=== PATIENT | female | born 1995 | race Caucasian/White ===

== ENCOUNTER 2018-05-02 15:26 | Emergency (ER) | payer OTHER, SELFPAY ==
[2018-05-02 15:34] VITALS: BP 113/84; PULSE 98; RESP 20; TEMP 36.8; O2SAT 98; BMI 26.2
--- NOTE | 2018-05-02 16:49 | ED.GENADULT ---
HPI - General Adult <LUIS Buenrostro - Last Filed: 05/02/18 19:17> General Chief complaint: Environmental Exposure Stated complaint: INAHLED TOXINS, VOMITING Time Seen by Provider: 05/02/18 16:25 Source: patient Mode of arrival: ambulatory Limitations: no limitations History of Present Illness HPI narrative: Patient is a 23-year-old female who presents complaining of left shoulder pain as well as an exposure to radiator coolant. she states she was working on her car when a hose got loose and sprayed her in the face. She states she did not swallow any, but she worried she inhaled some and got some in her eyes. She states she fell over, which caused left shoulder pain as well as decreased range of motion. She denies any numbness or tingling. She states she flushed her face and vomited immediately. She states she called poison control. Upon the patient's arrival, poison Control was called and states that with her exposure, symptom care for any nausea or burning would be adequate at this point time. Poison Control states they did not receive a call from the patient. Related Data Allergies Allergy/AdvReac Type Severity Reaction Status Date / Time doxycycline [DOXYCYCLINE] Allergy Unknown Unverified 10/11/17 12:27 hydrocodone [HYDROCODONE] Allergy Unknown Unverified 10/11/17 12:27 Penicillins [PENICILLINS] Allergy Unknown Unverified 10/11/17 12:27 Review of Systems <LUIS Buenrostro - Last Filed: 05/02/18 19:17> Review of Systems GENERAL: Denies chills, fatigue, malaise, fever, sweats. HEENT: see HPI RESPIRATORY: Denies dyspnea, cough, wheezing, hemoptysis, sputum. CARDIOVASCULAR: Denies chest pain, palpitations, orthopnea, edema, GASTROINTESTINAL: Denies nausea, vomiting, abdominal pain, diarrhea, constipation, melena. : Denies dysuria, frequency, incontinence, hematuria, urinary retention. MUSCULOSKELETAL: See HPI SKIN: see HPI NEUROLOGIC: Denies weakness, headache, numbness, change in speech, confusion, seizures, incoordination. PSYCHIATRIC: No concerning psychosocial issues. 12 point review of systems is negative except for those stated above Exam <LIUS Buenrostro - Last Filed: 05/02/18 19:17> Narrative Exam Narrative: GENERAL: This is a well-nourished, well-developed patient, In no acute distress HEAD: Atraumatic. Normocephalic. No temporal or scalp tenderness. EYES: Pupils equal round and reactive. Extraocular motions intact. No scleral icterus. No injection or drainage. no nystagmus. ENT: Nose without bleeding, purulent drainage or septal hematoma. Throat without erythema, tonsillar hypertrophy or exudate. Uvula midline. Airway patent. NECK: Trachea midline. No JVD or lymphadenopathy. Supple, nontender, no meningeal signs. CARDIOVASCULAR: Regular rate and rhythm without murmurs, gallops, or rubs. RESPIRATORY: Clear to auscultation. Breath sounds equal bilaterally. No wheezes, rales, or rhonchi. GASTROINTESTINAL: Abdomen soft, non-tender, nondistended. No hepato-splenomegaly, or palpable masses. No guarding. EXTREMITIES: generalized pain to palpation left shoulder. Patient has positive radial pulse left shoulder. Patient is able to flex, extend pronate supinate shoulder with negative empty can test. BACK: Nontender without deformity or crepitance. No flank tenderness. NEURO: AOx3. SKIN: No rash or erythema. No erythema, ecchymosis or evidence of burn on face. Initial Vital Signs Initial Vital Signs: Vital Signs Temperature 98.2 F 05/02/18 15:34 Pulse Rate 98 H 05/02/18 15:34 Respiratory Rate 20 05/02/18 15:34 Blood Pressure 113/84 05/02/18 15:34 Pulse Oximetry 98 05/02/18 15:34 <Claudy Oro MD - Last Filed: 05/02/18 19:18> Initial Vital Signs Initial Vital Signs: Vital Signs Temperature 98.2 F 05/02/18 15:34 Pulse Rate 98 H 05/02/18 15:34 Respiratory Rate 20 05/02/18 15:34 Blood Pressure 113/84 05/02/18 15:34 Pulse Oximetry 98 05/02/18 15:34 Course <BARRINGTON Buenrostro-WILIAM - Last Filed: 05/02/18 19:17> Orders Ordered: ED Orders 05/02/18 16:49 XR shoulder LT min 2V Stat Vital Signs - 8 hr 05/02/18 15:34 05/02/18 18:11 Temperature 98.2 F Pulse Rate 98 H 87 Respiratory Rate 20 14 Blood Pressure 113/84 Pulse Oximetry 98 98 <Claudy Oro MD - Last Filed: 05/02/18 19:18> Orders Ordered: ED Orders 05/02/18 16:49 XR shoulder LT min 2V Stat Vital Signs - 8 hr 05/02/18 15:34 05/02/18 18:11 Temperature 98.2 F Pulse Rate 98 H 87 Respiratory Rate 20 14 Blood Pressure 113/84 Pulse Oximetry 98 98 Medical Decision Making <RADHA Buenrostro - Last Filed: 05/02/18 19:17> Imaging Data shoulder xray : Radiologist's impression: [address] [address] XRay Report Signed Patient: Sandee Hitchcock [facility]#: [id number] : 1995Acct:[id number] Age/Sex: 23 / FDate of Service: 05/02/18 Loc: ED Accession Number: [id number] Procedure: XR shoulder LT min 2V Ordering Provider: Perri Hagan PROCEDURE: XR SHOULDER LT MIN 2V INDICATIONS: left shoulder pain post fall earlier today TECHNIQUE: 3 views of the shoulder were acquired. COMPARISON: None. FINDINGS: Bones: No fractures or dislocations. No suspicious bony lesions. Visualized ribs appear intact. Soft tissues: No suspicious soft tissue calcifications. IMPRESSION: No fracture. No osseous lesion. If symptoms and/or clinical suspicion for pathology persists, further assessment with repeat radiographs (7-10 days) or advanced imaging (e.g. CT, MRI or bone scan) may be helpful. Dictated by: Cyndee Barron MD, PhD on 05/02/2018 at 16:22 Approved by: Cyndee Barron MD, PhD on 05/02/2018 at 16:23 [facility] Narrative Medical decision making narrative: Patient presents with chief complaint of radiator coolant exposure. We spoke extensively with poison Control several times, who states the patient does not need further evaluation or additional workup at this point time. They stated that if they had spoken with her, they would not have sent her to the emergency department. Patient's left shoulder x-ray came back with no acute fracture. We discussed follow up with primary care provider if continued pain despite conservative measures of rest, ice obns-cde-[id number] pain medications as needed and able. Patient remained hemodynamically stable and alert and oriented throughout her stay in the emergency department. No questions or concerns upon discharge. Discharge Plan Departure Patient Disposition: Home Clinical Impression: Acute pain of left shoulder, Chemical exposure Discharge Date/Time: 05/02/18 18:11 Interventions: ED Discharge Assessment Last Done: 05/02/18 18:11 Activity Restrictions/Additional Instructions: Your shoulder x-ray came back negative. Please follow-up with primary care provider for worsening or no improvement of her shoulder pain. We spoke with poison Control several times about your exposure to radiator coolant. If you have any questions or concerns about her exposure, feel free to call poison Control at . they state that all care at this point is symptomatic. Please feel free to come back to the emergency department for any acute concerns or follow up with primary care provider. <Claudy Oro MD - Last Filed: 05/02/18 19:18> Cosign ED Attending Remingtonature Attestation: I was present in the ER at the time this patient's care. I was available for verbal consultation or to see the patient directly if requested. I agree with the assessment and treatment plan.
--- NOTE | 2018-05-02 16:51 | PC.NURSE ---
Addendum entered by Brett Anaya R.N. 05/02/18 18:10: poison control contacted, recommend no intervention or diag, rec treatment of sx Original Note: pt reports steam from split radiator hose struck her in the face when she opened the smith of her car. She states steam got in her eyes and mouth, vomited x2 after exposure. Also reports face feels itchy, no redness or visible sign of injury to face, speaking in full sentences no apparent distress. She states she flushed her eyes with water for approx 10 min following the incident, denies eye irritation/visual changes at time of exam.
--- NOTE | 2018-05-02 17:00 | ED_ITS ---
HPI - General Adult <LUIS Buenrostro - Last Filed: 05/02/18 19:17> General Chief complaint: Environmental Exposure Stated complaint: INAHLED TOXINS, VOMITING Time Seen by Provider: 05/02/18 16:25 Source: patient Mode of arrival: ambulatory Limitations: no limitations History of Present Illness HPI narrative: Patient is a 23-year-old female who presents complaining of left shoulder pain as well as an exposure to radiator coolant. she states she was working on her car when a hose got loose and sprayed her in the face. She states she did not swallow any, but she worried she inhaled some and got some in her eyes. She states she fell over, which caused left shoulder pain as well as decreased range of motion. She denies any numbness or tingling. She states she flushed her face and vomited immediately. She states she called poison control. Upon the patient's arrival, poison Control was called and states that with her exposure, symptom care for any nausea or burning would be adequate at this point time. Poison Control states they did not receive a call from the patient. Related Data Allergies Allergy/AdvReac Type Severity Reaction Status Date / Time doxycycline [DOXYCYCLINE] Allergy Unknown Unverified 10/11/17 12:27 hydrocodone [HYDROCODONE] Allergy Unknown Unverified 10/11/17 12:27 Penicillins [PENICILLINS] Allergy Unknown Unverified 10/11/17 12:27 Review of Systems <LUIS Buenrostro - Last Filed: 05/02/18 19:17> Review of Systems GENERAL: Denies chills, fatigue, malaise, fever, sweats. HEENT: see HPI RESPIRATORY: Denies dyspnea, cough, wheezing, hemoptysis, sputum. CARDIOVASCULAR: Denies chest pain, palpitations, orthopnea, edema, GASTROINTESTINAL: Denies nausea, vomiting, abdominal pain, diarrhea, constipation, melena. : Denies dysuria, frequency, incontinence, hematuria, urinary retention. MUSCULOSKELETAL: See HPI SKIN: see HPI NEUROLOGIC: Denies weakness, headache, numbness, change in speech, confusion, seizures, incoordination. PSYCHIATRIC: No concerning psychosocial issues. 12 point review of systems is negative except for those stated above Exam <LUIS Buenrostro - Last Filed: 05/02/18 19:17> Narrative Exam Narrative: GENERAL: This is a well-nourished, well-developed patient, In no acute distress HEAD: Atraumatic. Normocephalic. No temporal or scalp tenderness. EYES: Pupils equal round and reactive. Extraocular motions intact. No scleral icterus. No injection or drainage. no nystagmus. ENT: Nose without bleeding, purulent drainage or septal hematoma. Throat without erythema, tonsillar hypertrophy or exudate. Uvula midline. Airway patent. NECK: Trachea midline. No JVD or lymphadenopathy. Supple, nontender, no meningeal signs. CARDIOVASCULAR: Regular rate and rhythm without murmurs, gallops, or rubs. RESPIRATORY: Clear to auscultation. Breath sounds equal bilaterally. No wheezes , rales, or rhonchi. GASTROINTESTINAL: Abdomen soft, non-tender, nondistended. No hepato-splenomegaly , or palpable masses. No guarding. EXTREMITIES: generalized pain to palpation left shoulder. Patient has positive radial pulse left shoulder. Patient is able to flex, extend pronate supinate shoulder with negative empty can test. BACK: Nontender without deformity or crepitance. No flank tenderness. NEURO: AOx3. SKIN: No rash or erythema. No erythema, ecchymosis or evidence of burn on face. Initial Vital Signs Initial Vital Signs: Vital Signs Temperature 98.2 F 05/02/18 15:34 Pulse Rate 98 H 05/02/18 15:34 Respiratory Rate 20 05/02/18 15:34 Blood Pressure 113/84 05/02/18 15:34 Pulse Oximetry 98 05/02/18 15:34 <Claudy Oro MD - Last Filed: 05/02/18 19:18> Initial Vital Signs Initial Vital Signs: Vital Signs Temperature 98.2 F 05/02/18 15:34 Pulse Rate 98 H 05/02/18 15:34 Respiratory Rate 20 05/02/18 15:34 Blood Pressure 113/84 05/02/18 15:34 Pulse Oximetry 98 05/02/18 15:34 Course <BARRINGTON Buenrostro-WILIAM - Last Filed: 05/02/18 19:17> Orders Ordered: ED Orders 05/02/18 16:49 XR shoulder LT min 2V Stat Vital Signs - 8 hr 05/02/18 15:34 05/02/18 18:11 Temperature 98.2 F Pulse Rate 98 H 87 Respiratory Rate 20 14 Blood Pressure 113/84 Pulse Oximetry 98 98 <Claudy Oro MD - Last Filed: 05/02/18 19:18> Orders Ordered: ED Orders 05/02/18 16:49 XR shoulder LT min 2V Stat Vital Signs - 8 hr 05/02/18 15:34 05/02/18 18:11 Temperature 98.2 F Pulse Rate 98 H 87 Respiratory Rate 20 14 Blood Pressure 113/84 Pulse Oximetry 98 98 Medical Decision Making <RADHA Buenrostro - Last Filed: 05/02/18 19:17> Imaging Data shoulder xray : Radiologist's impression: [address] [address] XRay Report Signed Patient: Sandee Hitchcock [facility]#: [id number] : 1995Acct:[id number] Age/Sex: 23 / FDate of Service: 05/02/18 Loc: ED Accession Number: [id number] Procedure: XR shoulder LT min 2V Ordering Provider: Perri Hagan PROCEDURE: XR SHOULDER LT MIN 2V INDICATIONS: left shoulder pain post fall earlier today TECHNIQUE: 3 views of the shoulder were acquired. COMPARISON: None. FINDINGS: Bones: No fractures or dislocations. No suspicious bony lesions. Visualized ribs appear intact. Soft tissues: No suspicious soft tissue calcifications. IMPRESSION: No fracture. No osseous lesion. If symptoms and/or clinical suspicion for pathology persists, further assessment with repeat radiographs (7-10 days) or advanced imaging (e.g. CT, MRI or bone scan) may be helpful. Dictated by: Cyndee Barron MD, PhD on 05/02/2018 at 16:22 Approved by: Cyndee Barron MD, PhD on 05/02/2018 at 16:23 [facility] Narrative Medical decision making narrative: Patient presents with chief complaint of radiator coolant exposure. We spoke extensively with poison Control several times, who states the patient does not need further evaluation or additional workup at this point time. They stated that if they had spoken with her, they would not have sent her to the emergency department. Patient's left shoulder x- ray came back with no acute fracture. We discussed follow up with primary care provider if continued pain despite conservative measures of rest, ice over-the- counter pain medications as needed and able. Patient remained hemodynamically stable and alert and oriented throughout her stay in the emergency department. No questions or concerns upon discharge. Discharge Plan Departure Patient Disposition: Home Clinical Impression: Acute pain of left shoulder, Chemical exposure Discharge Date/Time: 05/02/18 18:11 Interventions: ED Discharge Assessment Last Done: 05/02/18 18:11 Activity Restrictions/Additional Instructions: Your shoulder x-ray came back negative. Please follow-up with primary care provider for worsening or no improvement of her shoulder pain. We spoke with poison Control several times about your exposure to radiator coolant. If you have any questions or concerns about her exposure, feel free to call poison Control at . they state that all care at this point is symptomatic. Please feel free to come back to the emergency department for any acute concerns or follow up with primary care provider. <Claudy Oro MD - Last Filed: 05/02/18 19:18> Cosign ED Attending Remingtonature Attestation: I was present in the ER at the time this patient's care. I was available for verbal consultation or to see the patient directly if requested. I agree with the assessment and treatment plan.
[2018-05-02 18:11] VITALS: PULSE 87; RESP 14; O2SAT 98
== END 2018-05-02 18:11 | disposition home or self-care (01) ==
PROVIDERS: Emergency Provider Nurse Practitioner Family
DX: M25.512 Pain in left shoulder (principal); Z77.098 Contact with and (suspected) exposure to other hazardous, chiefly nonmedicinal, chemicals
CPT/HCPCS: 73030; 99282; 99283

== ENCOUNTER 2018-10-10 19:36 | Emergency (ER) | payer SELFPAY ==
[2018-10-10 19:39] VITALS: BP 120/76; PULSE 93; RESP 20; TEMP 36.9; O2SAT 100
--- NOTE | 2018-10-10 20:53 | ED_ITS ---
HPI - Ear Problem <RADHA Buenrostro - Last Filed: 10/10/18 20:58> General Chief complaint: Ear Stated complaint: Double ear pain Time Seen by Provider: 10/10/18 20:44 Source: patient History of Present Illness HPI Narrative: The patient is a 23-year-old nonsmoker with history of eustachian tube dysfunction who presents with a chief complaint of bilateral ear pain. She states has been going on for weeks, with transient fevers, sore throat. she does complain of the occasional cough. No shortness of breath, chest pain. She has taken Tylenol once for this. She complains of nausea, but no vomiting or diarrhea. She has not called her primary care provider. She denies abdominal pain. Related Data Allergies Allergy/AdvReac Type Severity Reaction Status Date / Time doxycycline [DOXYCYCLINE] Allergy Unknown Unverified 10/11/17 12:27 hydrocodone [HYDROCODONE] Allergy Unknown Unverified 10/11/17 12:27 Penicillins [PENICILLINS] Allergy Unknown Unverified 10/11/17 12:27 shellfish derived Allergy Anaphylaxis Verified 10/10/18 19:44 Review of Systems <RADHA Buenrostro - Last Filed: 10/10/18 20:58> Review of Systems GENERAL: See HPI HEENT: See HPI RESPIRATORY: See HPI CARDIOVASCULAR: Denies chest pain, palpitations, orthopnea, edema, GASTROINTESTINAL: Denies nausea, vomiting, abdominal pain, diarrhea, constipation, melena. : Denies dysuria, frequency, incontinence, hematuria, urinary retention. MUSCULOSKELETAL: denies weakness, joint pain, or bony pain SKIN: Denies rash, skin lesions, or other NEUROLOGIC: Denies weakness, headache, numbness, change in speech, confusion, seizures, incoordination. PSYCHIATRIC: No concerning psychosocial issues. 12 point review of systems is negative except for those stated above PFSH <RADHA Buenrostro - Last Filed: 10/10/18 20:58> Social History Smoking Status: Never smoker Social History Smoking Status: Never smoker Exam <RADHA Buenrostro - Last Filed: 10/10/18 20:58> Narrative Exam Narrative: GENERAL: This is a well-nourished, well-developed patient, in no acute distress HEAD: Atraumatic. Normocephalic. No temporal or scalp tenderness. pain to palpation of all sinuses. EYES: Pupils equal round and reactive. Extraocular motions intact. No scleral icterus. No injection or drainage. ENT: Nose without bleeding, purulent drainage or septal hematoma. Throat without erythema, tonsillar hypertrophy or exudate. Uvula midline. Airway patent. bilateral TMs pearly islas. Bilateral ear canals within normal limits. Cobblestoning noted on throat exam. NECK: Trachea midline. No JVD or lymphadenopathy. Supple, nontender, no meningeal signs. CARDIOVASCULAR: Regular rate and rhythm without murmurs, gallops, or rubs. RESPIRATORY: Clear to auscultation. Breath sounds equal bilaterally. No wheezes, rales, or rhonchi. No cough. No increased respiratory effort. No accessory muscle use. GASTROINTESTINAL: Abdomen soft, non-tender, nondistended. No hepato- splenomegaly, or palpable masses. No guarding. EXTREMITIES: No clubbing, cyanosis, or edema. No joint tenderness, effusion, or edema noted. BACK: Nontender without deformity or crepitance. No flank tenderness. NEURO: AOx3. SKIN: No rash or erythema. Initial Vital Signs Initial Vital Signs: Vital Signs Temperature 98.4 F 10/10/18 19:39 Pulse Rate 93 H 10/10/18 19:39 Respiratory Rate 20 10/10/18 19:39 Blood Pressure 120/76 10/10/18 19:39 Pulse Oximetry 100 10/10/18 19:39 <Lilly Simmons DO - Last Filed: 10/11/18 06:18> Initial Vital Signs Initial Vital Signs: Vital Signs Temperature 98.4 F 10/10/18 19:39 Pulse Rate 93 H 10/10/18 19:39 Respiratory Rate 20 10/10/18 19:39 Blood Pressure 120/76 10/10/18 19:39 Pulse Oximetry 100 10/10/18 19:39 Course <BARRINGTON Buenrostro-BC - Last Filed: 10/10/18 20:58> Vital Signs - 8 hr 10/10/18 19:39 Temperature 98.4 F Pulse Rate 93 H Respiratory Rate 20 Blood Pressure 120/76 Pulse Oximetry 100 <Lilly Simmons DO - Last Filed: 10/11/18 06:18> Vital Signs - 8 hr 10/10/18 19:39 Temperature 98.4 F Pulse Rate 93 H Respiratory Rate 20 Blood Pressure 120/76 Pulse Oximetry 100 Medical Decision Making <Perri HaganBARRINGTON-BC - Last Filed: 10/10/18 20:58> MDM Narrative Medical decision making narrative: The patient is a 23-year-old female presents with ear pain on exam. She has a benign exam. I discussed at length use of nasal rinse, Flonase and cttd-fyk-tpsufss medications as needed and able for symptom control. I encouraged to follow up with primary care physician if worsening or no improvement. Discussed the fact that it takes 2 weeks to have a bacterial sinus infection. Discussed return precautions including shortness of breath, chest pain or acute concerns. Offered to test patient for strep given her sore throat and recent fever, but the patient declined. No questions or concerns upon discharge. Discharge Plan Departure Patient Disposition: Home Clinical Impression: Acute otalgia Qualifiers: Laterality: bilateral Qualified Code(s): H92.03 - Otalgia, bilateral Discharge Date/Time: 10/10/18 21:13 Interventions: ED Discharge Assessment Last Done: 10/10/18 21:11 Instructions: DI for Viral Upper Respiratory Infection -- Adult, DI for Ear Pain-Adult Activity Restrictions/Additional Instructions: You do not have any signs of an ear infection on exam. Please continue to take ufkw-noz-szlygvl medications as needed and able. I suggest use of a nasal rinse combined with a Flonase nasal spray. You can also take Sudafed or an allergy medicine to help with your congestion. Please follow up with your primary care provider for new or worsening symptoms. This turn into a sinus infection if it is not treated at this point in time. We are concerned about bacterial sinus infections after about 2 weeks of symptoms. come back to emergency department for any acute concerns such as chest pain or shortness of breath Referrals: Elizabeth Jacobson ARNP [Primary Care Provider] - <Lilly Simmons DO - Last Filed: 10/11/18 06:18> Cosign ED Attending Coslea[place]ure Attestation: I was immediately available in the department for consultation. Documentation has been reviewed. I agree with assessment and plan.
[2018-10-10 21:07] VITALS: BP 116/79; PULSE 94; RESP 16; O2SAT 97
== END 2018-10-10 21:13 | disposition home or self-care (01) ==
PROVIDERS: Emergency Provider Nurse Practitioner Family; PCP Nurse Practitioner Family
DX: H92.03 Otalgia, bilateral (principal)
CPT/HCPCS: 99282

== ENCOUNTER 2019-03-31 19:18 | Emergency (ER) | payer OTHER, SELFPAY ==
[2019-03-31 19:27] VITALS: BMI 25.6
--- NOTE | 2019-03-31 19:29 | DI.RAD.S_ITS ---
PROCEDURE: XR CHEST 1V INDICATIONS: chest pain TECHNIQUE: One view of the chest was acquired. COMPARISON: None. FINDINGS: Surgical changes and devices: None. Lungs and pleura: Lungs are clear. No pleural effusions or pneumothorax. Mediastinum: Mediastinal contours appear normal. Heart size is normal. Bones and chest wall: No suspicious bony lesions. Overlying soft tissues appear unremarkable. IMPRESSION: No acute process. Dictated by: Mehnaz Barry M.D. on 03/31/2019 at 19:51 Approved by: Mehnaz Barry M.D. on 03/31/2019 at 19:52
[2019-03-31 20:11] LABS: Add Manual Diff / Slide Review NO; Basophils Absolute Auto 0 /uL (0-100); Basophils Percent Auto 0.3 % (0-2); Eosinophils Absolute Auto 0 /uL (0-450); Eosinophils Percent Auto 0.1 % (2-4); Hematocrit 40.2 % (36-46); Lymphocytes Absolute Auto 3800 /uL (1100-4500); Lymphocytes Percent Auto 29.6 % (25-40); Mean Corpuscular HGB Conc 34.7 % (30-36); Mean Corpuscular Hemoglobin 32.6 PG (26-34); Mean Corpuscular Volume 93.8 fL (80-100); Monocytes Absolute Auto 500 /uL (0-900); Monocytes Percent Auto 4.2 % (3-14); Neutrophils Absolute Auto 8500 /uL (1500-7000); Neutrophils Percent Auto 65.8 % (50-75); Platelet Count 327 X10^3/uL (150-400); Red Blood Cell Count 4.28 X10^6/uL (4.0-5.2); Red Cell Distribution Width 12.4 % (11.6-14.8); White Blood Cell Count 12.8 X10^3/uL (4.5-11.0)
--- NOTE | 2019-03-31 20:17 | ED_ITS ---
HPI - Arrhythmia/Palpitations General Chief Complaint: Arrhythmia/Palpitations Stated Complaint: palpitations with thingling in hands in feet Time Seen by Provider: 03/31/19 19:20 Source: patient Mode of arrival: Ambulatory Limitations: no limitations History of Present Illness HPI narrative: 24-year-old female nonsmoker with history of tachycardia presents for evaluation of a rapid heart rate earlier today. She denies any chest pain. She states when it happens she gets a bit dizzy and has numbness in her fing ertips but that is currently not happening. She denies any change in her medications nor caffeine or nicotine. She does state that she very rarely consumes alcohol and drank a fair amount last night. She denies chest pain. She has had no vomiting or diarrhea. She is not dizzy or lightheaded. She had been out of her gabapentin for about 3 weeks but got her insurance back and plans to get it refilled tomorrow complaint: rapid heart beat Onset (ago): hour(s) Duration: now resolved Severity: moderate Context: occurred during rest Arrhythmia history: other Associated symptoms: nausea and paresthesias Related Data Allergies Allergy/AdvReac Type Severity Reaction Status Date / Time doxycycline [DOXYCYCLINE] Allergy Unknown Verified 03/31/19 19:27 hydrocodone [HYDROCODONE] Allergy Unknown Verified 03/31/19 19:27 Penicillins [PENICILLINS] Allergy Unknown Verified 03/31/19 19:27 shellfish derived Allergy Anaphylaxis Verified 03/31/19 19:27 Review of Systems Constitutional Constitutional: Denies chills, Denies fatigue, Denies fever(s), Denies frequent falls, Denies lethargy and Denies weakness Eyes Eyes: Denies change in vision, Denies eye discharge, Denies irritation and Denies loss of vision ENT Ears, Nose, Mouth, and Throat: Denies change in voice, Denies dizziness, Denies neck pain, Denies sore throat and Denies throat swelling Cardiovascular Cardiovascular: Denies chest pain, Reports rapid heart rate, Denies irregular heart rhythm, Denies lightheadedness, Denies palpitations, Denies dyspnea, Denies dyspnea on exertion and Denies orthopnea Respiratory Respiratory: Denies cough, Denies dyspnea, Denies dyspnea on exertion and Denies wheezing Gastrointestinal Gastrointestinal: Denies abdominal pain, Denies change in bowel habits, Denies diarrhea, Denies nausea and Denies vomiting Genitourinary Genitourinary: Denies hematuria, Denies flank pain, Denies urinary incontinence and Denies urinary urgency Musculoskeletal Musculoskeletal: Denies back pain, Denies muscle weakness, Denies neck pain, Denies numbness and Denies tingling Integumentary/Breasts Skin/Breast: Denies pruritus, Denies erythema, Denies rash and Denies wounds Neurologic Neurologic: Denies behavioral changes, Denies confusion, Denies dizziness, Denies frequent falls, Denies loss of vision, Denies numbness, Denies tingling and Denies weakness Psychiatric Psychiatric: Denies anxiety, Denies behavioral changes, Denies confusion, Denies depression, Denies homicidal ideation and Denies suicidal ideation Endocrine Endocrine: Denies fatigue, Denies flushing and Denies palpitations Hematologic/Lymphatic Hematologic/Lymphatic: Denies easy bruising Allergic/Immunologic Allergic/Immunologic: Denies urticaria, Denies throat swelling and Denies wheezing PFSH Social History Smoking Status: Never smoker Social History Smoking Status: Never smoker Exam Narrative Exam Narrative: GENERAL: [24] year old patient appears stated age. Well- nourished, well-developed patient, in mild distress. HEAD: Atraumatic. Normocephalic. EYES: Pupils equal round and reactive. Extraocular motions intact. No scleral icterus. No injection or drainage. ENT: Nose without bleeding, purulent drainage. Throat without erythema, tonsillar hypertrophy or exudate. Airway patent. NECK: Trachea midline. Non tender CARDIOVASCULAR: Regular rate and rhythm without murmurs, gallops, or rubs. RESPIRATORY: Clear to auscultation. Breath sounds equal bilaterally. No wheezes, rales, or rhonchi. GASTROINTESTINAL: Abdomen soft, non-tender, nondistended. EXTREMITIES: No edema or joint tenderness. BACK: Nontender without deformity or crepitance. No flank tenderness. NEURO: AOx3. SKIN: No rash or erythema of visible areas Initial Vital Signs Initial Vital Signs: Vital Signs Pulse Rate 103 H 03/31/19 20:34 Respiratory Rate 23 03/31/19 20:34 Blood Pressure 113/55 L 03/31/19 20:34 Pulse Oximetry 100 03/31/19 20:34 Course Orders Ordered: ED Orders 03/31/19 19:29 XR chest 1V Stat EKG-12 Lead Stat 03/31/19 19:35 Complete Blood Count AUTO DIFF Stat Comprehensive Metabolic Panel Stat Lipase Stat Partial Thromboplastin Time Stat Prothrombin Time INR Stat Troponin & CK Cardiac Panel Stat Vital Signs Vital signs: Vital Signs - 8 hr 03/31/19 20:34 Pulse Rate 103 H Respiratory Rate 23 Blood Pressure [Left Arm] 113/55 L Pulse Oximetry 100 MDM - Arrhythmia/Palpitations Lab Data Result diagrams: 03/31/19 19:35 03/31/19 19:35 Labs: Lab Results 03/31/19 03/31/19 03/31/19 Range/Units 19:35 19:35 19:35 WBC 12.8 H (4.5-11.0) X10^3/uL RBC 4.28 (4.0-5.2) X10^6/uL Hgb 14.0 (12.0-16.0) g/dL Hct 40.2 (36-46) % MCV 93.8 (80-100) fL MCH 32.6 (26-34) PG MCHC 34.7 (30-36) % RDW 12.4 (11.6-14.8) % Plt Count 327 (150-400) X10^3/uL Neut % (Auto) 65.8 (50-75) % Lymph % (Auto) 29.6 (25-40) % [place] % (Auto) 4.2 (3-14) % Eos % (Auto) 0.1 L (2-4) % Baso % (Auto) 0.3 (0-2) % Neut # (Auto) 8500 H (0593-2569) /uL Lymph # (Auto) 3800 (4882-8165) /uL [place] # (Auto) 500 (0-900) /uL Eos # (Auto) 0 (0-450) /uL Baso # (Auto) 0 (0-100) /uL PT 12.7 (10.1-12.7) SECONDS INR 1.1 (0.9-1.3) APTT 32 (26.4-36.2) SECONDS Sodium 139 (137-145) mmol/L Potassium 3.8 (3.4-5.1) mmol/L Chloride 106 (98-107) mmol/L Carbon Dioxide 24 (22-32) mmol/L BUN 12 (7-17) mg/dL Creatinine 0.60 (0.52-1.04) mg/dL Estimated GFR > 60.0 (>60) mL/min BUN/Creatinine Ratio 20.0 (6-22) Glucose 89 (70-100) mg/dL Calcium 9.4 (8.4-10.2) mg/dL Total Bilirubin 0.5 (0.2-1.3) mg/dL AST 25 (14-36) IU/L ALT 12 (9-52) IU/L Alkaline Phosphatase 61 (38-126) U/L Total Creatine Kinase 133 (30-135) U/L CK-MB (CK-2) 0.43 (<2.37) ng/mL CK-MB (CK-2) Rel Index 0.3 L (1.5-5.0) % Troponin I < 0.012 (0.01-0.034) ng/mL Total Protein 7.4 (6.3-8.2) g/dL Albumin 4.1 (3.5-5.0) g/dL Globulin 3.3 (1.7-4.1) g/dL Albumin/Globulin Ratio 1.2 (1.0-2.8) Lipase 42 (23-300) U/L ECG Data Attestation: I personally reviewed and interpreted this ECG as follows: Prior ECG tracings: available for review Interpretation: EKG is normal sinus rhythm rate [ 83] and free of any signs of ischemia or ectopy. No ST segmental elevation or depression. No T wave inversions Discharge Plan Departure Patient Disposition: Home Clinical Impression: Heart palpitations Discharge Date/Time: 03/31/19 21:01 Instructions: Arrhythmias Activity Restrictions/Additional Instructions: *You have been diagnosed with [palpitations] *What to do: * continue to take medications as directed *Follow up with your primary care provider in 2-3 days, call for an appointment. Let them know you were seen in the Emergency Department and that we ask that you be seen in follow up *Return to ER if you should have any new, worsening or concerning symptoms *Avoid significant caffeine or alcohol Referrals: Elizabeth Jacobson ARNP [Primary Care Provider] - Stand Alone Forms: Work Release Note
[2019-03-31 20:22] LABS: INR 1.1 (0.9-1.3); Prothrombin Time 12.7 SECONDS (10.1-12.7)
[2019-03-31 20:25] LABS: PTT Partial Thromboplastin Tim 32 SECONDS (26.4-36.2)
[2019-03-31 20:27] LABS: Alanine Aminotransferase 12 IU/L (9-52); Albumin 4.1 g/dL (3.5-5.0); Albumin Globulin Ratio 1.2 (1.0-2.8); Alkaline Phosphatase 61 U/L (38-126); Aspartate Aminotransferase 25 IU/L (14-36); Bilirubin Total 0.5 mg/dL (0.2-1.3); Blood Urea Nitrogen 12 mg/dL (7-17); Calcium 9.4 mg/dL (8.4-10.2); Carbon Dioxide 24 mmol/L (22-32); Chloride 106 mmol/L (98-107); Creatine Kinase 133 U/L (30-135); Estimated Glomerular Filt Rate > 60.0 mL/min (>60); Globulin 3.3 g/dL (1.7-4.1); Glucose 89 mg/dL (70-100); HEMOLYSIS 29 (0-50); Lipase 42 U/L (23-300); Potassium 3.8 mmol/L (3.4-5.1); Sodium 139 mmol/L (137-145); Total Protein 7.4 g/dL (6.3-8.2)
[2019-03-31 20:34] VITALS: BP 113/55; PULSE 103; RESP 23; O2SAT 100
[2019-03-31 20:39] LABS: Troponin I < 0.012 ng/mL (0.01-0.034)
[2019-03-31 20:42] LABS: CKMB % Relative Index 0.3 % (1.5-5.0); Creatine Kinase MB 0.43 ng/mL (<2.37)
== END 2019-03-31 21:01 | disposition home or self-care (01) ==
PROVIDERS: Emergency Provider Emergency Medicine; PCP Nurse Practitioner Family
DX: R00.2 Palpitations (principal)
CPT/HCPCS: 36415; 71045; 80053; 82550; 82553; 83690; 84484; 85025; 85610; 85730; 93005; 99283; 99285

== ENCOUNTER 2019-04-10 01:11 | Emergency (ER) | payer OTHER, SELFPAY ==
[2019-04-10 01:27] VITALS: BP 124/75; PULSE 91; RESP 16; TEMP 36.7; O2SAT 100; BMI 25.6
--- NOTE | 2019-04-10 01:52 | ED_ITS ---
HPI - Anxiety General Chief Complaint: Anxiety Stated Complaint: Anxiety and SOB Time Seen by Provider: 04/10/19 01:26 Source: patient and EMS Mode of arrival: EMS Limitations: no limitations History of Present Illness HPI narrative: Patient is a 24-year-old female. Has a history of lupus, anxiety, tachycardia. Was at work this evening where she states that she was feeling chest pain and shortness of breath and feeling anxious. She states that she has been seen 2 times recently once the walk-in clinic once for the emergency department for palpitations. She states she has worn a Holter monitor in the past when she had symptoms and she was told that there was nothing abnormal. She is scheduled for an echocardiogram later this year she also states she has been told that she has ?valve problems ?and was told to come to the emergency department if she ever felt short of breath because it could mean that she was not getting oxygen to her body. Related Data Previous Rx's Medication Instructions Recorded albuterol sulfate 2 puff INHALATION Q4-6H PRN #18 04/10/19 gram Allergies Allergy/AdvReac Type Severity Reaction Status Date / Time doxycycline [DOXYCYCLINE] Allergy Unknown Verified 03/31/19 19:27 hydrocodone [HYDROCODONE] Allergy Unknown Verified 03/31/19 19:27 Penicillins [PENICILLINS] Allergy Unknown Verified 03/31/19 19:27 shellfish derived Allergy Anaphylaxis Verified 03/31/19 19:27 Review of Systems Constitutional Constitutional: Denies fatigue Cardiovascular Cardiovascular: Reports chest pain, Reports rapid heart rate, Reports lightheadedness, Reports palpitations and Reports dyspnea Respiratory Respiratory: Denies cough and Reports dyspnea Gastrointestinal Gastrointestinal: Denies abdominal pain, Denies nausea and Denies vomiting Musculoskeletal Musculoskeletal: Denies myalgias and Denies arthralgias Integumentary/Breasts Skin/Breast: Denies lesions and Denies rash Psychiatric Psychiatric: Reports anxiety Endocrine Endocrine: Denies fatigue and Reports palpitations Hematologic/Lymphatic Hematologic/Lymphatic: Denies easy bleeding and Denies easy bruising [facility] Medical History Anxiety (Acute) Exercise-induced asthma (Acute) Lupus (Acute) Social History Smoking Status: Never smoker Social History Smoking Status: Never smoker Exam Initial Vital Signs Initial Vital Signs: Vital Signs Temperature 98.1 F 04/10/19 01:27 Pulse Rate 91 H 04/10/19 01:27 Respiratory Rate 16 04/10/19 01:27 Blood Pressure 124/75 04/10/19 01:27 Pulse Oximetry 100 04/10/19 01:27 Const General: cooperative and comfortable Orientation: alert HENMT Head: normal to inspection and normocephalic Resp Effort & Inspection: normal respiratory effort Auscultation: clear to auscultation bilaterally Cardio Rate: regular rate Rhythm: regular rhythm Skin Lesions: no lesions Rashes: no rashes Neuro General: alert and awake Cognition: normal cognition Speech: speech normal Extrem General: normal to inspection and capillary refill normal Psych Other: Anxious Scores [facility] [place] coma scale eye opening: Spontaneous [place] coma scale verbal response: Orientated [place] coma scale motor response: [place] commands [place] coma scale total score: 15 Course Orders Ordered: ED Orders 04/10/19 EKG-12 Lead Stat 04/10/19 01:53 XR chest 1V Stat Discontinued Medications Lorazepam (Ativan) 0.5 mg PO NOW ONE Stop: 04/10/19 01:55 Last Admin: 04/10/19 02:17 Dose: 0.5 mg Documented by: HAL Vital Signs Vital signs: Vital Signs - 8 hr 04/10/19 01:27 Temperature 98.1 F Pulse Rate 91 H Respiratory Rate 16 Blood Pressure 124/75 Pulse Oximetry 100 MDM - Anxiety Imaging Data Chest x-ray: Attestation: I personally reviewed and interpreted this imaging study as follows: My impression: No acute abnormalities, normal size heart ECG Data Attestation: I personally reviewed and interpreted this ECG as follows: Prior ECG tracings: not available for review Interpretation: Sinus rhythm Ventricular rate 82 Normal axis Normal QRS Normal QTC No ST T wave changes MDM Narrative Medical decision making narrative: Chest x-ray an EKG unremarkable. Vital signs unremarkable. I do suspect that her symptoms are anxiety related. She states that she has been short of breath. She does have a history of exercise-induced asthma. Offered an albuterol inhaler which she accepted. She also took an Ativan here in the ER. Will hold on further workup for now. Patient was instructed to contact her primary provider for follow-up. Instructed to keep all scheduled medical appointments including the echocardiogram later this year. She was given return precautions. She expressed understanding and agreement plan. Discharge Plan Departure Patient Disposition: Home Clinical Impression: Shortness of breath, Anxiety Chest pain Qualifiers: Chest pain type: unspecified Qualified Code(s): R07.9 - Chest pain, unspecified Instructions: Anxiety Disorders, DI for Atypical Chest Pain Activity Restrictions/Additional Instructions: I do recommend that you keep all of his scheduled medical appointments. Contact your primary provider for follow-up. Return to the emergency department for any new or worsening symptoms Prescriptions: New albuterol sulfate 90 mcg/actuation HFA aerosol inhaler 2 puff INHALATION Q4-6H PRN (Reason: shortness of breath) Qty: 18 RF: 0 Referrals: Elizabeth Jacobson ARNP [Primary Care Provider] -
--- NOTE | 2019-04-10 01:53 | DI.RAD.S_ITS ---
PROCEDURE: XR CHEST 1V INDICATIONS: Shortness of breath TECHNIQUE: One view of the chest was acquired. COMPARISON: Located Within [facility], CR, XR CHEST 1V, 03/31/2019, 19:35. FINDINGS: Surgical changes and devices: None. Lungs and pleura: Lungs are clear. No pleural effusions or pneumothorax. Mediastinum: Mediastinal contours appear normal. Heart size is normal. Bones and chest wall: No suspicious bony lesions. Overlying soft tissues appear unremarkable. IMPRESSION: No acute disease. Dictated by: Ruddy Ojeda M.D. on 04/10/2019 at 9:00 Approved by: Ruddy Ojeda M.D. on 04/10/2019 at 9:01
[2019-04-10] MEDS: LORazepam 0.5 MG TABLET PO (02:17)
[2019-04-10 02:30] VITALS: BP 117/83; PULSE 91; RESP 20; O2SAT 98
== END 2019-04-10 02:32 | disposition home or self-care (01) ==
PROVIDERS: Emergency Provider Emergency Medicine; PCP Nurse Practitioner Family
DX: R06.02 Shortness of breath (principal); F41.9 Anxiety disorder, unspecified; R07.9 Chest pain, unspecified
CPT/HCPCS: 71045; 93005; 99282; 99284

== ENCOUNTER 2019-05-18 21:02 | Emergency (ER) | payer OTHER, SELFPAY ==
--- NOTE | 2019-05-18 21:05 | ED_ITS ---
HPI - Extremity Problem General Chief complaint: Skin/Abscess/Foreign Body Stated complaint: thinks she has a spider bit on her right leg Time Seen by Provider: 05/18/19 21:05 Source: patient and other (friend at bedside) Mode of arrival: Ambulatory Limitations: no limitations History of Present Illness HPI Narrative: 24-year-old female comes in with complaint of redness on her right thigh. Patient states initially she thought it might be a spider bite but then realized the exact same location she had a shot of Toradol at 3:00 a.m. on . She states this was for her back. She has been taking oxycodone as well as a muscle relaxant. She states that the area is and had increasing redness particularly over the last 12 hours. The redness has been spreading throughout today. She states she had a temperature a 100.6? at home although her temperature was low here but she had just drink some liquid and traveled here in the car without her coat. Patient states she has had a little bit of headache and sore throat. He denies any chest pain or pressure, no shortness of breath. No nausea, no vomiting, no issues with bowel movements or urination. States her back is feeling better. She states that she came in today because of the redness and her friend told her they thought she had cellulitis. She has a history of lupus, fibromyalgia and been told that she strained her back. Related Data Previous Rx's Medication Instructions Recorded albuterol sulfate 2 puff INHALATION Q4-6H PRN #18 04/10/19 gram clindamycin HCl 300 mg PO QID 7 Days #28 cap 05/18/19 Allergies Allergy/AdvReac Type Severity Reaction Status Date / Time doxycycline [DOXYCYCLINE] Allergy Unknown Verified 05/18/19 21:17 hydrocodone [HYDROCODONE] Allergy Unknown Verified 05/18/19 21:17 Penicillins [PENICILLINS] Allergy Unknown Verified 05/18/19 21:17 shellfish derived Allergy Anaphylaxis Verified 05/18/19 21:17 Review of Systems Review of Systems ROS Unobtainable: All systems reviewed & are unremarkable except as noted in HPI and below Constitutional Constitutional: Denies chills, Reports fever(s) (100.6F at home.), Reports headache(s) (mild), Denies lethargy and Denies weakness ENT Ears, Nose, Mouth, and Throat: Reports headache(s) (mild), Denies lip swelling, Denies nasal congestion, Denies neck mass, Denies neck pain, Reports sore throat, Denies throat swelling and Denies tongue swelling Cardiovascular Cardiovascular: Denies chest pain, Denies dyspnea and Denies dyspnea on exertion Respiratory Respiratory: Denies chest congestion, Denies cough, Denies dyspnea, Denies dyspnea on exertion and Denies wheezing Gastrointestinal Gastrointestinal: Denies abdominal pain, Denies constipation, Denies diarrhea, Denies nausea and Denies vomiting Genitourinary Genitourinary: Denies hematuria, Denies urinary frequency, Denies dysuria and Denies urinary urgency Musculoskeletal Musculoskeletal: Reports back pain (improved with medications), Denies muscle weakness, Denies neck pain, Denies numbness and Denies tingling Integumentary/Breasts Skin/Breast: Reports erythema, Denies unusual bruising and Denies other (hives, no other rash) Neurologic Neurologic: Reports headache(s) (mild), Denies numbness, Denies tingling and Denies weakness Allergic/Immunologic Allergic/Immunologic: Denies urticaria, Denies lip swelling, Denies throat swelling, Denies tongue swelling and Denies wheezing Patient History Medical History Anxiety (Acute) Exercise-induced asthma (Acute) Lupus (Acute) Social History Smoking Status: Never smoker alcohol intake frequency: a few times a week Substance Use Type: does not use Exam Narrative Exam Narrative: GEN: well nourished, well appearing female, alert and oriented x 3, patient appears to be in no acute distress. HEENT: Atraumatic, pupils are equal round reactive to light, extraocular m ovements are intact, nares are clear, TMs are clear with no fluid, there is no conjunctival pallor. Throat is slightly erythematous without any exudates, tonsillar enlargement or uvular deviation, no muffled voice. Full range of motion. HEART: Regular rate and rhythm without murmur, clicks, rubs. LUNGS:Lungs clear to auscultation, no wheezes, rales, crackles, chest moves symmetrically ABD:bowel sounds normal, soft, non-tender, no guarding, rebound, rigidity, no masses noted, no hepatosplenomegaly :No CVA tenderness MSCL: Non-tender, no muscle atrophy, muscles strength 5/5 upper and lower extremities, full range of motion, normal gait NEURO:CN 2-12 intact, sensation normal SKIN: Patient has what appears to be a puncture wound on her right mid thigh with the surrounding [place] of erythema is 2 cm in diameter. She has several circles drawn on the erythema which she states were throughout today. The area is slightly tender to touch. There is no fluctuance or fluid collection, there is no swelling appreciated. There is no other erythema or rash noted elsewhere. Patient does not have any streaking. Very mild warmth to the area. Initial Vital Signs Initial Vital Signs: Vital Signs Temperature 99.8 F H 05/18/19 21:17 Pulse Rate 126 H 05/18/19 21:17 Respiratory Rate 16 05/18/19 21:17 Blood Pressure 129/86 05/18/19 21:17 Pulse Oximetry 98 05/18/19 21:17 Course Orders Ordered: Discontinued Medications Clindamycin HCl (Cleocin) 300 mg PO NOW ONE Stop: 05/18/19 21:18 Last Admin: 05/18/19 21:20 Dose: 300 mg Documented by: HAL Vital Signs Vital signs: Vital Signs - 8 hr 05/18/19 21:17 05/18/19 21:43 05/18/19 22:12 Temperature 99.8 F H Pulse Rate 126 H 130 H 119 H Respiratory Rate 16 Blood Pressure 129/86 Blood Pressure [Left Arm] 110/80 121/84 Pulse Oximetry 98 99 97 MDM - Extremity (Nontraumatic) MDM Narrative Medical decision making narrative: Patient has allergies to penicillin, amoxicillin and doxycycline and she states she stops breathing with all of them. Likely patient has cellulitis secondary to injection site. Less likely is allergic reaction as she does not have any pure itis or other allergic-type symptoms. Patient monitored for 15 minutes after medication given. On recheck patient states that she feels anxious but no other allergic symptoms and states she has chronic severe anxiety and this feels like that. Continued to monitor for 50 minutes and on recheck patient states she feels a little anxious still but denies any other symptoms, no rash, no swelling, no hives, no shortness of breath or chest pain. States it feels like her typical anxiety. Patient feels safe to return home and does not feel like she is having a reaction. She continues to have heart rate elevated above 100. We discussed reasons to return emergently, signs/symptoms to watch for and patient feels comfortable with plan. Discharge Plan Departure Patient Disposition: Home Clinical Impression: Cellulitis of right thigh Discharge Date/Time: 05/18/19 22:30 Instructions: DI for Cellulitis -- Adult Activity Restrictions/Additional Instructions: Follow-up with primary care if your symptoms have not totally resolved in the next 7 days. Continue antibiotics until they are completely gone. You may continue your prescription medications for pain as prescribed. Return to the emergency department for persistent fevers greater than 100.4 F, rapidly increasing redness, swelling, increasing pain in your leg, new weakness, numbness or loss of sensation, new rashes or other skin changes elsewhere, shortness of breath, difficulty breathing or swelling of her lips or mouth. Prescriptions: New clindamycin HCl 300 mg capsule 300 mg PO QID 7 Days Qty: 28 RF: 0 No Action albuterol sulfate 90 mcg/actuation HFA aerosol inhaler 2 puff INHALATION Q4-6H PRN (Reason: shortness of breath) Qty: 18 RF: 0 Referrals: Elizabeth Jacobson ARNP [Primary Care Provider] -
[2019-05-18 21:17] VITALS: BP 129/86; PULSE 126; RESP 16; TEMP 37.7; O2SAT 98; BMI 25.2
[2019-05-18] MEDS: CLINDAMYCIN 150 MG CAPSULE 300 MG PO (21:20)
--- NOTE | 2019-05-18 21:21 | PC.NURSE ---
Pt has an area on her right thigh that is red raised and painful. It is approx 2inches x 2.5 inches. Pt states that she received an injection in that exact spot yesterday.
[2019-05-18 21:43] VITALS: BP 110/80; PULSE 130; O2SAT 99
[2019-05-18 22:12] VITALS: BP 121/84; PULSE 119; O2SAT 97
== END 2019-05-18 22:30 | disposition home or self-care (01) ==
PROVIDERS: Emergency Provider Emergency Medicine; PCP Nurse Practitioner Family
DX: L03.115 Cellulitis of right lower limb (principal); F41.9 Anxiety disorder, unspecified
CPT/HCPCS: 99282; 99283

== ENCOUNTER 2019-08-23 21:03 | Emergency (ER) | payer OTHER, SELFPAY ==
[2019-08-23 21:22] VITALS: BP 121/75; PULSE 76; RESP 14; TEMP 36.4; O2SAT 96; BMI 26.5
--- NOTE | 2019-08-23 21:29 | ED.NECK ---
HPI - Neck Pain/Injury General Chief Complaint: Neck Pain/Injury Stated Complaint: states pinched nerve in neck, headache Time Seen by Provider: 08/23/19 21:17 Source: patient Mode of arrival: Ambulatory Limitations: no limitations History of Present Illness HPI Narrative: 24-year-old female here for evaluation who right upper back pain causing her to have a headache. States symptoms have been going on for the past week. Has been doing Tylenol without much improvement. No radiation to her right arm. Has never had anything like this in the past. States this started 1 week ago when she woke up from sleeping. Related Data Previous Rx's Medication Instructions Recorded albuterol sulfate 2 puff INHALATION Q4-6H PRN #18 04/10/19 gram cyclobenzaprine 10 mg PO TID PRN #12 tab 08/23/19 Allergies Allergy/AdvReac Type Severity Reaction Status Date / Time doxycycline [DOXYCYCLINE] Allergy Unknown Verified 08/23/19 21:21 hydrocodone [HYDROCODONE] Allergy Unknown Verified 08/23/19 21:21 Penicillins [PENICILLINS] Allergy Unknown Verified 08/23/19 21:21 shellfish derived Allergy Anaphylaxis Verified 08/23/19 21:21 Review of Systems Constitutional Constitutional: Denies fever(s) and Reports headache(s) ENT Ears, Nose, Mouth, and Throat: Denies vertigo, Denies dizziness and Reports headache(s) Cardiovascular Cardiovascular: Denies chest pain and Denies dyspnea Respiratory Respiratory: Denies dyspnea Musculoskeletal Musculoskeletal: Denies tingling Comments: Right upper back pain Integumentary/Breasts Skin/Breast: Denies lesions Neurologic Neurologic: Denies vertigo, Denies dizziness, Reports headache(s), Denies tingling and Denies paresthesias Hematologic/Lymphatic Hematologic/Lymphatic: Denies easy bleeding and Denies easy bruising Patient History Medical History Anxiety (Acute) Exercise-induced asthma (Acute) Lupus (Acute) Social History Smoking Status: Never smoker Smoking Status: Never smoker alcohol intake frequency: a few times a week Substance Use Type: does not use Exam Initial Vital Signs Initial Vital Signs: Vital Signs Temperature 97.6 F 08/23/19 21: Pulse Rate 76 08/23/19 21:22 Respiratory Rate 14 08/23/19 21:22 Blood Pressure 121/75 08/23/19 21:22 Pulse Oximetry 96 08/23/19 21:22 Const General: cooperative and comfortable Limitations: mental status not altered HENMT Head: normal to inspection and normocephalic Resp Effort & Inspection: normal respiratory effort Auscultation: clear to auscultation bilaterally Cardio Rate: regular rate Rhythm: regular rhythm Back/Spine/Pelvis Other: Paraspinal tenderness right cervical spine and right posterior shoulder. Skin Lesions: no lesions Rashes: no rashes Neuro General: alert and awake Cognition: normal cognition Speech: speech normal Extrem General: normal to inspection and capillary refill normal Course Orders Ordered: Discontinued Medications Cyclobenzaprine HCl (Flexeril 10 Mg Prepack) 1 bottle MISC SEEINSTR ONE Stop: 08/23/19 21:30 Last Admin: 08/23/19 22:10 Dose: 1 bottle Documented by: PREETHI Ketorolac Tromethamine (Toradol) 30 mg IM NOW ONE Stop: 08/23/19 21:30 Last Admin: 08/23/19 22:10 Dose: Not Given Documented by: PREETHI Vital Signs Vital signs: Vital Signs - 8 hr 08/23/19 21:22 08/23/19 22:14 Temperature 97.6 F Pulse Rate 76 68 Respiratory Rate 14 18 Blood Pressure 121/75 Blood Pressure [Left Arm] 116/68 Pulse Oximetry 96 100 MDM - Neck Pain/Injury MDM Narrative Medical decision making narrative: Patient with obvious musculoskeletal pain of the right shoulder. No radicular symptoms down her right arm. We did discuss the potential for a trigger point injections and she does seem to have 1 particular spot that hurts more than any of the others however she stated that she would like to hold on doing that for now. She was given Toradol. We did discuss the use of muscle relaxers. Discussed return precautions and follow-up instructions. Feel we could hold on any radiologic studies for now. She expressed understanding and agreement plan her Discharge Plan Departure Patient Disposition: Home Clinical Impression: Cervical paraspinal muscle spasm Discharge Date/Time: 08/23/19 22:17 Instructions: DI for Neck Pain Activity Restrictions/Additional Instructions: Recommend that you use the muscle relaxers as needed. I also recommend that you do some light stretching. You can also use heat and ice and massage. Contact your primary provider for a follow-up Prescriptions: New cyclobenzaprine 10 mg tablet 10 mg PO TID PRN (Reason: muscle spasm) Qty: 12 RF: 0 No Action albuterol sulfate 90 mcg/actuation HFA aerosol inhaler 2 puff INHALATION Q4-6H PRN (Reason: shortness of breath) Qty: 18 RF: 0 Referrals: Elizabeth Jacobson ARNP [Primary Care Provider] -
[2019-08-23] MEDS: CYCLOBENZAPRINE 10 MG PREPACK 1 BOTTLE MISC (22:10)
[2019-08-23 22:14] VITALS: BP 116/68; PULSE 68; RESP 18; O2SAT 100
== END 2019-08-23 22:17 | disposition home or self-care (01) ==
PROVIDERS: Emergency Provider Emergency Medicine; PCP Nurse Practitioner Family
DX: M62.838 Other muscle spasm (principal)
CPT/HCPCS: 99283; J1885

== ENCOUNTER 2020-07-29 16:58 | Emergency (ER) | payer SELFPAY ==
[2020-07-29 17:06] VITALS: BP 140/83; PULSE 103; RESP 16; TEMP 36.7; O2SAT 99; BMI 29.2
[2020-07-29 18:03] LABS: Add Manual Diff / Slide Review NO; Basophils Absolute Auto 0 /uL (0-100); Basophils Percent Auto 0.3 % (0-2); Eosinophils Absolute Auto 100 /uL (0-450); Eosinophils Percent Auto 0.9 % (2-4); Hematocrit 42.4 % (36-46); Hemoglobin 14.7 g/dL (12.0-16.0); Lymphocytes Absolute Auto 2600 /uL (1100-4500); Lymphocytes Percent Auto 36.2 % (25-40); Mean Corpuscular HGB Conc 34.7 % (30-36); Mean Corpuscular Hemoglobin 31.7 PG (26-34); Mean Corpuscular Volume 91.5 fL (80-100); Monocytes Absolute Auto 200 /uL (0-900); Monocytes Percent Auto 3.4 % (3-14); Neutrophils Absolute Auto 4200 /uL (1500-7000); Neutrophils Percent Auto 59.2 % (50-75); Platelet Count 340 X10^3/uL (150-400); Red Blood Cell Count 4.64 X10^6/uL (4.0-5.2); Red Cell Distribution Width 12.7 % (11.6-14.8); White Blood Cell Count 7.1 X10^3/uL (4.5-11.0)
[2020-07-29 18:10] LABS: Alanine Aminotransferase 18 IU/L (<35); Albumin 4.7 g/dL (3.5-5.0); Albumin Globulin Ratio 1.3 (1.0-2.8); Alkaline Phosphatase 106 U/L (38-126); Aspartate Aminotransferase 25 IU/L (14-36); BUN Creatinine Ratio 17.2 (6-22); Bilirubin Total 0.4 mg/dL (0.2-1.3); Blood Urea Nitrogen 11 mg/dL (7-17); Calcium 9.9 mg/dL (8.4-10.2); Carbon Dioxide 30 mmol/L (22-32); Chloride 104 mmol/L (98-107); Creatine Kinase 82 U/L (30-135); Estimated Glomerular Filt Rate > 60.0 mL/min (>60); Globulin 3.6 g/dL (1.7-4.1); Glucose 93 mg/dL (70-100); HEMOLYSIS < 15 (0-50); Lipase 44 U/L (23-300); Magnesium 1.9 mg/dL (1.6-2.3); Sodium 139 mmol/L (137-145); Total Protein 8.3 g/dL (6.3-8.2)
[2020-07-29 18:22] LABS: Troponin I < 0.012 ng/mL (0.01-0.034)
[2020-07-29 18:41] LABS: TSH w/ Reflex to FT4 1.03 uIU/mL (0.47-4.68)
[2020-07-29 20:05] VITALS: BP 111/71; PULSE 94; RESP 18; O2SAT 99
[2020-07-29 20:13] VITALS: BP 143/89; PULSE 89; RESP 16; TEMP 36.3; O2SAT 97
--- NOTE | 2020-07-29 20:27 | ED.ARRPALP ---
HPI - Arrhythmia/Palpitations General Chief Complaint: Arrhythmia/Palpitations Stated Complaint: heart palpitations Time Seen by Provider: 07/29/20 18:01 Source: patient Mode of arrival: Ambulatory Limitations: no limitations History of Present Illness HPI narrative: 25-year-old female with history of lupus and fibromyalgia here for the evaluation of palpitations. Patient states she was at work earlier today when she felt like her heart was going very fast and then going slow. She had a watch on that was able to check her heart rate in she states that it was ranging anywhere from the 50s to 110s. She denies any chest pain or shortness of breath. No lightheadedness. Not pass out. She was sitting at the time that these events happened. She is not currently having the symptoms. Has had a Holter monitor in the past but this was many years ago she does not know why. Is not on any medications because of it. Related Data Previous Rx's Medication Instructions Recorded albuterol sulfate 2 puff INHALATION Q4-6H PRN #18 04/10/19 gram cyclobenzaprine 10 mg PO TID PRN #12 tab 08/23/19 Allergies Allergy/AdvReac Type Severity Reaction Status Date / Time doxycycline [DOXYCYCLINE] Allergy Unknown Verified 07/29/20 17:13 hydrocodone [HYDROCODONE] Allergy Unknown Verified 07/29/20 17:13 Penicillins [PENICILLINS] Allergy Unknown Verified 07/29/20 17:13 shellfish derived Allergy Anaphylaxis Verified 07/29/20 17:13 Review of Systems Constitutional Constitutional: Denies fever(s) Cardiovascular Cardiovascular: Denies chest pain, Reports rapid heart rate, Reports irregular heart rhythm, Denies lightheadedness and Denies dyspnea Respiratory Respiratory: Denies cough and Denies dyspnea Gastrointestinal Gastrointestinal: Denies abdominal pain, Denies nausea and Denies vomiting Genitourinary Genitourinary: Denies dysuria Genitourinary: Denies dysuria Musculoskeletal Musculoskeletal: Denies arthralgias and Denies myalgias Integumentary/Breasts Skin/Breast: Denies rash Neurologic Neurologic: Denies behavioral changes Psychiatric Psychiatric: Denies behavioral changes Hematologic/Lymphatic On Anticoagulants: No Allergic/Immunologic Allergic/Immunologic: Denies urticaria Patient History Medical History Anxiety Exercise-induced asthma Lupus Social History Smoking Status: Never smoker Smoking Status: Never smoker alcohol intake frequency: a few times a week Substance Use Type: marijuana Exam Initial Vital Signs Initial Vital Signs: Vital Signs Temperature 98.0 F 07/29/20 17:06 Pulse Rate 103 H 07/29/20 17:06 Respiratory Rate 16 07/29/20 17:06 Blood Pressure 140/83 07/29/20 17:06 Pulse Oximetry 99 07/29/20 17:06 Const General: cooperative and comfortable Limitations: mental status not altered HENMT Head: normal to inspection and normocephalic Resp Effort & Inspection: normal respiratory effort Auscultation: clear to auscultation bilaterally Cardio Rate: regular rate Rhythm: regular rhythm Skin Lesions: no lesions Rashes: no rashes Neuro General: patient alert, patient awake and patient oriented x3 Cognition: normal cognition Speech: speech normal Extrem General: normal to inspection and capillary refill normal Psych Appearance: grossly normal and well kempt Scores GCS [place] coma scale eye opening: Spontaneous [place] coma scale verbal response: Orientated [place] coma scale motor response: Obey commands [place] coma scale total score: 15 Course Orders Ordered: ED Orders 07/29/20 17:14 EKG-12 Lead Stat 07/29/20 17:45 Complete Blood Count AUTO DIFF Stat Comprehensive Metabolic Panel Stat Lipase Stat Magnesium Stat TSH w/ Reflex to FT4 Stat Troponin & CK Cardiac Panel Stat Vital Signs Vital signs: Vital Signs - 8 hr 07/29/20 17:06 07/29/20 20:05 07/29/20 20:13 Temperature 98.0 F 97.4 F L Pulse Rate 103 H 94 H 89 Respiratory Rate 16 18 16 Blood Pressure 140/83 111/71 143/89 H Pulse Oximetry 99 99 97 07/29/20 20:39 Temperature Pulse Rate 87 Respiratory Rate 12 Blood Pressure 113/69 Pulse Oximetry 100 MDM - Arrhythmia/Palpitations Lab Data Attestation: I reviewed the patient's lab results. Result diagrams: 07/29/20 17:45 07/29/20 17:45 Labs: Lab Results 07/29/20 07/29/20 07/29/20 Range/Units 17:45 17:45 17:45 WBC 7.1 (4.5-11.0) X10^3/uL RBC 4.64 (4.0-5.2) X10^6/uL Hgb 14.7 (12.0-16.0) g/dL Hct 42.4 (36-46) % MCV 91.5 (80-100) fL MCH 31.7 (26-34) PG MCHC 34.7 (30-36) % RDW 12.7 (11.6-14.8) % Plt Count 340 (150-400) X10^3/uL Neut % (Auto) 59.2 (50-75) % Lymph % (Auto) 36.2 (25-40) % [place] % (Auto) 3.4 (3-14) % Eos % (Auto) 0.9 L (2-4) % Baso % (Auto) 0.3 (0-2) % Neut # (Auto) 4200 (5036-1986) /uL Lymph # (Auto) 2600 (3526-4283) /uL [place] # (Auto) 200 (0-900) /uL Eos # (Auto) 100 (0-450) /uL Baso # (Auto) 0 (0-100) /uL Sodium 139 (137-145) mmol/L Potassium 4.0 (3.4-5.1) mmol/L Chloride 104 (98-107) mmol/L Carbon Dioxide 30 (22-32) mmol/L BUN 11 (7-17) mg/dL Creatinine 0.64 (0.52-1.04) mg/dL Estimated GFR > 60.0 (>60) mL/min BUN/Creatinine Ratio 17.2 (6-22) Glucose 93 (70-100) mg/dL Calcium 9.9 (8.4-10.2) mg/dL Magnesium 1.9 (1.6-2.3) mg/dL Total Bilirubin 0.4 (0.2-1.3) mg/dL AST 25 (14-36) IU/L ALT 18 (<35) IU/L Alkaline Phosphatase 106 (38-126) U/L Total Creatine Kinase 82 (30-135) U/L CK-MB (CK-2) TNP CK-MB (CK-2) Rel Index TNP Troponin I < 0.012 (0.01-0.034) ng/mL Total Protein 8.3 H (6.3-8.2) g/dL Albumin 4.7 (3.5-5.0) g/dL Globulin 3.6 (1.7-4.1) g/dL Albumin/Globulin Ratio 1.3 (1.0-2.8) Lipase 44 (23-300) U/L TSH 1.03 (0.47-4.68) uIU/mL ECG Data Attestation: I personally reviewed and interpreted this ECG as follows: Prior ECG tracings: not available for review Interpretation: Sinus rhythm Ventricular rate is 78 Normal axis Normal QRS Normal QTC No ST T wave changes MDM Narrative Medical decision making narrative: Patient asymptomatic. He EKG is unremarkable. Labs unremarkable. She was not having chest pain or shortness of breath or lightheadedness associated with her symptoms. Informed her that she needed to establish care with a primary doctor to discuss the indications for a Holter monitor. Feel patient could be discharged home with workup as an outpatient. She was given return precautions. She expressed understanding and agreement. Discharge Plan Departure Patient Disposition: Home Clinical Impression: Palpitations Instructions: DI for Palpitations Activity Restrictions/Additional Instructions: I recommend that you contact the health human resources benefits specialist here at the hospital at [phone]. This individual can help you establish a primary provider. Take all of your medications as directed. Return to the emergency department for any new or worsening symptoms. Prescriptions: No Action albuterol sulfate 90 mcg/actuation HFA aerosol inhaler 2 puff INHALATION Q4-6H PRN (Reason: shortness of breath) Qty: 18 RF: 0 cyclobenzaprine 10 mg tablet 10 mg PO TID PRN (Reason: muscle spasm) Qty: 12 RF: 0 Referrals: Elizabeth Jacobson ARNP [Primary Care Provider] - Stand Alone Forms: Work Release Note
[2020-07-29 20:39] VITALS: BP 113/69; PULSE 87; RESP 12; O2SAT 100
== END 2020-07-29 20:41 | disposition home or self-care (01) ==
PROVIDERS: Emergency Medicine; Emergency Provider Emergency Medicine; PCP Nurse Practitioner Family
DX: R00.2 Palpitations (principal); Z87.39 Personal history of other diseases of the musculoskeletal system and connective tissue; M79.7 Fibromyalgia
CPT/HCPCS: 36415; 80053; 82550; 83690; 83735; 84443; 84484; 85025; 93005; 99283; 99284

== ENCOUNTER 2021-03-19 14:26 | Emergency (ER) | payer OTHER, SELFPAY ==
[2021-03-19 14:47] VITALS: BP 128/82; PULSE 96; RESP 20; TEMP 37.3; O2SAT 100
--- NOTE | 2021-03-19 15:33 | ED.URI ---
HPI - URI/Sore Throat <Nehemias Viera PA-C - Last Filed: 03/19/21 15:46> General Chief Complaint: Upper Respiratory Symptoms Stated Complaint: skin rash, sob, covid + Time Seen by Provider: 03/19/21 14:58 History of Present Illness HPI Narrative: Sandee presents today with chief complaint of sinus congestion, sore throat, cough, rash to both of her arms and face that started 2 days ago. She reports that the rash is very itchy. She took some Benadryl yesterday but that did not seem to give her much relief. She was recently diagnosed with COVID on Monday. Denies any significant fever, difficulty breathing, chest pain lower extremity swelling or edema nausea, vomiting, diarrhea or any other acute concerns or complaints at this time. She has significant past medical history of lupus but does not take any prescription medications. She has no other acute concerns or complaints at this time. Related Data Previous Rx's Medication Instructions Recorded albuterol sulfate 90 mcg/actuation 2 puff INHALATION Q4-6H PRN #18 04/10/19 aerosol inhaler gram cyclobenzaprine 10 mg tablet 10 mg PO TID PRN #12 tab 08/23/19 famotidine 40 mg tablet 40 mg PO DAILY #7 tab 03/19/21 fexofenadine 60 mg tablet 60 mg PO BID 7 Days #14 tab 03/19/21 Allergies Allergy/AdvReac Type Severity Reaction Status Date / Time doxycycline [DOXYCYCLINE] Allergy Unknown Verified 07/29/20 17:13 hydrocodone [HYDROCODONE] Allergy Unknown Verified 07/29/20 17:13 Penicillins [PENICILLINS] Allergy Unknown Verified 07/29/20 17:13 shellfish derived Allergy Anaphylaxis Verified 07/29/20 17:13 Review of Systems <Nehemias Viera PA-C - Last Filed: 03/19/21 15:46> Review of Systems Narrative: As per HPI Patient History <Nehemias Viera PA-C - Last Filed: 03/19/21 15:46> Medical History (Updated 03/19/21 @ 15:40 by Nehemias Viera PA-C) Anxiety Exercise-induced asthma Lupus Social History Smoking Status: Never smoker Smoking Status: Never smoker alcohol intake frequency: a few times a week Substance Use Type: marijuana Exam <Nehemias Viera PA-C - Last Filed: 03/19/21 15:46> Narrative Exam Narrative: Const General: cooperative, healthy appearing, comfortable and no acute distress Nutritional Appearance: average body habitus and well nourished Orientation: alert and oriented x3 [facility] Head: normal to inspection and normocephalic Ears: hearing grossly normal bilaterally, external ears normal, TM's normal bilaterally, EAC's normal, mastoids normal and no periauricular adenopathy Nose: external nose normal, nares normal and no nasal discharge Face and sinus: normal facial exam, sinuses nontender and face symmetric Mouth: oral mucosae normal, lip normal, tongue normal and moist mucous membranes Teeth and gingiva: dentition normal and gingiva normal Throat: posterior oropharynx slightly erythematous without any exudate or edema, uvula midline, no postnasal drainage and no uvular edema Eyes periorbital findings normal, eyelids normal, conjunctivae normal Neck: normal visual inspection, full ROM, no lymphadenopathy, no meningeal signs and supple Resp normal respiratory effort, able to speak in complete sentences, not labored and no respiratory distress, clear to auscultation bilaterally, no crackles, no rales and no wheezes Cardio regular rate regular rhythm Heart Sounds: no gallops, no murmurs and no rubs Extrem normal to inspection, no pedal edema and no calf tenderness Skin Irregular shaped diffuse raise erythematous rash to face and bilateral upper extremities. No overlying skin flaking noted. Neuro Alert and Oriented x3, normal gait, moves all extremities. Initial Vital Signs Initial Vital Signs: Vital Signs Temperature 99.1 F 03/19/21 14:47 Pulse Rate 96 H 03/19/21 14:47 Respiratory Rate 03/19/21 14:47 Blood Pressure 128/82 03/19/21 14:47 Pulse Oximetry 100 03/19/21 14:47 <Perri Zabala DO - Last Filed: 03/21/21 15:41> Initial Vital Signs Initial Vital Signs: Vital Signs Temperature 99.1 F 03/19/21 14:47 Pulse Rate 96 H 03/19/21 14:47 Respiratory Rate 20 03/19/21 14:47 Blood Pressure 128/82 03/19/21 14:47 Pulse Oximetry 100 03/19/21 14:47 Course <EDWARD Sun Filed: 03/19/21 15:46> Orders Ordered: ED Orders 03/19/21 15:11 COVID19 -Nasal swab/Pre-Proc Stat Vital Signs Vital signs: Vital Signs - 8 hr 03/19/21 14:47 Temperature 99.1 F Pulse Rate 96 H Respiratory Rate 20 Blood Pressure 128/82 Pulse Oximetry 100 <Perri ZabalaDO - Last Filed: 03/21/21 15:41> Orders Ordered: ED Orders 03/19/21 15:11 COVID19 -Nasal swab/Pre-Proc Stat Vital Signs Vital signs: Vital Signs - 8 hr 03/19/21 14:47 Temperature 99.1 F Pulse Rate 96 H Respiratory Rate 20 Blood Pressure 128/82 Pulse Oximetry 100 MDM - URI/Sore Throat <Nehemias Viera PA-C - Last Filed: 03/19/21 15:46> MDM Narrative Medical decision making narrative: Patient is well-appearing at this time. She has evidence of dermatitis in addition to her positive COVID test done last Monday. She has upper respiratory symptoms. She is saturating well and does not have any significant signs or symptoms that would suggest pneumonia at this time. I considered MIS-A but think that this is less likely at this time given her absence of any other symptoms. She does not have any conjunctival injection. We will try outpatient therapy with antihistamines in addition to [id number] decongestants for her upper respiratory symptoms. ER return precautions were discussed with the patient. Patient verbalizes understanding and agrees to plan and has no further concerns at this time. Thank you A [id number] system was used with the dictation of this note. Please disregard any spelling or grammatical errors. Discharge Plan Departure Patient Disposition: Home Clinical Impression: COVID-19, Dermatitis Instructions: DI for COVID-19 (Suspected or Confirmed ) Activity Restrictions/Additional Instructions: It was nice to me this afternoon. Please use the medications to help treat your symptoms. If you experience significant worsening shortness of breath, worsening chest pain, or have an oxygen saturation less than 92% on room air please return for re-evaluation. Otherwise, [id number] symptomatic therapy medications can be helpful such as Mucinex or Sudafed. Warm tea with honey can help with your sore throat. Thank you Nehemias Viera PA-C Prescriptions: New fexofenadine 60 mg tablet 60 mg PO BID 7 Days Qty: 14 RF: 0 famotidine 40 mg tablet 40 mg PO DAILY Qty: 7 RF: 0 No Action albuterol sulfate 90 mcg/actuation HFA aerosol inhaler 2 puff INHALATION Q4-6H PRN (Reason: shortness of breath) Qty: 18 RF: 0 cyclobenzaprine 10 mg tablet 10 mg PO TID PRN (Reason: muscle spasm) Qty: 12 RF: 0 Referrals: Elizabeth Jacobson ARNP [Primary Care Provider] - <Perri Zabala DO - Last Filed: 03/21/21 15:41> Cosign ED Attending Remingtonature Attestation: I was immediately available in the department for consultation. Documentation has been reviewed.
[2021-03-19 15:55] VITALS: PULSE 92; RESP 16; O2SAT 99
== END 2021-03-19 15:55 | disposition home or self-care (01) ==
PROVIDERS: Emergency Provider Physician Assistant; PCP Nurse Practitioner Family
DX: Z20.822 Contact with and (suspected) exposure to COVID-19 (principal); L30.9 Dermatitis, unspecified
CPT/HCPCS: 99281

== ENCOUNTER 2021-09-20 14:06 | Emergency (ER) | payer OTHER, SELFPAY ==
[2021-09-20 14:10] VITALS: BP 115/75; PULSE 117; RESP 18; TEMP 36.7; O2SAT 100; BMI 30.3
--- NOTE | 2021-09-20 15:26 | DI.RAD.S_ITS ---
PROCEDURE: XR CHEST 1V INDICATIONS: chest pain TECHNIQUE: One view of the chest was acquired. COMPARISON: [facility], CR, XR CHEST 1V, 04/10/2019, 1:57. FINDINGS: Surgical changes and devices: None. Lungs and pleura: Lungs are clear. No pleural effusions or pneumothorax. Mediastinum: Mediastinal contours appear normal. Heart size is normal. Bones and chest wall: No suspicious bony lesions. Overlying soft tissues appear unremarkable. IMPRESSION: No acute pulmonary process. Dictated by: Jodie Long M.D. on 09/20/2021 at 16:10 Approved by: Jodie Long M.D. on 09/20/2021 at 16:10
[2021-09-20 15:44] LABS: Prothrombin Time 11.5 SECONDS (10.1-12.7)
[2021-09-20 15:47] LABS: PTT Partial Thromboplastin Tim 36 SECONDS (26.4-36.2)
[2021-09-20 15:48] LABS: Alanine Aminotransferase 16 IU/L (<35); Albumin 4.6 g/dL (3.5-5.0); Albumin Globulin Ratio 1.4 (1.0-2.8); Alkaline Phosphatase 84 U/L (38-126); Aspartate Aminotransferase 23 IU/L (14-36); Bilirubin Total 0.3 mg/dL (0.2-1.3); Blood Urea Nitrogen 9 mg/dL (7-17); Calcium 9.5 mg/dL (8.4-10.2); Carbon Dioxide 28 mmol/L (22-32); Chloride 104 mmol/L (98-107); Creatine Kinase 47 U/L (30-135); Estimated Glomerular Filt Rate > 60.0 mL/min (>60); Globulin 3.3 g/dL (1.7-4.1); Glucose 89 mg/dL (70-100); HEMOLYSIS < 15 (0-50); Lipase 49 U/L (23-300); Magnesium 1.9 mg/dL (1.6-2.3); Potassium 3.9 mmol/L (3.4-5.1); Sodium 139 mmol/L (137-145); Total Protein 7.9 g/dL (6.3-8.2)
[2021-09-20 15:57] LABS: Add Manual Diff / Slide Review NO; Basophils Absolute Auto 0 /uL (0-100); Basophils Percent Auto 0.3 % (0-2); Eosinophils Absolute Auto 100 /uL (0-450); Eosinophils Percent Auto 1.2 % (2-4); Hematocrit 41.3 % (36-46); Hemoglobin 14.3 g/dL (12.0-16.0); Lymphocytes Absolute Auto 2500 /uL (1100-4500); Lymphocytes Percent Auto 32.4 % (25-40); Mean Corpuscular HGB Conc 34.6 % (30-36); Mean Corpuscular Hemoglobin 31.7 PG (26-34); Mean Corpuscular Volume 91.7 fL (80-100); Monocytes Absolute Auto 300 /uL (0-900); Monocytes Percent Auto 4.3 % (3-14); Neutrophils Absolute Auto 4800 /uL (1500-7000); Neutrophils Percent Auto 61.8 % (50-75); Platelet Count 309 X10^3/uL (150-400); Red Cell Distribution Width 12.6 % (11.6-14.8); White Blood Cell Count 7.8 X10^3/uL (4.5-11.0)
[2021-09-20 15:59] LABS: Troponin I < 0.012 ng/mL (0.01-0.034)
[2021-09-20 16:08] VITALS: BP 122/75; O2SAT 100
--- NOTE | 2021-09-20 16:09 | ED.ARRPALP ---
HPI - Arrhythmia/Palpitations General Chief Complaint: Arrhythmia/Palpitations Stated Complaint: Heart palpitations, low O2 Time Seen by Provider: 09/20/21 14:21 Source: patient Mode of arrival: Ambulatory Limitations: no limitations History of Present Illness HPI narrative: 26-year-old female comes emergency department for complaint of palpitations. Patient states she had a syncopal episode at work today. She was sitting on a stool when she states she passed out her co-worker was moving her when she awoke. Patient she has some chest tightness. She has had some shortness of breath. She states her oxygen has ?bottom out getting as low as 94%?. Patient states she has palpitations. She has had mild swelling of her face and hands at times. Patient states she has had all these issues for some time. She occasionally has nausea vomiting and GI issues but states that is related to her Gastroenterology problems and follows with a director of grants. Patient intermittently feels dizzy. She has had issues going on for some time she has been seen last on the and has an appointment on October 12 with her primary care physician. She takes naproxen, 10 as needed, duloxetine, Xyzal and and contraceptive patch. She has had appendectomy and knee surgery mostly. No tobacco, alcohol or illicit. She follows at the [facility] at [facility]. Related Data Previous Rx's Medication Instructions Recorded albuterol sulfate 90 mcg/actuation 2 puff INHALATION Q4-6H PRN #18 04/10/19 aerosol inhaler gram cyclobenzaprine 10 mg tablet 10 mg PO TID PRN #12 tab 08/23/19 famotidine 40 mg tablet 40 mg PO DAILY #7 tab 03/19/21 Allergies Allergy/AdvReac Type Severity Reaction Status Date / Time doxycycline [DOXYCYCLINE] Allergy Unknown Verified 09/20/21 14:12 hydrocodone [HYDROCODONE] Allergy Unknown Verified 09/20/21 14:12 Penicillins [PENICILLINS] Allergy Unknown Verified 09/20/21 14:12 lidocaine Allergy Verified 09/20/21 14:12 shellfish derived Allergy Anaphylaxis Verified 09/20/21 14:12 Review of Systems Review of Systems ROS Unobtainable: All systems reviewed & are unremarkable except as noted in HPI and below Patient History Medical History Anxiety Exercise-induced asthma Lupus Social History Smoking Status: Never smoker Smoking Status: Never smoker alcohol intake frequency: holidays/special occasions only Substance Use Type: marijuana Exam Narrative Exam Narrative: GENERAL: Alert and oriented x three, female in mild distress. HEENT: Head normocephalic, atraumatic, EOMI, pupils reactive, face symmetric, moist mucous membranes NECK: Supple, full range of motion CARDIOVASCULAR: Regular rate and rhythm without murmurs, rubs or gallops. No JVD. No swelling bilateral lower extremities. RESPIRATORY: Breath sounds equal bilaterally, no wheezes rales or rhonchi. ABDOMEN: Soft, nontender. Normoactive bowel sounds all 4 quadrants. No guarding or rebound, rigidity, no mass : No CVA tenderness EXTREMITIES: Normal range of motion, no clubbing or edema. Neurovascularly intact. Patient ambulating in department without issue. NEUROLOGICAL: Cranial nerves II through XII grossly intact. Moving all extremities SKIN: Warm, dry, no petechiae, no rashes or lesions. Initial Vital Signs Initial Vital Signs: Vital Signs Temperature 98.0 F 09/20/21 14:10 Pulse Rate 117 H 09/20/21 14:10 Respiratory Rate 18 09/20/21 14:10 Blood Pressure 115/75 09/20/21 14:10 Pulse Oximetry 100 09/20/21 14:10 Course Orders Ordered: ED Orders 09/20/21 14:22 EKG-12 Lead Stat 09/20/21 14:48 Complete Blood Count AUTO DIFF Stat Comprehensive Metabolic Panel Stat D Dimer Stat Lipase Stat Magnesium Stat Partial Thromboplastin Time Stat Prothrombin Time INR Stat Troponin & CK Cardiac Panel Stat 09/20/21 15:02 Consult to STATISTICS TUTOR - Retail Business Development Manager Stat 09/20/21 15:26 XR chest 1V Stat Vital Signs Vital signs: Vital Signs - 8 hr 09/20/21 14:10 09/20/21 16:08 09/20/21 16:43 Temperature 98.0 F Pulse Rate 117 H 123 H Respiratory Rate 18 Blood Pressure 115/75 122/75 Pulse Oximetry 100 100 100 09/20/21 16:48 09/20/21 17:00 Temperature Pulse Rate 103 H 91 H Respiratory Rate 21 24 Blood Pressure 128/74 125/74 Pulse Oximetry 100 99 MDM - Arrhythmia/Palpitations Lab Data Result diagrams: 09/20/21 14:48 09/20/21 14:48 Labs: Lab Results 09/20/21 09/20/21 09/20/21 Range/Units 14:48 14:48 14:48 WBC 7.8 (4.5-11.0) X10^3/uL RBC 4.50 (4.0-5.2) X10^6/uL Hgb 14.3 (12.0-16.0) g/dL Hct 41.3 (36-46) % MCV 91.7 (80-100) fL MCH 31.7 (26-34) PG MCHC 34.6 (30-36) % RDW 12.6 (11.6-14.8) % Plt Count 309 (150-400) X10^3/uL Neut % (Auto) 61.8 (50-75) % Lymph % (Auto) 32.4 (25-40) % [place] % (Auto) 4.3 (3-14) % Eos % (Auto) 1.2 L (2-4) % Baso % (Auto) 0.3 (0-2) % Neut # (Auto) 4800 (1678-6390) /uL Lymph # (Auto) 2500 (0375-6156) /uL [place] # (Auto) 300 (0-900) /uL Eos # (Auto) 100 (0-450) /uL Baso # (Auto) 0 (0-100) /uL PT 11.5 (10.1-12.7) SECONDS INR 1.0 (0.9-1.3) APTT 36 (26.4-36.2) SECONDS D-Dimer (<230) ng/mL Sodium 139 (137-145) mmol/L Potassium 3.9 (3.4-5.1) mmol/L Chloride 104 (98-107) mmol/L Carbon Dioxide 28 (22-32) mmol/L BUN 9 (7-17) mg/dL Creatinine 0.69 (0.52-1.04) mg/dL Estimated GFR > 60.0 (>60) mL/min BUN/Creatinine Ratio 13.0 (6-22) Glucose 89 (70-100) mg/dL Calcium 9.5 (8.4-10.2) mg/dL Magnesium 1.9 (1.6-2.3) mg/dL Total Bilirubin 0.3 (0.2-1.3) mg/dL AST 23 (14-36) IU/L ALT 16 (<35) IU/L Alkaline Phosphatase 84 (38-126) U/L Total Creatine Kinase 47 (30-135) U/L CK-MB (CK-2) TNP CK-MB (CK-2) Rel Index TNP Troponin I < 0.012 (0.01-0.034) ng/mL Total Protein 7.9 (6.3-8.2) g/dL Albumin 4.6 (3.5-5.0) g/dL Globulin 3.3 (1.7-4.1) g/dL Albumin/Globulin Ratio 1.4 (1.0-2.8) Lipase 49 (23-300) U/L // Range/Units 14:48 WBC (4.5-11.0) X10^3/uL RBC (4.0-5.2) X10^6/uL Hgb (12.0-16.0) g/dL Hct (36-46) % MCV (80-100) fL MCH (26-34) PG MCHC (30-36) % RDW (11.6-14.8) % Plt Count (150-400) X10^3/uL Neut % (Auto) (50-75) % Lymph % (Auto) (25-40) % [place] % (Auto) (3-14) % Eos % (Auto) (2-4) % Baso % (Auto) (0-2) % Neut # (Auto) (5729-7325) /uL Lymph # (Auto) (2366-4933) /uL [place] # (Auto) (0-900) /uL Eos # (Auto) (0-450) /uL Baso # (Auto) (0-100) /uL PT (10.1-12.7) SECONDS INR (0.9-1.3) APTT (26.4-36.2) SECONDS D-Dimer 220 (<230) ng/mL Sodium (137-145) mmol/L Potassium (3.4-5.1) mmol/L Chloride (98-107) mmol/L Carbon Dioxide (22-32) mmol/L BUN (7-17) mg/dL Creatinine (0.52-1.04) mg/dL Estimated GFR (>60) mL/min BUN/Creatinine Ratio (6-22) Glucose (70-100) mg/dL Calcium (8.4-10.2) mg/dL Magnesium (1.6-2.3) mg/dL Total Bilirubin (0.2-1.3) mg/dL AST (14-36) IU/L ALT (<35) IU/L Alkaline Phosphatase (38-126) U/L Total Creatine Kinase (30-135) U/L CK-MB (CK-2) CK-MB (CK-2) Rel Index Troponin I (0.01-0.034) ng/mL Total Protein (6.3-8.2) g/dL Albumin (3.5-5.0) g/dL Globulin (1.7-4.1) g/dL Albumin/Globulin Ratio (1.0-2.8) Lipase (23-300) U/L Imaging Data Chest x-ray: Radiologist's Impresson: [place] [address] XRay Report Signed Patient: Sandee Hitchcock MR#: [id number] : 1995 Acct:[id number] Age/Sex: 26 / F Date of Service: 09/20/21 Loc: ED Accession Number: [id number] ?? Procedure: XR chest 1V Ordering Provider: Perri Zabala D.O. PROCEDURE:? XR CHEST 1V ? INDICATIONS:? chest pain ? TECHNIQUE:? One view of the chest was acquired.? ? COMPARISON:? [facility], , XR CHEST 1V, 04/10/2019, 1:57. ? FINDINGS:? ? Surgical changes and devices:? None.? ? Lungs and pleura:? Lungs are clear.? No pleural effusions or pneumothorax.? ? Mediastinum:? Mediastinal contours appear normal.? Heart size is normal.? ? Bones and chest wall:? No suspicious bony lesions.? Overlying soft tissues appear unremarkable.? ? IMPRESSION:? No acute pulmonary process. ? ? Dictated by: Jodie Long M.D. on 09/20/2021 at 16:10 ? ? Approved by: Jodie Long M.D. on 09/20/2021 at 16:10?? ECG Data Attestation: I personally reviewed and interpreted this ECG as follows: Prior ECG tracings: available for review Interpretation: Sinus Tachycardia, rate of 102. MT 124 QRS is [address]TC [address] elevation depression noted. Q3, no S1 or T3. MDM Narrative Medical decision making narrative: This is a 26-year-old female who comes in with complaint of heart palpitations and a low O2 sat of 94%. Patient describes a syncopal episode. EKG, chest x-ray lab work do not show major changes D-dimer is negative. Patient is on estrogen. Vital signs are reassuring she had some mild tachycardia heart rate is 91 without any intervention. Patient is ambulating in the department without issue. Plan for outpatient follow-up she is well connected and states that she has a visit already set up. Discharge Plan Departure Patient Disposition: Home Clinical Impression: Heart palpitations Instructions: DI for Arrhythmias Activity Restrictions/Additional Instructions: Continue with your regular follow-up appointments. Your labs, EKG and imaging today are reassuring. You may continue home medications as prescribed. Please return for worsening symptoms, passing out, changing or new chest pain, shortness of breath, persistent vomiting, new swelling of extremities or other new or concerning symptoms. Prescriptions: No Action albuterol sulfate 90 mcg/actuation HFA aerosol inhaler 2 puff INHALATION Q4-6H PRN (Reason: shortness of breath) Qty: 18 0RF cyclobenzaprine 10 mg tablet 10 mg PO TID PRN (Reason: muscle spasm) Qty: 12 0RF famotidine 40 mg tablet 40 mg PO DAILY Qty: 7 0RF Referrals: Elizabeth Jacobson ARNP [Primary Care Provider] -
[2021-09-20 16:43] VITALS: PULSE 123; O2SAT 100
[2021-09-20 16:48] VITALS: BP 128/74; PULSE 103; RESP 21; O2SAT 100
[2021-09-20 16:50] LABS: D Dimer 220 ng/mL (<230)
[2021-09-20 17:00] VITALS: BP 125/74; PULSE 91; RESP 24; O2SAT 99
--- NOTE | 2021-09-20 17:02 | CM.SWNOTE ---
TRANSIT OPERATOR Note TRANSIT OPERATOR receives consult to meet with patient due to high utilization of ED. Patient is 26 y/o female who presents to ED due to concern for palpitations and concern for O2 levels. Patient reports that she fainted at work today. Patient endorses she was put on medication by her PCP that made her dizzy. Patient endorses she has scheduled PCP appt for 10/12/21 and is on the call list to be seen sooner for any cancelations. Patient has regular communication with PCP. Patient endorses that she signed up for FMLA and was approved for several weeks. Patient endorses that she is using FMLA today to come to the ED since she fainted at work. Patient endorses that her employer is not supportive of her medical needs. Patient endorses that she will only be working there a few more months as her fiance will be stationed in [facility] in December 2021. Patient presents to the ED with best friend/former co worker and indicates that she is a support as well as fiance. TRANSIT OPERATOR offers assistance to accessing resources and services for patient and patient declines need. Plan: Patient to d/c to home when medically clear.
== END 2021-09-20 17:10 | disposition home or self-care (01) ==
PROVIDERS: Emergency Provider Emergency Medicine; PCP Nurse Practitioner Family
DX: R00.2 Palpitations (principal); R00.0 Tachycardia, unspecified; R55 Syncope and collapse
CPT/HCPCS: 36415; 71045; 80053; 82550; 83690; 83735; 84484; 85025; 85379; 85610; 85730; 93005; 99283; 99284

== ENCOUNTER 2021-11-14 20:14 | Emergency (ER) | payer OTHER, SELFPAY ==
[2021-11-14 20:23] VITALS: BP 143/80; PULSE 122; RESP 22; TEMP 36.6; O2SAT 99
[2021-11-14 21:15] LABS: Add Manual Diff / Slide Review NO; Basophils Absolute Auto 100 /uL (0-100); Basophils Percent Auto 0.4 % (0-2); Eosinophils Absolute Auto 100 /uL (0-450); Eosinophils Percent Auto 1.1 % (2-4); Hematocrit 41.2 % (36-46); Hemoglobin 14.5 g/dL (12.0-16.0); Lymphocytes Absolute Auto 4700 /uL (1100-4500); Mean Corpuscular HGB Conc 35.2 % (30-36); Mean Corpuscular Hemoglobin 32.1 PG (26-34); Mean Corpuscular Volume 91.1 fL (80-100); Monocytes Absolute Auto 600 /uL (0-900); Monocytes Percent Auto 4.7 % (3-14); Neutrophils Absolute Auto 6600 /uL (1500-7000); Neutrophils Percent Auto 54.8 % (50-75); Platelet Count 373 X10^3/uL (150-400); Red Blood Cell Count 4.53 X10^6/uL (4.0-5.2); Red Cell Distribution Width 12.4 % (11.6-14.8)
[2021-11-14 23:05] VITALS: PULSE 117; O2SAT 92
[2021-11-14 23:06] VITALS: BP 129/78; PULSE 118; PULSE 119; RESP 18; O2SAT 97; O2SAT 99
[2021-11-14 23:30] VITALS: BP 119/89; PULSE 97; O2SAT 100
--- NOTE | 2021-11-14 23:37 | PC.NURSE ---
Pt is very difficult IV start; green top hemolyzed. Lab attempted to redraw without success. Green tube obtained from left hand 22g IV after 3ml waste.
[2021-11-14 23:38] LABS: Alanine Aminotransferase 17 IU/L (<35); Albumin 4.8 g/dL (3.5-5.0); Albumin Globulin Ratio 1.3 (1.0-2.8); Alkaline Phosphatase 117 U/L (38-126); Aspartate Aminotransferase 22 IU/L (14-36); BUN Creatinine Ratio 14.3 (6-22); Bilirubin Total 0.4 mg/dL (0.2-1.3); Blood Urea Nitrogen 10 mg/dL (7-17); Calcium 9.5 mg/dL (8.4-10.2); Carbon Dioxide 21 mmol/L (22-32); Chloride 108 mmol/L (98-107); Estimated Glomerular Filt Rate > 60 mL/min (>60); Globulin 3.7 g/dL (1.7-4.1); Glucose 86 mg/dL (70-100); HEMOLYSIS 18 (0-50); Lipase 58 U/L (23-300); Potassium 3.5 mmol/L (3.4-5.1); Sodium 140 mmol/L (137-145); Total Protein 8.5 g/dL (6.3-8.2)
--- NOTE | 2021-11-15 00:47 | ED_ITS ---
HPI - General Adult General Chief complaint: Abdominal Pain Stated complaint: ABD pain, black stool Time Seen by Provider: 11/15/21 00:47 Source: patient Mode of arrival: Ambulatory History of Present Illness HPI narrative: 26-year-old woman with a history of lupus, fibromyalgia, colon polyps with the recent colonoscopy, ovarian cysts, recurrent episodes of nausea presents with 4 days of increasing right lower quadrant abdominal pain. She describes night sweats but no overt fevers. She has had a moderate amount of emesis not bloody. She notes that today she is having some black stools. She states that at 1 time she had vomited heart enough to cause as esophageal bleeding and esophageal tear and had black stool at that point. She is not complaining of chest pain, cough, palpitations, headache. She currently is menstruating and not using control. She is not based on urine test today. Related Data Previous Rx's Medication Instructions Recorded albuterol sulfate 90 mcg/actuation 2 puff INHALATION Q4-6H PRN #18 04/10/19 aerosol inhaler gram cyclobenzaprine 10 mg tablet 10 mg PO TID PRN #12 tab 08/23/19 famotidine 40 mg tablet 40 mg PO DAILY #7 tab 03/19/21 Allergies Allergy/AdvReac Type Severity Reaction Status Date / Time doxycycline [DOXYCYCLINE] Allergy Unknown Verified 09/20/21 14:12 hydrocodone [HYDROCODONE] Allergy Unknown Verified 09/20/21 14:12 Penicillins [PENICILLINS] Allergy Unknown Verified 09/20/21 14:12 lidocaine Allergy Verified 09/20/21 14:12 shellfish derived Allergy Anaphylaxis Verified 09/20/21 14:12 Review of Systems Review of Systems Narrative: Remainder of complete review of systems is otherwise unremarkable except for that included in the HPI. Patient History Medical History (Updated 11/15/21 @ 02:38 by Adelina Fontanez MD) Anxiety Exercise-induced asthma Lupus Social History Smoking Status: Never smoker Smoking Status: Never smoker alcohol intake frequency: holidays/special occasions only Substance Use Type: marijuana Exam Initial Vital Signs Initial Vital Signs: Vital Signs Temperature 97.8 F 11/14/21 20:23 Pulse Rate 122 H 11/14/21 20:23 Respiratory Rate 22 11/14/21 20:23 Blood Pressure 143/80 H 11/14/21 20:23 Pulse Oximetry 99 11/14/21 20:23 General: Healthy appearing, somewhat anxious and in pain but Able to give a complete and coherent history. Well-nourished well-developed HEENT: Moist mucous membranes, normal sclera with reactive pupils, Respiratory: Lungs are clear to auscultation, no wheezing no rales no rhonchi. Full and symmetrical air movement Cardiac: Regular rate and rhythm no murmurs no bruits Abdomen: Soft, moderate tenderness in the right lower quadrant with mild rebound and mild amount of tenderness in the right upper quadrant left lower quadrants, good bowel tones, no flank pain Skin: Warm and dry, no rashes Neurologic: Grossly neurologically intact with no obvious asymmetries or abnormalities Extremities: No trauma, well perfused Psych: Cooperative, appropriate insight and affect Course Orders Ordered: ED Orders 11/14/21 20:26 EKG-12 Lead Stat 11/14/21 21:05 Complete Blood Count AUTO DIFF Stat 11/14/21 23:22 Comprehensive Metabolic Panel Stat Lipase Stat 11/15/21 00:57 CT abdomen pelvis w con Stat Hydromorphone HCl (Hydromorphone 0.5 Mg Inj) 0.5 mg IV Q15MIN PRN PRN Reason: Pain, Last Admin: 11/15/21 01:03 Dose: 0.5 mg Documented by: PARVEEN Discontinued Medications Sodium Chloride (Normal Saline 0.9%) 1,000 mls @ 1,000 mls/hr IV BOLUS ONE Stop: 11/15/21 01:56 Last Admin: 11/15/21 01:03 Dose: 1,000 mls/hr Documented by: PARVEEN Ondansetron HCl (Ondansetron 4 Mg/2 Ml Inj) 4 mg IV NOW ONE Stop: 11/15/21 00:58 Last Admin: 11/15/21 01:03 Dose: 4 mg Documented by: PARVEEN Vital Signs Vital signs: Vital Signs - 8 hr 11/14/21 20:23 11/14/21 23:05 11/14/21 23:06 Temperature 97.8 F Pulse Rate 122 H 117 H 119 H Respiratory Rate 22 18 Blood Pressure 143/80 H 129/78 Pulse Oximetry 99 92 99 11/14/21 23:30 11/15/21 00:50 11/15/21 01:00 Temperature Pulse Rate 97 H 197 H 89 Respiratory Rate Blood Pressure 119/89 Pulse Oximetry 100 94 100 11/15/21 01:30 11/15/21 02:00 Temperature Pulse Rate 95 H 78 Respiratory Rate Blood Pressure Pulse Oximetry 100 100 Medical Decision Making Lab Data Result diagrams: 11/14/21 21:05 11/14/21 23:22 Labs: Lab Results 11/14/21 11/14/21 Range/Units 21: 23:22 WBC 12.0 H (4.5-11.0) X10^3/uL RBC 4.53 (4.0-5.2) X10^6/uL Hgb 14.5 (12.0-16.0) g/dL Hct 41.2 (36-46) % MCV 91.1 (80-100) fL MCH 32.1 (26-34) PG MCHC 35.2 (30-36) % RDW 12.4 (11.6-14.8) % Plt Count 373 (150-400) X10^3/uL Neut % (Auto) 54.8 (50-75) % Lymph % (Auto) 39.0 (25-40) % [place] % (Auto) 4.7 (3-14) % Eos % (Auto) 1.1 L (2-4) % Baso % (Auto) 0.4 (0-2) % Neut # (Auto) 6600 (8784-8244) /uL Lymph # (Auto) 4700 H (5564-9570) /uL [place] # (Auto) 600 (0-900) /uL Eos # (Auto) 100 (0-450) /uL Baso # (Auto) 100 (0-100) /uL Sodium 140 (137-145) mmol/L Potassium 3.5 (3.4-5.1) mmol/L Chloride 108 H (98-107) mmol/L Carbon Dioxide 21 L (22-32) mmol/L BUN 10 (7-17) mg/dL Creatinine 0.70 (0.52-1.04) mg/dL Estimated GFR > 60 (>60) mL/min BUN/Creatinine Ratio 14.3 (6-22) Glucose 86 (70-100) mg/dL Calcium 9.5 (8.4-10.2) mg/dL Total Bilirubin 0.4 (0.2-1.3) mg/dL AST 22 (14-36) IU/L ALT 17 (<35) IU/L Alkaline Phosphatase 117 (38-126) U/L Total Protein 8.5 H (6.3-8.2) g/dL Albumin 4.8 (3.5-5.0) g/dL Globulin 3.7 (1.7-4.1) g/dL Albumin/Globulin Ratio 1.3 (1.0-2.8) Lipase 58 (23-300) U/L Point of Care Testing Test Results Negative Urine Dip Bedside Urine Glucose Negative Bedside Urine Bilirubin - Negative Bedside Urine Ketone - Negative Urine Specific [place] 1.025 Bedside Urine Occult Blood - Negative Bedside Urine pH 6 Bedside Urine Protein - Negative Bedside Urine Urobilinogen - Negative Bedside Urine Nitrite - Negative Bedside Urine Leukocytes - Negative Esterase Point of care testing: Point of Care Testing Test Results Negative Urine Dip Bedside Urine Glucose Negative Bedside Urine Bilirubin - Negative Bedside Urine Ketone - Negative Urine Specific [place] 1.025 Bedside Urine Occult Blood - Negative Bedside Urine pH 6 Bedside Urine Protein - Negative Bedside Urine Urobilinogen - Negative Bedside Urine Nitrite - Negative Bedside Urine Leukocytes - Negative Esterase Imaging Data CT scan - abdomen/pelvis: Radiologist's Impression: FINDINGS:? Image quality:? Excellent.? ? Lung bases:? Unremarkable.? ? Heart:? Heart is normal in size. ? ? ABDOMEN: Liver:? There is an oval hypervascular lesion redemonstrated within the right hepatic lobe, measuring up to approximately 1.7 cm which is similar in size compared to the prior study.? There is suggestion of discontinuous peripheral hypervascular enhancement in the inferior aspect of the lesion.? Findings are suggestive of a hemangioma. Gallbladder:? Within normal limits without calcified gallstones.? ? Biliary ducts:? No biliary ductal dilatation.? ? Pancreas:? Unremarkable.? ? Spleen:? Normal in size.? ? Adrenal Glands:? No adrenal nodules.? ? Kidneys and Ureters:? No hydronephrosis.? ? ? Stomach and Bowel:? Stomach, small bowel loops, and colon are normal in caliber and wall thickness.? There are pericecal surgical clips likely related to prior appendectomy.? Mild stool distention within the ascending and transverse colon as well as within the distal ileum are suggestive of constipation.? No definite evidence of bowel obstruction.? There is colonic diverticulosis without acute diverticulitis. Peritoneum:? No abnormal intraperitoneal fluid.? No free air.? ? Ventral Wall: ? No hernia.? Abdominal Nodes:? No retroperitoneal or mesenteric adenopathy by size criteria.? Vessels:? Aorta and inferior vena cava are normal in size.? ? PELVIS: Pelvic Organs:? Unremarkable.? ? Bladder:? Unremarkable.? ? Pelvic Nodes: No enlarged lymph nodes.? Miscellaneous: No inguinal hernias are seen. ? ? ? Bones:? Visualized osseous structures demonstrate no suspicious focal lesions. ? IMPRESSION:? ? 1. Mild stool distention within the ascending and transverse colon as well as within the distal small bowel are suggestive of constipation.? No definite evidence of bowel obstruction. ? 2. Surgical absence of the appendix. ? 3. Hypervascular lesion within the right hepatic lobe is suggestive of a hemangioma but is incompletely characterized.? Consider follow-up nonemergent hepatic protocol MRI for further evaluation.? ? ? Dictated by: Martin Niño M.D. on 11/15/2021 at 1:58? ?? MDM Narrative Medical decision making narrative: 26-year-old woman with 4 days of increasing right lower quadrant abdominal pain. She is status post appendectomy she is not currently . She had a mild leukocytosis mild tenderness in the right lower quadrant CT scan suggests no acute intra-abdominal abscess mass or obstruction. She does have a moderate of stool in the ascending colon. At this point there is no evidence of acute surgical abdomen, infection, cardboard inserter abnormalities. Will send her home with a bottle of magnesium citrate. We did have long discussion regarding abdominal pain and pictures of the amount of stool in her right colon were shared with her. She understands and is safe for home discharge Discharge Plan Departure Patient Disposition: Home Clinical Impression: Abdominal pain Instructions: DI for Constipation Activity Restrictions/Additional Instructions: Thank you for coming in today Your blood work showed a slightly elevated white blood cell count. With that tenderness on your physical exam a CT scan was ordered. CT scan shows no masses, tumors, obstructions, acute abdominal infections or other significant a bnormalities. It also shows that you have a large amount of stool in the right side of your colon and I suspect that is the source of your pain. I have given you a bottle of magnesium citrate, this is [id number] if you would ever like to try this treatment again. When you wake up in the morning please drink the whole bottle and expect have quite a bit of stool over the next hours. If your having worsening pain, develop fevers or new symptoms it would be very appropriate to return to the emergency department I wish you the best Prescriptions: No Action albuterol sulfate 90 mcg/actuation HFA aerosol inhaler 2 puff INHALATION Q4-6H PRN (Reason: shortness of breath) Qty: 18 0RF cyclobenzaprine 10 mg tablet 10 mg PO TID PRN (Reason: muscle spasm) Qty: 12 0RF famotidine 40 mg tablet 40 mg PO DAILY Qty: 7 0RF Referrals: Miscellaneous,Doctor, MD [Primary Care Provider] -
[2021-11-15 00:50] VITALS: PULSE 197; O2SAT 94
--- NOTE | 2021-11-15 00:57 | DI.CT.S_ITS ---
PROCEDURE: CT ABDOMEN PELVIS W CON INDICATIONS: Right lower quadrant pain increasing for 4 days TECHNIQUE: After the administration of IV contrast, axial sections were acquired from the lung bases to the pubic symphysis. Coronal and sagittal reformats were performed. For radiation dose reduction, the following was used: automated exposure control, adjustment of mA and/or kV according to patient size. COMPARISON: [facility], CT, CT ABDOMEN PELVIS WITH CONTRAST, 11/08/2020, 14:03. FINDINGS: Image quality: Excellent. Lung bases: Unremarkable. Heart: Heart is normal in size. ABDOMEN: Liver: There is an oval hypervascular lesion redemonstrated within the right hepatic lobe, measuring up to approximately 1.7 cm which is similar in size compared to the prior study. There is suggestion of discontinuous peripheral hypervascular enhancement in the inferior aspect of the lesion. Findings are suggestive of a hemangioma. Gallbladder: Within normal limits without calcified gallstones. Biliary ducts: No biliary ductal dilatation. Pancreas: Unremarkable. Spleen: Normal in size. Adrenal Glands: No adrenal nodules. Kidneys and Ureters: No hydronephrosis. Stomach and Bowel: Stomach, small bowel loops, and colon are normal in caliber and wall thickness. There are pericecal surgical clips likely related to prior appendectomy. Mild stool distention within the ascending and transverse colon as well as within the distal ileum are suggestive of constipation. No definite evidence of bowel obstruction. There is colonic diverticulosis without acute diverticulitis. Peritoneum: No abnormal intraperitoneal fluid. No free air. Ventral Wall: No hernia. Abdominal Nodes: No retroperitoneal or mesenteric adenopathy by size criteria. Vessels: Aorta and inferior vena cava are normal in size. PELVIS: Pelvic Organs: Unremarkable. Bladder: Unremarkable. Pelvic Nodes: No enlarged lymph nodes. Miscellaneous: No inguinal hernias are seen. Bones: Visualized osseous structures demonstrate no suspicious focal lesions. IMPRESSION: 1. Mild stool distention within the ascending and transverse colon as well as within the distal small bowel are suggestive of constipation. No definite evidence of bowel obstruction. 2. Surgical absence of the appendix. 3. Hypervascular lesion within the right hepatic lobe is suggestive of a hemangioma but is incompletely characterized. Consider follow-up nonemergent hepatic protocol MRI for further evaluation. Dictated by: Martin Niño M.D. on 11/15/2021 at 1:58 Approved by: Martin Niño M.D. on 11/15/2021 at 2:03
[2021-11-15 01:00] VITALS: PULSE 89; O2SAT 100
[2021-11-15] MEDS: SODIUM CHLORIDE 0.9% 1,000 ML 1000 ML IV (01:03)
[2021-11-15] MEDS: ONDANSETRON 4 MG/2 ML INJ IV (01:03)
[2021-11-15] MEDS: HYDROMORPHONE 0.5 MG INJ IV ×2 (01:03→02:42)
[2021-11-15 01:30] VITALS: PULSE 95; O2SAT 100
[2021-11-15 02:00] VITALS: PULSE 78; O2SAT 100
[2021-11-15 02:30] VITALS: BP 120/78; PULSE 80; RESP 16; O2SAT 100
[2021-11-15] MEDS: MAGNESIUM CITRATE 300 ML SOLUTION PO (02:41)
== END 2021-11-15 03:00 | disposition home or self-care (01) ==
PROVIDERS: Emergency Provider Emergency Medicine
DX: R10.31 Right lower quadrant pain (principal); R11.10 Vomiting, unspecified
CPT/HCPCS: 36415; 74177; 80053; 81003; 81025; 83690; 85025; 96361; 96374; 96375; 99284; J1170; J2405

== ENCOUNTER 2021-11-19 15:06 | Observation (INO) | payer OTHER, SELFPAY ==
[2021-11-19] VITALS (13 sets, daily range): BP systolic 119–131; BP diastolic 74–84; PULSE 100–136; RESP 16; TEMP 36.4; O2SAT 97–100
--- NOTE | 2021-11-19 18:07 | ED_ITS ---
HPI - Abdominal Pain General Chief Complaint: Abdominal Pain Stated Complaint: THROWING UP BLOOD LOWER ABD Time Seen by Provider: 11/19/21 18:06 Mode of arrival: Family Vehicle History of Present Illness HPI narrative: 26-year-old female nonsmoker with history of lower GI bleed, lupus, colon polyps, and abdominal pain returns for the second time this week for severe right lower quadrant pain. She was seen and evaluated earlier in the week with very reassuring labs and even a CT scan with unremarkable findings. Since then she has been at home and complaint of worsening right lower quadrant pain that is worse with motion and improves with rest. She denies any radiation of the pain. She has had nausea and vomiting and states that initially her emesis was normal but then it became blood streaked in she had 1 episode of emesis. She takes no blood thinners. She is not dizzy nor weak or lightheaded. She denies dysuria, frequency or urgency. She denies any solid bowel movements in the past few days but has been passing loose stool. She denies any fever or chills. She states she feels worse today than she did the other day. She just had her men strual cycle recently and states it was normal. She denies any vaginal bleeding or discharge Related Data Home Medications Medication Instructions Recorded Confirmed ondansetron 4 mg disintegrating 4 mg PO 11/20/21 tablet pantoprazole 40 mg tablet,delayed 40 mg PO DAILY 11/20/21 11/20/21 release venlafaxine 150 mg 150 mg PO DAILY 11/20/21 11/20/21 capsule,extended release 24 hr Previous Rx's Medication Instructions Recorded albuterol sulfate 90 mcg/actuation 2 puff INHALATION Q4-6H PRN #18 04/10/19 aerosol inhaler gram cyclobenzaprine 10 mg tablet 10 mg PO TID PRN #12 tab 08/23/19 famotidine 40 mg tablet 40 mg PO DAILY #7 tab 03/19/21 Allergies Allergy/AdvReac Type Severity Reaction Status Date / Time doxycycline [DOXYCYCLINE] Allergy Unknown Verified 09/20/21 14:12 hydrocodone [HYDROCODONE] Allergy Unknown Verified 09/20/21 14:12 Penicillins [PENICILLINS] Allergy Unknown Verified 09/20/21 14:12 lidocaine Allergy Verified 09/20/21 14:12 shellfish derived Allergy Anaphylaxis Verified 09/20/21 14:12 Review of Systems Review of Systems Narrative: GENERAL: Denies chills, fatigue, malaise, fever, sweats. HEENT: Denies sinus pain, ear pain, sore throat, difficulty swallowing, dizziness. RESPIRATORY: Denies dyspnea, cough, wheezing, hemoptysis, sputum. CARDIOVASCULAR: Denies chest pain, palpitations, orthopnea, edema, GASTROINTESTINAL: See HPI. : Denies dysuria, frequency, incontinence, hematuria, urinary retention. MUSCULOSKELETAL: denies weakness, joint pain, or bony pain SKIN: Denies rash, skin lesions, or other NEUROLOGIC: Denies weakness, headache, numbness, change in speech, confusion, seizures, incoordination. PSYCHIATRIC: No concerning psychosocial issues. 12 point review of systems is negative except for those stated above Patient History Medical History (Updated 11/20/21 @ 04:56 by Brad Reyez DO) Anxiety Exercise-induced asthma Lupus Social History Smoking Status: Never smoker Smoking Status: Never smoker alcohol intake frequency: holidays/special occasions only Substance Use Type: marijuana Exam Narrative Exam Narrative: GENERAL: [26] year old patient appears stated age. Well-developed patient, in moderate distress, obviously significantly uncomfortable, rubbing her lower abdomen HEAD: Atraumatic. Normocephalic. EYES: Pupils equal round and reactive. Extraocular motions intact. No scleral icterus. No injection or drainage. ENT: Nose without bleeding, purulent drainage. Throat without erythema, tonsillar hypertrophy or exudate. Airway patent. NECK: Trachea midline. Non tender CARDIOVASCULAR: Regular rate and rhythm without murmurs, gallops, or rubs. RESPIRATORY: Clear to auscultation. Breath sounds equal bilaterally. No wheezes, rales, or rhonchi. GASTROINTESTINAL: Abdomen soft, severely tender in the right lower quadrant, bowel sounds present in all 4 quadrants nondistended. EXTREMITIES: No edema or joint tenderness. BACK: Nontender without deformity or crepitance. No flank tenderness. NEURO: AOx3. SKIN: No rash or erythema of visible areas Initial Vital Signs Initial Vital Signs: Vital Signs Temperature 97.6 F 11/19/21 15:37 Pulse Rate 100 H 11/19/21 15:37 Respiratory Rate 16 11/19/21 15:37 Blood Pressure 129/84 11/19/21 15:37 Pulse Oximetry 100 11/19/21 15:37 Course Orders Ordered: ED Orders 11/19/21 19:51 US pelvic complete Stat 11/19/21 21:10 CT abdomen pelvis w con Stat 11/20/21 23:52 COVID19 -Nasal RAPID/Pre-Proc Stat Acetaminophen (Acetaminophen 325 Mg Tablet) 650 mg PO Q6HR PRN PRN Reason: Fever/Mild Pain (1-3) Docusate Sodium (Docusate 100 Mg Capsule) 100 mg PO BID JODIE Enoxaparin Sodium (Enoxaparin 40 Mg/0.4 Ml Syringe) 40 mg SUBCUT DAILY JODIE Hydromorphone HCl (Hydromorphone 0.5 Mg Inj) 0.5 mg IV Q4H PRN PRN Reason: Breakthrough pain only (8-10) Last Admin: 11/20/21 04:09 Dose: 0.5 mg Documented by: MANASA Sodium Chloride (Normal Saline 0.9%) 1,000 mls @ 100 mls/hr IV CONT JODIE Last Admin: 11/20/21 03:12 Dose: 100 mls/hr Documented by: Infusion: 11/20/21 03:12 Dose: 100 mls/hr Documented by: Infusion: 11/19/21 22:02 Dose: 0 mls/hr Documented by: [email or web address] Admin: 11/19/21 18:54 Dose: 150 mls/hr Documented by: [email or web address] Ketorolac Tromethamine (Ketorolac 30 Mg/Ml Vial) 15 mg IV Q6H PRN PRN Reason: Pain, Moderate (4-6) Stop: 11/23/21 02:59 Last Admin: 11/20/21 03:12 Dose: 15 mg Documented by: MANASA Naloxone HCl (Naloxone 0.4 Mg/Ml Vial) 0.2 mg IV Q2MIN PRN PRN Reason: Opiate Reversal Ondansetron HCl (Ondansetron 4 Mg/2 Ml Inj) 4 mg IV Q6HR PRN PRN Reason: Nausea And Vomiting Last Admin: 11/20/21 03:12 Dose: 4 mg Documented by: MANASA Discontinued Medications Diphenhydramine HCl (Diphenhydramine 50 Mg/Ml Vial) 25 mg IV NOW ONE Stop: 11/19/21 21:10 Last Admin: 11/19/21 21:18 Dose: 25 mg Documented by: [email or web address] Hydromorphone HCl (Hydromorphone 0.5 Mg Inj) 0.5 mg IV NOW ONE Stop: 11/19/21 19:52 Last Admin: 11/19/21 20:07 Dose: 0.5 mg Documented by: [email or web address] Hydromorphone HCl (Hydromorphone 0.5 Mg Inj) 0.5 mg IV NOW ONE Stop: 11/19/21 23:43 Last Admin: 11/19/21 23:48 Dose: 0.5 mg Documented by: [email or web address] Sodium Chloride (Normal Saline 0.9%) 1,000 mls @ 1,000 mls/hr IV BOLUS ONE Stop: 11/20/21 00:39 Last Admin: 11/19/21 23:48 Dose: 1,000 mls/hr Documented by: [email or web address] Methylprednisolone (Methylprednisolone 125 Mg/2 Ml Vial) 125 mg IV NOW ONE Stop: 11/19/21 19:53 Last Admin: 11/19/21 20:07 Dose: 125 mg Documented by: [email or web address] Ondansetron HCl (Ondansetron 4 Mg/2 Ml Inj) 4 mg IV NOW ONE Stop: 11/19/21 19:52 Last Admin: 11/19/21 20:07 Dose: 4 mg Documented by: [email or web address] Pantoprazole Sodium (Pantoprazole 40 Mg Vial) 40 mg IV NOW ONE Stop: 11/19/21 18:08 Last Admin: 11/19/21 18:53 Dose: 40 mg Documented by: MARCEL Reevaluation(s) Reevaluation #1: Patient continues to have significant pain, ultrasound has no significant findings, I did discuss with the patient the likely need of a repeat CT scan given worsened symptoms Reevaluation #2: Patient still having pain after multiple doses of Dilaudid becomes tachycardic with ambulation Vital Signs Vital signs: Vital Signs - 8 hr 11/19/21 21:00 11/19/21 21:30 11/19/21 22:00 Pulse Rate 117 H 106 H 120 H Blood Pressure 119/78 Pulse Oximetry 99 100 100 11/19/21 22:30 11/19/21 23:00 11/19/21 23:30 Pulse Rate 121 H 122 H 123 H Blood Pressure Pulse Oximetry 99 99 97 11/20/21 00:00 11/20/21 00:30 Pulse Rate 135 H 124 H Blood Pressure Pulse Oximetry 98 97 MDM - Abdominal Pain Lab Data Result diagrams: 11/19/21 18:35 11/19/21 18:35 Labs: Lab Results 11/19/21 11/19/21 11/19/21 Range/Units 18:35 18:35 18:35 WBC 13.4 H (4.5-11.0) X10^3/uL RBC 4.72 (4.0-5.2) X10^6/uL Hgb 15.2 (12.0-16.0) g/dL Hct 43.1 (36-46) % MCV 91.4 (80-100) fL MCH 32.1 (26-34) PG MCHC 35.1 (30-36) % RDW 12.5 (11.6-14.8) % Plt Count 367 (150-400) X10^3/uL Neut % (Auto) 78.2 H (50-75) % Lymph % (Auto) 18.1 L (25-40) % [place] % (Auto) 3.2 (3-14) % Eos % (Auto) 0.2 L (2-4) % Baso % (Auto) 0.3 (0-2) % Neut # (Auto) 15449 H (5730-6143) /uL Lymph # (Auto) 2400 (1240-4148) /uL [place] # (Auto) 400 (0-900) /uL Eos # (Auto) 0 (0-450) /uL Baso # (Auto) 0 (0-100) /uL Sodium 137 (137-145) mmol/L Potassium 3.7 (3.4-5.1) mmol/L Chloride 106 (98-107) mmol/L Carbon Dioxide 20 L (22-32) mmol/L BUN 10 (7-17) mg/dL Creatinine 0.62 (0.52-1.04) mg/dL Estimated GFR > 60 (>60) mL/min BUN/Creatinine Ratio 16.1 (6-22) Glucose 93 (70-100) mg/dL Calcium 9.4 (8.4-10.2) mg/dL Total Bilirubin 0.5 (0.2-1.3) mg/dL AST 24 (14-36) IU/L ALT 18 (<35) IU/L Alkaline Phosphatase 127 H (38-126) U/L Total Protein 8.1 (6.3-8.2) g/dL Albumin 4.6 (3.5-5.0) g/dL Globulin 3.5 (1.7-4.1) g/dL Albumin/Globulin Ratio 1.3 (1.0-2.8) Lipase 42 (23-300) U/L Blood Type O Positive Antibody Screen Negative Point of care testing: Point of Care Testing Test Results Negative Urine Dip Bedside Urine Glucose Negative Bedside Urine Bilirubin - Negative Bedside Urine Ketone - Negative Urine Specific [place] 1.020 Bedside Urine Occult Blood - Negative Bedside Urine pH 6.0 Bedside Urine Protein - Negative Bedside Urine Urobilinogen - Negative Bedside Urine Nitrite - Negative Bedside Urine Leukocytes - Negative Esterase Imaging Data Abdominal x-ray: Radiologist's Impression: [place] [address] XRay Report Signed Patient: Sandee Hitchcock MR#: [id number] : 1995 Acct:[id number] Age/Sex: 26 / F Date of Service: 11/19/21 Loc: ED Accession Number: [id number] ?? Procedure: XR acute abdomen series Ordering Provider: Brad Reyez D.O. PROCEDURE:? XR ACUTE ABDOMEN SERIES ? INDICATIONS:? Abdominal pain ? TECHNIQUE:? One view chest and two views of the abdomen were acquired.? ? COMPARISON:? None. ? FINDINGS:? ? Surgical changes and devices:? Surgical clips are seen in right pelvic region suggest clinical correlation. ? Chest:? Lungs are clear.? Heart size is normal.? No pleural effusions.? No pneumoperitoneum.? ? Abdomen:? Bowel gas pattern is normal.? No suspicious calcifications.? Visualized solid organ contours appear normal.? ? Bones:? No suspicious bony lesions.? ? IMPRESSION:? No evidence of bowel obstruction or gross free air. No acute cardiopulmonary pathology.? ? Dictated by: Troy Mayfield M.D. on 11/19/2021 at 19:29 ? ? Approved by: Troy Mayfield M.D. on 11/19/2021 at 19:30? CT scan - abdomen/pelvis: Radiologist's Impression: [address] [address] [address] Scan Report Signed Patient: Sandee Hitchcock MR#: [id number] : 1995 Acct:[id number] Age/Sex: 26 / F Date of Service: 11/19/21 Loc: ED Accession Number: [id number] ?? Procedure: CT abdomen pelvis w con Ordering Provider: Brad Reyez D.O. PROCEDURE:? CT ABDOMEN PELVIS W CON ? INDICATIONS:? severe RLQ pain ? TECHNIQUE:? After the administration of oral and IV contrast, axial sections were acquired from the lung bases to the pubic symphysis.? Coronal and sagittal reformats were performed.? For radiation dose reduction, the following was used:? automated exposure control, adjustment of mA and/or kV according to patient size. ? COMPARISON:? [facility], CT, CT ABDOMEN PELVIS WITH CONTRAST, 11/08/2020, 14:03.? [facility], CT, CT ABDOMEN PELVIS W CON, 11/15/2021, 1:14. ? FINDINGS:? Image quality:? Excellent.? ? Lung bases:? Unremarkable.? ? Heart:? Heart is normal in size. ? ? ABDOMEN: Liver:? There is a hypervascular lesion redemonstrated in the right hepatic lobe with indistinct margins.? This measures up to 2.5 x 1.7 cm in transverse dimension which is increased in size compared to the prior studies but may be due to differences in the phase of enhancement. Gallbladder:? Within normal limits without calcified gallstones.? ? Biliary ducts:? No biliary ductal dilatation.? ? Pancreas:? Unremarkable.? ? Spleen:? Normal in size.? ? Adrenal Glands:? No adrenal nodules.? ? Kidneys and Ureters:? No hydronephrosis.? ? ? Stomach and Bowel:? Stomach and small bowel loops are normal in caliber and wall thickness.? There is mild segmental distention of the distal ileum with an air- fluid level.? There is fluid distention within the ascending, transverse, and descending colon with air-fluid levels.? Mild fluid distention also demonstrated within the sigmoid colon with minimal colonic wall thickening and pericolonic fat stranding.? There is a gradual transition in the distal sigmoid colon.? Findings likely reflect a gastroenteritis with likely mild colitis.? No definite evidence of obstruction.? There are post surgical changes along the cecum likely related to prior appendectomy.? Peritoneum:? No abnormal intraperitoneal fluid.? No free air.? ? Ventral Wall: ? No hernia.? Abdominal Nodes:? No retroperitoneal or mesenteric adenopathy by size criteria.? Vessels:? Aorta and inferior vena cava are normal in size.? ? PELVIS: Pelvic Organs:? Unremarkable.? ? Bladder:? Unremarkable.? ? Pelvic Nodes: No enlarged lymph nodes.? Miscellaneous: No inguinal hernias are seen. ? ? ? Bones:? Visualized osseous structures demonstrate no suspicious focal lesions. ? IMPRESSION:? ? 1. Fluid distention throughout the colon with air-fluid levels likely representing a gastroenteritis or ileus.? A distal colonic obstruction in the sigmoid colon is less likely given the gradual transition. ? 2. Associated mild short segment dilatation of the distal ileum likely secondary to colonic distention.? Remainder of the small bowel is nondistended.? No definite small bowel obstruction.? ? 3. Hypervascular lesion redemonstrated within the right hepatic lobe.? This appears slightly increased in size compared to the prior studies which may be due to differences in the phase of enhancement.? The findings again likely represent a hemangioma.? ? Dictated by: Martin Niño M.D. on 11/19/2021 at 22:17 ? ? Approved by: Martin Niño M.D. on 11/19/2021 at 22:28 ? [facility] Narrative Medical decision making narrative: Patient with repeat visit, worsening symptoms, intractable pain requiring multiple doses of pain medications. Imaging shows no surgical finding but likely ileus versus possible early obstruction, she will require hospitalization for fluids, pain control and abdominal exams Discharge Plan Departure Patient Disposition: Admitted as Observation Clinical Impression: Acute right lower quadrant pain, Intractable abdominal pain Admit Date/Time: 11/20/21 00:58 Admit Provider: Una Ojeda
--- NOTE | 2021-11-19 18:08 | DI.RAD.S_ITS ---
PROCEDURE: XR ACUTE ABDOMEN SERIES INDICATIONS: Abdominal pain TECHNIQUE: One view chest and two views of the abdomen were acquired. COMPARISON: None. FINDINGS: Surgical changes and devices: Surgical clips are seen in right pelvic region suggest clinical correlation. Chest: Lungs are clear. Heart size is normal. No pleural effusions. No pneumoperitoneum. Abdomen: Bowel gas pattern is normal. No suspicious calcifications. Visualized solid organ contours appear normal. Bones: No suspicious bony lesions. IMPRESSION: No evidence of bowel obstruction or gross free air. No acute cardiopulmonary pathology. Dictated by: Troy Mayfield M.D. on 11/19/2021 at 19:29 Approved by: Troy Mayfield M.D. on 11/19/2021 at 19:30
[2021-11-19 18:47] LABS: Add Manual Diff / Slide Review NO; Basophils Absolute Auto 0 /uL (0-100); Basophils Percent Auto 0.3 % (0-2); Eosinophils Absolute Auto 0 /uL (0-450); Eosinophils Percent Auto 0.2 % (2-4); Hematocrit 43.1 % (36-46); Hemoglobin 15.2 g/dL (12.0-16.0); Lymphocytes Absolute Auto 2400 /uL (1100-4500); Lymphocytes Percent Auto 18.1 % (25-40); Mean Corpuscular HGB Conc 35.1 % (30-36); Mean Corpuscular Hemoglobin 32.1 PG (26-34); Mean Corpuscular Volume 91.4 fL (80-100); Monocytes Absolute Auto 400 /uL (0-900); Monocytes Percent Auto 3.2 % (3-14); Neutrophils Absolute Auto 10500 /uL (1500-7000); Neutrophils Percent Auto 78.2 % (50-75); Platelet Count 367 X10^3/uL (150-400); Red Blood Cell Count 4.72 X10^6/uL (4.0-5.2); Red Cell Distribution Width 12.5 % (11.6-14.8); White Blood Cell Count 13.4 X10^3/uL (4.5-11.0)
[2021-11-19] MEDS: PANTOPRAZOLE 40 MG VIAL IV (18:53)
[2021-11-19] MEDS: SODIUM CHLORIDE 0.9% 1,000 ML 150 ML IV (18:54)
[2021-11-19 19:03] LABS: Alanine Aminotransferase 18 IU/L (<35); Albumin 4.6 g/dL (3.5-5.0); Albumin Globulin Ratio 1.3 (1.0-2.8); Alkaline Phosphatase 127 U/L (38-126); Aspartate Aminotransferase 24 IU/L (14-36); BUN Creatinine Ratio 16.1 (6-22); Bilirubin Total 0.5 mg/dL (0.2-1.3); Blood Urea Nitrogen 10 mg/dL (7-17); Calcium 9.4 mg/dL (8.4-10.2); Carbon Dioxide 20 mmol/L (22-32); Chloride 106 mmol/L (98-107); Estimated Glomerular Filt Rate > 60 mL/min (>60); Globulin 3.5 g/dL (1.7-4.1); Glucose 93 mg/dL (70-100); HEMOLYSIS < 15 (0-50); Lipase 42 U/L (23-300); Potassium 3.7 mmol/L (3.4-5.1); Sodium 137 mmol/L (137-145); Total Protein 8.1 g/dL (6.3-8.2)
--- NOTE | 2021-11-19 19:51 | DI.US.S_ITS ---
PROCEDURE: US PELVIC COMPLETE INDICATIONS: SEVERE RLQ PAIN TECHNIQUE: Real-time scanning was performed of the pelvic organs, with image documentation. Additional endovaginal scanning was necessary due to incomplete visualization of the adnexal and endometrial structures by transabdominal scanning. COMPARISON: [facility], US, US PELVIC+TRANSVAG, 03/06/2017, 13:05. FINDINGS: Uterus: Uterus is anteverted and measures 6.7 x 2.9 x 4.2 cm. The endometrium measures up to 0.4 cm. No uterine mass lesion identified. There are a few small nabothian cysts. Ovaries: The right ovary measures 2.5 x 1.7 x 1.9 cm. The left ovary measures 2.6 x 1.6 x 1.6 cm. The ovaries have a normal sonographic appearance. Less than 12 follicles can be seen in each ovary. No adnexal masses. There are a few scattered follicles bilaterally. There is patent arterial flow in the ovaries on Doppler interrogation. Other: No pathologic free abdominal or pelvic fluid. The appendix was not discretely visualized sonographically in the right lower quadrant. IMPRESSION: 1. No adnexal masses identified. 2. No definite sonographic evidence of ovarian torsion. 3. Appendix not visualized sonographically. We strive to produce accurate, complete, and clear reports of imaging services. To assist us in improving patient care, this report was composed using standard report templates and voice recognition software. Therefore, it may contain abnormal punctuation, insertions and/or omissions. Occasional wrong-word or sound-alike substitutions may occur. Though we review the report and make efforts to correct it, we do recommend that the report be read carefully in proper context to recognize any text inaccuracies. Dictated by: Martin Niño M.D. on 11/19/2021 at 21:45 Approved by: Martin Niño M.D. on 11/19/2021 at 21:47
[2021-11-19] MEDS: HYDROMORPHONE 0.5 MG INJ IV ×2 (20:07→23:48)
[2021-11-19] MEDS: methylPREDNISolone 125 MG/2 ML VIAL IV (20:07)
[2021-11-19] MEDS: ONDANSETRON 4 MG/2 ML INJ IV (20:07)
--- NOTE | 2021-11-19 21:10 | DI.CT.S_ITS ---
PROCEDURE: CT ABDOMEN PELVIS W CON INDICATIONS: severe RLQ pain TECHNIQUE: After the administration of oral and IV contrast, axial sections were acquired from the lung bases to the pubic symphysis. Coronal and sagittal reformats were performed. For radiation dose reduction, the following was used: automated exposure control, adjustment of mA and/or kV according to patient size. COMPARISON: [facility], CT, CT ABDOMEN PELVIS WITH CONTRAST, 11/08/2020, 14:03. [facility], CT, CT ABDOMEN PELVIS W CON, 11/15/2021, 1:14. FINDINGS: Image quality: Excellent. Lung bases: Unremarkable. Heart: Heart is normal in size. ABDOMEN: Liver: There is a hypervascular lesion redemonstrated in the right hepatic lobe with indistinct margins. This measures up to 2.5 x 1.7 cm in transverse dimension which is increased in size compared to the prior studies but may be due to differences in the phase of enhancement. Gallbladder: Within normal limits without calcified gallstones. Biliary ducts: No biliary ductal dilatation. Pancreas: Unremarkable. Spleen: Normal in size. Adrenal Glands: No adrenal nodules. Kidneys and Ureters: No hydronephrosis. Stomach and Bowel: Stomach and small bowel loops are normal in caliber and wall thickness. There is mild segmental distention of the distal ileum with an air-fluid level. There is fluid distention within the ascending, transverse, and descending colon with air-fluid levels. Mild fluid distention also demonstrated within the sigmoid colon with minimal colonic wall thickening and pericolonic fat stranding. There is a gradual transition in the distal sigmoid colon. Findings likely reflect a gastroenteritis with likely mild colitis. No definite evidence of obstruction. There are postsurgical changes along the cecum likely related to prior appendectomy. Peritoneum: No abnormal intraperitoneal fluid. No free air. Ventral Wall: No hernia. Abdominal Nodes: No retroperitoneal or mesenteric adenopathy by size criteria. Vessels: Aorta and inferior vena cava are normal in size. PELVIS: Pelvic Organs: Unremarkable. Bladder: Unremarkable. Pelvic Nodes: No enlarged lymph nodes. Miscellaneous: No inguinal hernias are seen. Bones: Visualized osseous structures demonstrate no suspicious focal lesions. IMPRESSION: 1. Fluid distention throughout the colon with air-fluid levels likely representing a gastroenteritis or ileus. A distal colonic obstruction in the sigmoid colon is less likely given the gradual transition. 2. Associated mild short segment dilatation of the distal ileum likely secondary to colonic distention. Remainder of the small bowel is nondistended. No definite small bowel obstruction. 3. Hypervascular lesion redemonstrated within the right hepatic lobe. This appears slightly increased in size compared to the prior studies which may be due to differences in the phase of enhancement. The findings again likely represent a hemangioma. Dictated by: Martin Niño M.D. on 11/19/2021 at 22:17 Approved by: Martin Niño M.D. on 11/19/2021 at 22:28
[2021-11-19] MEDS: diphenhydrAMINE 50 MG/ML VIAL 25 MG IV (21:18)
[2021-11-19] MEDS: SODIUM CHLORIDE 0.9% 1,000 ML 1000 ML IV (23:48)
[2021-11-20] VITALS (16 sets, daily range): BP systolic 104–137; BP diastolic 62–82; PULSE 72–135; RESP 16–18; TEMP 36.1–36.7; O2SAT 96–100; BMI 29.2
[2021-11-20 00:32] LABS: COVID19 -Nasal RAPID Negative (Negative)
[2021-11-20] MEDS: KETOROLAC 30 MG/ML VIAL 15 MG IV (03:12)
[2021-11-20] MEDS: ONDANSETRON 4 MG/2 ML INJ IV ×2 (03:12→17:12)
[2021-11-20] MEDS: SODIUM CHLORIDE 0.9% 1,000 ML 100 ML IV ×2 (03:12→12:46)
[2021-11-20] MEDS: HYDROMORPHONE 0.5 MG INJ IV ×5 (04:09→21:26)
--- NOTE | 2021-11-20 04:18 | P.HP_ITS ---
History of Present Illness History of Present Illness Date Patient Seen: 11/20/21 Time Patient Seen: 03:00 Chief complaint: Lower abdominal pain, hematemasis melana Narrative: Sandee Hitchcock is a 26-year-old female with a past history of a lower GI bleed, lupus, colon polyps, and abdominal pain has had a several day history of severe abdominal pain and was seen in the emergency department on November 14 and diagnosed with obstipation. At that time she complained of hematemesis as well as melena. They sent her home with Mag citrate which she produced of quite a bit of stool and has been having diarrhea ever since. She went her to her PCP for follow-up and was found to still be constipated. In October she underwent colonoscopy and endoscopy and it was found to have an inflamed colon but the biopsies were negative. She states that her pain is very consistent but has sharp shooting pains in the meantime. She has a history of an appendectomy in 2019. She denies fevers sweats, denies shortness of breath, chest pain, dysuria or changes in bowel or bladder control. X-ray acute abdomen series was negative, pelvis ultrasound was negative, CT of the abdomen and pelvis did indicate findings of fluid distention throughout the colon with air-fluid levels representing gastroenteritis or ileus, it noted associated mild short-segment dilatation of the distal ileum likely secondary to colonic distension, she has a hypervascular lesion in the right hepatic lobe representing a hemangioma. Patient is afebrile, blood pressure is 122/75, heart rate 106, respiratory rate 16, oxygen saturation 98% on room air she weighs 75 kg with a BMI of 29.3 Patient History Medical History Anxiety Exercise-induced asthma Lupus Family & Social History Family History (Updated 11/20/21 @ 06:47 by ISADORA Noguera) Mother Bowel obstruction Sister Bowel obstruction Safety & Behavioral: Feels Safe in Current Yes Environment Been Physically Hurt or No Threatened By a Person Tobacco & Substance use: Smoking Status Never smoker alcohol intake frequency holiday/special occasion Substance Use Type marijuana Meds Home Medications and Allergies Home Medications Medication Instructions Recorded Confirmed Type albuterol sulfate 90 mcg/actuation 2 puff INHALATION Q4-6H PRN #18 04/10/19 Rx aerosol inhaler gram cyclobenzaprine 10 mg tablet 10 mg PO TID PRN #12 tab 08/23/19 Rx famotidine 40 mg tablet 40 mg PO DAILY #7 tab 03/19/21 Rx ondansetron 4 mg disintegrating 4 mg PO 11/20/21 History tablet pantoprazole 40 mg tablet,delayed 40 mg PO DAILY 11/20/21 11/20/21 History release venlafaxine 150 mg 150 mg PO DAILY 11/20/21 11/20/21 History capsule,extended release 24 hr Allergies Allergy/AdvReac Type Severity Reaction Status Date / Time doxycycline [DOXYCYCLINE] Allergy Unknown Verified 09/20/21 14:12 hydrocodone [HYDROCODONE] Allergy Unknown Verified 09/20/21 14:12 Penicillins [PENICILLINS] Allergy Unknown Verified 09/20/21 14:12 lidocaine Allergy Verified 09/20/21 14:12 shellfish derived Allergy Anaphylaxis Verified 09/20/21 14:12 Review of Systems Review of Systems ROS: Yes All systems reviewed with the patient and are negative except as otherwise documented Exam Vital Signs (past 8 hours): - 11/19/21 20:30 11/19/21 20:32 11/19/21 21:00 Temperature Pulse Rate 117 H 117 H Respiratory Rate Blood Pressure 120/77 120/77 119/78 Pulse Oximetry 99 99 11/19/21 21:30 11/19/21 22:00 11/19/21 22:30 Temperature Pulse Rate 106 H 120 H 121 H Respiratory Rate Blood Pressure Pulse Oximetry 100 100 99 11/19/21 23:00 11/19/21 23:30 11/20/21 00:00 Temperature Pulse Rate 122 H 123 H 135 H Respiratory Rate Blood Pressure Pulse Oximetry 99 97 98 11/20/21 00:30 11/20/21 01:15 11/20/21 01:16 Temperature Pulse Rate 124 H 126 H 124 H Respiratory Rate Blood Pressure 126/65 Pulse Oximetry 97 98 98 11/20/21 01:30 11/20/21 01:40 11/20/21 02:54 Temperature 98.1 F Pulse Rate 116 H 116 H Respiratory Rate 17 Blood Pressure 137/82 Pulse Oximetry 96 98 97 Oxygen Delivery Method Room Air Oxygen Flow Rate 0 Narrative Exam Narrative: Gen: Alert, oriented, well nourished 26 y.o. female, in mild distress HEENT: normocephalic, atraumatic, conjunctiva clear, sclera non-icteric, oral mucosa pink and moist Neck: supple, full ROM, no JVD, trachea is midline Resp: Lungs CTA, non-labored breathing CV: RRR, no murmur or rubs Abd: soft, non-distended, generalized tenderness, hypoactive BTs Skin: extensive tatoos on both arms, no lesions or rashes, dry and intact Neuro: Alert and oriented X 4 w/no focal deficits. Speech clear and coherent. Extremities: moves all 4 extremities, is ambulatory, negative Joana?s sign Psyche: normal mood and affect. Objective Labs Result Diagrams: 11/20/21 05:41 11/20/21 05:41 Labs: Laboratory Results - last 24 hr 11/19/21 11/19/21 11/19/21 18:35 18:35 18:35 WBC 13.4 H RBC 4.72 Hgb 15.2 Hct 43.1 MCV 91.4 MCH 32.1 MCHC 35.1 RDW 12.5 Plt Count 367 Neut % (Auto) 78.2 H Lymph % (Auto) 18.1 L [place] % (Auto) 3.2 Eos % (Auto) 0.2 L Baso % (Auto) 0.3 Neut # (Auto) 31961 H Lymph # (Auto) 2400 [place] # (Auto) 400 Eos # (Auto) 0 Baso # (Auto) 0 Sodium 137 Potassium 3.7 Chloride 106 Carbon Dioxide 20 L BUN 10 Creatinine 0.62 Estimated GFR > 60 BUN/Creatinine Ratio 16.1 Glucose 93 Calcium 9.4 Total Bilirubin 0.5 AST 24 ALT 18 Alkaline Phosphatase 127 H Total Protein 8.1 Albumin 4.6 Globulin 3.5 Albumin/Globulin Ratio 1.3 Lipase 42 SARS-CoV-2 (PCR) Blood Type O Positive Antibody Screen Negative 11/20/21 23:52 WBC RBC Hgb Hct MCV MCH MCHC RDW Plt Count Neut % (Auto) Lymph % (Auto) [place] % (Auto) Eos % (Auto) Baso % (Auto) Neut # (Auto) Lymph # (Auto) [place] # (Auto) Eos # (Auto) Baso # (Auto) Sodium Potassium Chloride Carbon Dioxide BUN Creatinine Estimated GFR BUN/Creatinine Ratio Glucose Calcium Total Bilirubin AST ALT Alkaline Phosphatase Total Protein Albumin Globulin Albumin/Globulin Ratio Lipase SARS-CoV-2 (PCR) Negative Blood Type Antibody Screen Assessment & Plan Assessment & Plan narrative: Sandee Hitchcock is placed into observation for further evaluation of abdominal pain and further delineation of a potential small bowel obstruction. 1. Suspected bowel obstruction vs ileus, acute and present on admission * General surgery has been consulted * She is NPO * Pain control * IVF with normal saline * Protonix 40 mg IV daily VTE Prophylaxis: Wells risk score 0 [X] Bilateral SCDs Patient is placed into observation as her stay is not expected to exceed 2 midnights. FEN: IV fluids: NS at 100 mL/hour, diet: NPO, labs: CBC, C/BMP, liver enzymes, Mag Consultants Dr. Cerda, General Surgery care and involvement in the patient?s care is appreciated. Dispo: Probable discharge to home Code status: Full Code [X] I have utilized all available immediate resources to obtain, update, or review of the patient's current medications Quality VTE Deep Vein Thrombosis/Pulmonary Embolism Present on Admission: No MIPS - Admit I confirm the patient?s Advance Care Plan is present, Code status is documented, Surrogate decision maker is in patient?s record [If Yes, STOP here]: Yes MIPS - DC The patient has current or prior documentation of left ventricular ejection fraction (LVEF) less than 40%, or moderate or severely depressed left christina tricular systolic function.: No
[2021-11-20 06:10] LABS: Hematocrit 40.7 % (36-46); Hemoglobin 14.4 g/dL (12.0-16.0); Lymphocytes Percent Auto 12.5 % (25-40); Mean Corpuscular HGB Conc 35.3 % (30-36); Mean Corpuscular Hemoglobin 32.6 PG (26-34); Mean Corpuscular Volume 92.2 fL (80-100); Monocytes Percent Auto 0.5 % (3-14); Neutrophils Percent Auto 86.8 % (50-75); Platelet Count 316 X10^3/uL (150-400); Red Blood Cell Count 4.42 X10^6/uL (4.0-5.2); Red Cell Distribution Width 12.6 % (11.6-14.8); White Blood Cell Count 7.6 X10^3/uL (4.5-11.0)
[2021-11-20 06:11] LABS: Add Manual Diff / Slide Review NO; Basophils Absolute Auto 0 /uL (0-100); Basophils Percent Auto 0.2 % (0-2); Eosinophils Absolute Auto 0 /uL (0-450); Lymphocytes Absolute Auto 900 /uL (1100-4500); Monocytes Absolute Auto 0 /uL (0-900); Neutrophils Absolute Auto 6600 /uL (1500-7000)
[2021-11-20 06:29] LABS: BUN Creatinine Ratio 14.5 (6-22); Blood Urea Nitrogen 9 mg/dL (7-17); Calcium 9.1 mg/dL (8.4-10.2); Carbon Dioxide 22 mmol/L (22-32); Chloride 106 mmol/L (98-107); Estimated Glomerular Filt Rate > 60 mL/min (>60); Glucose 144 mg/dL (70-100); HEMOLYSIS < 15 (0-50); Potassium 4.1 mmol/L (3.4-5.1); Sodium 138 mmol/L (137-145)
[2021-11-20] MEDS: DOCUSATE 100 MG CAPSULE PO ×2 (08:02→21:22)
[2021-11-21 01:00] VITALS: O2SAT 99
[2021-11-21] MEDS: SODIUM CHLORIDE 0.9% 1,000 ML 100 ML IV (01:08)
[2021-11-21] MEDS: HYDROMORPHONE 0.5 MG INJ IV ×3 (01:13→09:14)
[2021-11-21 05:35] VITALS: BP 114/78; PULSE 71; RESP 18; TEMP 36; O2SAT 98
[2021-11-21 05:43] LABS: BUN Creatinine Ratio 16.4 (6-22); Blood Urea Nitrogen 10 mg/dL (7-17); Calcium 9.2 mg/dL (8.4-10.2); Carbon Dioxide 25 mmol/L (22-32); Chloride 106 mmol/L (98-107); Estimated Glomerular Filt Rate > 60 mL/min (>60); Glucose 124 mg/dL (70-100); HEMOLYSIS < 15 (0-50); Potassium 4.2 mmol/L (3.4-5.1); Sodium 139 mmol/L (137-145)
[2021-11-21 07:00] VITALS: BP 114/69; PULSE 77; RESP 18; TEMP 36.4; O2SAT 98
[2021-11-21 07:35] VITALS: O2SAT 98
--- NOTE | 2021-11-21 08:05 | PM.HP.1 ---
History of Present Illness History of Present Illness Date Patient Seen: 11/21/21 Chief complaint: Lower abdominal pain, hematemasis melana Narrative: 26-year-old female with several months of abdominal pain admitted to the hospital for pain control. At admission a CT abdomen pelvis was obtained which demonstrates mild dilation of the small bowel and colon no obstruction. She tells me that she recently had a esophagoduodenoscopy and colonoscopy performed at [facility]. It demonstrated mild gastritis and pathology from the upper GI was normal as well as random colonic biopsies were normal. Currently she is feeling better than yesterday. Patient History Medical History Anxiety Exercise-induced asthma Lupus Family & Social History Family History Mother Bowel obstruction Sister Bowel obstruction Safety & Behavioral: Feels Safe in Current Yes Environment Been Physically Hurt or No Threatened By a Person Tobacco & Substance use: Smoking Status Never smoker alcohol intake frequency holiday/special occasion Substance Use Type marijuana Meds Home Medications and Allergies Home Medications Medication Instructions Recorded Confirmed Type albuterol sulfate 90 mcg/actuation 2 puff INHALATION Q4-6H PRN #18 04/10/19 11/20/21 Rx aerosol inhaler gram cyclobenzaprine 10 mg tablet 10 mg PO TID PRN #12 tab 08/23/19 11/20/21 Rx famotidine 40 mg tablet 20 mg PO BID 11/20/21 11/20/21 History ondansetron 4 mg disintegrating See Rx Instructions .ROUTE 11/20/21 11/20/21 History tablet .COMPLEX PRN MDD 12 MG pantoprazole 40 mg tablet,delayed 40 mg PO DAILY 11/20/21 11/20/21 History release venlafaxine 150 mg 150 mg PO DAILY 11/20/21 11/20/21 History capsule,extended release 24 hr Allergies Allergy/AdvReac Type Severity Reaction Status Date / Time doxycycline [DOXYCYCLINE] Allergy Unknown Verified 09/20/21 14:12 hydrocodone [HYDROCODONE] Allergy Unknown Verified 09/20/21 14:12 Penicillins [PENICILLINS] Allergy Unknown Verified 09/20/21 14:12 lidocaine Allergy Verified 09/20/21 14:12 shellfish derived Allergy Anaphylaxis Verified 09/20/21 14:12 Exam Vital Signs (past 8 hours): - 11/21/21 01:00 11/21/21 05:35 11/21/21 07:00 Temperature 96.8 F L 97.5 F L Pulse Rate 71 77 Respiratory Rate 18 18 Blood Pressure 114/78 114/69 Pulse Oximetry 99 98 98 Oxygen Delivery Method Room Air Oxygen Flow Rate 0 Narrative Exam Narrative: General adult woman alert oriented no acute distress Chest nonlabored respirations Abdomen soft mild tenderness lower abdomen no peritonitis nondistended Objective Labs Result Diagrams: 11/20/21 05:41 11/21/21 05:10 Labs: Laboratory Results - last 24 hr 11/21/21 05:10 Sodium 139 Potassium 4.2 Chloride 106 Carbon Dioxide 25 BUN 10 Creatinine 0.61 Estimated GFR > 60 BUN/Creatinine Ratio 16.4 Glucose 124 H Calcium 9.2 Assessment & Plan Assessment and plan (1) Abdominal pain: Status: Acute Assessment & Plan narrative: 26-year-old woman admitted to the hospital with intractable abdominal pain. I have reviewed her CT abdomen pelvis which demonstrates mild distension of the small bowel and colon there is no obstruction free air free fluid. Mild abdominal pain on examination no peritonitis laboratory studies including CBC are unremarkable. No acute surgical process. 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 Time Spent With Patient Critical Care time: I spent a total of [] minutes of critical care time on this patient's care today; this time is exclusive of procedural time. Quality VTE Deep Vein Thrombosis/Pulmonary Embolism Present on Admission: No
--- NOTE | 2021-11-21 09:03 | PM.DS.1 ---
History of Present Illness History of Present Illness Date Patient Seen: 11/21/21 Chief complaint: Lower abdominal pain, hematemasis melana Narrative: History of Present Illness Date Patient Seen: 11/20/21 Time Patient Seen: 03:00 Chief complaint: Lower abdominal pain, hematemasis melana Narrative: Sandee Hitchcock is a 26-year-old female with a past history of a lower GI bleed, lupus, colon polyps, and abdominal pain has had a several day history of severe abdominal pain and was seen in the emergency department on November 14 and diagnosed with obstipation.? At that time she complained of hematemesis as well as melena.? They sent her home with Mag citrate which she produced of quite a bit of stool and has been having diarrhea ever since.? She went her to her PCP for follow-up and was found to still be constipated.? In October she underwent colonoscopy and endoscopy and it was found to have an inflamed colon but the biopsies were negative.? She states that her pain is very consistent but has sharp shooting pains in the meantime.? She has a history of an appendectomy in 2019.? She denies fevers sweats, denies shortness of breath, chest pain, dysuria or changes in bowel or bladder control. X-ray acute abdomen series was negative, pelvis ultrasound was negative, CT of the abdomen and pelvis did indicate findings of fluid distention throughout the colon with air-fluid levels representing gastroenteritis or ileus, it noted associated mild short-segment dilatation of the distal ileum likely secondary to colonic distension, she has a hypervascular lesion in the right hepatic lobe representing a hemangioma.? Patient is afebrile, blood pressure is 122/75, heart rate 106, respiratory rate 16, oxygen saturation 98% on room air she weighs 75 kg with a BMI of 29.3 Discharge Providers Provider Date of admission: 11/20/21 00:58 Discharge Date: 11/21/21 Consults: 11/20/21 03:03 Consult to Physician Routine Comment: Consulting Provider: Yordan Cerda Reason for consultation: severe abdominal pain Has provider been notified: No Discharge provider: Surjit Tsang DO Summary Hospital Course Discharge Diagnosis: ABDOMINAL PAIN. LIKELY ASSOCIATED WITH INFLAMMATORY BOWEL SYNDROME VERSUS INFLAMMATORY BOWEL DISEASE. GASTROENTERITIS IS NOT SUSPECTED.FURTHER WORKUP OUTPATIENT FIBROMYALGIA PER HISTORY PEPTIC ULCER DISEASE VERSUS ACID REFLUX DISEASE PER HISTORY REACTIVE HYPERGLYCEMIA OVERWEIGHT WITH A BMI OF 29. LIFESTYLE CHANGES RECOMMENDED Hospital Course: THIS IS A VERY PLEASANT 26-YEAR-OLD FEMALE FOR PAST MEDICAL HISTORY SIGNIFICANT FOR FIBROMYALGIA. PATIENT REPORTEDLY HAS BEEN HAVING SIGNIFICANT ISSUES WITH ABDOMINAL PAIN AND HAD A COLONOSCOPY WHICH SHOWED DIFFUSE INFLAMMATORY PROCESS THROUGHOUT THE COLON. HOWEVER BIOPSY TAKEN DID NOT SHOW TYPICAL SIGN OF INFLAMMATORY BOWEL DISEASE SUCH ULCERATIVE COLITIS OR CROHN'S. HOWEVER AT THIS TIME I SUSPECT PATIENT DOES HAVE INFEROLATERAL BOWEL DISEASE. SHE CONTINUED TO HAVE RECURRING PAIN. ALSO REPORTED FREQUENT BOUT OF LOOSE BOWEL MOVEMENTS A REFERRAL TO A GRADER MARKER AT THE [facility]ING [facility] F[facility] WITH ADEQUATE AVAILABLE RESOURCES TO MAKE FOR DIAGNOSIS IS RECOMMENDED. IN THE MEANWHILE, SHE WAS TREATED WITH STEROIDS HERE AND RESPONDED VERY WELL TO MEDICAL MANAGEMENT. HER PAIN SIGNIFICANTLY IMPROVED WHILE ON STEROIDS. SHE WILL BE DISCHARGED ON ALLOW ON TAPER DOSE OF PREDNISONE. THIS WILL GO ON FOR THE NEXT 8 WEEKS OR SO OR UNTIL STOP BY HER OUTPATIENT PROVIDERS. SHE WAS ADVICE TO TAKE NSAID IN COMBINATION WITH TYLENOL OTC FOR PAIN INTERMITTENTLY NEEDED. TRAMADOL WILL BE ORDERED BREAKTHROUGH PAIN ALSO. PATIENT ALSO DISCHARGED ON PROTONIX B.I.D. WITH CARAFATE ADDED. PATIENT ALSO RECOMMENDED TO REMAIN ON A FULL LIQUID DIET VERSUS GI SOFT TO ALLOW FOR PROPER BOWEL REST. AVOID RED MEAT FOR THE NEXT FEW WEEKS. OTHERWISE SHE IS STABLE AT THIS TIME CLINICALLY. SHE WILL BE DISCHARGED TODAY. FOLLOW-UP WITH PRIMARY CARE RECOMMENDED WITHIN 2-4 WEEKS. INSTRUCTIONS ACTIVITIES TOLERATED FULL LIQUID VERSUS GI SOFT DIET FOLLOW WITH PRIMARY CARE PHYSICIAN OR PRINCIPAL BIOINFORMATICS SPECIALIST WITHIN 2-4 WEEKS AVOID TOBACCO PRODUCTS AVOID ALCOHOL PRODUCTS TAKE MEDICATION PRESCRIBED ONLY REPORT BLACK TARRY STOOL OR ANY BLOOD IN THE SPUTUM Status at Discharge Cognitive/behavioral status at discharge: oriented Functional status at discharge: independent ambulation Overall status at discharge: patient is back to baseline Time Spent with Patient Time spent: Greater than 30 minutes Exam Vital Signs (past 8 hours): - 11/21/21 05:35 11/21/21 07:00 Temperature 96.8 F L 97.5 F L Pulse Rate 71 77 Respiratory Rate 18 18 Blood Pressure 114/78 114/69 Pulse Oximetry 98 98 Oxygen Delivery Method Room Air Oxygen Flow Rate 0 Narrative Exam Narrative: NO ACUTE DISTRESS. PATIENT IS ALERT ORIENTED X3. VITAL SIGNS STABLE HEAD ATRAUMATIC NORMOCEPHALIC NECK : SUPPLE WITHOUT ADENOPATHY NO CAROTID BRUITS EYE: EOMI, PERRLA, NORMAL CONJUNCTIVA; NO JAUNDICE CHEST: REGULAR RATE. NO RUBS. PMI IS NON DISPLACED. NO MURMURS; NORMAL S1-S2 PULMONARY: DECREASED BS OVER THE BASES. MILD BIBASILAR CRACKLES NOTED; NO INCREASED DULLNESS TO PERCUSSION ABDOMEN: SOFT. NONTENDER. NONDISTENDED. BOWEL SOUNDS ARE PRESENT IN ALL 4 QUADRANTS. NO MASS. EXTREMITIES: NO EDEMA.. NO CYANOSIS CLUBBING NOTED. NEURO: CRANIAL NERVES 2-12 GROSSLY INTACT. NO FOCAL NEUROLOGICAL DEFICIT NOTED. MSK: NORMAL RANGE OF MOTION FOR AGE. NO JOINT EFFUSION. SKIN: NORMAL FOR ETHNICITY; NO ECCHYMOSIS. NO LESION. GOOD TURGOR.; NO RASHES : NORMAL EXTERNAL GENITALIA. PSYCH : APPROPRIATE MOOD AND AFFECT. ALERT AWAKE ORIENTED X3 Objective Labs Result Diagrams: 11/20/21 05:41 11/21/21 05:10 Labs: Laboratory Results - last 24 hr 11/21/21 05:10 Sodium 139 Potassium 4.2 Chloride 106 Carbon Dioxide 25 BUN 10 Creatinine 0.61 Estimated GFR > 60 BUN/Creatinine Ratio 16.4 Glucose 124 H Calcium 9.2 PFSH Medical History Anxiety Exercise-induced asthma Lupus Family History Mother Bowel obstruction Sister Bowel obstruction Social History Smoking Status: Never smoker Discharge Plan Discharge Plan Patient Disposition: Home Nursing Discharge Comment: F/U WITH PCP IN 2-3 WEEKS Discharge orders & Medications Prescriptions: New pantoprazole 40 mg tablet,delayed release (DR/EC) 40 mg PO BID Qty: 60 4RF sucralfate 1 gram tablet 1 g PO QACHS Qty: 120 4RF prednisone 10 mg tablet 10 mg PO DIRECTED Qty: 120 1RF Rx Instructions: 60MG PO X 7 DAYS 55MG PO X 7 DAYS 50MG PO X 7 DAYS 45MG PO X 7 DAYS 40MG PO X 7 DAYS 35MG PO X 7 DAYS 30MG PO X 7 DAYS 25MG PO X 7 DAYS 20MG PO X 7 DAYS 15MG PO X 7 DAYS 10MG PO X 7 DAYS 5MG PO X 7 DAYS tramadol 50 mg tablet 50 mg PO Q4H PRN (Reason: pain) Qty: 30 0RF oxycodone 5 mg tablet 5 mg PO Q8H PRN (Reason: pain) Qty: 10 0RF Continued albuterol sulfate 90 mcg/actuation HFA aerosol inhaler 2 puff INHALATION Q4-6H PRN (Reason: shortness of breath) Qty: 18 0RF cyclobenzaprine 10 mg tablet 10 mg PO TID PRN (Reason: muscle spasm) Qty: 12 0RF venlafaxine 150 mg capsule,extended release 24hr 150 mg PO DAILY 0RF ondansetron 4 mg tablet,disintegrating See Rx Instructions .ROUTE .COMPLEX MDD 12 MG PRN (Reason: Nausea) 0RF Label Comments: DISSOLVE ONE TABLET IN MOUTH EVERY 8 HOURS NEEDED FOR NAUSEA AND VOMITING Rx Instructions: 4 mg orally famotidine 40 mg tablet 20 mg PO BID 0RF Discontinued pantoprazole 40 mg tablet,delayed release (DR/EC) 40 mg PO DAILY 0RF Label Comments: TAKE ONE TABLET BY MOUTH ONE TIME DAILY Diet/Activity/Treatments Diet: Full Liquid Activity: TOLERATED Discharge Data Attending Provider: Una Ojeda VTE Deep Vein Thrombosis/Pulmonary Embolism Present on Admission: No
[2021-11-21] MEDS: LORATADINE 10 MG TABLET PO (09:15)
[2021-11-21] MEDS: DOCUSATE 100 MG CAPSULE PO (09:15)
[2021-11-21] MEDS: ONDANSETRON 4 MG/2 ML INJ IV (09:27)
--- NOTE | 2021-11-21 10:09 | CM.DANOTE ---
DCP: Home with family. Pt to f/u with GI Payor: Leif PCP: Not listed Per MD, pt. to be discharged home today, 11/21/21. Pt. to f/u with her GI MD at [facility] for further management. Pt. is a 26 y.o F who was admitted with lower abdominal pain for pain control. DCP met with pt. this morning in her room. Pt. sitting up in bed with spouse by her side. Pt. was aware of the discharge orders and plan. Pt stated that she is feeling better today and is comfortable going home. Pt. verbalized she was aware that she would have rx's, but stated, I will only take pain medicines when is home because I get nervous taking them when by myself. DCP verbalized the importance of pain management and control. Pt verbalized understanding and stated that she uses [facility] in [place]. P: Pt to discharge home with POV via spouse. Pt to follow up with GI at [facility] Brynn Rojo RN/EDITH Discharge Planning/Care Management CM Discharge Assessment Start: 11/21/21 10:06 Freq: Status: Active Protocol: Document 11/21/21 10:07 SHAMAR (Rec: 11/21/21 10:09 SHAMAR [id number]) Discharge Planning Assessment Assigned Antique Finisher Brynn Rojo RN/EDITH Advance Directives? No History Provided By Patient Has Patient been admitted in last 30 No days? Prior Living Arrangements House Household Members spouse Type of transporation used prior to Drives own vehicle admit Independent with ADL's Yes Is patient alert and oriented? Yes Caregiver for Another No Transportation Arrangement POV via spouse Referrals Initiated None needed Whiteboard Updated in Patient Room with Yes name and ext. # of Antique Finisher Review Status In Process Please Provide Date Initial DC 11/21/21 Assessment Was Performed Next Review Type Continued Stay Review
== END 2021-11-21 11:45 | disposition home or self-care (01) ==
LOC: ED 18:06 → AC 11-20 00:59
PROVIDERS: Admitting Provider Nurse Practitioner Family; Emergency Provider Emergency Medicine; Referring Provider Emergency Medicine; Visit Provider Nurse Practitioner Family
DX: R10.31 Right lower quadrant pain (principal); E66.3 Overweight; Z68.29 Body mass index [BMI] 29.0-29.9, adult; R73.9 Hyperglycemia, unspecified; F41.9 Anxiety disorder, unspecified; J45.990 Exercise induced bronchospasm; Z20.822 Contact with and (suspected) exposure to COVID-19
CPT/HCPCS: 36415; 74022; 74177; 76830; 76856; 80048; 80053; 81003; 81025; 83690; 85025; 86850; 86900; 86901; 87635; 94760; 96374; 96375; 96376; 99224; 99284; C9803; G0378; C9113; J1170; J1200; J1885; J2405; J2920; J2930; Q9967

== ENCOUNTER → 2022-02-24 15:31 | Outpatient (CLI) | payer OTHER, SELFPAY ==
[2021-11-20 01:14] VITALS: BMI 29.2
--- NOTE | 2022-02-24 15:35 | DI.US.S_ITS ---
PROCEDURE: US OB <= 14 WEEKS FETUS INDICATIONS: Dating and viability OUTSIDE/PRIOR DATING DATA: Last menstrual period (LMP): 01/26/2022. LMP-based estimated date of delivery (CRISTI): 11/12/2021. First dating scan (date and location): 02/24/2022. Estimated date of delivery (CRISTI) from first dating scan: 09/26/2022. TECHNIQUE: Real-time scanning was performed of the fetus and maternal pelvic organs, with image documentation. Endovaginal scanning was also performed to better visualize the fetus and maternal ovaries. COMPARISON: None. FINDINGS: Embryo: [place]-rump length measures 2.7 cm corresponding to 9 weeks 3 days. Heart rate: 180 beats per minute Maternal organs: Ovaries demonstrate a right corpus luteal cyst.. IMPRESSION: Single live intrauterine with ultrasound gestational age of 9 weeks 3 days. Recommend followup imaging at 20-22 weeks for dates and anatomy. We strive to produce accurate, complete, and clear reports of imaging services. To assist us in improving patient care, this report was composed using standard report templates and voice recognition software. Therefore, it may contain abnormal punctuation, insertions and/or omissions. Occasional wrong-word or sound-alike substitutions may occur. Though we review the report and make efforts to correct it, we do recommend that the report be read carefully in proper context to recognize any text inaccuracies. Dictated by: Jodie Long M.D. on 02/24/2022 at 21:06 Transcribed by: MARGIE on 02/24/2022 at 21:07 Approved by: Jodie Long M.D. on 02/25/2022 at 15:11
== END ==
PROVIDERS: PCP Internal Medicine; Referring Provider Obstetrics & Gynecology; Visit Provider Obstetrics & Gynecology
DX: Z34.81 Encounter for supervision of other normal pregnancy, first trimester (principal); Z3A.09 9 weeks gestation of pregnancy
CPT/HCPCS: 76801

== ENCOUNTER → 2022-03-22 16:02 | Outpatient (CLI) | payer OTHER, SELFPAY ==
[2021-11-20 01:14] VITALS: BMI 29.2
[2022-03-22 17:37] LABS: Add Manual Diff / Slide Review NO; Basophils Absolute Auto 0 /uL (0-100); Basophils Percent Auto 0.2 % (0-2); Eosinophils Absolute Auto 100 /uL (0-450); Hematocrit 37.7 % (36-46); Hemoglobin 13.5 g/dL (12.0-16.0); Lymphocytes Absolute Auto 2900 /uL (1100-4500); Lymphocytes Percent Auto 29.4 % (25-40); Mean Corpuscular HGB Conc 35.8 % (30-36); Mean Corpuscular Hemoglobin 31.7 PG (26-34); Mean Corpuscular Volume 88.7 fL (80-100); Monocytes Absolute Auto 400 /uL (0-900); Monocytes Percent Auto 4.1 % (3-14); Neutrophils Absolute Auto 6400 /uL (1500-7000); Neutrophils Percent Auto 65.3 % (50-75); Platelet Count 321 X10^3/uL (150-400); Red Blood Cell Count 4.25 X10^6/uL (4.0-5.2); Red Cell Distribution Width 11.9 % (11.6-14.8); White Blood Cell Count 9.7 X10^3/uL (4.5-11.0)
[2022-03-22 17:49] LABS: Appearance Urine UA CLEAR; Bilirubin Urine UA NEGATIVE (NEGATIVE); Color Urine UA YELLOW; Glucose Urine UA NEGATIVE (Negative); Ketones Urine UA NEGATIVE (NEGATIVE); Leukocyte Esterase Urine UA NEGATIVE (NEGATIVE); Nitrite Urine UA NEGATIVE (Negative); Occult Blood Urine UA NEGATIVE (Negative); Protein Urine UA NEGATIVE (Negative); Urobilinogen Urine UA 0.2 E.U./dL (0.2)
[2022-03-22 19:01] LABS: Hepatitis B Surface Antigen NEGATIVE s/c (NEGATIVE); Rubella Antibody IgG 46.7 IU/mL (>15)
[2022-03-22 19:33] LABS: HIV 1 & 2 Ab/Ag 4th Gen Combo NEGATIVE (NEGATIVE); Hep C Virus Ab w/Reflex Quant NEGATIVE s/c (NEGATIVE)
[2022-03-23 06:32] LABS: RPR Screen Non Reactive (Non Reactive)
[2022-03-23 08:13] LABS: Varicella IgG Antibody 291 index (Immune >165)
== END ==
PROVIDERS: PCP Internal Medicine; Referring Provider Obstetrics & Gynecology; Visit Provider Obstetrics & Gynecology
DX: Z34.81 Encounter for supervision of other normal pregnancy, first trimester (principal); Z3A.00 Weeks of gestation of pregnancy not specified
CPT/HCPCS: 36415; 80055; 81003; 86787; 86803; 86850; 86900; 86901; 87086; 87389

== ENCOUNTER → 2022-04-26 13:59 | Outpatient (CLI) | payer OTHER, SELFPAY ==
[2021-11-20 01:14] VITALS: BMI 29.2
[2022-04-26 17:12] LABS: Urine N gonorrhoeae NOT DETECTED
[2022-04-26 17:23] LABS: Urine Chlamydia NOT DETECTED
[2022-04-30 19:47] LABS: AFP, Serum 47.4 ng/mL (.); Estriol, Free 1.71 ng/mL (.); Inhibin A, Dimeric 143.24 pg/mL (.); Maternal Ethnicity Other (.); Maternal Weight 176 lbs (.); Number of Fetuses No (.); OSBR Risk 1 IN 7850 (.); Results Report (.); Test Results *Screen Negative* (.); hCG, MoM 1.12 (.); hCG, Serum 30941 mIU/mL (.)
== END ==
PROVIDERS: PCP Internal Medicine; Referring Provider Obstetrics & Gynecology; Visit Provider Obstetrics & Gynecology
DX: Z34.82 Encounter for supervision of other normal pregnancy, second trimester (principal); Z11.3 Encounter for screening for infections with a predominantly sexual mode of transmission; Z3A.17 17 weeks gestation of pregnancy
CPT/HCPCS: 36415; 82105; 82677; 84702; 86336; 87491; 87591

== ENCOUNTER → 2022-05-16 07:48 | Outpatient (CLI) | payer OTHER, SELFPAY ==
[2021-11-20 01:14] VITALS: BMI 29.2
--- NOTE | 2022-05-16 07:48 | DI.US.S_ITS ---
PROCEDURE: US OB >= 14 WEEKS FETUS INDICATIONS: ANATOMY OUTSIDE/PRIOR DATING DATA: Last menstrual period (LMP): 01/26/2022. LMP-based estimated date of delivery (CRISTI): 11/02/2021. First dating scan (date and location): 02/24/2022 at . Estimated date of delivery (CRISTI) from first dating scan: 09/26/2022. The calculations are made using the working CRISTI of 09/26/2022. TECHNIQUE: Real-time scanning was performed of the fetus, with image documentation and biometric measurements. Endovaginal scanning: Not performed COMPARISON: [facility], , OB <= 14 WEEKS FETUS, 02/24/2022, 15:47. FINDINGS: General: A single living intrauterine gestation is present. Presentation: Variable. Placenta: Placental position is posterior , without previa. Amniotic fluid index: 14.5 cm, normal range is 5-24 cm. Single deepest vertical pocket is 4.2cm. heart rate: 153 beats per minute. Maternal cervical canal: 4.3 cm long. Normal lower limit is 2.5 cm. biometrics: Biparietal diameter: 20 weeks 5 days Head circumference: 20 weeks 0 day Abdominal circumference: 20 weeks 6 days Femur length: 20 weeks 6 days Clinically estimated gestational age: 21 weeks 0 day Composite gestational age from present scan: 20 weeks 4 days Estimated weight and percentile: 372 g; 30% Anatomic survey: Neuro: Ventricles are non-dilated at less than 10 mm. Cisterna magna is normal at 3-11 mm. Cerebellum is normal in size and morphology. Nuchal skin fold: Normal at less than 6 mm between 14-21 weeks gestational age. Face: Nose and lips, facial profile are normal. Spine: No evidence for spina bifida. Heart: 4-chambered heart is present, with normal ventricular outflow tracts. Diaphragm: Diaphragm is intact. Stomach: Left-sided stomach is present. Kidneys: No hydronephrosis. Normal is less than 5 mm in 2nd trimester, less than 7 mm in 3rd trimester. Cord: 3-vessel cord has orthotopic insertion. Bladder: Normal in size. Extremities: All 4 extremities identified. IMPRESSION: 1. A single living intrauterine gestation with appropriate interval growth. 2. Normal anatomic survey. We strive to produce accurate, complete, and clear reports of imaging services. To assist us in improving patient care, this report was composed using standard report templates and voice recognition software. Therefore, it may contain abnormal punctuation, insertions and/or omissions. Occasional wrong-word or sound-alike substitutions may occur. Though we review the report and make efforts to correct it, we do recommend that the report be read carefully in proper context to recognize any text inaccuracies. Dictated by: Edilia Matthews M.D. on 05/17/2022 at 10:46 Approved by: Edilia Matthews M.D. on 05/17/2022 at 10:49
--- NOTE | 2022-07-15 19:12 | PM.CALLCOV.1 ---
Call Coverage Note Note Date of Patient Contact: 07/15/22 Time of Patient Contact: 19:12 Narrative of Care Provided: Sandee, at 29w2d, called after having some fluid leak just as her baby gave her a big kick. Fluid wet her underwear, which were black. No fluid since. Has changed her pants, will monitor and call back and come in for evaluation if more fluid present. Baby moving well. ROM versus cervical mucus in third trimester Sandee will put on a pad, call back if she has more fluid or notices colorful discharge. Plan for in person evaluation if she calls back.
== END ==
PROVIDERS: PCP Internal Medicine; Referring Provider Obstetrics & Gynecology; Visit Provider Obstetrics & Gynecology
DX: Z34.82 Encounter for supervision of other normal pregnancy, second trimester (principal); Z3A.21 21 weeks gestation of pregnancy
CPT/HCPCS: 76811; 76817

== ENCOUNTER 2022-06-05 13:54 | Observation (INO) | payer OTHER, SELFPAY ==
[2021-11-20 01:14] VITALS: BMI 29.2
[2022-06-05] VITALS (12 sets, daily range): BP systolic 98–123; BP diastolic 55–75; PULSE 88–129; RESP 16–28; TEMP 36.5–36.6; O2SAT 96–100; BMI 32.5
--- NOTE | 2022-06-05 14:12 | DI.CT.S_ITS ---
PROCEDURE: CT STROKE INDICATIONS: facial droop, hx of prior, + preg TECHNIQUE: Noncontrast 4.5 mm thick angled axial sections acquired from the foramen magnum to the vertex, with coronal reformats. For radiation dose reduction, the following was used: automated exposure control, adjustment of mA and/or kV according to patient size. COMPARISON: [facility], MR, MR BRAIN WITHOUT CONTRAST, 09/27/2021, 10:57. [facility], CT, CT ANGIO HEAD AND NECK, 09/27/2021, 12:39. FINDINGS: Image quality: Excellent. CSF spaces: Basal cisterns are patent. No extra-axial fluid collections. Ventricles are normal in size and shape. Brain: No midline shift. No intracranial masses or hemorrhage. Moody-white matter interface is normal. Skull and face: Calvarium and visualized facial bones are intact, without suspicious lesions. Sinuses: Visualized sinuses and mastoids are clear. IMPRESSION: No acute intracranial abnormality. Findings were discussed with the referring physician, Dr. Zabala, by telephone on 06/05/2022 at 3:00 PM. This study fulfills neurological imaging criteria for inclusion or exclusion of acute stroke therapies based on available published neurological imaging guidelines. Approved by: Joe Clarke M.D. on 06/05/2022 at 15:00
--- NOTE | 2022-06-05 14:13 | DI.CT.S_ITS ---
PROCEDURE: CT ANGIO HEAD AND NECK INDICATIONS: facial droop, hx of prior, + preg TECHNIQUE: Noncontrast images were performed earlier in the day and not repeated. After the administration of intravenous contrast, 1 mm thick sections acquired from the aortic arch through the [place]. Post-contrast 4.5 mm thick sections then re-acquired from the foramen magnum to the vertex. 3-dimensional pqaznbf-liglpvfqg-jbijxiykpd (MIP) and/or volume rendering reformats were acquired of the central intracranial vasculature and neck separately. For radiation dose reduction, the following was used: automated exposure control, adjustment of mA and/or kV according to patient size. The patient was pre-medicated for an iodine allergy before this contrast administration. No immediate contrast reactions were experienced. COMPARISON: [facility], CT, CT STROKE, 06/05/2022, 14:38. [facility], CT, CT ANGIO HEAD AND NECK, 09/27/2021, 12:39. FINDINGS: Image quality: Excellent. BRAIN: CSF spaces: Ventricles are normal in size and shape. Basal cisterns are patent. No extra-axial fluid collections. Brain: No midline shift. No intracranial bleeds or masses. Moody-white matter interface appears intact. Skull and face: Calvarium and facial bones appear intact, without suspicious lesions. Orbits appear normal. In this patient with this given history, scrutiny is given to course of the left facial nerve, including within the parotid gland. No masses or abnormal enhancement can be seen to explain the patient's facial weakness. Sinuses: Sinuses and mastoids are clear. HEAD CT ANGIOGRAPHY: Anterior circulation: Intracranial internal carotid arteries are normal in size and flow. The flow within the paired anterior cerebral arteries is normal and symmetric. The flow within the middle cerebral arteries is normal and symmetric. The anterior communicating artery is seen. No aneurysms are seen. Posterior circulation: Visualized portions of the vertebral arteries demonstrate normal caliber, and join to form a normal appearing basilar artery. Flow within the posterior cerebral arteries is normal and symmetric. No aneurysms are seen. NECK CT ANGIOGRAPHY: Carotid system: The great vessels demonstrate a conventional anatomy as they arise from the aortic arch. The origins of the common carotid arteries appear patent. The common carotid arteries demonstrate normal caliber and courses. The bifurcation regions are both widely patent. The internal carotid arteries demonstrate normal calibers and courses. Posterior circulation: The origins of the vertebral arteries both appear widely patent. The more superior extracranial portions of both vertebral arteries also demonstrate normal courses and calibers. They join to form a normal appearing basilar artery. Soft tissues: Visualized neck soft tissues demonstrate no suspicious abnormalities. Bones: No suspicious bony lesions. Visualized cervical spine appears normally aligned. IMPRESSION: No significant intracranial arterial abnormality is seen. Within the arteries of the neck, no hemodynamically significant stenosis can be seen. No findings of dissection are seen. If it would be helpful for clinical management decision making, please consider a dedicated, noncontrast brain MRI for further evaluation (assuming that there is no contraindication). Any quantitative measurements of stenosis were performed using NASCET criteria. Dictated by: Jefe Palafox M.D. on 06/05/2022 at 14:52 Approved by: Jefe Palafox M.D. on 06/05/2022 at 14:55
--- NOTE | 2022-06-05 14:22 | ED.NEUROSD ---
HPI - Neuro Symptoms/Deficit General Chief Complaint: Neuro Symptoms/Deficit Stated Complaint: Hx stroke, similar symptoms, 23w6d Time Seen by Provider: 06/05/22 14:12 Source: patient Mode of arrival: Ambulatory History of Present Illness HPI Narrative: This is a 27-year-old female who is 24 weeks as of tomorrow with reported history of stroke in October, on Effexor and has had her medication for paroxysmal tachycardia stopped due to her , patient is on oxycodone daily for chronic abdominal pain. She is on an aspirin 81 mg daily no other blood thinners. She states the source of her stroke in October was never found she was seen at [facility]. She states that she felt like her heart was going fast and slow last night, this morning she woke up she felt very groggy and at noon today she states she felt tingling on the left side of her face, arm and leg, week and noticed some facial droop. She has not noticed a lot of change to speech. She states her vision seems a little funny with spots on both sides. She has not had fevers or chills. Has had mild headache. She is had nausea 1 episode of vomiting today but feels better now. She had this sensation in her chest last night, no active shortness breath. She has not had constipation but has had some diarrhea. Denies abdominal pain, fluid leakage or cramping. On Anticoagulants: No Related Data Home Medications Medication Instructions Recorded Confirmed famotidine 40 mg tablet 20 mg PO BID 11/20/21 05/25/22 venlafaxine 150 mg 150 mg PO DAILY 11/20/21 05/25/22 capsule,extended release 24 hr folic acid 1 mg tablet 0.5 mg PO DAILY 03/03/22 05/25/22 prenat.vits,saturnino,kpg-lodk-hmkrx 1 tab PO DAILY 03/03/22 05/25/22 Previous Rx's Medication Instructions Recorded albuterol sulfate 90 mcg/actuation 2 puff inhalation Q4-6H PRN 04/10/19 aerosol inhaler shortness of breath #18 grams ondansetron HCl 8 mg tablet 8 mg PO Q8H PRN nausea and 03/22/22 vomiting #30 tabs Allergies Allergy/AdvReac Type Severity Reaction Status Date / Time doxycycline [DOXYCYCLINE] Allergy Unknown Verified 06/05/22 18:10 Penicillins [PENICILLINS] Allergy Unknown Verified 06/05/22 18:10 lidocaine Allergy Verified 06/05/22 18:10 shellfish derived Allergy Anaphylaxis Verified 06/05/22 18:10 Review of Systems Review of Systems ROS Unobtainable: All systems reviewed & are unremarkable except as noted in HPI and below Hematologic/Lymphatic On Anticoagulants: No Patient History Medical History Acute right lower quadrant pain Anxiety Cholecystitis CVA (cerebral vascular accident) Exercise-induced asthma Fibromyalgia Gastroenteritis Jaw pain, non-TMJ Lower GI bleed Normal colonoscopy Normal endoscopy Right foot strain Torn rotator cuff Tumor of liver Surgical History H/O knee surgery History of appendectomy Family History Mother Bowel obstruction Lupus Spinal cord cancer Fibromyalgia Epilepsy Blood clotting tendency Stroke Sister Bowel obstruction Tachycardia Arrhythmia Fibromyalgia Family/Other Colon cancer Grandmother S/P CABG x 3 Tachycardia Father Tachycardia Brother Tachycardia Grandmother Liver cancer Social History marital status: number of children: 0 household members: spouse lives independently: Yes housing: house pets and animals: Yes (2 dogs, 1 cat) education level: college (some collge, certificate program) 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) current occupational exposures/hazards: No special reuben needs: No travel history: over 6 months ago seatbelt use: always water heater temp set < 120 deg: Yes working smoke detector in home: Yes fire extinguisher in home: Yes carbon monox detector in home: Yes firearms in home: No do you feel safe at home: Yes Smoking Status: Never smoker second hand exposure: Yes ( smokes outside) alcohol intake: former (rarely when not ) substance use type: marijuana (prior to ) during the past year weight has: remained stable well-balanced diet: about half the time daily servings fruits/ve-4 caffeine: Yes (aware of 200mg limit) Type(s) of exercise: walking frequency: 5-6 times per week Smoking Status: Never smoker alcohol intake frequency: holidays/special occasions only Substance Use Type: marijuana Exam Narrative Exam Narrative: GEN: well nourished, well appearing female, alert and oriented x 3, patient appears to be in mild distress. HEENT: Atraumatic, pupils are equal round reactive to light, extraocular movements are intact, nares are clear, TMs are clear with no fluid, there is no conjunctival pallor. Throat is clear without any exudates, erythema, tonsillar enlargement or uvular deviation, mild left facial droop that is intermittent. HEART: Regular rate and rhythm without murmur, clicks, rubs. No carotid bruits, pulses are equal in upper and lower extremities LUNGS:Lungs clear to auscultation, no wheezes, rales, crackles, chest moves symmetrically ABD:bowel sounds normal, soft, non-tender, no guarding, rebound, rigidity, no masses noted, no hepatosplenomegaly :No CVA tenderness, [male/female exam] MSCL: Non-tender, no muscle atrophy, patient has drift of left arm and leg compared to right. Full range of motion NEURO:CN 2-12 intact, sensation normal, finger nose finger test normal, heel telles test normal difficult. Normal gait. SKIN: No rash, erythema or other skin changes Initial Vital Signs Initial Vital Signs: Vital Signs Temperature 97.7 F 06/05/22 14:04 Pulse Rate 88 06/05/22 14:04 Respiratory Rate 16 06/05/22 14:04 Blood Pressure 107/65 06/05/22 14:04 Pulse Oximetry 100 06/05/22 14:04 Oxygen Delivery Method 06/05/22 14:04 Scores NIH Stroke Scale Level of Conciousness: Alert, keenly responsive Ask month/age: Answers both questions correctly. Open/close eyes, close hand: Performs both tasks correctly Best gaze horizontal: Normal Visual adan: No visual loss Facial palsy: Minor paralysis, flattened nasolabial fold, asymmetry on smiling Left arm drift: Drifts down, not to bed Right arm drift: No drift for full 10 sec Left leg drift: Drifts down, not to bed Right leg drift: No drift for full 5 sec Limb ataxia: Present in one limb Sensory on face/arms/legs: Mild to moderate sensory loss, can tell touch Best language: No aphasia, normal Dysarthria: Normal Extinction or inattention: No abnormality Total NIH Stroke scale score: 5 Course Orders Ordered: ED Orders 06/05/22 14:12 CT Stroke Stat 06/05/22 14:13 CT angio head and neck Stat 06/05/22 15:02 Complete Blood Count AUTO DIFF Stat 06/05/22 15:15 Urinalysis and Microscopic Stat Urine Drug Screen, Rapid Stat 06/05/22 15:33 Covid-19 + FLU A/B + RSV - PCR Stat Partial Thromboplastin Time Stat Prothrombin Time INR Stat 06/05/22 15:57 MR head/brain wo con Stat 06/05/22 16:02 EKG-12 Lead Stat 06/05/22 17:05 Comprehensive Metabolic Panel Stat Ethanol (ETOH) Stat Troponin & CK Cardiac Panel Stat Aspirin (Aspirin Ec 81 Mg Tablet) 81 mg PO DAILY JODIE Famotidine (Famotidine 20 Mg Tablet) 20 mg PO BID JODIE Folic Acid (Folic Acid 1 Mg Tablet) 0.5 mg PO DAILY [facility] Sodium Chloride (Normal Saline 0.9%) 1,000 mls @ 150 mls/hr IV CONT JODIE Last Admin: 06/05/22 15:39 Dose: 150 mls/hr Documented By: ANU Labetalol HCl (Labetalol 20 Mg/4 Ml Syringe) 10 mg IV Q5H PRN PRN Reason: SBP >220 or DBP >110 Melatonin (Melatonin 3 Mg Tablet) 6 mg PO BEDTIME PRN PRN Reason: Insomnia Polyethylene Glycol (Polyethylene Glycol 3350 17 Gm Powd.Pack) 17 gm PO DAILY PRN PRN Reason: Constipation Sennosides (Sennosides 8.6 Mg Tablet) 8.6 mg PO BID PRN PRN Reason: Constipation Venlafaxine HCl (Venlafaxine Er 75 Mg Cap) 150 mg PO DAILY [facility] Discontinued Medications Diphenhydramine HCl (Diphenhydramine 50 Mg/Ml Vial) 50 mg IV NOW ONE Stop: 06/05/22 14:38 Last Admin: 06/05/22 15:09 Dose: 50 mg Documented By: ANU Methylprednisolone (Methylprednisolone 125 Mg/2 Ml Vial) 125 mg IV NOW ONE Stop: 06/05/22 14:38 Last Admin: 06/05/22 15:09 Dose: 125 mg Documented By: ANU Oxycodone/Acetaminophen (Oxycodone/Acetaminophen 5/325 Tablet) 2 tab PO NOW ONE Stop: 06/05/22 16:04 Last Admin: 06/05/22 17:17 Dose: 2 tab Documented By: ANU Consultations Consultation #1: Dr. Rhoades, neurology. She reviewed head CT is negative, she is going to review CT angio, agrees with plan to hold on any additional anticoagulation for the moment. Reviewed verbally from the radiologist had a negative MRI of her brain in August after stroke workup. She recommends typical stroke workup repeat MRI patient and I had already discussed tPA candidacy she was within the window but is got relative contraindications with and patient does not wish to pursue this Dr. Rhoaeds agrees with patient's wishes at this time. She will call back after reviewing CT angio for final recommendations. Time: 15:32 Consultation #2: Dr. Eduardo, hospitalist accepts for observation. He does ask for OB to consult. Discussed recommendations from Neurology, MR is actually negative but they do recommend workup. Discussed she was at [facility] in August had a negative MRI and CT angio according to radiologist have not received her physical records. Consultation #3: Dr. Michel, moth proofer is happy to consult on the patient and with management. She plans to come see the patient. Vital Signs Vital signs: Vital Signs - 8 hr 06/05/22 14:04 06/05/22 14:20 06/05/22 14:20 Temperature 97.7 F Pulse Rate 88 92 H Respiratory Rate 16 21 Blood Pressure 107/65 114/69 Pulse Oximetry 100 100 Oxygen Delivery Method Room Air 06/05/22 14:30 06/05/22 14:50 06/05/22 14:50 Temperature Pulse Rate 102 H 111 H Respiratory Rate 24 Blood Pressure 117/68 Pulse Oximetry 100 100 Oxygen Delivery Method 06/05/22 15:00 06/05/22 15:14 06/05/22 15:14 Temperature Pulse Rate 102 H Respiratory Rate 28 H 25 H Blood Pressure 118/70 Pulse Oximetry 100 100 Oxygen Delivery Method 06/05/22 15:28 06/05/22 15:28 06/05/22 15:30 Temperature Pulse Rate 114 H 88 Respiratory Rate 25 H 18 Blood Pressure 123/66 Pulse Oximetry 100 100 Oxygen Delivery Method Room Air MDM - Neuro Symptoms/Deficit Lab Data Result diagrams: 06/05/22 15:02 06/05/22 17:05 Labs: Lab Results 06/05/22 06/05/22 06/05/22 Range/Units 15:02 15:02 15:15 WBC 11.8 H (4.5-11.0) X10^3/uL RBC 4.44 (4.0-5.2) X10^6/uL Hgb 14.0 (12.0-16.0) g/dL Hct 41.5 (36-46) % MCV 93.6 (80-100) fL MCH 31.6 (26-34) PG MCHC 33.8 (30-36) % RDW 13.6 (11.6-14.8) % Plt Count 299 (150-400) X10^3/uL Neut % (Auto) 76.0 H (50-75) % Lymph % (Auto) 19.6 L (25-40) % Fountain % (Auto) 3.6 (3-14) % Eos % (Auto) 0.5 L (2-4) % Baso % (Auto) 0.3 (0-2) % Neut # (Auto) 9000 H (2392-7391) /uL Lymph # (Auto) 2300 (0963-0845) /uL Fountain # (Auto) 400 (0-900) /uL Eos # (Auto) 100 (0-450) /uL Baso # (Auto) 0 (0-100) /uL PT (10.1-12.7) SECONDS INR (0.9-1.3) APTT (26-36) SECONDS Sodium (137-145) mmol/L Potassium (3.4-5.1) mmol/L Chloride (98-107) mmol/L Carbon Dioxide (22-32) mmol/L BUN (7-17) mg/dL Creatinine (0.52-1.04) mg/dL Estimated GFR (>60) mL/min BUN/Creatinine Ratio (6-22) Glucose (70-100) mg/dL Hemoglobin A1c 4.6 (4.0-6.0) % Calcium (8.4-10.2) mg/dL Total Bilirubin (0.2-1.3) mg/dL AST (14-36) IU/L ALT (<35) IU/L Alkaline Phosphatase (38-126) U/L Total Creatine Kinase (30-135) U/L CK-MB (CK-2) CK-MB (CK-2) Rel Index Troponin I (0.01-0.034) ng/mL Total Protein (6.3-8.2) g/dL Albumin (3.5-5.0) g/dL Globulin (1.7-4.1) g/dL Albumin/Globulin Ratio (1.0-2.8) Urine Color Urine Appearance Urine pH (4.5-8.0) Ur Specific [place] (1.000-1.035) Urine Protein (Negative) Urine Glucose (UA) (Negative) g/dL Urine Ketones (NEGATIVE) Urine Occult Blood (Negative) Urine Nitrate (Negative) Urine Bilirubin (NEGATIVE) Urine Urobilinogen (0.2) E.U./dL Ur Leukocyte Esterase (NEGATIVE) Urine RBC (0-5/HPF) Urine WBC (0-5/HPF) Ur Squamous Epith Cells (0-5/HPF) Urine Bacteria (None) Ur Culture Indicated? U Opiates 300ng/mL cut Negative (Negative) Ur Oxycodone Screen Positive H (Negative) Urine Methadone Screen Negative (Negative) Ur Barbiturates Screen Negative (Negative) U Tricyclic Antidepress Negative (Negative) Ur Phencyclidine Scrn Negative (Negative) Ur Amphetamines Screen Negative (Negative) U Methamphetamines Scrn Negative (Negative) Ur MDMA Scrn (Ecstasy) Negative (Negative) U Benzodiazepines Scrn Negative (Negative) Urine Cocaine Screen Negative (Negative) U Marijuana (THC) Screen Negative (Negative) Ethyl Alcohol ( - 10) mg/dL SARS-CoV-2 (PCR) Influenza A (RT-PCR) (NEGATIVE) Influenza B (RT-PCR) (NEGATIVE) RSV (PCR) (Negative) 06/05/22 06/05/22 06/05/22 Range/Units 15:15 15:33 15:33 WBC (4.5-11.0) X10^3/uL RBC (4.0-5.2) X10^6/uL Hgb (12.0-16.0) g/dL Hct (36-46) % MCV (80-100) fL MCH (26-34) PG MCHC (30-36) % RDW (11.6-14.8) % Plt Count (150-400) X10^3/uL Neut % (Auto) (50-75) % Lymph % (Auto) (25-40) % Fountain % (Auto) (3-14) % Eos % (Auto) (2-4) % Baso % (Auto) (0-2) % Neut # (Auto) (6225-1392) /uL Lymph # (Auto) (4182-2919) /uL Fountain # (Auto) (0-900) /uL Eos # (Auto) (0-450) /uL Baso # (Auto) (0-100) /uL PT 12.3 (10.1-12.7) SECONDS INR 1.1 (0.9-1.3) APTT 29 (26-36) SECONDS Sodium (137-145) mmol/L Potassium (3.4-5.1) mmol/L Chloride (98-107) mmol/L Carbon Dioxide (22-32) mmol/L BUN (7-17) mg/dL Creatinine (0.52-1.04) mg/dL Estimated GFR (>60) mL/min BUN/Creatinine Ratio (6-22) Glucose (70-100) mg/dL Hemoglobin A1c (4.0-6.0) % Calcium (8.4-10.2) mg/dL Total Bilirubin (0.2-1.3) mg/dL AST (14-36) IU/L ALT (<35) IU/L Alkaline Phosphatase (38-126) U/L Total Creatine Kinase (30-135) U/L CK-MB (CK-2) CK-MB (CK-2) Rel Index Troponin I (0.01-0.034) ng/mL Total Protein (6.3-8.2) g/dL Albumin (3.5-5.0) g/dL Globulin (1.7-4.1) g/dL Albumin/Globulin Ratio (1.0-2.8) Urine Color Yellow Urine Appearance Clear Urine pH 7.0 (4.5-8.0) Ur Specific [place] 1.025 (1.000-1.035) Urine Protein Negative (Negative) Urine Glucose (UA) Negative (Negative) g/dL Urine Ketones Negative (NEGATIVE) Urine Occult Blood Negative (Negative) Urine Nitrate Negative (Negative) Urine Bilirubin Negative (NEGATIVE) Urine Urobilinogen 0.2 (0.2) E.U./dL Ur Leukocyte Esterase Negative (NEGATIVE) Urine RBC 1-5/hpf (0-5/HPF) Urine WBC 1-5/hpf (0-5/HPF) Ur Squamous Epith Cells 1-5 /hpf (0-5/HPF) Urine Bacteria Few (2-10) H (None) Ur Culture Indicated? Cult not indicated U Opiates 300ng/mL cut (Negative) Ur Oxycodone Screen (Negative) Urine Methadone Screen (Negative) Ur Barbiturates Screen (Negative) U Tricyclic Antidepress (Negative) Ur Phencyclidine Scrn (Negative) Ur Amphetamines Screen (Negative) U Methamphetamines Scrn (Negative) Ur MDMA Scrn (Ecstasy) (Negative) U Benzodiazepines Scrn (Negative) Urine Cocaine Screen (Negative) U Marijuana (THC) Screen (Negative) Ethyl Alcohol ( - 10) mg/dL SARS-CoV-2 (PCR) Cancelled Influenza A (RT-PCR) (NEGATIVE) Influenza B (RT-PCR) (NEGATIVE) RSV (PCR) (Negative) 06/05/22 06/05/22 06/05/22 Range/Units 15:33 15:53 17:05 WBC (4.5-11.0) X10^3/uL RBC (4.0-5.2) X10^6/uL Hgb (12.0-16.0) g/dL Hct (36-46) % MCV (80-100) fL MCH (26-34) PG MCHC (30-36) % RDW (11.6-14.8) % Plt Count (150-400) X10^3/uL Neut % (Auto) (50-75) % Lymph % (Auto) (25-40) % [place] % (Auto) (3-14) % Eos % (Auto) (2-4) % Baso % (Auto) (0-2) % Neut # (Auto) (5236-4905) /uL Lymph # (Auto) (7795-8443) /uL [place] # (Auto) (0-900) /uL Eos # (Auto) (0-450) /uL Baso # (Auto) (0-100) /uL PT Cancelled (10.1-12.7) SECONDS INR Cancelled (0.9-1.3) APTT (26-36) SECONDS Sodium 135 L (137-145) mmol/L Potassium 3.5 (3.4-5.1) mmol/L Chloride 107 (98-107) mmol/L Carbon Dioxide 20 L (22-32) mmol/L BUN 5 L (7-17) mg/dL Creatinine 0.42 L (0.52-1.04) mg/dL Estimated GFR > 60 (>60) mL/min BUN/Creatinine Ratio 11.9 (6-22) Glucose 95 (70-100) mg/dL Hemoglobin A1c (4.0-6.0) % Calcium 8.9 (8.4-10.2) mg/dL Total Bilirubin 0.2 (0.2-1.3) mg/dL AST 15 (14-36) IU/L ALT 12 (<35) IU/L Alkaline Phosphatase 94 (38-126) U/L Total Creatine Kinase < 20 L (30-135) U/L CK-MB (CK-2) TNP CK-MB (CK-2) Rel Index TNP Troponin I < 0.012 (0.01-0.034) ng/mL Total Protein 6.6 (6.3-8.2) g/dL Albumin 3.5 (3.5-5.0) g/dL Globulin 3.1 (1.7-4.1) g/dL Albumin/Globulin Ratio 1.1 (1.0-2.8) Urine Color Urine Appearance Urine pH (4.5-8.0) Ur Specific [place] (1.000-1.035) Urine Protein (Negative) Urine Glucose (UA) (Negative) g/dL Urine Ketones (NEGATIVE) Urine Occult Blood (Negative) Urine Nitrate (Negative) Urine Bilirubin (NEGATIVE) Urine Urobilinogen (0.2) E.U./dL Ur Leukocyte Esterase (NEGATIVE) Urine RBC (0-5/HPF) Urine WBC (0-5/HPF) Ur Squamous Epith Cells (0-5/HPF) Urine Bacteria (None) Ur Culture Indicated? U Opiates 300ng/mL cut (Negative) Ur Oxycodone Screen (Negative) Urine Methadone Screen (Negative) Ur Barbiturates Screen (Negative) U Tricyclic Antidepress (Negative) Ur Phencyclidine Scrn (Negative) Ur Amphetamines Screen (Negative) U Methamphetamines Scrn (Negative) Ur MDMA Scrn (Ecstasy) (Negative) U Benzodiazepines Scrn (Negative) Urine Cocaine Screen (Negative) U Marijuana (THC) Screen (Negative) Ethyl Alcohol < 10 ( - 10) mg/dL SARS-CoV-2 (PCR) Negative Influenza A (RT-PCR) Flu a negative (NEGATIVE) Influenza B (RT-PCR) Flu b negative (NEGATIVE) RSV (PCR) Negative (Negative) Point of Care Testing Glucose POC [address] scan - head: Radiologist's Impression: Sandee Amin??27??F??1995 ? Allergy/Adv: doxycycline, Penicillins, lidocaine, shellfish derived (More??) Close Brain MRI (Signed) Kaylen Palafoxe - 06/05/22 Head/Neck CTA (Signed) Jefe Palafox - 06/05/[address] (Signed) Joe Clarke - 06/05/22 Ultrasound (Signed) Edilia Matthews - 05/16/22 Ultrasound (Signed) Jodie Long - 02/24/22 DI Result 02/08/22 Abdomen/Pelvis CT (Signed) Martin Niño - 11/19/21 Pelvis Ultrasound (Signed) Martin Niño - 11/19/21 Chest/Abdomen X-ray (Signed) Troy Mayfield - 11/19/21 Abdomen/Pelvis CT (Signed) Martin Niño - 11/15/21 Chest X-Ray (Signed) Jodie Long - 09/20/21 EKG Rpt. 09/20/21 Chest X-Ray (Signed) Ruddy Ojeda - 04/10/19 Chest X-Ray (Signed) Mehnaz Barry - 03/31/19 Shoulder X-Ray (Signed) Cyndee Barron - 05/02/18 Launch?[address] [address] [address] Scan Report Signed Patient: Sandee Amin MR#: [id number] : 1995 Acct:[id number] Age/Sex: 27 / F Date of Service: 06/05/22 Loc: ED Accession Number: [id number] ?? Procedure: CT Stroke Ordering Provider: Perri Zabala D.O. PROCEDURE:? CT STROKE ? INDICATIONS:? facial droop, hx of prior, + preg ? TECHNIQUE:? Noncontrast 4.5 mm thick angled axial sections acquired from the foramen magnum to the vertex, with coronal reformats.? For radiation dose reduction, the following was used:? automated exposure control, adjustment of mA and/or kV according to patient size.? ? COMPARISON:? [facility], MR, MR BRAIN WITHOUT CONTRAST, 09/27/2021, 10:57.? [facility], CT, CT ANGIO HEAD AND NECK, 09/27/2021, 12:39. ? FINDINGS:? Image quality:? Excellent.? ? CSF spaces:? Basal cisterns are patent.? No extra-axial fluid collections.? Ventricles are normal in size and shape.? ? Brain:? No midline shift.? No intracranial masses or hemorrhage.? Moody-white matter interface is normal.? ? Skull and face:? Calvarium and visualized facial bones are intact, without suspicious lesions.? ? Sinuses:? Visualized sinuses and mastoids are clear.? ? IMPRESSION:? No acute intracranial abnormality. ? Findings were discussed with the referring physician, Dr. Zabala, by telephone on 06/05/2022 at 3:00 PM. ? This study fulfills neurological imaging criteria for inclusion or exclusion of acute stroke therapies based on available published neurological imaging guidelines.? Approved by: Joe Clarke M.D. on 06/05/2022 at 15:00? CTA - brain/neck: Radiologist's Impression: Close Brain MRI (Signed) Jefe Palafox - 06/05/22 Head/Neck CTA (Signed) Jefe Palafox - 06/05/[address] (Signed) Joe Clarke - 06/05/22 Ultrasound (Signed) Edilia Matthews - 05/16/22 Ultrasound (Signed) Jodie Long - 02/24/22 DI Result 02/08/22 Abdomen/Pelvis CT (Signed) Martin Niño - 11/19/21 Pelvis Ultrasound (Signed) Martin Niño - 11/19/21 Chest/Abdomen X-ray (Signed) Troy Mayfield - 11/19/21 Abdomen/Pelvis CT (Signed) Martin Niño - 11/15/21 Chest X-Ray (Signed) Jodie Long - 09/20/21 EKG Rpt. 09/20/21 Chest X-Ray (Signed) Ruddy Ojeda - 04/10/19 Chest X-Ray (Signed) BarryMehnaz kramer - 03/31/19 Shoulder X-Ray (Signed) Cyndee Barron - 05/02/18 Launch?Image [address] [address] [address] Scan Report Signed Patient: Sandee Amin MR#: [id number] : 1995 Acct:[id number] Age/Sex: 27 / F Date of Service: 06/05/22 Loc: ED Accession Number: [id number] ?? Procedure: CT angio head and neck Ordering Provider: Perri Zabala D.O. PROCEDURE:? CT ANGIO HEAD AND NECK ? INDICATIONS:? facial droop, hx of prior, + preg ? TECHNIQUE:? Noncontrast images were performed earlier in the day and not repeated.? ? After the administration of intravenous contrast, 1 mm thick sections acquired from the aortic arch through the [place].? Post-contrast 4.5 mm thick sections then re-acquired from the foramen magnum to the vertex.? 3-dimensional ezpooyx-rfvhuwhxw-vawptjjfpb (MIP) and/or volume rendering reformats were acquired of the central intracranial vasculature and neck separately. For radiation dose reduction, the following was used:? automated exposure control, adjustment of mA and/or kV according to patient size.? ? The patient was pre-medicated for an iodine allergy before this contrast administration.? No immediate contrast reactions were experienced. ? COMPARISON:? [facility], CT, CT STROKE, 06/05/2022, 14:38.? [facility], CT, CT ANGIO HEAD AND NECK, 09/27/2021, 12:39. ? FINDINGS:? Image quality:? Excellent.? ? BRAIN:? CSF spaces:? Ventricles are normal in size and shape.? Basal cisterns are patent.? No extra-axial fluid collections.? ? Brain:? No midline shift.? No intracranial bleeds or masses.? Moody-white matter interface appears intact.? ? Skull and face:? Calvarium and facial bones appear intact, without suspicious lesions.? Orbits appear normal.? In this patient with this given history, scrutiny is given to course of the left facial nerve, including within the parotid gland.? No masses or abnormal enhancement can be seen to explain the patient's facial weakness. ? Sinuses:? Sinuses and mastoids are clear.? ? HEAD CT ANGIOGRAPHY:? Anterior circulation:? Intracranial internal carotid arteries are normal in size and flow.? The flow within the paired anterior cerebral arteries is normal and symmetric.? The flow within the middle cerebral arteries is normal and symmetric.? The anterior communicating artery is seen.? No aneurysms are seen.? ? Posterior circulation:? Visualized portions of the vertebral arteries demonstrate normal caliber, and join to form a normal appearing basilar artery.? Flow within the posterior cerebral arteries is normal and symmetric.? No aneurysms are seen.? ? NECK CT ANGIOGRAPHY:? Carotid system:? The great vessels demonstrate a conventional anatomy as they arise from the aortic arch.? The origins of the common carotid arteries appear patent.? The common carotid arteries demonstrate normal caliber and courses.? The bifurcation regions are both widely patent.? The internal carotid arteries demonstrate normal calibers and courses.? ? Posterior circulation:? The origins of the vertebral arteries both appear widely patent.? The more superior extracranial portions of both vertebral arteries also demonstrate normal courses and calibers.? They join to form a normal appearing basilar artery.? ? Soft tissues:? Visualized neck soft tissues demonstrate no suspicious abnormalities.? ? Bones:? No suspicious bony lesions.? Visualized cervical spine appears normally aligned.? IMPRESSION:? No significant intracranial arterial abnormality is seen.? ? Within the arteries of the neck, no hemodynamically significant stenosis can be seen. ? No findings of dissection are seen. ? If it would be helpful for clinical management decision making, please consider a dedicated, noncontrast brain MRI for further evaluation (assuming that there is no contraindication).? ? Any quantitative measurements of stenosis were performed using NASCET criteria.? ? ? Dictated by: Jefe Palafox M.D. on 06/05/2022 at 14:52 ? ? Approved by: Jefe Palafox M.D. on 06/05/2022 at 14:55?? MRI brain: Radiologist's Impression: Close Brain MRI (Signed) Jefe Palafox - 06/05/22 Head/Neck CTA (Signed) Jefe Palafox - 06/05/[address] (Signed) Joe Clarke - 06/05/22 Ultrasound (Signed) Edilia Matthews - 05/16/22 Ultrasound (Signed) Jodie Long - 02/24/22 DI Result 02/08/22 Abdomen/Pelvis CT (Signed) NiñoMartin - 11/19/21 Pelvis Ultrasound (Signed) NiñoMartin - 11/19/21 Chest/Abdomen X-ray (Signed) Anu Mayfieldng - 11/19/21 Abdomen/Pelvis CT (Signed) NiñoMartin houser - 11/15/21 Chest X-Ray (Signed) Jodie Long - 09/20/21 EKG Rpt. 09/20/21 Chest X-Ray (Signed) Ruddy Ojeda - 04/10/19 Chest X-Ray (Signed) Mehnaz Barry - 03/31/19 Shoulder X-Ray (Signed) Cyndee Barron - 05/02/18 Launch?[place] [address] Magnetic Resonance Report Signed Patient: Sandee Amin MR#: [id number] : 1995 Acct:[id number] Age/Sex: 27 / F Date of Service: 06/05/22 Loc: ED Accession Number: [id number] ?? Procedure: MR head/brain wo con Ordering Provider: Perri Zabala D.O. PROCEDURE:? MR HEAD/BRAIN WO CON ? INDICATIONS:? left face droop/weakness, tingling.? hx TIA [facility] ? TECHNIQUE:? Noncontrast axial T1 spin echo, axial T2 fast spin echo, sagittal and axial FLAIR, coronal T2 fast spin echo, axial gradient echo, axial diffusion and ADC through the brain.? ? COMPARISON:? [facility], CT, CT ANGIO HEAD AND NECK, 06/05/2022, 14:16.? [facility], CT, CT STROKE, 06/05/2022, 14:38.? [facility], MR, MR BRAIN WITHOUT CONTRAST, 09/27/2021, 10:57. ? FINDINGS:? Image quality:? This examination is limited by involuntary motion artifact.? ? CSF Spaces:? Basal cisterns are patent.? No extra-axial fluid collections.? Ventricles are normal in size and shape.? ? Brain:? No intracranial masses or hemorrhage.? Moody/white matter interface is normal.? Brainstem appears normal.? Diffusion-weighted images demonstrate no acute ischemic insult.? No chronic ischemic insults.? Normal intravascular flow voids are present.? ? Skull and face:? Calvarium has normal marrow signal.? Orbits appear normal.? In this patient with this given history, scrutiny is given to the course of the left facial nerve, including within the left parotid gland.? No masses or abnormal signal can be seen along the left facial nerve, to the limits of this noncontrast study. ? Sinuses:? Sinuses and mastoids are clear.? IMPRESSION:? No findings of acute or subacute infarction can be seen. ? No imaging explanation is found for this patient's presenting symptoms.? ? ? Dictated by: Jefe Palafox M.D. on 06/05/2022 at 16:08 ? ? Approved by: Jefe Palafox M.D. on 06/05/2022 at 16:10?? ECG Data Attestation: I personally reviewed and interpreted this ECG as follows: Interpretation: Sinus rhythm, rate of 98 TN 122 QRS 80 QTC 449. No acute ST elevation or depression noted. MDM Narrative Medical decision making narrative: This is a 27-year-old female with a reported history of prior TIA who is approximately 24 weeks . Patient is on aspirin daily 81 mg. Patient states last night she felt like her heart was going fast and then slow, she woke up this morning at 11:00 a.m. she felt fatigued and noon she noticed tingling of her face left arm and upper and lower extremity. She appreciates weakness of both left upper and lower extremity as well as some facial droop. She does not appreciate any speech changes. She is unclear about her exact symptoms last time she was at [facility] in August and had MR at that time that was negative and a CT angio that was negative according to Radiology reads. Patient's NIH is 5 although her facial droop is somewhat intermittent. She has drift on exam but good movement getting in and out of bed and walking to the bathroom. Patient initial head CT is negative, CT angio was obtained as also negative case was discussed with Neurology patient was in the tPA window but is high risk secondary to she very politely defers tPA and does not feel that the risks outweigh the benefits with her current symptomatology and . Both Neurology and myself support this decision. Neurology recommends continuing aspirin can continue 81 mg daily unless other findings indicate otherwise and they recommend continued with observation overnight for stroke/TIA workup. Patient case discussed with our hospitalist as well as obstetrics services and decided for patient to be admitted to the hospitalist with OB consultation. Critical Care Time Critical Care Time Critical Care Time: Yes Total Critical Care Time: 25 Attestation: The high probability of a clinically significant, sudden or life threatening deterioration of the [cardiac, neuro] system(s) required my full and direct attention, intervention and personal management. The aggregate critical care time was [] minutes. This time is in addition to time spent performing reported procedures but includes the following: [x] Data Review and interpretation [x] Patient assessment and monitoring of vital signs [x] Documentation [x] Medication orders and management Discharge Plan Departure Patient Disposition: Admitted as Observation Clinical Impression: Paresthesia of left upper and lower extremity, Left arm weakness, Left leg weakness, Admit Date/Time: 06/05/22 18:07 Admit Provider: Nato Eduardo
[2022-06-05] MEDS: methylPREDNISolone 125 MG/2 ML VIAL IV (15:09)
[2022-06-05] MEDS: diphenhydrAMINE 50 MG/ML VIAL IV (15:09)
[2022-06-05 15:11] LABS: Add Manual Diff / Slide Review NO; Basophils Absolute Auto 0 /uL (0-100); Basophils Percent Auto 0.3 % (0-2); Eosinophils Absolute Auto 100 /uL (0-450); Eosinophils Percent Auto 0.5 % (2-4); Hematocrit 41.5 % (36-46); Lymphocytes Absolute Auto 2300 /uL (1100-4500); Lymphocytes Percent Auto 19.6 % (25-40); Mean Corpuscular HGB Conc 33.8 % (30-36); Mean Corpuscular Hemoglobin 31.6 PG (26-34); Mean Corpuscular Volume 93.6 fL (80-100); Monocytes Absolute Auto 400 /uL (0-900); Monocytes Percent Auto 3.6 % (3-14); Neutrophils Absolute Auto 9000 /uL (1500-7000); Platelet Count 299 X10^3/uL (150-400); Red Blood Cell Count 4.44 X10^6/uL (4.0-5.2); Red Cell Distribution Width 13.6 % (11.6-14.8); White Blood Cell Count 11.8 X10^3/uL (4.5-11.0)
[2022-06-05] MEDS: SODIUM CHLORIDE 0.9% 1,000 ML 150 ML IV (15:39)
[2022-06-05 15:42] LABS: UR Morphine/Opiate cutoff 300 Negative (Negative); Ur Creatinine Normal (Normal); Ur Specific Gravity Normal (Normal); Urine Amphetamines Negative (Negative); Urine Barbiturates Negative (Negative); Urine Benzodiazepines Negative (Negative); Urine Cocaine Negative (Negative); Urine MDMA Negative (Negative); Urine Methadone Negative (Negative); Urine Methamphetamines Negative (Negative); Urine Oxycodone Positive (Negative); Urine Phencyclidine Negative (Negative); Urine Tetrahydrocannabinol Negative (Negative); Urine Tricyclic Antidepressant Negative (Negative); Urine pH Normal (Normal)
--- NOTE | 2022-06-05 15:57 | DI.MRI.S_ITS ---
PROCEDURE: MR HEAD/BRAIN WO CON INDICATIONS: left face droop/weakness, tingling. hx TIA [facility] TECHNIQUE: Noncontrast axial T1 spin echo, axial T2 fast spin echo, sagittal and axial FLAIR, coronal T2 fast spin echo, axial gradient echo, axial diffusion and ADC through the brain. COMPARISON: [facility], CT, CT ANGIO HEAD AND NECK, 06/05/2022, 14:16. [facility], CT, CT STROKE, 06/05/2022, 14:38. Merged With [facility], MR, MR BRAIN WITHOUT CONTRAST, 09/27/2021, 10:57. FINDINGS: Image quality: This examination is limited by involuntary motion artifact. CSF Spaces: Basal cisterns are patent. No extra-axial fluid collections. Ventricles are normal in size and shape. Brain: No intracranial masses or hemorrhage. Moody/white matter interface is normal. Brainstem appears normal. Diffusion-weighted images demonstrate no acute ischemic insult. No chronic ischemic insults. Normal intravascular flow voids are present. Skull and face: Calvarium has normal marrow signal. Orbits appear normal. In this patient with this given history, scrutiny is given to the course of the left facial nerve, including within the left parotid gland. No masses or abnormal signal can be seen along the left facial nerve, to the limits of this noncontrast study. Sinuses: Sinuses and mastoids are clear. IMPRESSION: No findings of acute or subacute infarction can be seen. No imaging explanation is found for this patient's presenting symptoms. Dictated by: Jefe Palafox M.D. on 06/05/2022 at 16:08 Approved by: Jefe Palafox M.D. on 06/05/2022 at 16:10
[2022-06-05 16:17] LABS: INR 1.1 (0.9-1.3); Prothrombin Time 12.3 SECONDS (10.1-12.7)
[2022-06-05 16:20] LABS: PTT Partial Thromboplastin Tim 29 SECONDS (26-36)
--- NOTE | 2022-06-05 16:31 | PC.NURSE ---
This nurse, Lissa RN, Mary RN, Kathy RN all attempted to draw labs on this pt and were unsuccessful. Dr. Zabala notified. Indu GAN was successful in inserting a 20g hand IV for CT contrast, clinical laboratory assistant not available. Pt currently in MRI, CMP still pending.
[2022-06-05 17:09] LABS: Appearance Urine UA CLEAR; Bilirubin Urine UA NEGATIVE (NEGATIVE); Color Urine UA YELLOW; Glucose Urine UA NEGATIVE (Negative); Ketones Urine UA NEGATIVE (NEGATIVE); Leukocyte Esterase Urine UA NEGATIVE (NEGATIVE); Nitrite Urine UA NEGATIVE (Negative); Occult Blood Urine UA NEGATIVE (Negative); Protein Urine UA NEGATIVE (Negative); Specific Gravity Urine UA 1.025 (1.000-1.035); Urobilinogen Urine UA 0.2 E.U./dL (0.2)
[2022-06-05] MEDS: OXYCODONE/ACETAMINOPHEN 5/325 TABLET 2 TAB PO (17:17)
[2022-06-05 17:21] LABS: Bacteria Urine Few (2-10); Culture Indicated Urine Cult Not Indicated; RBC Urine 1-5/HPF (0-5/HPF); Squamous Epithelial Cell Urine 1-5 /HPF (0-5/HPF); WBC Urine 1-5/HPF (0-5/HPF)
[2022-06-05 17:31] LABS: Alanine Aminotransferase 12 IU/L (<35); Albumin 3.5 g/dL (3.5-5.0); Albumin Globulin Ratio 1.1 (1.0-2.8); Alkaline Phosphatase 94 U/L (38-126); Aspartate Aminotransferase 15 IU/L (14-36); BUN Creatinine Ratio 11.9 (6-22); Bilirubin Total 0.2 mg/dL (0.2-1.3); Blood Urea Nitrogen 5 mg/dL (7-17); Calcium 8.9 mg/dL (8.4-10.2); Carbon Dioxide 20 mmol/L (22-32); Chloride 107 mmol/L (98-107); Creatine Kinase < 20 U/L (30-135); Estimated Glomerular Filt Rate > 60 mL/min (>60); Ethanol (ETOH) < 10 mg/dL; Globulin 3.1 g/dL (1.7-4.1); Glucose 95 mg/dL (70-100); HEMOLYSIS < 15 (0-50); Potassium 3.5 mmol/L (3.4-5.1); Sodium 135 mmol/L (137-145); Total Protein 6.6 g/dL (6.3-8.2)
[2022-06-05 17:42] LABS: Troponin I < 0.012 ng/mL (0.01-0.034)
--- NOTE | 2022-06-05 18:06 | PC.NURSE ---
Verbal from Dr. Zabala to call OB to have them come and and do an NST. Spoke with Ashley GAN in OB who states they will send someone down.
--- NOTE | 2022-06-05 18:18 | PC.NURSE ---
Per L&D RN, FHR is 150.
--- NOTE | 2022-06-05 18:22 | PC.NURSE ---
06/05/2022 1815 OB RN at bedside to evaluate FHR. FHR 150bpm with no increases or decreases, listened x1 minute. Pt states +FM. -Vincenzo RN
[2022-06-05 18:30] LABS: Influenza A - CEPHEID Flu A NEGATIVE (NEGATIVE); Influenza B - CEPHEID Flu B NEGATIVE (NEGATIVE); Respiratory Syncytial Virus Negative (Negative)
[2022-06-05 18:32] LABS: COVID-19 CEPHEID 4-PLEX PCR Negative (Negative)
--- NOTE | 2022-06-05 18:35 | DI.ECHO.S_ITS ---
[facility]---------+ [facility] +---------+ : : [address] : [place] : : : : [id number] : : : : Phone: [phone]---------+ Echocardiogram Report + + :Name: JEANETTE BILLINGS Study Date: 06/06/2022 Height: 62 in : :[facility] ReadingLocation: Weight: 178 lb : : Gender: Female BSA: 1.8 m2 : :: 1995 Age: 27 yrs BP: 111/71 mmHg: :Reason For Study: TIA : :Ordering Physician: ÓSCAR DU : :Chelita Jang Performed By: Janel Young : :Referring: ÓSCAR DU D.O. : + + Interpretation Summary The left ventricle is normal in size and wall thickness. Left ventricular systolic function appears normal without focal wall motion abnormalities. The ejection fraction is estimated to be 55-60%. Diastolic parameters suggest probable normal left ventricular diastolic function and normal filling pressures. The right ventricle is normal in size and function. The left atrial size is normal. Right atrial size is normal. Injection of contrast documented no interatrial shunt. There is no significant valvular heart disease. The aortic root is normal size. Procedure: A two-dimensional transthoracic echocardiogram with color flow and Doppler was performed. The study quality was technically adequate. There is no prior echocardiogram noted for this patient. A saline contrast injection was performed to assess for cardiac shunting. The injection was performed through an intravenous line in the left arm. The patient was in sinus rhythm with heart rates between 73-95 bpm during the exam. Left Ventricle: The left ventricle is normal in size and wall thickness. Left ventricular systolic function appears normal without focal wall motion abnormalities. The ejection fraction is estimated to be 55-60%. Diastolic parameters suggest probable normal left ventricular diastolic function and normal filling pressures. Right Ventricle: The right ventricle is normal in size and function. Atria: The left atrial size is normal. Right atrial size is normal. There is no Doppler evidence for an interatrial shunt. Injection of contrast documented no interatrial shunt. Mitral Valve: The mitral valve is normal in structure and function. There is trace mitral regurgitation. Aortic Valve: The aortic valve is trileaflet. The aortic valve opens well. There is no aortic valve stenosis. Tricuspid Valve: The tricuspid valve is normal in structure and function. No tricuspid regurgitation. Pulmonic Valve: The pulmonic valve leaflets are thin and pliable; valve motion is normal. There is no pulmonic valvular regurgitation. There is no significant valvular heart disease. Great Vessels: The aortic root is normal size. The dimensions of the ascending aorta are normal. The IVC is of normal diameter and collapses greater than 50% with a sniff. This suggests a low right atrial pressure of 3 mm Hg. Pericardium/ Pleura There is no pericardial effusion. There is no pleural effusion. MMode/2D Measurements & Calculations LVIDd: 4.4 cm LVOT diam: 1.9 cm LVIDs: 3.0 cm Ao root diam: 2.8 cm FS: 32.9 % asc Aorta Diam: 2.5 cm EPSS: 0.56 cm Ao Arch Diam (Prox Trans): 2.5 cm IVSd: 0.71 cm LVPWd: 0.65 cm LV cody. diameter/BSA (cm/m^2): 2.4 LV sys. diameter/BSA (cm/m^2): 1.6 LA A2 area: 15.9 cm2 RA long axis: 4.8 cm LA A4 area: 20.4 cm2 RA area: 14.7 cm2 LA length (vol): 5.7 cm RA vol: 38.0 ml LA vol: 48.3 ml RA : 20.9 ml/m2 LA vol index: 26.5 ml/m2 IVC diam: 1.2 cm RVD1 (basal): 3.5 cm RVD2 (mid): 2.5 cm TAPSE: 2.6 cm Doppler Measurements & Calculations Ao V2 max: 141.7 cm/sec LVOT Max Damien: 92.4 cm/sec Ao V2 mean: 87.9 cm/sec LV V1 max P.4 mmHg Ao max P.0 mmHg LV V1 VTI: 19.9 cm Ao mean P.7 mmHg AKOSUA(I,D): 2.2 cm2 Ao V2 VTI: 25.8 cm AKOSUA(V,D): 1.8 cm2 sev ratio: 0.77 AKOSUA indexed to BSA (cm^2/m^2): 1.2 MV E max damien: 85.0 cm/sec PA V2 max: 89.0 cm/sec MV A max damien: 54.1 cm/sec PA V2 mean: 66.6 cm/sec MV E/A: 1.6 PA mean P.9 mmHg Med Peak E' Damien: 14.3 cm/sec PA pr(Accel): 27.6 mmHg E/E' med: 5.9 Lat Peak E' Damien: 20.3 cm/sec E/E' lat: 4.2 E/e' average: 5.1 MV dec time: 0.19 sec SV(OT): 56.1 ml Reading Physician:02:50 PM
[2022-06-05 19:00] LABS: Hemoglobin A1C% w Est Avg Glu 4.6 % (4.0-6.0)
[2022-06-05] MEDS: FAMOTIDINE 20 MG TABLET PO (20:48)
--- NOTE | 2022-06-05 22:51 | P.CONS_ITS ---
History of Present Illness Consult details Date Patient Seen: 06/05/22 Time Patient Seen: 20:45 Chief complaint: Hx stroke, similar symptoms, 23w6d Reason for consult: 23wk6d , admit with stroke symptoms Requesting provider: Nato Eduardo Narrative: 27 yo female with EGA [id number] admitted after acute neurologic symptoms, possible TIA. Workup thus far has been negative and her symptoms have resolved. She is being admitted overnight for observation for any recurrent TIA symptoms and for additional work-up. She had a negative brain MR, negative head CT and negative CT angio. She is on low dose aspirin daily during this for similar symptoms in October. Today she had onset of left facial droop, slurring of speech witnessed by partner, and weakness and tingling in left upper and lower extremity. She reports episodes of fluctuating heart rate since yesterday, between very slow and fast. Reports her heart rate between 45-130. Reports a history of tachycardia, few episodes a day to few per week, negative workup per pt. Describes wearing a Holter, but without detecting episodes of tachycardia and that an echocardiogram had been ordered for further workup Pt had similar TIA,stroke symptoms in October when on control patch. Workup for stroke in October in [facility], with reported negative MR and negative CT angio per [facility] radiology. Records have been requested to OB office but were pending. She has a family history of coagulopathy, uncertain type. Reports mother has lupus. Patient reports being diagnosed with lupus in the past, then most recent PCP reviewed labs and told her no lupus. Pt has a personal history of 3 miscarriages. Family history also includes brother born with congenital heart disease. She has other ongoing medical issues. -Being evaluated for possible hepatic porphyria. -Also has a liver hemangioma being monitored, 2.7 cm size, with follow-up ultrasound ordered in 3rd trimester . - chronic right upper quadrant abdominal pain which has persisted despite a cholecystectomy in March of this year. Placed on oxycodone by PCP for the pain. -History of fibromyalgia, asthma and anxiety. She had been on Effexor and Xanax, off Xanax now for the . Patient's has been uncomplicated from obstetrical standpoint, has her chronic medical problems. She had a normal anatomy ultrasound at 20 weeks. She denies any further weakness, no extremity weakness. Denies headache, vision changes, current abdominal pain, cramping, leakage of fluid or vaginal bleeding. She is feeling routine movement. Meds Home Medications and Allergies Home Medications Medication Instructions Recorded Confirmed Type albuterol sulfate 90 mcg/actuation 2 puff inhalation Q4-6H PRN 04/10/19 06/05/22 Rx aerosol inhaler shortness of breath #18 grams ondansetron HCl 8 mg tablet 8 mg PO Q8H PRN nausea and 03/22/22 06/05/22 Rx vomiting #30 tabs aspirin 81 mg capsule 81 mg PO DAILY 06/05/22 06/05/22 History multivitamin with minerals-folic 2 tab PO BID 06/05/22 06/05/22 History acid 200 mcg chewable tablet (Multivitamin Gummies) oxycodone 10 mg tablet 10 mg PO Q6H PRN Pain (Scale Score 06/05/22 06/05/22 History 4-6) venlafaxine 37.5 mg tablet 37.5 mg PO DAILY 06/05/22 06/05/22 History Allergies Allergy/AdvReac Type Severity Reaction Status Date / Time doxycycline [DOXYCYCLINE] Allergy Unknown Verified 06/05/22 18:10 Penicillins [PENICILLINS] Allergy Unknown Verified 06/05/22 18:10 lidocaine Allergy Verified 06/05/22 18:10 shellfish derived Allergy Anaphylaxis Verified 06/05/22 18:10 Exam Vital Signs (past 8 hours): - 06/05/22 15:00 06/05/22 15:14 06/05/22 15:14 Temperature Pulse Rate 102 H Respiratory Rate 28 H 25 H Blood Pressure 118/70 Pulse Oximetry 100 100 Oxygen Delivery Method 06/05/22 15:28 06/05/22 15:28 06/05/22 15:30 Temperature Pulse Rate 114 H 88 Respiratory Rate 25 H 18 Blood Pressure 123/66 Pulse Oximetry 100 100 Oxygen Delivery Method Room Air 06/05/22 18:00 06/05/22 19:00 06/05/22 19:30 Temperature Pulse Rate 98 H 101 H 102 H Respiratory Rate 18 18 18 Blood Pressure 110/61 112/58 L 98/55 L Pulse Oximetry 99 96 98 Oxygen Delivery Method Room Air Room Air Room Air 06/05/22 21:00 Temperature 97.9 F Pulse Rate 129 H Respiratory Rate 19 Blood Pressure 111/75 Pulse Oximetry 100 Oxygen Delivery Method Oxygen Delivery Method Room Air Narrative Exam Narrative: Patient seen on the floor after admission, currently without symptoms. General: Healthy appearing, comfortable, cooperative, no acute distress . She is oriented and conversing normally, Revealing medical history. No slurred speech. Pulmonary: Normal inspiratory effort. Speaks full sentences without difficulty. heart rate auscultated by OB RN, reported normal rate. Objective Labs Result Diagrams: 06/05/22 15:02 06/05/22 17:05 Labs: Laboratory Results - last 24 hr 06/05/22 06/05/22 06/05/22 15:02 15:02 15:15 WBC 11.8 H RBC 4.44 Hgb 14.0 Hct 41.5 MCV 93.6 MCH 31.6 MCHC 33.8 RDW 13.6 Plt Count 299 Neut % (Auto) 76.0 H Lymph % (Auto) 19.6 L Preston % (Auto) 3.6 Eos % (Auto) 0.5 L Baso % (Auto) 0.3 Neut # (Auto) 9000 H Lymph # (Auto) 2300 Preston # (Auto) 400 Eos # (Auto) 100 Baso # (Auto) 0 PT INR APTT Sodium Potassium Chloride Carbon Dioxide BUN Creatinine Estimated GFR BUN/Creatinine Ratio Glucose Hemoglobin A1c 4.6 Calcium Total Bilirubin AST ALT Alkaline Phosphatase Total Creatine Kinase CK-MB (CK-2) CK-MB (CK-2) Rel Index Troponin I Total Protein Albumin Globulin Albumin/Globulin Ratio Urine Color Urine Appearance Urine pH Ur Specific [place] Urine Protein Urine Glucose (UA) Urine Ketones Urine Occult Blood Urine Nitrate Urine Bilirubin Urine Urobilinogen Ur Leukocyte Esterase Urine RBC Urine WBC Ur Squamous Epith Cells Urine Bacteria Ur Culture Indicated? U Opiates 300ng/mL cut Negative Ur Oxycodone Screen Positive H Urine Methadone Screen Negative Ur Barbiturates Screen Negative U Tricyclic Antidepress Negative Ur Phencyclidine Scrn Negative Ur Amphetamines Screen Negative U Methamphetamines Scrn Negative Ur MDMA Scrn (Ecstasy) Negative U Benzodiazepines Scrn Negative Urine Cocaine Screen Negative U Marijuana (THC) Screen Negative Ethyl Alcohol SARS-CoV-2 (PCR) Influenza A (RT-PCR) Influenza B (RT-PCR) RSV (PCR) 06/05/22 06/05/22 06/05/22 15:15 15:33 15:33 WBC RBC Hgb Hct MCV MCH MCHC RDW Plt Count Neut % (Auto) Lymph % (Auto) Preston % (Auto) Eos % (Auto) Baso % (Auto) Neut # (Auto) Lymph # (Auto) Preston # (Auto) Eos # (Auto) Baso # (Auto) PT 12.3 INR 1.1 APTT 29 Sodium Potassium Chloride Carbon Dioxide BUN Creatinine Estimated GFR BUN/Creatinine Ratio Glucose Hemoglobin A1c Calcium Total Bilirubin AST ALT Alkaline Phosphatase Total Creatine Kinase CK-MB (CK-2) CK-MB (CK-2) Rel Index Troponin I Total Protein Albumin Globulin Albumin/Globulin Ratio Urine Color Yellow Urine Appearance Clear Urine pH 7.0 Ur Specific [place] 1.025 Urine Protein Negative Urine Glucose (UA) Negative Urine Ketones Negative Urine Occult Blood Negative Urine Nitrate Negative Urine Bilirubin Negative Urine Urobilinogen 0.2 Ur Leukocyte Esterase Negative Urine RBC 1-5/hpf Urine WBC 1-5/hpf Ur Squamous Epith Cells 1-5 /hpf Urine Bacteria Few (2-10) H Ur Culture Indicated? Cult not indicated U Opiates 300ng/mL cut Ur Oxycodone Screen Urine Methadone Screen Ur Barbiturates Screen U Tricyclic Antidepress Ur Phencyclidine Scrn Ur Amphetamines Screen U Methamphetamines Scrn Ur MDMA Scrn (Ecstasy) U Benzodiazepines Scrn Urine Cocaine Screen U Marijuana (THC) Screen Ethyl Alcohol SARS-CoV-2 (PCR) Cancelled Influenza A (RT-PCR) Influenza B (RT-PCR) RSV (PCR) 06/05/22 06/05/22 06/05/22 15:33 15:53 17:05 WBC RBC Hgb Hct MCV MCH MCHC RDW Plt Count Neut % (Auto) Lymph % (Auto) Preston % (Auto) Eos % (Auto) Baso % (Auto) Neut # (Auto) Lymph # (Auto) Preston # (Auto) Eos # (Auto) Baso # (Auto) PT Cancelled INR Cancelled APTT Sodium 135 L Potassium 3.5 Chloride 107 Carbon Dioxide 20 L BUN 5 L Creatinine 0.42 L Estimated GFR > 60 BUN/Creatinine Ratio 11.9 Glucose 95 Hemoglobin A1c Calcium 8.9 Total Bilirubin 0.2 AST 15 ALT 12 Alkaline Phosphatase 94 Total Creatine Kinase < 20 L CK-MB (CK-2) TNP CK-MB (CK-2) Rel Index TNP Troponin I < 0.012 Total Protein 6.6 Albumin 3.5 Globulin 3.1 Albumin/Globulin Ratio 1.1 Urine Color Urine Appearance Urine pH Ur Specific [place] Urine Protein Urine Glucose (UA) Urine Ketones Urine Occult Blood Urine Nitrate Urine Bilirubin Urine Urobilinogen Ur Leukocyte Esterase Urine RBC Urine WBC Ur Squamous Epith Cells Urine Bacteria Ur Culture Indicated? U Opiates 300ng/mL cut Ur Oxycodone Screen Urine Methadone Screen Ur Barbiturates Screen U Tricyclic Antidepress Ur Phencyclidine Scrn Ur Amphetamines Screen U Methamphetamines Scrn Ur MDMA Scrn (Ecstasy) U Benzodiazepines Scrn Urine Cocaine Screen U Marijuana (THC) Screen Ethyl Alcohol < 10 SARS-CoV-2 (PCR) Negative Influenza A (RT-PCR) Flu a negative Influenza B (RT-PCR) Flu b negative RSV (PCR) Negative PFSH Medical History (Updated 06/06/22 @ 00:41 by Dona Michel MD) 23 weeks gestation of Acute right lower quadrant pain Anxiety Cholecystitis CVA (cerebral vascular accident) Exercise-induced asthma Fibromyalgia Gastroenteritis Jaw pain, non-TMJ Lower GI bleed Normal colonoscopy Normal endoscopy Right foot strain Torn rotator cuff Tumor of liver Surgical History (Updated 06/05/22 @ 23:10 by Dona Michel MD) H/O knee surgery History of appendectomy History of cholecystectomy (~03/2022) Family History Mother Bowel obstruction Lupus Spinal cord cancer Fibromyalgia Epilepsy Blood clotting tendency Stroke Sister Bowel obstruction Tachycardia Arrhythmia Fibromyalgia Family/Other Colon cancer Grandmother S/P CABG x 3 Tachycardia Father Tachycardia Brother Tachycardia Grandmother Liver cancer Social History marital status: number of children: 0 household members: spouse lives independently: Yes housing: house pets and animals: Yes (2 dogs, 1 cat) education level: college (some collge, certificate program) 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) current occupational exposures/hazards: No special reuben needs: No travel history: over 6 months ago Safety seatbelt use: always water heater temp set < 120 deg: Yes working smoke detector in home: Yes fire extinguisher in home: Yes carbon monox detector in home: Yes firearms in home: No do you feel safe at home: Yes Tobacco & Substance Use Smoking Status: Never smoker second hand exposure: Yes ( smokes outside) alcohol intake: former substance use type: marijuana (prior to ) Diet and Exercise during the past year weight has: remained stable well-balanced diet: about half the time daily servings fruits/ve-4 caffeine: Yes (aware of 200mg limit) Type(s) of exercise: walking frequency: 5-6 times per week Assessment & Plan Assessment and plan (1) Neurological symptoms: Status: Acute (2) 23 weeks gestation of : Status: Acute Plan 27-year-old female at EGA 23 weeks 6 days with acute neurologic symptoms today and similar symptoms in October - Neurologic symptoms concerning for possible TIA. Patient had similar symptoms earlier this year when on contraceptive patch. - Admitted under medical hospitalist service for acute observation for any recurrent TIA symptoms neurology consult had been obtained acutely by ED physician and recommendation to continue baby aspirin for now and do full stroke evaluation. Discussion with patient and referral of tPA due to high-risk factor . - Negative head CT, CT angio and brain MR. Normal ECG - Echocardiogram ordered for tomorrow - With family history of clotting disorder and history of miscarriages, added thrombophilia labs: Beta 2 glycoprotein Ab, anticardiolipin antibodies and lupus anticoagulant. Leiden factor 5 screen mutation also order with family history. - will refer to outpatient Neurology for follow-up and further evaluation after discharge - will refer as outpatient to Maternal- Medicine for additional consult and recommendations. - If feel additional anticoagulation needed, then could consider Lovenox. - observation overnight [id number] , without obstetrical complications - No complaints. Patient without any loss of consciousness and normal apparent oxygenation throughout her symptoms, so symptoms should not have had any impact on the . - Continue baby aspirin daily - Will have Doppler of FHR daily. -Will follow with you Time Spent With Patient Critical Care time: I spent a total of [] minutes of critical care time on this patient's care today; this time is exclusive of procedural time.
--- NOTE | 2022-06-05 23:38 | PC.NURSE ---
Addendum entered by Arianna Wheeler R.N. 06/06/22 00:26: Patient admitted with lt. arm drift, and tingling and tingling to lt. leg. Patient able to raise leg, but slightly lower than rt. leg. Lt. arm drift but improving over time. Patient able to walk and bear full wt. on lt. leg. Original Note: Called hospitalists about pain medication for patient. Patient is a chronic narcotic user due to chronic pain. directed to call the OB doctor Marilu and spoke with her for orders. Dr. Michel agreeing to put in orders for routine narcotics for patient.
[2022-06-06] MEDS: ACETAMINOPHEN 325 MG TABLET 650 MG PO ×2 (00:05→05:45)
[2022-06-06] MEDS: OXYCODONE IR 10 MG TABLET PO ×3 (00:05→13:07)
--- NOTE | 2022-06-06 03:02 | PM.HP.1 ---
History of Present Illness History of Present Illness Date Patient Seen: 06/05/22 Time Patient Seen: 18:50 Chief complaint: Hx stroke, similar symptoms, 23w6d Narrative: Sandee Amin is a 27-year-old female who is 24 weeks with reported history of stroke in October, on Effexor and has had her medication for paroxysmal tachycardia stopped due to her , patient is on oxycodone daily for chronic abdominal pain.? She is on an aspirin 81 mg daily no other blood thinners.? She states the source of her stroke in October was never found she was seen at [facility].?In the ED the patient reported she felt a rapid HR last night, this morning she woke up she felt very groggy, tingling on the left side of her face, arm and leg, with weakness, fuzzy vision with spots on both sides and some facial droop.?In ED NIH:5. Denied change to speech.? Patient denies fevers, chills, bodyaches new or different. Has had mild headache.? She is had nausea 1 episode of vomiting today but feels better now.? Denies CP, shortness breath, recent illness, injury, or trauma, constipation but has had some diarrhea.? Denies new or different abd pain, fluid leakage, spotting, cramping, blood in urine. c/o chronic blood when wiping with every soft BM. patient endorsed a changing medical hx of herself and family throughout admit interview. She reported a hx now of afib, migraines, seizures, in addition to stroke, but the patient denies any anticoagulation management. patient also verbalized to me that she was not prescribed Oxycodone until she was , to manage her pain which in turn reduces her tachycardia, which will send her into early labor, that the scheduled oxycontin is prevent labor. patient v/s were stable on admit except HR 129, NIH:0, wbc 11.8, w/left shift neut 9000, cmp & hepatic labs were mostly unremarkable. patient was negative for covid, RSV, Flu A/B, and troponin WNL. Tox positive for Oxy, u/a neg, H/N CTA,Head CT, and Brain MRI all negative for stroke or any acute intracranial abnormalities. Patient admited for TIA, history of stroke, Tachycardia Patient History Medical History 23 weeks gestation of Acute right lower quadrant pain Anxiety Cholecystitis CVA (cerebral vascular accident) Exercise-induced asthma Fibromyalgia Gastroenteritis Jaw pain, non-TMJ Lower GI bleed Normal colonoscopy Normal endoscopy Right foot strain Torn rotator cuff Tumor of liver Surgical History H/O knee surgery History of appendectomy History of cholecystectomy (~03/2022) Family & Social History Family History Mother Bowel obstruction Lupus Spinal cord cancer Fibromyalgia Epilepsy Blood clotting tendency Stroke Sister Bowel obstruction Tachycardia Arrhythmia Fibromyalgia Family/Other Colon cancer Grandmother S/P CABG x 3 Tachycardia Father Tachycardia Brother Tachycardia Grandmother Liver cancer Social History: household members spouse Prior Living Arrangements House lives independently Yes Safety & Behavioral: Feels Safe in Current Yes Environment Been Physically Hurt or No Threatened By a Person Tobacco & Substance use: Smoking Status Never smoker alcohol intake former alcohol intake frequency holiday/special occasion Substance Use Type does not use Meds Home Medications and Allergies Home Medications Medication Instructions Recorded Confirmed Type albuterol sulfate 90 mcg/actuation 2 puff inhalation Q4-6H PRN 04/10/19 06/05/22 Rx aerosol inhaler shortness of breath #18 grams ondansetron HCl 8 mg tablet 8 mg PO Q8H PRN nausea and 03/22/22 06/05/22 Rx vomiting #30 tabs aspirin 81 mg capsule 81 mg PO DAILY 06/05/22 06/05/22 History multivitamin with minerals-folic 2 tab PO BID 06/05/22 06/05/22 History acid 200 mcg chewable tablet (Multivitamin Gummies) oxycodone 10 mg tablet 10 mg PO Q6H PRN Pain (Scale Score 06/05/22 06/05/22 History 4-6) venlafaxine 37.5 mg tablet 37.5 mg PO DAILY 06/05/22 06/05/22 History Allergies Allergy/AdvReac Type Severity Reaction Status Date / Time doxycycline [DOXYCYCLINE] Allergy Unknown Verified 06/05/22 18:10 Penicillins [PENICILLINS] Allergy Unknown Verified 06/05/22 18:10 lidocaine Allergy Verified 06/05/22 18:10 shellfish derived Allergy Anaphylaxis Verified 06/05/22 18:10 Review of Systems Review of Systems Narrative: All 12 point systems reviewed with the patient and are negative except otherwise documented. Exam Vital Signs (past 8 hours): - 06/05/22 19:30 06/05/22 21:00 Temperature 97.9 F Pulse Rate 102 H 129 H Respiratory Rate 18 19 Blood Pressure 98/55 L 111/75 Pulse Oximetry 98 100 Oxygen Delivery Method Room Air Oxygen Delivery Method Room Air Narrative Exam Narrative: General: Patient is a well-developed, well-nourished female in no distress at this time. HEENT: Normocephalic, atraumatic, extraocular muscles intact, oral pharynx is clear and mucous membranes are moist. Neck is supple and symmetric, trachea is midline, no adenopathy, no thyroid enlargement, nontender, no masses palpated. Negative for JVD Chest: Normal AP diameter and contour without kyphoscoliosis, no nasal flaring, retractions, or tachypneic labored Lungs: Auscultation of all lung adan are clear without adventitious sounds, wheezes, rhonchi, or rales. Cardio: S1 & S2 with regular rate and rhythm without murmur, rubs, or gallops, no carotid bruit, no cardiac pulsations present. Abdomen: Soft nontender, negative for organomegaly, or masses. Bowel sounds are present in all 4 quadrants without guarding or rebound, no CVA tenderness. Musculoskeletal: Muscle strength and tone are equal within normal limits, no deformity, crepitus, effusions, cyanosis, clubbing or edema present. Full range of motion intact radial and pedal pulses are normal. Skin: Warm dry and intact without rashes, ulcerations or petechiae. Neuro: Alert and orientated x3, strength is +5/5 in all extremities, sensation to touch intact, no gross deficits noted of cranial nerves. Psych: Patient has a well-kept appearance, appropriate affect, mental status attitude thought context and judgment appear slightly irregular, inappropriate. Objective Labs Result Diagrams: 06/06/22 08:20 06/06/22 08:20 Labs: Laboratory Results - last 24 hr 06/05/22 06/05/22 06/05/22 15:02 15:02 15:15 WBC 11.8 H RBC 4.44 Hgb 14.0 Hct 41.5 MCV 93.6 MCH 31.6 MCHC 33.8 RDW 13.6 Plt Count 299 Neut % (Auto) 76.0 H Lymph % (Auto) 19.6 L [place] % (Auto) 3.6 Eos % (Auto) 0.5 L Baso % (Auto) 0.3 Neut # (Auto) 9000 H Lymph # (Auto) 2300 [place] # (Auto) 400 Eos # (Auto) 100 Baso # (Auto) 0 PT INR APTT Sodium Potassium Chloride Carbon Dioxide BUN Creatinine Estimated GFR BUN/Creatinine Ratio Glucose Hemoglobin A1c 4.6 Calcium Total Bilirubin AST ALT Alkaline Phosphatase Total Creatine Kinase CK-MB (CK-2) CK-MB (CK-2) Rel Index Troponin I Total Protein Albumin Globulin Albumin/Globulin Ratio Urine Color Urine Appearance Urine pH Ur Specific Hyrum Urine Protein Urine Glucose (UA) Urine Ketones Urine Occult Blood Urine Nitrate Urine Bilirubin Urine Urobilinogen Ur Leukocyte Esterase Urine RBC Urine WBC Ur Squamous Epith Cells Urine Bacteria Ur Culture Indicated? U Opiates 300ng/mL cut Negative Ur Oxycodone Screen Positive H Urine Methadone Screen Negative Ur Barbiturates Screen Negative U Tricyclic Antidepress Negative Ur Phencyclidine Scrn Negative Ur Amphetamines Screen Negative U Methamphetamines Scrn Negative Ur MDMA Scrn (Ecstasy) Negative U Benzodiazepines Scrn Negative Urine Cocaine Screen Negative U Marijuana (THC) Screen Negative Ethyl Alcohol SARS-CoV-2 (PCR) Influenza A (RT-PCR) Influenza B (RT-PCR) RSV (PCR) 06/05/22 06/05/22 06/05/22 15:15 15:33 15:33 WBC RBC Hgb Hct MCV MCH MCHC RDW Plt Count Neut % (Auto) Lymph % (Auto) [place] % (Auto) Eos % (Auto) Baso % (Auto) Neut # (Auto) Lymph # (Auto) [place] # (Auto) Eos # (Auto) Baso # (Auto) PT 12.3 INR 1.1 APTT 29 Sodium Potassium Chloride Carbon Dioxide BUN Creatinine Estimated GFR BUN/Creatinine Ratio Glucose Hemoglobin A1c Calcium Total Bilirubin AST ALT Alkaline Phosphatase Total Creatine Kinase CK-MB (CK-2) CK-MB (CK-2) Rel Index Troponin I Total Protein Albumin Globulin Albumin/Globulin Ratio Urine Color Yellow Urine Appearance Clear Urine pH 7.0 Ur Specific Hyrum 1.025 Urine Protein Negative Urine Glucose (UA) Negative Urine Ketones Negative Urine Occult Blood Negative Urine Nitrate Negative Urine Bilirubin Negative Urine Urobilinogen 0.2 Ur Leukocyte Esterase Negative Urine RBC 1-5/hpf Urine WBC 1-5/hpf Ur Squamous Epith Cells 1-5 /hpf Urine Bacteria Few (2-10) H Ur Culture Indicated? Cult not indicated U Opiates 300ng/mL cut Ur Oxycodone Screen Urine Methadone Screen Ur Barbiturates Screen U Tricyclic Antidepress Ur Phencyclidine Scrn Ur Amphetamines Screen U Methamphetamines Scrn Ur MDMA Scrn (Ecstasy) U Benzodiazepines Scrn Urine Cocaine Screen U Marijuana (THC) Screen Ethyl Alcohol SARS-CoV-2 (PCR) Cancelled Influenza A (RT-PCR) Influenza B (RT-PCR) RSV (PCR) 06/05/22 06/05/22 06/05/22 15:33 15:53 17:05 WBC RBC Hgb Hct MCV MCH MCHC RDW Plt Count Neut % (Auto) Lymph % (Auto) [place] % (Auto) Eos % (Auto) Baso % (Auto) Neut # (Auto) Lymph # (Auto) [place] # (Auto) Eos # (Auto) Baso # (Auto) PT Cancelled INR Cancelled APTT Sodium 135 L Potassium 3.5 Chloride 107 Carbon Dioxide 20 L BUN 5 L Creatinine 0.42 L Estimated GFR > 60 BUN/Creatinine Ratio 11.9 Glucose 95 Hemoglobin A1c Calcium 8.9 Total Bilirubin 0.2 AST 15 ALT 12 Alkaline Phosphatase 94 Total Creatine Kinase < 20 L CK-MB (CK-2) TNP CK-MB (CK-2) Rel Index TNP Troponin I < 0.012 Total Protein 6.6 Albumin 3.5 Globulin 3.1 Albumin/Globulin Ratio 1.1 Urine Color Urine Appearance Urine pH Ur Specific Hyrum Urine Protein Urine Glucose (UA) Urine Ketones Urine Occult Blood Urine Nitrate Urine Bilirubin Urine Urobilinogen Ur Leukocyte Esterase Urine RBC Urine WBC Ur Squamous Epith Cells Urine Bacteria Ur Culture Indicated? U Opiates 300ng/mL cut Ur Oxycodone Screen Urine Methadone Screen Ur Barbiturates Screen U Tricyclic Antidepress Ur Phencyclidine Scrn Ur Amphetamines Screen U Methamphetamines Scrn Ur MDMA Scrn (Ecstasy) U Benzodiazepines Scrn Urine Cocaine Screen U Marijuana (THC) Screen Ethyl Alcohol < 10 SARS-CoV-2 (PCR) Negative Influenza A (RT-PCR) Flu a negative Influenza B (RT-PCR) Flu b negative RSV (PCR) Negative Assessment & Plan Assessment & Plan narrative: Sandee Amin is a 27-year-old female who is 24 weeks with reported history of stroke in October, on Effexor and has had her medication for paroxysmal tachycardia stopped due to her , patient is on oxycodone daily for chronic abdominal pain.? She is on an aspirin 81 mg daily no other blood thinners. Admitted for TIA, stroke r/o, and tachycardia. TIA, recurrent, acute, present on admission-resolved -Left side facial, left side of face, arm,and leg numbness/tingling/weakness, possible slurred speech. -reported hx of stroke -NIH:O on admit No further s/s presented -MRI, head/neck CTA,and head CT - all negative -Pt reports a family hx of clotting disorders, pt later also reported a hx of migraines and seizures in herself & multple family members. -pt has 3 spontaneous abortions in her chart -these can be associated with hypercoag disorders. -Disscussed with DR. Marilu CHAPPELL that patient be referred to high risk materal managemnt -for further monitoring and management during her , especially if her symptoms return. -Also all Coag Labs ellen ordered by the OBGYN office as many of these labs sendouts at the hospital, and they will get the results in a more timely manner. Depending on results referral to hematology would be appropriate and or for gentic evaluation. -Recommend referral to neurology for further evaluation: as these may in fact be Migraines. Tachycardia, acute, present on admission -129 in ED, has resolved without medical intervention. -currently being monitored -Echo scheduled for tomorrow, stress test after delivery may be considered. -OB- will do baby stress. , 24 weeks, acute, present on admission -consulting/management by OBGYN GERD, chronic, present on admission -continue Protonix Depression, chronic, present on admission -continue venlafaxine Chronic opiate use for chronic pain, present on admission -Back &/or ABD. -managed by PCP -will contnue Oxycodone- Verifed by Dr. Cindy CHAPPELL Code:Full Decision maker:spouse Covid Negative DVT/VTE prophylaxis:scd only Disposition:admit for obs expected length of stay <2 midnights I have utilized all available immediate resources to obtain, update, or review the patient's current medications. I confirmed that the patient's advanced care plan is present, Code status is documented and/or surrogate decision maker is listed in the patient's medical record. I have personally reviewed patient's chart notes from PCP, specialists, diagnostic imaging, and laboratory, Time Spent With Patient Critical Care time: I spent a total of [] minutes of critical care time on this patient's care today; this time is exclusive of procedural time. Quality VTE Deep Vein Thrombosis/Pulmonary Embolism Present on Admission: No
[2022-06-06 04:00] VITALS: BP 111/71; PULSE 87; RESP 21; TEMP 36.5; O2SAT 99
[2022-06-06 08:30] VITALS: BP 126/66; PULSE 87; RESP 20; TEMP 36.8; O2SAT 99
[2022-06-06 08:41] LABS: Add Manual Diff / Slide Review NO; Basophils Absolute Auto 0 /uL (0-100); Basophils Percent Auto 0.1 % (0-2); Eosinophils Absolute Auto 0 /uL (0-450); Hematocrit 36.8 % (36-46); Hemoglobin 12.7 g/dL (12.0-16.0); Lymphocytes Absolute Auto 2500 /uL (1100-4500); Lymphocytes Percent Auto 15.4 % (25-40); Mean Corpuscular HGB Conc 34.6 % (30-36); Mean Corpuscular Hemoglobin 31.9 PG (26-34); Mean Corpuscular Volume 92.1 fL (80-100); Monocytes Absolute Auto 600 /uL (0-900); Monocytes Percent Auto 3.8 % (3-14); Neutrophils Absolute Auto 13300 /uL (1500-7000); Neutrophils Percent Auto 80.7 % (50-75); Platelet Count 315 X10^3/uL (150-400); Red Blood Cell Count 3.99 X10^6/uL (4.0-5.2); Red Cell Distribution Width 13.7 % (11.6-14.8); White Blood Cell Count 16.5 X10^3/uL (4.5-11.0)
[2022-06-06 08:57] LABS: BUN Creatinine Ratio 7.8 (6-22); Blood Urea Nitrogen 4 mg/dL (7-17); Carbon Dioxide 22 mmol/L (22-32); Chloride 105 mmol/L (98-107); Estimated Glomerular Filt Rate > 60 mL/min (>60); Glucose 104 mg/dL (70-100); HEMOLYSIS < 15 (0-50); Potassium 3.1 mmol/L (3.4-5.1); Sodium 137 mmol/L (137-145)
[2022-06-06 08:59] LABS: Cholesterol 212 mg/dL (140-199); HDL Cholesterol 66 mg/dL (40-60); LDL Cholesterol Calculated 106 mg/dL (<100); Triglycerides 201 mg/dL (35-150)
[2022-06-06] MEDS: ASPIRIN EC 81 MG TABLET PO (10:39)
[2022-06-06] MEDS: FAMOTIDINE 20 MG TABLET PO (10:40)
[2022-06-06] MEDS: POTASSIUM CHLORIDE 20 MEQ TAB 40 MEQ PO (10:40)
[2022-06-06] MEDS: FOLIC ACID 1 MG TABLET 0.5 MG PO (10:40)
[2022-06-06 11:11] LABS: TSH w/ Reflex to FT4 2.04 uIU/mL (0.47-4.68)
--- NOTE | 2022-06-06 11:27 | PC.NURSE ---
FHR 150 per doppler, active fetus noted.
[2022-06-06 12:30] VITALS: BP 108/59; PULSE 90; RESP 21; TEMP 36.9; O2SAT 98
--- NOTE | 2022-06-06 13:45 | P.PN_ITS ---
Subjective Subjective Date Patient Seen: 06/06/22 Time Patient Seen: 13:40 Interval history: Sandee reports she is overall feeling well. She reports she is having some pins and needles feeling in her left hand and left foot, has had this in the past, prior to . She denies any other symptoms or problems. Denies headache, nausea, and extremity weakness. feeling movement. Denies menstrual type cramping,abnormal vaginal discharge, or leakage of fluid. Exam Vital Signs (past 8 hours): - 06/06/22 12:30 Temperature 98.5 F Pulse Rate 90 Respiratory Rate 21 Blood Pressure 108/59 L Pulse Oximetry 98 Oxygen Flow Rate 0 Oxygen Delivery Method Room Air Oxygen Flow Rate 0 Narrative Exam Narrative: heart rate auscultated in 150s by birthing center RN this morning Const General: cooperative, healthy appearing, comfortable and No acute distress Orientation: alert and awake Objective Labs Result Diagrams: 06/06/22 08:20 06/06/22 08:20 Labs: Laboratory Results - last 24 hr 06/06/22 06/06/22 06/06/22 08:20 08:20 08:20 WBC 16.5 H RBC 3.99 L Hgb 12.7 Hct 36.8 MCV 92.1 MCH 31.9 MCHC 34.6 RDW 13.7 Plt Count 315 Neut % (Auto) 80.7 H Lymph % (Auto) 15.4 L [place] % (Auto) 3.8 Eos % (Auto) 0.0 L Baso % (Auto) 0.1 Neut # (Auto) 74084 H Lymph # (Auto) 2500 Fisher # (Auto) 600 Eos # (Auto) 0 Baso # (Auto) 0 Sodium Potassium Chloride Carbon Dioxide BUN Creatinine Estimated GFR BUN/Creatinine Ratio Glucose Calcium Triglycerides 201 H Cholesterol 212 H LDL Cholesterol, Calc 106 H HDL Cholesterol 66 H TSH 2.04 06/06/22 08:20 WBC RBC Hgb Hct MCV MCH MCHC RDW Plt Count Neut % (Auto) Lymph % (Auto) [place] % (Auto) Eos % (Auto) Baso % (Auto) Neut # (Auto) Lymph # (Auto) Fisher # (Auto) Eos # (Auto) Baso # (Auto) Sodium 137 Potassium 3.1 L Chloride 105 Carbon Dioxide 22 BUN 4 L Creatinine 0.51 L Estimated GFR > 60 BUN/Creatinine Ratio 7.8 Glucose 104 H Calcium 9.0 Triglycerides Cholesterol LDL Cholesterol, Calc HDL Cholesterol TSH PFSH Medical History 23 weeks gestation of Acute right lower quadrant pain Anxiety Cholecystitis CVA (cerebral vascular accident) Exercise-induced asthma Fibromyalgia Gastroenteritis Jaw pain, non-TMJ Lower GI bleed Normal colonoscopy Normal endoscopy Right foot strain Torn rotator cuff Tumor of liver Surgical History H/O knee surgery History of appendectomy History of cholecystectomy (~03/2022) Family History Mother Bowel obstruction Lupus Spinal cord cancer Fibromyalgia Epilepsy Blood clotting tendency Stroke Sister Bowel obstruction Tachycardia Arrhythmia Fibromyalgia Family/Other Colon cancer Grandmother S/P CABG x 3 Tachycardia Father Tachycardia Brother Tachycardia Grandmother Liver cancer Social History marital status: number of children: 0 household members: spouse lives independently: Yes housing: house pets and animals: Yes (2 dogs, 1 cat) education level: college (some collge, certificate program) 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) current occupational exposures/hazards: No special reuben needs: No travel history: over 6 months ago seatbelt use: always water heater temp set < 120 deg: Yes working smoke detector in home: Yes fire extinguisher in home: Yes carbon monox detector in home: Yes firearms in home: No do you feel safe at home: Yes Smoking Status: Never smoker second hand exposure: Yes ( smokes outside) alcohol intake: former substance use type: marijuana (prior to ) during the past year weight has: remained stable well-balanced diet: about half the time daily servings fruits/ve-4 caffeine: Yes (aware of 200mg limit) Type(s) of exercise: walking frequency: 5-6 times per week Assessment & Plan Assessment and plan (1) Neurological symptoms: Status: Acute (2) 24 weeks gestation of : Status: Acute Assessment & Plan narrative: No further possible TIA or stroke symptoms overnight or other neurologic cause of symptoms. Discussed with Dr. Eduardo, medical hospitalist who did not feel tingling in her hands and feet or any neurologic symptoms. - Await maternal echocardiogram to complete workup. Remainder of stroke workup was negative. If maternal echocardiogram normal, then Dr. Eduardo feels she is okay for discharge home. - Will place referral to outpatient Neurology for follow-up, further consultation regarding neurologic symptoms, possible TIA - will place referral to Maternal- Medicine - no obstetrical problems had admission, and then have developed. heart rate reassuring. - Keep routine OB appointment as scheduled. COVID-19 COVID-19 status: Negative Result date/Date tested (Pos, Neg/Pending): 06/05/22 Time Spent With Patient Time with patient: less than 30 minutes Critical Care time: I spent a total of [] minutes of critical care time on this patient's care today; this time is exclusive of procedural time. Quality VTE Deep Vein Thrombosis/Pulmonary Embolism Present on Admission: No
--- NOTE | 2022-06-06 15:40 | CM.DANOTE ---
DCP: Case received, EMR reviewed and met with patient. Spouse, Sly, was also at bedside. Introduced self and role. Was able to obtain some information from patient, and complete DCP assessment. Patient is a 27 year old female who admitted yesterday afternoon to the care of the hospitalist/OBGYN team. PCP: Dr. Altamirano/M[place]geta (OB). Payer: confirmed: [employer]. Patient came to the hospital via private vehicle secondary to having tingling on the left side of her face, concerned with stroke. Patient is 24 weeks with her first baby. MRI negative. They are currently running more tests, echo, etc. Patient also will see OBEDIENCE TRAINER here in the hospital. Looking at OB notes, patient has history of 3 past miscarriages. Met with patient in her room. Her and spouse, Sly, reside in [place]. She is employed at [employer]. Confirmed that this is her first baby. She does have a primary care provider in [place], and is seeing Dr. Dalal as primary OB doctor. P: DCP to continue to follow. Plan is home when deemed medically stable. Kandi Cruz RN/Hand Frame Surgical Elastic Knitter Discharge Planning/Care Management CM Discharge Assessment Start: 06/06/22 15:39 Freq: Status: Active Protocol: Document 06/06/22 15:39 (Rec: 06/06/22 15:39 [id number]) Discharge Planning Assessment Assigned Machine Setter And Repairer Kandi Cruz RN/Hand Frame Surgical Elastic Knitter Advance Directives? No History Provided By Patient,Medical Record Prior Living Arrangements House Household Members spouse Type of transporation used prior to Drives own vehicle admit Independent with ADL's Yes Is patient alert and oriented? Yes Caregiver for Another No Barriers to Discharge No Discharge Plan Home Transportation Arrangement POV via spouse Referrals Initiated None needed Whiteboard Updated in Patient Room with Yes name and ext. # of Machine Setter And Repairer Review Status In Process Next Review Type Continued Stay Review
--- NOTE | 2022-06-06 17:23 | PM.DS.1 ---
History of Present Illness History of Present Illness Date Patient Seen: 06/06/22 Time Patient Seen: 18:50 Chief complaint: Hx stroke, similar symptoms, 23w6d Narrative: Sandee Amin is a 27-year-old female who is 24 weeks with reported history of stroke in October, on Effexor and has had her medication for paroxysmal tachycardia stopped due to her , patient is on oxycodone daily for chronic abdominal pain.? She is on an aspirin 81 mg daily no other blood thinners.? She states the source of her stroke in October was never found she was seen at [facility].?In the ED the patient reported she felt a rapid HR last night, this morning she woke up she felt very groggy, tingling on the left side of her face, arm and leg, with weakness, fuzzy vision with spots on both sides and some facial droop.?In ED NIH:5. Denied change to speech.? Patient denies fevers, chills, bodyaches new or different. Has had mild headache.? She is had nausea 1 episode of vomiting today but feels better now.? Denies CP, shortness breath, recent illness, injury, or trauma, constipation but has had some diarrhea.? Denies new or different abd pain, fluid leakage, spotting, cramping, blood in urine. c/o chronic blood when wiping with every soft BM. patient endorsed a changing medical hx of herself and family throughout admit interview. She reported a hx now of afib, migraines, seizures, in addition to stroke, but the patient denies any anticoagulation management. patient also verbalized to me that she was not prescribed Oxycodone until she was , to manage her pain which in turn reduces her tachycardia, which will send her into early labor, that the scheduled oxycontin is prevent labor. patient v/s were stable on admit except HR 129, NIH:0, wbc 11.8, w/left shift neut 9000, cmp & hepatic labs were mostly unremarkable. patient was negative for covid, RSV, Flu A/B, and troponin WNL. Tox positive for Oxy, u/a neg, H/N CTA,Head CT, and Brain MRI all negative for stroke or any acute intracranial abnormalities. Patient admited for TIA, history of stroke, Tachycardia Discharge Providers Provider Date of admission: 06/05/22 18:07 Discharge Date: 06/06/22 Primary care physician: Maru Altamirano MD Discharge provider: Nato Eduardo DO Summary Hospital Course Discharge Diagnosis: Possible TIA vs migraine with neurological symptoms, recurrent, acute, present on admission-resolved -Left side facial, left side of face, arm,and leg numbness/tingling/weakness, possible slurred speech. -reported hx of stroke -NIH:O on admit No further s/s presented -MRI, head/neck CTA,and head CT - all negative -Pt reports a family hx of clotting disorders, pt later also reported a hx of migraines and seizures in herself & multiple family members. -pt has 3 spontaneous abortions in her chart -these can be associated with hypercoag disorders. -Disscussed with DR. Marilu CHAPPELL that patient be referred to high risk materal managemnt -for further monitoring and management during her , especially if her symptoms return.? -Also all Coag Labs ellen ordered by the [facility] office as many of these labs sendouts at the hospital, and they will get the results in a more timely manner. Depending on results referral to hematology would be appropriate and or for gentic evaluation. -Recommend referral to neurology for further evaluation: as these may in fact be Migraines. OB will place outpatient referral for this -Echo with normal EF and without PFO. -Continued aspirin daily Tachycardia, acute, present on admission -129 in ED, has resolved without medical intervention. -currently being monitored -Echo normal as above -OB assessed baby and doing well , 24 weeks, acute, present on admission -consulting/management by OBEFRAÍN GERD, chronic, present on admission -continue Protonix Depression, chronic, present on admission -continue venlafaxine Chronic opiate use for chronic pain, present on admission -Back &/or ABD. -managed by PCP -continued Oxycodone- Verifed by Dr. Cindy CHAPPELL Hospital Course: Admitted for possible TIA with symptoms as reported above. Underwent full stroke workup with CT/CTA head, MR brain and echo which was all normal. Patient had thrombophilia labs ordered and will f/u with OB to go over these results as they take a while. She will also obtain a referral to neurology for ongoing assessment of possible TIA vs other neurological disorder. Time Spent with Patient Time spent: Greater than 30 minutes Exam Vital Signs (past 8 hours): - 06/06/22 12:30 Temperature 98.5 F Pulse Rate 90 Respiratory Rate 21 Blood Pressure 108/59 L Pulse Oximetry 98 Oxygen Flow Rate 0 Oxygen Delivery Method Room Air Oxygen Flow Rate 0 Narrative Exam Narrative: General: Patient is a well-developed, well-nourished female in no distress at this time. HEENT: Normocephalic, atraumatic, extraocular muscles intact, oral pharynx is clear and mucous membranes are moist. Neck is supple and symmetric, trachea is midline, no adenopathy, no thyroid enlargement, nontender, no masses palpated. Negative for JVD Chest: Normal AP diameter and contour without kyphoscoliosis, no nasal flaring, retractions, or tachypneic labored Lungs: Auscultation of all lung adan are clear without adventitious sounds, wheezes, rhonchi, or rales. Cardio: S1 & S2 with regular rate and rhythm without murmur, rubs, or gallops, no carotid bruit, no cardiac pulsations present. Abdomen: Soft nontender, negative for organomegaly, or masses. Bowel sounds are present in all 4 quadrants without guarding or rebound, no CVA tenderness. Musculoskeletal: Muscle strength and tone are equal within normal limits, no deformity, crepitus, effusions, cyanosis, clubbing or edema present. Full range of motion intact radial and pedal pulses are normal. Skin: Warm dry and intact without rashes, ulcerations or petechiae. Neuro: Alert and orientated x3, strength is +5/5 in all extremities, sensation to touch intact, no gross deficits noted of cranial nerves. Psych: Patient has a well-kept appearance, appropriate affect, mental status attitude thought context and judgment appear slightly irregular, inappropriate. Objective Labs Result Diagrams: 06/06/22 08:20 06/06/22 08:20 Labs: Laboratory Results - last 24 hr 06/05/22 06/05/22 06/05/22 15:02 15:33 15:33 WBC RBC Hgb Hct MCV MCH MCHC RDW Plt Count Neut % (Auto) Lymph % (Auto) [place] % (Auto) Eos % (Auto) Baso % (Auto) Neut # (Auto) Lymph # (Auto) [place] # (Auto) Eos # (Auto) Baso # (Auto) Sodium Potassium Chloride Carbon Dioxide BUN Creatinine Estimated GFR BUN/Creatinine Ratio Glucose Hemoglobin A1c 4.6 Calcium Total Bilirubin AST ALT Alkaline Phosphatase Total Creatine Kinase CK-MB (CK-2) CK-MB (CK-2) Rel Index Troponin I Total Protein Albumin Globulin Albumin/Globulin Ratio Triglycerides Cholesterol LDL Cholesterol, Calc HDL Cholesterol TSH Ethyl Alcohol SARS-CoV-2 (PCR) Cancelled Negative Influenza A (RT-PCR) Flu a negative Influenza B (RT-PCR) Flu b negative RSV (PCR) Negative 06/05/22 06/06/22 06/06/22 17:05 08:20 08:20 WBC RBC Hgb Hct MCV MCH MCHC RDW Plt Count Neut % (Auto) Lymph % (Auto) [place] % (Auto) Eos % (Auto) Baso % (Auto) Neut # (Auto) Lymph # (Auto) [place] # (Auto) Eos # (Auto) Baso # (Auto) Sodium 135 L Potassium 3.5 Chloride 107 Carbon Dioxide 20 L BUN 5 L Creatinine 0.42 L Estimated GFR > 60 BUN/Creatinine Ratio 11.9 Glucose 95 Hemoglobin A1c Calcium 8.9 Total Bilirubin 0.2 AST 15 ALT 12 Alkaline Phosphatase 94 Total Creatine Kinase < 20 L CK-MB (CK-2) TNP CK-MB (CK-2) Rel Index TNP Troponin I < 0.012 Total Protein 6.6 Albumin 3.5 Globulin 3.1 Albumin/Globulin Ratio 1.1 Triglycerides 201 H Cholesterol 212 H LDL Cholesterol, Calc 106 H HDL Cholesterol 66 H TSH 2.04 Ethyl Alcohol < 10 SARS-CoV-2 (PCR) Influenza A (RT-PCR) Influenza B (RT-PCR) RSV (PCR) 06/06/22 06/06/22 08:20 08:20 WBC 16.5 H RBC 3.99 L Hgb 12.7 Hct 36.8 MCV 92.1 MCH 31.9 MCHC 34.6 RDW 13.7 Plt Count 315 Neut % (Auto) 80.7 H Lymph % (Auto) 15.4 L [place] % (Auto) 3.8 Eos % (Auto) 0.0 L Baso % (Auto) 0.1 Neut # (Auto) 80480 H Lymph # (Auto) 2500 [place] # (Auto) 600 Eos # (Auto) 0 Baso # (Auto) 0 Sodium 137 Potassium 3.1 L Chloride 105 Carbon Dioxide 22 BUN 4 L Creatinine 0.51 L Estimated GFR > 60 BUN/Creatinine Ratio 7.8 Glucose 104 H Hemoglobin A1c Calcium 9.0 Total Bilirubin AST ALT Alkaline Phosphatase Total Creatine Kinase CK-MB (CK-2) CK-MB (CK-2) Rel Index Troponin I Total Protein Albumin Globulin Albumin/Globulin Ratio Triglycerides Cholesterol LDL Cholesterol, Calc HDL Cholesterol TSH Ethyl Alcohol SARS-CoV-2 (PCR) Influenza A (RT-PCR) Influenza B (RT-PCR) RSV (PCR) [facility] Medical History 23 weeks gestation of Acute right lower quadrant pain Anxiety Cholecystitis CVA (cerebral vascular accident) Exercise-induced asthma Fibromyalgia Gastroenteritis Jaw pain, non-TMJ Lower GI bleed Normal colonoscopy Normal endoscopy Right foot strain Torn rotator cuff Tumor of liver Surgical History H/O knee surgery History of appendectomy History of cholecystectomy (~03/2022) Family History Mother Bowel obstruction Lupus Spinal cord cancer Fibromyalgia Epilepsy Blood clotting tendency Stroke Sister Bowel obstruction Tachycardia Arrhythmia Fibromyalgia Family/Other Colon cancer Grandmother S/P CABG x 3 Tachycardia Father Tachycardia Brother Tachycardia Grandmother Liver cancer Social History marital status: number of children: 0 household members: spouse lives independently: Yes housing: house pets and animals: Yes (2 dogs, 1 cat) education level: college (some collge, certificate program) 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) current occupational exposures/hazards: No special reuben needs: No travel history: over 6 months ago seatbelt use: always water heater temp set < 120 deg: Yes working smoke detector in home: Yes fire extinguisher in home: Yes carbon monox detector in home: Yes firearms in home: No do you feel safe at home: Yes Smoking Status: Never smoker second hand exposure: Yes ( smokes outside) alcohol intake: former substance use type: marijuana (prior to ) during the past year weight has: remained stable well-balanced diet: about half the time daily servings fruits/ve-4 caffeine: Yes (aware of 200mg limit) Type(s) of exercise: walking frequency: 5-6 times per week Discharge Plan Discharge Plan Patient Disposition: Home Provider Discharge Comment: You were admitted for possible stroke however all of your stroke workup was negative. Other neurologic disorders can cause the symptoms you were having so OB will be placing a referral to neurology for you to see. Please continue taking your daily aspirin for stroke prevention. Discharge orders & Medications Prescriptions: Continued ondansetron HCl 8 mg tablet 8 mg PO Q8H PRN (Reason: nausea and vomiting) Qty: 30 5RF albuterol sulfate 90 mcg/actuation HFA aerosol inhaler 2 puff INHALATION Q4-6H PRN (Reason: shortness of breath) Qty: 18 0RF venlafaxine 37.5 mg Tablet 37.5 mg PO DAILY oxycodone 10 mg Tablet 10 mg PO Q6H PRN (Reason: Pain (Scale Score 4-6)) Multivitamin Gummies 200 mcg Tablet,Chewable 2 tab PO BID aspirin 81 mg Capsule 81 mg PO DAILY Follow up/Referrals: Maru Altamirano MD [Primary Care Provider] - 2 Weeks Discharge Data Primary Care Provider: Maru Altamirano Attending Provider: Nato Eduardo VTE Deep Vein Thrombosis/Pulmonary Embolism Present on Admission: No
--- NOTE | 2022-06-06 18:40 | PC.NURSE ---
There was great difficulty obtaining an IV today, DI nurse was able to come up to place one for bubble study portion of ECHO. Test completed and patient tolerated well. Discharge teaching was completed by float nurse Sarah GAN, with IV removed prior to leaving. Patient has no further questions or concerns, and is to seek follow up with her specialists as directed. patient was escorted out via wheelchair by SOIL SURVEYOR to discharge to home.
[2022-06-10 23:24] LABS: B2-Glycoprotein I IgA AB < 9 (0-25); B2-Glycoprotein I IgG AB < 9 (0-20); B2-Glycoprotein I IgM AB < 9 (0-32); Cardiolipin Ab IgA < 9 APL U/mL (0-11); Cardiolipin Ab IgG < 9 GPL U/mL (0-14); Cardiolipin Ab IgM < 9 MPL U/mL (0-12); Dilute Russell Viper Venom 41.6 sec (0.0-47.0); Lupus Reflex Interpretation Comment: (.); PTT-LA 38.8 sec (0.0-51.9)
== END 2022-06-06 17:05 | disposition home or self-care (01) ==
LOC: ED 14:12 → AC 18:09 → ICU 19:41
PROVIDERS: Obstetrics & Gynecology; Admitting Provider Student in an Organized Health Care Education/Training Program; Emergency Provider Emergency Medicine; PCP Internal Medicine; Referring Provider Emergency Medicine; Visit Provider Student in an Organized Health Care Education/Training Program
DX: R29.810 Facial weakness (principal); Z33.1 Pregnant state, incidental; Z3A.23 23 weeks gestation of pregnancy; Z86.73 Personal history of transient ischemic attack (TIA), and cerebral infarction without residual deficits; G89.29 Other chronic pain; F11.90 Opioid use, unspecified, uncomplicated; K21.9 Gastro-esophageal reflux disease without esophagitis; R29.700 NIHSS score 0; Z20.822 Contact with and (suspected) exposure to COVID-19
CPT/HCPCS: 0241U; 36415; 70450; 70496; 70498; 70551; 80048; 80053; 80061; 80305; 80320; 81001; 81241; 82550; 82962; 83036; 84443; 84484; 85025; 85610; 85613; 85730; 85732; 86146; 86147; 87797; 93005; 93010; 93306; 96361; 96374; 96375; 99285; G0378; A9270; J1200; J2930; Q9967

== ENCOUNTER → 2022-06-22 13:04 | Outpatient (CLI) | payer OTHER, SELFPAY ==
[2022-06-05 18:21] VITALS: BMI 32.5
[2022-06-22 14:50] LABS: Hematocrit 38.7 % (36-46); Hemoglobin 13.3 g/dL (12.0-16.0)
[2022-06-22 15:11] LABS: GTT (PREG) 1 Hour PP 50gm Dose 129 mg/dL (76-139)
== END ==
PROVIDERS: Referring Provider Obstetrics & Gynecology; Visit Provider Obstetrics & Gynecology
DX: Z34.82 Encounter for supervision of other normal pregnancy, second trimester (principal); Z3A.26 26 weeks gestation of pregnancy
CPT/HCPCS: 36415; 82950; 85014; 85018

== ENCOUNTER 2022-08-09 16:28 | Outpatient (CLI) | payer OTHER, SELFPAY ==
[2022-06-05 18:21] VITALS: BMI 32.5
== END 2022-08-09 17:18 | disposition home or self-care (01) ==
LOC: LABOR 17:14 → OB 08-25 13:37
PROVIDERS: Referring Provider Obstetrics & Gynecology; Visit Provider Obstetrics & Gynecology
DX: O36.8130 Decreased fetal movements, third trimester, not applicable or unspecified (principal); Z3A.33 33 weeks gestation of pregnancy
CPT/HCPCS: 59025; G0378; G0379

== ENCOUNTER 2022-08-11 22:13 | Observation (INO) | payer OTHER, SELFPAY ==
[2022-06-05 18:21] VITALS: BMI 32.5
[2022-08-11 22:41] LABS: Appearance Urine UA CLEAR; Bilirubin Urine UA NEGATIVE (NEGATIVE); Color Urine UA YELLOW; Glucose Urine UA NEGATIVE (Negative); Ketones Urine UA NEGATIVE (NEGATIVE); Leukocyte Esterase Urine UA NEGATIVE (NEGATIVE); Nitrite Urine UA NEGATIVE (Negative); Occult Blood Urine UA 3+ (Negative); Protein Urine UA NEGATIVE (Negative)
--- NOTE | 2022-08-11 22:45 | DI.US.S_ITS ---
PROCEDURE: US OB LIMITED INDICATIONS: VAGINAL BLEEDING. OUTSIDE/PRIOR DATING DATA: Last menstrual period (LMP): 01/26/2022. LMP-based estimated date of delivery (CRISTI): 11/02/2022. First dating scan (date and location): 02/24/2022. Estimated date of delivery (CRISTI) from first dating scan: 09/26/2022. The calculations are made using the working CIRSTI of 09/26/2022. TECHNIQUE: Real-time scanning was performed of the fetus, with image documentation and biometric measurements. Biophysical profile was also obtained. COMPARISON: [facility], OB <= 14 WEEKS FETUS, 02/24/2022, 15:47. [facility], OB >= 14 WEEKS FETUS, 05/16/2022, 8:19. FINDINGS: General: A single living intrauterine gestation is present. Presentation: Vertex. Placenta: Placental position is posterior limiting evaluation on transabdominal exam. No definite periplacental collections to suggest abruption. Amniotic fluid index: 10.3 cm, normal range is 5-24 cm. Single deepest vertical pocket is 5.3 cm. heart rate: 162 beats per minute. Maternal cervical canal: Not well seen. Clinically estimated gestational age: 33 weeks 3 days IMPRESSION: 1. Single living intrauterine in vertex presentation. 2. Slightly limited exam demonstrates no definite evidence of placental abruption. We strive to produce accurate, complete, and clear reports of imaging services. To assist us in improving patient care, this report was composed using standard report templates and voice recognition software. Therefore, it may contain abnormal punctuation, insertions and/or omissions. Occasional wrong-word or sound-alike substitutions may occur. Though we review the report and make efforts to correct it, we do recommend that the report be read carefully in proper context to recognize any text inaccuracies. Dictated by: Martin Niño M.D. on 08/12/2022 at 0:39 Approved by: Martin Niño M.D. on 08/12/2022 at 0:43
[2022-08-11 22:53] LABS: Bacteria Urine Few (2-10); Culture Indicated Urine Cult Not Indicated; RBC Urine 1-5/HPF (0-5/HPF); Squamous Epithelial Cell Urine 1-5 /HPF (0-5/HPF); WBC Urine 1-5/HPF (0-5/HPF)
--- NOTE | 2022-08-11 23:11 | DI.US.S_ITS ---
PROCEDURE: US RENAL COMPLETE INDICATIONS: HEMATURIA TECHNIQUE: Real-time scanning was performed of the kidneys and bladder, with image documentation. COMPARISON: None. FINDINGS: Kidneys: Right kidney measures 9.7 cm long; left kidney measures 11.1 cm long. Right renal cortical thickness is 1.6 cm; left renal cortical thickness is 1.3 cm. Renal cortical echotexture is normal. No hydronephrosis or nephrolithiasis. No suspicious solid mass lesions. Bladder: Pre-void bladder volume is 34 mL. Patient unable to void due to partial distention. Pre-void images demonstrate no intraluminal masses or stones. On pre-void images, bilateral ureteral jets are noted with color Doppler interrogation. Miscellaneous: No free pelvic fluid. The visualized liver demonstrates an oval heterogeneous predominantly hyperechoic mass in the right hepatic lobe measuring up to 2.3 x 1.8 x 2.8 cm. IMPRESSION: 1. No evidence of obstructive uropathy. 2. Heterogeneously hyperechoic mass within the visualized right hepatic lobe. The findings are nonspecific and a neoplasm cannot be excluded. Recommend further evaluation with a liver protocol MRI. Dictated by: Martin Niño M.D. on 08/12/2022 at 0:44 Approved by: Martin Niño M.D. on 08/12/2022 at 0:46
--- NOTE | 2022-08-12 01:11 | PC.NURSE ---
PT. came to L&D c/o decreased FM and had pink tinge discharge when wiping. FHT 145. Cat I tracing. Uterine irritability. Pt. denied having anything in vagina in last 24hrs. Denied LOF.
--- NOTE | 2022-08-12 01:24 | PC.NURSE ---
Pt. discharged at 0100. Cat I tracing with irritability not able to palpate ctxs, U/A showed 3+ blood possibly passing kidney stone. OB US wnl. Renal US wnl. CE closed thick high. aware of above and ok for d/c to home. Instructed for pt. to come back or be seen for any bright red blood, s/s of labor. Pt. also instructed on increasing fluid intake. Next f/u appointment is with Dr. Dalal on 08/19/22.
--- NOTE | 2022-08-14 22:11 | PM.CALLCOV.1 ---
Call Coverage Note Note Date of Patient Contact: 08/14/22 Time of Patient Contact: 22:11 Narrative of Care Provided: Sanede is a 27 year old at 33w6d calling tearfully with intermittent low back pain and concerns about leaking fluid. Plan to see her in triage for evaluation.
== END 2022-08-12 01:00 | disposition home or self-care (01) ==
LOC: LABOR 22:15
PROVIDERS: Admitting Provider Family Medicine; PCP Physician Assistant; Referring Provider Family Medicine; Visit Provider Family Medicine
DX: O36.8130 Decreased fetal movements, third trimester, not applicable or unspecified (principal); O47.03 False labor before 37 completed weeks of gestation, third trimester; Z3A.33 33 weeks gestation of pregnancy
CPT/HCPCS: 59025; 76770; 76815; 81001; G0378; G0379

== ENCOUNTER 2022-08-14 23:06 | Observation (INO) | payer OTHER, SELFPAY ==
[2022-06-05 18:21] VITALS: BMI 32.5
--- NOTE | 2022-08-14 23:47 | P.HPOB_ITS ---
OB HPI Date/Time Date of admission: 08/14/22 Date Patient Seen: 08/14/22 Time Patient Seen: 23:59 History of Present Condition Chief complaint: Labor CRISTI Calculator Estimated Delivery Date Method Current WG Current Estimate 09/28/22 Ultrasound #1 33w 5d : 4 Para: 0 Narrative: Sandee concerned for ROM all weekend and even since she was seen on 08/11/22 when she was seen for vaginal bleeding. TOBIAS at that time was 10.3 cm. Called tonight with intermittent and intense low back pain and continued concern for unknown LMP due to PCOS. care: good care, initiated at week # (9), number of visits (7) and pounds weight gain (14) Dating criteria OB: other (9w3d ultrasound) Ultrasounds: normal 1st trimester US, normal mid trimester US and other Obstetrical complications: none Medical complications OB: cardiovascular (tachycardia), respiratory (asthma), gastrointestinal (Chronic abdominal pain, liver hemangioma) and other (PCOS, ) Preadmission Labs Last OB Lab Results: Blood Type O Positive 08/14/22 23:55 Antibody Screen Negative 08/14/22 23:55 Hematocrit 38.8 % (36-46) 08/14/22 23:55 Hemoglobin 13.6 g/dL (12.0-16.0) 08/14/22 23:55 Hepatitis B Surface Antigen Negative s/c (NEGATIVE) 03/22/22 16 :16 Hepatitis C Antibody Negative s/c (NEGATIVE) 03/22/22 16:16 Rubella Antibody 46.7 IU/mL (>15) 03/22/22 16:16 Varicella-Zoster IgG Antibody 291 index (Immune >165) 03/22/22 16:16 Glucose 1 Hour 129 mg/dL (76-139) 06/22/22 13:10 Prior (ies) Past Pregnancies Del. Date GA/Weeks Labor Lgth Wt Sex Route Outcome Anesthesia Place Delv Breastfeed Preg Comp Name 06/02/15 4-5 spontaneous 04/02/18 4-5 spontaneous 02/01/20 4-5 spontaneous Evaluation Evaluation Baseline heart rate: 150 Variability: Moderate (11-25) monitor accelerations: Present Monitor Decelerations: Absent Contraction Frequency (minutes): 15 Uterine Contraction Intensity: Moderate Status: Category l Dilation (cm): 1 Effacement (%): 70 Dilation: 1-2 cm Effacement: 60-70% station: -1 Position of cervix: anterior Consistency: medium Castellon score: 8 Non-invasive Membranes Rupture Test: positive Comments: [facility] Medical History Acute right lower quadrant pain Anxiety Cholecystitis CVA (cerebral vascular accident) Exercise-induced asthma Fibromyalgia Gastroenteritis Jaw pain, non-TMJ Lower GI bleed Normal colonoscopy Normal endoscopy Right foot strain Torn rotator cuff Tumor of liver Surgical History H/O knee surgery History of appendectomy History of cholecystectomy (~03/2022) Family History Mother Bowel obstruction Lupus Spinal cord cancer Fibromyalgia Epilepsy Blood clotting tendency Stroke Sister Bowel obstruction Tachycardia Arrhythmia Fibromyalgia Family/Other Colon cancer Grandmother S/P CABG x 3 Tachycardia Father Tachycardia Brother Tachycardia Grandmother Liver cancer Social History marital status: number of children: 0 household members: spouse lives independently: Yes housing: house pets and animals: Yes (2 dogs, 1 cat) education level: college (some collge, certificate program) 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) current occupational exposures/hazards: No special reuben needs: No travel history: over 6 months ago seatbelt use: always water heater temp set < 120 deg: Yes working smoke detector in home: Yes fire extinguisher in home: Yes carbon monox detector in home: Yes firearms in home: No do you feel safe at home: Yes Smoking Status: Never smoker second hand exposure: Yes ( smokes outside) alcohol intake: former substance use type: marijuana (prior to ) during the past year weight has: remained stable well-balanced diet: about half the time daily servings fruits/ve-4 caffeine: Yes (aware of 200mg limit) Type(s) of exercise: walking frequency: 5-6 times per week Meds Home Medications and Allergies Home Medications Medication Instructions Recorded Confirmed Type albuterol sulfate 90 mcg/actuation 2 puff inhalation Q4-6H PRN 04/10/19 08/15/22 Rx aerosol inhaler shortness of breath #18 grams ondansetron HCl 8 mg tablet 8 mg PO Q8H PRN nausea and 03/22/22 08/15/22 Rx vomiting #30 tabs aspirin 81 mg capsule 81 mg PO DAILY 06/05/22 08/15/22 History oxycodone 10 mg tablet 10 mg PO Q6H PRN Pain (Scale Score 06/05/22 08/15/22 History 4-6) venlafaxine 37.5 mg tablet 75 mg PO DAILY 06/05/22 08/15/22 History prenat.vits,saturnino,[id number] 1 tab 1XD 08/11/22 08/15/22 History Allergies Allergy/AdvReac Type Severity Reaction Status Date / Time doxycycline [DOXYCYCLINE] Allergy Unknown Verified 08/09/22 15:46 Penicillins [PENICILLINS] Allergy Unknown Verified 08/09/22 15:46 lidocaine Allergy Verified 08/09/22 15:46 shellfish derived Allergy Anaphylaxis Verified 08/09/22 15:46 Review of Systems Review of Systems Narrative: ROS neg except as reported in HPI OB Exam Vital signs Blood Pressure: 124/78 Pulse Rate: 72 Respiratory Rate: 18 Temperature: 98.7 F HENMT Head: normal to inspection and normocephalic Resp Effort & Inspection: normal respiratory effort Cardio Rate: regular rate Extremities Lower extremity: Yes normal to inspection GI Inspection: normal to inspection and other (Gravid) External Female Exam: Yes normal external appearance Objective Labs 08/14/22 23:55 Assessment and Plan Assessment and Plan Assessment and Plan narrative: IUP at 33w5d PPROM confirmed by amnisure Early labor - irregular contractions GBS unknown Rh positive History of asthma History of anxiety History of tachycardia FH of coagulopathy; neg thrombophilia panel Neurological symptoms (TIA versus migraine) Liver hemangioma found incidentally Time Spent with Patient Total time spent with greater than 50% in coordination of care (as documented) at patient's floor/unit and/or counseling patient:: Greater than 35 minutes (Spent over 90 minutes coordinating care for transfer) OB - A/P Antepartum Assessment and Plan (1) Neurological symptoms: Status: Acute (2) : Status: Acute (3) Liver hemangioma: Status: Acute (4) Family history of congenital heart disorder in brother: Status: Acute (5) Tachycardia, paroxysmal: Status: Acute (6) Family history of coagulation disorder: Status: Acute (7) Asthma affecting , antepartum: Status: Acute (8) Exercise-induced asthma: Status: Acute (9) Anxiety: Status: Acute (10) Intractable abdominal pain: Status: Acute (11) Fibromyalgia: Status: Acute Assessment and plan: Plan: 1. Initiate transfer of care to higher level of care due to prematurity. Plan to transfer to [facility] after discussion with both and [facility]. 2. Betamethasone given at 2355 on 08/14/22 3. Cefazolin and azithromycin initiated r/to GBS unknown. 4. Magnesium sulfate 2 g bolus initiated r/to prematurity 5. Review plan of care with Sandee and her partner.
[2022-08-14] MEDS: BETAMETHASONE 30 MG/5 ML MDV 12 MG IM (23:55)
[2022-08-14] MEDS: CEFAZOLIN 2 GM/100 ML PREMIX 100 ML IV (23:56)
[2022-08-15] MEDS: LACTATED RINGERS 1,000 ML 100 ML IV
[2022-08-15 00:23] VITALS: BP 118/77
[2022-08-15 00:24] LABS: Add Manual Diff / Slide Review NO; Basophils Absolute Auto 0 /uL (0-100); Basophils Percent Auto 0.2 % (0-2); Eosinophils Absolute Auto 0 /uL (0-450); Eosinophils Percent Auto 0.2 % (2-4); Hematocrit 38.8 % (36-46); Hemoglobin 13.6 g/dL (12.0-16.0); Lymphocytes Absolute Auto 3400 /uL (1100-4500); Lymphocytes Percent Auto 21.4 % (25-40); Mean Corpuscular Hemoglobin 32.2 PG (26-34); Mean Corpuscular Volume 92.1 fL (80-100); Monocytes Absolute Auto 800 /uL (0-900); Monocytes Percent Auto 4.8 % (3-14); Neutrophils Absolute Auto 11700 /uL (1500-7000); Neutrophils Percent Auto 73.4 % (50-75); Platelet Count 229 X10^3/uL (150-400); Red Blood Cell Count 4.22 X10^6/uL (4.0-5.2)
[2022-08-15 00:43] LABS: Appearance Urine UA CLEAR; Bilirubin Urine UA NEGATIVE (NEGATIVE); Color Urine UA YELLOW; Glucose Urine UA NEGATIVE (Negative); Ketones Urine UA TRACE (NEGATIVE); Leukocyte Esterase Urine UA NEGATIVE (NEGATIVE); Nitrite Urine UA NEGATIVE (Negative); Occult Blood Urine UA NEGATIVE (Negative); Protein Urine UA NEGATIVE (Negative)
[2022-08-15 00:48] LABS: pH Urine UA 6.5 (4.5-8.0)
[2022-08-15 00:53] LABS: Bacteria Urine None Seen; Culture Indicated Urine Cult Not Indicated; RBC Urine None Seen (0-5/HPF); Squamous Epithelial Cell Urine 0-1 /HPF (0-5/HPF); WBC Urine 0-1/HPF (0-5/HPF)
[2022-08-15 02:07] VITALS: BP 124/78; PULSE 72; RESP 18; TEMP 37.1
[2022-08-15] MEDS: AZITHROMYCIN 500 MG in DEXTROSE 5% IN WATER 250 ML 250 MG IV (02:31)
[2022-08-15] MEDS: MAGNESIUM SULFATE 2 GM/50 ML PIGGYBACK IV (02:53)
--- NOTE | 2022-08-15 03:04 | P.DS_ITS ---
Discharge Providers Provider Date of admission: 08/14/22 23:06 Discharge Date: 08/15/22 Primary care physician: Abi Epstein PA-C Discharge provider: Shahla Mathews CNM, ARNP Summary Hospital Course Date Patient Seen: 08/15/22 Time Patient Seen: 03:05 Diagnoses: PPROM and early labor Hospital Course: Rupture confirmed. Transfer initiated: calls to [facility] and [facility]; confirmed transport to [facility]. [facility] called. Records Faxed. [facility] arrived with team on unit by [id number]. Discharge Diagnosis (1) Neurological symptoms: Start Date: 08/15/22 Start Time: 03:06 Status: Acute (2) : Status: Acute (3) Liver hemangioma: Status: Acute (4) Family history of congenital heart disorder in brother: Status: Acute (5) Tachycardia, paroxysmal: Status: Acute (6) Family history of coagulation disorder: Status: Acute (7) Asthma affecting , antepartum: Status: Acute (8) Exercise-induced asthma: Status: Acute (9) Anxiety: Status: Acute (10) Intractable abdominal pain: Status: Acute (11) Fibromyalgia: Status: Acute Status at Discharge Cognitive/behavioral status at discharge: oriented and at baseline, oriented Functional status at discharge: independent ambulation (transport via helic[facility]or) Time Spent with Patient Time attestation: Total time spent providing and/or coordinating discharge services: Time spent: Less than 30 minutes Objective Labs 08/14/22 23:55 Labs: Laboratory Results - last 24 hr 08/14/22 08/14/22 08/14/22 23:55 23:55 23:55 WBC 16.0 H RBC 4.22 Hgb 13.6 Hct 38.8 MCV 92.1 MCH 32.2 MCHC 35.0 RDW 13.0 Plt Count 229 Neut % (Auto) 73.4 Lymph % (Auto) 21.4 L [place] % (Auto) 4.8 Eos % (Auto) 0.2 L Baso % (Auto) 0.2 Neut # (Auto) 84774 H Lymph # (Auto) 3400 [place] # (Auto) 800 Eos # (Auto) 0 Baso # (Auto) 0 Urine Color Yellow Urine Appearance Clear Urine pH 6.5 Ur Specific [place] 1.010 Urine Protein Negative Urine Glucose (UA) Negative Urine Ketones Trace H Urine Occult Blood Negative Urine Nitrate Negative Urine Bilirubin Negative Urine Urobilinogen 1.0 Ur Leukocyte Esterase Negative Urine RBC None seen Urine WBC 0-1/hpf Ur Squamous Epith Cells 0-1 /hpf Urine Bacteria None seen Ur Culture Indicated? Cult not indicated Blood Type O Positive Antibody Screen Negative Exam Vital Signs (past 8 hours): - 08/15/22 02:07 08/15/22 00:23 Temperature 98.7 F Pulse Rate 72 Respiratory Rate 18 Blood Pressure 124/78 118/77 Narrative Exam Narrative: no exam done at this time Discharge Plan Discharge Plan Patient Disposition: Released, Other Other facility: Transported by [email or web address] to [facility] Transportation: Ambulance Provider Discharge Comment: Discharged to transport team with antibiotics and magnesium sulfate running. Discharge orders & Medications Discharge Orders: Discharge (Order); Ordered 08/15/22 Ordered By: Shahla Mathews Prescriptions: No Action ondansetron HCl 8 mg tablet 8 mg PO Q8H PRN (Reason: nausea and vomiting) Qty: 30 5RF albuterol sulfate 90 mcg/actuation HFA aerosol inhaler 2 puff INHALATION Q4-6H PRN (Reason: shortness of breath) Qty: 18 0RF venlafaxine 37.5 mg Tablet 75 mg PO DAILY oxycodone 10 mg Tablet 10 mg PO Q6H PRN (Reason: Pain (Scale Score 4-6)) aspirin 81 mg Capsule 81 mg PO DAILY Vitamin Tablet 1 tab 1XD Rx Instructions: one daily Follow up/Referrals: Abi Epstein PA-C [Primary Care Provider] - Visit Report/Discharge Packet Stand Alone Forms: Patient Portal/API, Stroke Signs & Symptoms Discharge Data Primary Care Provider: Abi Epstein Attending Provider: Shahla Mathews
== END 2022-08-15 03:40 | disposition home or self-care (01) ==
PROVIDERS: Admitting Provider Advanced Practice Midwife; PCP Physician Assistant; Referring Provider Advanced Practice Midwife; Visit Provider Advanced Practice Midwife
DX: O42.913 Preterm premature rupture of membranes, unspecified as to length of time between rupture and onset of labor, third trimester (principal); O47.03 False labor before 37 completed weeks of gestation, third trimester; Z3A.33 33 weeks gestation of pregnancy
CPT/HCPCS: 36415; 59025; 59050; 81001; 84112; 85025; 86850; 86900; 86901; 96372; G0378; G0379; J0690; J0702; J3475

== ENCOUNTER 2022-09-15 11:02 | Emergency (ER) | payer OTHER, SELFPAY ==
[2022-06-05 18:21] VITALS: BMI 32.5
[2022-09-15 11:07] VITALS: BP 122/91; PULSE 112; RESP 15; TEMP 36.6; O2SAT 98; BMI 31.1
--- NOTE | 2022-09-15 11:18 | DI.US.S_ITS ---
PROCEDURE: US ABDOMEN LIMITED INDICATIONS: RIGHT UPPER QUADRANT PAIN TECHNIQUE: Real-time focused scanning was performed of the abdomen, with image documentation. COMPARISON: None. FINDINGS: Liver measures 15 cm. Overall echotexture is within normal limits. Hyperechoic lesion in the right lobe measuring 2.2 x 2.0 cm, seen previously. This might be a cavernous hemangioma. Gallbladder is absent. CBD measures 5 mm. Visualized pancreas is unremarkable. IMPRESSION: No acute sonographic abnormality. Gallbladder is absent. CBD measures 5 mm. Dictated by: Jacinto Johnson M.D. on 09/15/2022 at 11:49 Approved by: Jacinto Johnson M.D. on 09/15/2022 at 11:50
[2022-09-15 11:33] LABS: Add Manual Diff / Slide Review NO; Basophils Absolute Auto 0 /uL (0-100); Basophils Percent Auto 0.5 % (0-2); Eosinophils Absolute Auto 100 /uL (0-450); Eosinophils Percent Auto 2.1 % (2-4); Hematocrit 38.3 % (36-46); Hemoglobin 13.3 g/dL (12.0-16.0); Lymphocytes Absolute Auto 3300 /uL (1100-4500); Lymphocytes Percent Auto 51.3 % (25-40); Mean Corpuscular HGB Conc 34.8 % (30-36); Mean Corpuscular Hemoglobin 31.9 PG (26-34); Mean Corpuscular Volume 91.6 fL (80-100); Monocytes Absolute Auto 300 /uL (0-900); Monocytes Percent Auto 4.9 % (3-14); Neutrophils Absolute Auto 2700 /uL (1500-7000); Neutrophils Percent Auto 41.2 % (50-75); Platelet Count 295 X10^3/uL (150-400); Red Blood Cell Count 4.18 X10^6/uL (4.0-5.2); Red Cell Distribution Width 12.9 % (11.6-14.8); White Blood Cell Count 6.5 X10^3/uL (4.5-11.0)
[2022-09-15 11:36] LABS: Bacteria Urine None Seen; Culture Indicated Urine Cult Not Indicated; RBC Urine 0-1/HPF (0-5/HPF); Squamous Epithelial Cell Urine 1-5 /HPF (0-5/HPF); WBC Urine 0-1/HPF (0-5/HPF)
[2022-09-15 11:46] LABS: Alanine Aminotransferase 25 IU/L (<35); Albumin 4.2 g/dL (3.5-5.0); Albumin Globulin Ratio 1.3 (1.0-2.8); Alkaline Phosphatase 120 U/L (38-126); Aspartate Aminotransferase 36 IU/L (14-36); BUN Creatinine Ratio 6.8 (6-22); Bilirubin Total 0.4 mg/dL (0.2-1.3); Blood Urea Nitrogen 6 mg/dL (7-17); Carbon Dioxide 24 mmol/L (22-32); Chloride 105 mmol/L (98-107); Estimated Glomerular Filt Rate > 60 mL/min (>60); Globulin 3.2 g/dL (1.7-4.1); Glucose 89 mg/dL (70-100); HEMOLYSIS < 15 (0-50); Lipase 37 U/L (23-300); Potassium 3.8 mmol/L (3.4-5.1); Sodium 137 mmol/L (137-145); Total Protein 7.4 g/dL (6.3-8.2)
[2022-09-15 12:55] VITALS: BP 127/84; PULSE 96; RESP 20; O2SAT 100
--- NOTE | 2022-09-15 12:59 | ED_ITS ---
HPI - Abdominal Pain General Chief Complaint: Abdominal Pain Stated Complaint: severe ABD & back pain/hard time peeing T-3 Time Seen by Provider: 09/15/22 12:53 Source: patient Mode of arrival: Ambulatory History of Present Illness HPI narrative: Patient here with partner for complaints of ongoing chronic epigastric pain for the past 3 years. Patient is 4 weeks. Patient seen at another emergency department [address] had [address] scan imaging of the abdomen and pelvis. Unremarkable results. Laboratory studies unremarkable as well. I did review the chart. Patient is not driving. She is on regular oxycodone by [facility] for this abdominal pain. She is scheduled for special testing she states. Patient is not . Baby is on formula. Related Data Home Medications Medication Instructions Recorded Confirmed aspirin 81 mg capsule 81 mg PO DAILY 06/05/22 08/15/22 oxycodone 10 mg tablet 10 mg PO Q6H PRN Pain (Scale Score 06/05/22 08/15/22 4-6) venlafaxine 37.5 mg tablet 75 mg PO DAILY 06/05/22 08/15/22 prenat.vits,saturnino,ulu-zrvk-hqmeg 1 tab 1XD 08/11/22 08/15/22 Previous Rx's Medication Instructions Recorded albuterol sulfate 90 mcg/actuation 2 puff inhalation Q4-6H PRN 04/10/19 aerosol inhaler shortness of breath #18 grams ondansetron HCl 8 mg tablet 8 mg PO Q8H PRN nausea and 03/22/22 vomiting #30 tabs ondansetron 4 mg disintegrating 4 mg PO Q8H PRN nausea and 09/15/22 tablet vomiting #10 tabs pantoprazole 40 mg tablet,delayed 40 mg PO DAILY #30 tabs 09/15/22 release (Protonix) sucralfate 1 gram tablet 1 g PO BID #30 tabs 09/15/22 Allergies Allergy/AdvReac Type Severity Reaction Status Date / Time doxycycline [DOXYCYCLINE] Allergy Unknown Verified 09/15/22 11:15 Penicillins [PENICILLINS] Allergy Unknown Verified 09/15/22 11:15 lidocaine Allergy Verified 09/15/22 11:15 shellfish derived Allergy Anaphylaxis Verified 09/15/22 11:15 Review of Systems Review of Systems Narrative: GENERAL: negative chills, fatigue, malaise, fever, sweats. HEENT: negative sinus pain, ear pain, sore throat RESPIRATORY: negative dyspnea, cough CARDIOVASCULAR: negative chest pain, palpitations GASTROINTESTINAL: negative nausea, vomiting, positive abdominal pain : negative dysuria, frequency, hematuria MUSCULOSKELETAL: negative muscle or bony pain SKIN: negative rash, skin lesions NEUROLOGIC: negative weakness, numbness ROS Unobtainable: All systems reviewed & are unremarkable except as noted in HPI and below Patient History Medical History Acute right lower quadrant pain Anxiety Cholecystitis CVA (cerebral vascular accident) Exercise-induced asthma Fibromyalgia Gastroenteritis Jaw pain, non-TMJ Lower GI bleed Normal colonoscopy Normal endoscopy Right foot strain Torn rotator cuff Tumor of liver Surgical History H/O knee surgery History of appendectomy History of cholecystectomy (~03/2022) Family History Mother Bowel obstruction Lupus Spinal cord cancer Fibromyalgia Epilepsy Blood clotting tendency Stroke Sister Bowel obstruction Tachycardia Arrhythmia Fibromyalgia Family/Other Colon cancer Grandmother S/P CABG x 3 Tachycardia Father Tachycardia Brother Tachycardia Grandmother Liver cancer Social History marital status: number of children: 0 household members: spouse lives independently: Yes housing: house pets and animals: Yes (2 dogs, 1 cat) education level: college (some collge, certificate program) 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) current occupational exposures/hazards: No special reuben needs: No travel history: over 6 months ago seatbelt use: always water heater temp set < 120 deg: Yes working smoke detector in home: Yes fire extinguisher in home: Yes carbon monox detector in home: Yes firearms in home: No do you feel safe at home: Yes Smoking Status: Never smoker second hand exposure: Yes ( smokes outside) alcohol intake: former substance use type: marijuana (prior to ) during the past year weight has: remained stable well-balanced diet: about half the time daily servings fruits/ve-4 caffeine: Yes (aware of 200mg limit) Type(s) of exercise: walking frequency: 5-6 times per week Smoking Status: Never smoker alcohol intake frequency: holidays/special occasions only Substance Use Type: does not use Exam Narrative Exam Narrative: GENERAL: in no distress, not toxic not dyspneic HEAD: Normocephalic. EYES: Pupils equal round ENT: Mucous membranes moist. NECK: Trachea midline. CARDIOVASCULAR: Regular rate and rhythm without murmurs RESPIRATORY: Clear to auscultation. Breath sounds equal bilaterally. No wheezes, rales, or rhonchi. GASTROINTESTINAL: Abdomen soft, reproducible epigastric tenderness, bowel sounds are present. No peritoneal signs NEURO: AOx4. SKIN: Warm and dry PSYCH: Not anxious, is cooperative Initial Vital Signs Initial Vital Signs: Vital Signs Temperature 97.8 F 09/15/22 11:07 Pulse Rate 112 H 09/15/22 11:07 Respiratory Rate 15 09/15/22 11:07 Blood Pressure 122/91 H 09/15/22 11:07 Pulse Oximetry 98 09/15/22 11:07 Oxygen Delivery Method Room Air 09/15/22 11:07 Course Orders Ordered: Discontinued Medications Al Hydrox/Mg Hydrox/Simethicone (Mag Hydrox/Alum/Simeth 30 Ml Udc) 30 ml PO NOW ONE Stop: 09/15/22 13:00 Last Admin: 09/15/22 13:16 Dose: 30 ml Documented By: NR Morphine Sulfate (Morphine 4 Mg/Ml Inj) 4 mg IV NOW ONE Stop: 09/15/22 12:59 Last Admin: 09/15/22 13:16 Dose: 4 mg Documented By: NR Ondansetron HCl (Ondansetron 4 Mg/2 Ml Inj) 4 mg IV NOW PRN PRN Reason: Nausea And Vomiting Pantoprazole Sodium (Pantoprazole 40 Mg Vial) 40 mg IV NOW ONE Stop: 09/15/22 13:04 Last Admin: 09/15/22 13:16 Dose: 40 mg Documented By: NR Vital Signs Vital signs: Vital Signs - 8 hr 09/15/22 11:07 09/15/22 12:55 Temperature 97.8 F Pulse Rate 112 H 96 H Respiratory Rate 15 20 Blood Pressure 122/91 H 127/84 Pulse Oximetry 98 100 Oxygen Delivery Method Room Air Room Air MDM - Abdominal Pain Lab Data 09/15/22 11:20 09/15/22 11:20 Labs: Lab Results 09/15/22 09/15/22 09/15/22 Range/Units 11:12 11:20 11:20 WBC 6.5 (4.5-11.0) X10^3/uL RBC 4.18 (4.0-5.2) X10^6/uL Hgb 13.3 (12.0-16.0) g/dL Hct 38.3 (36-46) % MCV 91.6 (80-100) fL MCH 31.9 (26-34) PG MCHC 34.8 (30-36) % RDW 12.9 (11.6-14.8) % Plt Count 295 (150-400) X10^3/uL Neut % (Auto) 41.2 L (50-75) % Lymph % (Auto) 51.3 H (25-40) % [place] % (Auto) 4.9 (3-14) % Eos % (Auto) 2.1 (2-4) % Baso % (Auto) 0.5 (0-2) % Neut # (Auto) 2700 (1850-7602) /uL Lymph # (Auto) 3300 (3475-9353) /uL [place] # (Auto) 300 (0-900) /uL Eos # (Auto) 100 (0-450) /uL Baso # (Auto) 0 (0-100) /uL Sodium 137 (137-145) mmol/L Potassium 3.8 (3.4-5.1) mmol/L Chloride 105 (98-107) mmol/L Carbon Dioxide 24 (22-32) mmol/L BUN 6 L (7-17) mg/dL Creatinine 0.88 (0.52-1.04) mg/dL Estimated GFR > 60 (>60) mL/min BUN/Creatinine Ratio 6.8 (6-22) Glucose 89 (70-100) mg/dL Calcium 9.0 (8.4-10.2) mg/dL Total Bilirubin 0.4 (0.2-1.3) mg/dL AST 36 (14-36) IU/L ALT 25 (<35) IU/L Alkaline Phosphatase 120 (38-126) U/L Total Protein 7.4 (6.3-8.2) g/dL Albumin 4.2 (3.5-5.0) g/dL Globulin 3.2 (1.7-4.1) g/dL Albumin/Globulin Ratio 1.3 (1.0-2.8) Lipase 37 (23-300) U/L Urine RBC 0-1/hpf (0-5/HPF) Urine WBC 0-1/hpf (0-5/HPF) Ur Squamous Epith Cells 1-5 /hpf (0-5/HPF) Urine Bacteria None seen (None) Ur Culture Indicated? Cult not indicated Point of care testing: Point of Care Testing Test Results Negative Urine Dip Bedside Urine Glucose Negative Bedside Urine Bilirubin - Negative Bedside Urine Ketone - Negative Urine Specific [place] 1.010 Bedside Urine Occult Blood + Bedside Urine pH 6.0 Bedside Urine Protein - Negative Bedside Urine Urobilinogen - Negative Bedside Urine Nitrite - Negative Bedside Urine Leukocytes - Negative Esterase MDM Narrative Medical decision making narrative: Patient here with partner for complaints of ongoing chronic epigastric pain for the past 3 years. Patient is 4 weeks. Patient seen at another emergency department [address] scan imaging of the abdomen and pelvis. Unremarkable results. Laboratory studies unremarkable as well. I did review the chart. Patient is not driving. She is on regular oxycodone by [facility] for this abdominal pain. She is scheduled for special testing she states. Patient is not . Baby is on formula. After history and exam CBC CMP lipase abdominal ultrasound Zofran morphine Protonix ordered, Maalox MDM CC: Abdominal pain Complicating co-morbidities: 4 weeks , chronic abdominal pain Data collected from: Patient and partner Medical records reviewed: Records from another emergency department 2 days ago Differential considered: Includes but not limited to gastric ulcer gastritis peptic ulcer pancreatitis chronic abdominal pain Exam documented above, pertinent findings include: Epigastric tenderness Lab Test results independently reviewed as above. Pertinent findings: Sodium 137 potassium 3.8 total bilirubin 0.4 ALT 25 AST 36 alkaline phosphatase 120 lipase 37 urine RBC 0-1 urine WBC 0-1, CBC with WBC 6.5 hemoglobin 13 hematocrit 38 Imaging studies independently reviewed: Ultrasound abdomen limited no sonographic acute abnormality. Gallbladder is absent. CBD 5 mm Treatments: Morphine Zofran Protonix Maalox Re-evaluations: Patient feeling better after morphine and Protonix. Patient also given Maalox. Patient already has prescription for regular monthly pain medications by primary care. She is scheduled for GI procedure she states return precautions reviewed with her. Patient desires discharge home Discussion: Appropriate for discharge home. Exam reassuring laboratory studies and imaging reassuring. Patient just had CT scan 2 days ago and is reassuring. Patient has chronic abdominal pain for 3 years. This is not new. Possible developing gastritis due to recent as well as lifestyle changes. Appropriate for sucralfate and Protonix to add to her regimen of chronic opiate pain medication. Nontoxic at discharge. Return precautions reviewed with her. She desires discharge home Diagnosis: Chronic abdominal pain Discharge Plan Departure Patient Disposition: Home Clinical Impression: Abdominal pain, chronic, epigastric Instructions: DI for Abdominal Pain-Adult Activity Restrictions/Additional Instructions: No driving or operating machinery. Please do see your family doctor for re- evaluation and scheduling for gastrointestinal testing/exam. Prescription for P rotonix has been sent to your pharmacy to pick up attendant and continue. Return if worse if any questions or concerns Prescriptions: New pantoprazole [Protonix] 40 mg tablet,delayed release (DR/EC) 40 mg PO DAILY Qty: 30 0RF ondansetron 4 mg tablet,disintegrating 4 mg PO Q8H PRN (Reason: nausea and vomiting) Qty: 10 0RF sucralfate 1 gram tablet 1 g PO BID Qty: 30 0RF No Action ondansetron HCl 8 mg tablet 8 mg PO Q8H PRN (Reason: nausea and vomiting) Qty: 30 5RF albuterol sulfate 90 mcg/actuation HFA aerosol inhaler 2 puff INHALATION Q4-6H PRN (Reason: shortness of breath) Qty: 18 0RF venlafaxine 37.5 mg Tablet 75 mg PO DAILY oxycodone 10 mg Tablet 10 mg PO Q6H PRN (Reason: Pain (Scale Score 4-6)) aspirin 81 mg Capsule 81 mg PO DAILY Vitamin Tablet 1 tab 1XD Rx Instructions: one daily Referrals: Abi Epstein PA-C [Primary Care Provider] - Stand Alone Forms: Patient Portal/API
[2022-09-15] MEDS: PANTOPRAZOLE 40 MG VIAL IV (13:16)
[2022-09-15] MEDS: MORPHINE 4 MG/ML INJ IV (13:16)
[2022-09-15] MEDS: MAG HYDROX/ALUM/SIMETH 30 ML UDC PO (13:16)
[2022-09-15 13:23] VITALS: PULSE 102; O2SAT 99
--- NOTE | 2022-09-15 13:25 | PC.NURSE ---
pt given education on the effects of morphine, highly recommended that she not walk with , fall asleep with or be in charge of . morphine can make you dizzy and off balance and we dont want a fall with baby in our arms. sleeping in much deeper and you may not be aware of little one in your arms. patient verbalized understanding of this education. father in room for education and also verbalized understanding.
[2022-09-15 13:30] VITALS: PULSE 90; O2SAT 98
[2022-09-15 13:51] VITALS: BP 119/79; PULSE 93; O2SAT 99
== END 2022-09-15 13:56 | disposition home or self-care (01) ==
PROVIDERS: Emergency Provider Emergency Medicine; PCP Physician Assistant
DX: R10.13 Epigastric pain (principal)
CPT/HCPCS: 36415; 76705; 80053; 81003; 81015; 81025; 83690; 85025; 96374; 96375; 99284; C9113; J2270

== ENCOUNTER 2022-12-11 14:17 | Emergency (ER) | payer OTHER, SELFPAY ==
[2022-06-05 18:21] VITALS: BMI 32.5
[2022-12-11 14:27] VITALS: BP 123/86; PULSE 93; RESP 16; TEMP 36.9; O2SAT 100; BMI 30.6
[2022-12-11 14:32] VITALS: PULSE 94; O2SAT 98
[2022-12-11 14:34] VITALS: BP 113/60; PULSE 95; RESP 19; O2SAT 98
--- NOTE | 2022-12-11 14:54 | ED.FEMALEGU ---
HPI - Female Genitourinary <Brea Matthews, [facility] - Last Filed: 12/11/22 15:56> General Chief complaint: Urogenital-Female Stated complaint: cannot urinate, left side lump in neck, ABD pain Time Seen by Provider: 12/11/22 14:33 Mode of arrival: Family Vehicle History of Present Illness HPI Narrative: This is a 27-year-old female with history of lower GI bleed, lupus, colon polyps, and abdominal pain returns for pelvic pain that has been going on for the last 2 weeks. Patient has a history of chronic abdominal pain in the right lower quadrant, she has history of cholecystectomy and appendectomy, has been worked up multiple times for this abdominal pain and is on chronic oxycodone for this. She is 3 months , endorses feeling fatigued today and not as much energy as usual, she states that she has pelvic pressure and pelvic discomfort, states that she feels like her bladder is full and is difficult to empty her bladder. She denies any recent trauma. She was seen and evaluated 2 months ago with ultrasound of her right upper quadrant without acute abnormality. Since then she has been at home and complaint of worsening right lower quadrant pain that is worse with motion and improves with rest.? She denies any radiation of the pain.? She has not had any nausea and vomiting. She takes no blood thinners.? She reports feeling slightly lightheaded today with new generalized fatigue. She denies dysuria, frequency or urgency.? She denies any bowel movements in the past few days but has been passing gas. She denies any fever or chills.? She states she feels worse today than she did the other day.? She just had her menstrual cycle recently and states it was normal.? She denies any vaginal bleeding but reports mild amount of discharge, last menstrual cycle was last week. She endorses a small amount vaginal discharge. Related Data Home Medications Medication Instructions Recorded Confirmed aspirin 81 mg capsule 81 mg PO DAILY 06/05/22 09/29/22 oxycodone 10 mg tablet 10 mg PO Q6H PRN Pain (Scale Score 06/05/22 09/29/22 4-6) venlafaxine 37.5 mg tablet 75 mg PO DAILY 06/05/22 09/29/22 Previous Rx's Medication Instructions Recorded albuterol sulfate 90 mcg/actuation 2 puff inhalation Q4-6H PRN 04/10/19 aerosol inhaler shortness of breath #18 grams ondansetron HCl 8 mg tablet 8 mg PO Q8H PRN nausea and 03/22/22 vomiting #30 tabs ondansetron 4 mg disintegrating 4 mg PO Q8H PRN nausea and 09/15/22 tablet vomiting #10 tabs norelgestromin 150 mcg-e.estradiol 1 patch transdermal QWEEK #3 ea 09/29/22 35 mcg/24 hr weekly transderm patch (Xulane) ibuprofen 600 mg tablet 600 mg PO Q6H PRN fever or pain 12/11/22 #30 tabs omeprazole 20 mg capsule,delayed 20 mg PO QAM #30 caps 12/11/22 release phenazopyridine 100 mg tablet 100 mg PO Q8H PRN bladder pain #7 12/11/22 (Pyridium) tabs polyethylene glycol 3350 17 17 g PO DAILY for soft stool #238 12/11/22 gram/dose oral powder (Miralax) grams sulfamethoxazole 800 1 tab PO BID 7 days #14 tabs 12/11/22 mg-trimethoprim 160 mg tablet (Bactrim DS) Allergies Allergy/AdvReac Type Severity Reaction Status Date / Time doxycycline [DOXYCYCLINE] Allergy Unknown Verified 12/11/22 14:30 Penicillins [PENICILLINS] Allergy Unknown Verified 12/11/22 14:30 lidocaine Allergy Verified 12/11/22 14:30 shellfish derived Allergy Anaphylaxis Verified 12/11/22 14:30 Review of Systems <ISADORA Barbosa - Last Filed: 12/11/22 15:56> Review of Systems ROS Unobtainable: All systems reviewed & are unremarkable except as noted in HPI and below Patient History <ISADORA Barbosa - Last Filed: 12/11/22 15:56> Medical History Acute right lower quadrant pain Anxiety Cholecystitis CVA (cerebral vascular accident) Exercise-induced asthma Fibromyalgia Gastroenteritis Jaw pain, non-TMJ Lower GI bleed Normal colonoscopy Normal endoscopy Right foot strain Torn rotator cuff Tumor of liver Surgical History H/O knee surgery History of appendectomy History of cholecystectomy (~03/2022) Family History Mother Bowel obstruction Lupus Spinal cord cancer Fibromyalgia Epilepsy Blood clotting tendency Stroke Sister Bowel obstruction Tachycardia Arrhythmia Fibromyalgia Family/Other Colon cancer Grandmother S/P CABG x 3 Tachycardia Father Tachycardia Brother Tachycardia Grandmother Liver cancer alcohol intake frequency: holidays/special occasions only Substance Use Type: does not use Exam <ISADORA Barbosa - Last Filed: 12/11/22 15:56> Narrative Exam Narrative: Reviewed vitals signs and nursing notes. General: Pleasant, sitting upright, in no acute distress, well groomed, afebrile HEENT: symmetrical facial expressions, moist mucous membranes, neck is supple CV: regular rate and rhythm, warm extremities Respiratory: normal work of breathing, without tachypnea or hypoxia. GI: abdomen soft, nondistended, tenderness to the suprapubic region, right lower quadrant with deep palpation, and no other tenderness to palpation including no CVA tenderness bilaterally. MSK: moves all extremities, no weakness, normal tone, ambulatory without deficit Skin: brisk capillary refill, without rash or wound Neuro: clear speech and normal cognition, A&O x3, GCS 15, no focal motor or sensation deficits Initial Vital Signs Initial Vital Signs: Vital Signs Temperature 98.4 F 12/11/22 14:27 Pulse Rate 93 H 12/11/22 14:27 Respiratory Rate 16 12/11/22 14:27 Blood Pressure 123/86 12/11/22 14:27 Pulse Oximetry 100 12/11/22 14:27 Oxygen Delivery Method Room Air 12/11/22 14:27 <Brad Reyez DO - Last Filed: 12/17/22 01:47> Initial Vital Signs Initial Vital Signs: Vital Signs Temperature 98.4 F 12/11/22 14:27 Pulse Rate 93 H 12/11/22 14:27 Respiratory Rate 16 12/11/22 14:27 Blood Pressure 123/86 12/11/22 14:27 Pulse Oximetry 100 12/11/22 14:27 Oxygen Delivery Method Room Air 12/11/22 14:27 Course <ISADORA Barbosa - Last Filed: 12/11/22 15:56> Orders Ordered: Discontinued Medications Ketorolac Tromethamine (Ketorolac 30 Mg/Ml Vial) 15 mg IM NOW ONE Stop: 12/11/22 14:52 Last Admin: 12/11/22 15:30 Dose: 15 mg Documented By: RB Phenazopyridine HCl (Phenazopyridine 100 Mg Tablet) 100 mg PO NOW ONE Stop: 12/11/22 15:23 Last Admin: 12/11/22 15:29 Dose: 100 mg Documented By: RB Trimethoprim/Sulfamethoxazole (Trimeth/Sulfa 160/800 (Ds) Tablet) 1 tab PO NOW ONE Stop: 12/11/22 15:23 Last Admin: 12/11/22 15:30 Dose: 1 tab Documented By: RB Vital Signs Vital signs: Vital Signs - 8 hr 12/11/22 14:27 Temperature 98.4 F Pulse Rate 93 H Respiratory Rate 16 Blood Pressure 123/86 Pulse Oximetry 100 Oxygen Delivery Method Room Air <Brad Reyez DO - Last Filed: 12/17/22 01:47> Orders Ordered: Discontinued Medications Ketorolac Tromethamine (Ketorolac 30 Mg/Ml Vial) 15 mg IM NOW ONE Stop: 12/11/22 14:52 Last Admin: 12/11/22 15:30 Dose: 15 mg Documented By: RB Phenazopyridine HCl (Phenazopyridine 100 Mg Tablet) 100 mg PO NOW ONE Stop: 12/11/22 15:23 Last Admin: 12/11/22 15:29 Dose: 100 mg Documented By: RB Trimethoprim/Sulfamethoxazole (Trimeth/Sulfa 160/800 (Ds) Tablet) 1 tab PO NOW ONE Stop: 12/11/22 15:23 Last Admin: 12/11/22 15:30 Dose: 1 tab Documented By: RB Vital Signs Vital signs: Vital Signs - 8 hr 12/11/22 14:27 Temperature 98.4 F Pulse Rate 93 H Respiratory Rate 16 Blood Pressure 123/86 Pulse Oximetry 100 Oxygen Delivery Method Room Air MDM - Female Genitourinary <ISADORA Barbosa - Last Filed: 12/11/22 15:56> Lab Data Lab results narrative: Name: Sandee Amin Age/Sex: 27/F Attend Dr: Brea Matthews Unit#: [id number] : 1995Location: ED Re12/11/22 Disch: Status: REG ER SPEC #: [id number] MARIA DEL CARMEN: 12/11/22 STATUS: COMP REQ #: [id number] SPDESC: RECD: 12/11/22-[address] [facility] [address]: Brea Matthews SOURCE: Cervix ENTR: 12/11/22-[address]: Maru Altamirano MD FAX TO: ORDERED: Wet Prep Procedure Result Verified Site Wet Prep Tric BV Delicia Final 12/11/22 White blood cells Occasional WBC seen Clue cells: None seen Yeast: None seen Trichomonas: None seen 12/11/22 15:15 12/11/22 15:15 Labs: Lab Results 12/11/22 12/11/22 12/11/22 Range/Units 14:53 15:15 15:15 WBC 6.9 (4.5-11.0) X10^3/uL RBC 4.16 (4.0-5.2) X10^6/uL Hgb 12.9 (12.0-16.0) g/dL Hct 36.8 (36-46) % MCV 88.4 (80-100) fL MCH 31.0 (26-34) PG MCHC 35.1 (30-36) % RDW 13.0 (11.6-14.8) % Plt Count 276 (150-400) X10^3/uL Neut % (Auto) 63.0 (50-75) % Lymph % (Auto) 30.6 (25-40) % Jasper % (Auto) 4.3 (3-14) % Eos % (Auto) 1.7 L (2-4) % Baso % (Auto) 0.4 (0-2) % Neut # (Auto) 4400 (1781-2480) /uL Lymph # (Auto) 2100 (0869-2957) /uL Jasper # (Auto) 300 (0-900) /uL Eos # (Auto) 100 (0-450) /uL Baso # (Auto) 0 (0-100) /uL Sodium 136 L (137-145) mmol/L Potassium 3.9 (3.4-5.1) mmol/L Chloride 107 (98-107) mmol/L Carbon Dioxide 21 L (22-32) mmol/L BUN 6 L (7-17) mg/dL Creatinine 0.61 (0.52-1.04) mg/dL Estimated GFR > 60 (>60) mL/min BUN/Creatinine Ratio 9.8 (6-22) Glucose 94 (70-100) mg/dL Calcium 9.0 (8.4-10.2) mg/dL Total Bilirubin 0.4 (0.2-1.3) mg/dL AST 25 (14-36) IU/L ALT 20 (<35) IU/L Alkaline Phosphatase 102 (38-126) U/L Total Protein 6.9 (6.3-8.2) g/dL Albumin 3.7 (3.5-5.0) g/dL Globulin 3.2 (1.7-4.1) g/dL Albumin/Globulin Ratio 1.2 (1.0-2.8) Lipase (23-300) U/L TSH (0.47-4.68) uIU/mL Thyroxine (T4) (5.5-11.0) ug/dL Urine RBC None seen (0-5/HPF) Urine WBC 1-5/hpf (0-5/HPF) Ur Squamous Epith Cells 10-30 /hpf H D (0-5/HPF) Amorphous Sediment 1+ Urine Bacteria Many (>30) H (None) Ur Culture Indicated? Specimen cultured 12/11/22 12/11/22 Range/Units 15:15 15:15 WBC (4.5-11.0) X10^3/uL RBC (4.0-5.2) X10^6/uL Hgb (12.0-16.0) g/dL Hct (36-46) % MCV (80-100) fL MCH (26-34) PG MCHC (30-36) % RDW (11.6-14.8) % Plt Count (150-400) X10^3/uL Neut % (Auto) (50-75) % Lymph % (Auto) (25-40) % Jasper % (Auto) (3-14) % Eos % (Auto) (2-4) % Baso % (Auto) (0-2) % Neut # (Auto) (2292-6136) /uL Lymph # (Auto) (9297-7160) /uL Jasper # (Auto) (0-900) /uL Eos # (Auto) (0-450) /uL Baso # (Auto) (0-100) /uL Sodium (137-145) mmol/L Potassium (3.4-5.1) mmol/L Chloride (98-107) mmol/L Carbon Dioxide (22-32) mmol/L BUN (7-17) mg/dL Creatinine (0.52-1.04) mg/dL Estimated GFR (>60) mL/min BUN/Creatinine Ratio (6-22) Glucose (70-100) mg/dL Calcium (8.4-10.2) mg/dL Total Bilirubin (0.2-1.3) mg/dL AST (14-36) IU/L ALT (<35) IU/L Alkaline Phosphatase (38-126) U/L Total Protein (6.3-8.2) g/dL Albumin (3.5-5.0) g/dL Globulin (1.7-4.1) g/dL Albumin/Globulin Ratio (1.0-2.8) Lipase 26 (23-300) U/L TSH 0.298 L (0.47-4.68) uIU/mL Thyroxine (T4) 10.60 (5.5-11.0) ug/dL Urine RBC (0-5/HPF) Urine WBC (0-5/HPF) Ur Squamous Epith Cells (0-5/HPF) Amorphous Sediment Urine Bacteria (None) Ur Culture Indicated? Point of Care Testing Test Results Negative MDM Narrative Medical decision making narrative: Chief Complaint: Pelvic pressure and bladder pain Primary historian: Patient Multiple etiologies for patient's complaint considered including, but not limited to: Urinary tract infection, vaginitis, pyelonephritis, ovarian cyst, PID, prolapse, dehydration I have independently reviewed the patient's vital signs and nursing notes as well as prior records if available. Bladder scan with 11-30 mL postvoid, test is negative, urine dip is positive for leukocytes, sent down for urine microscopy and culture urine microscopy shows bacteria and WBCs, this is likely urinary tract infection, the rest of the lab work is unremarkable, no leukocytosis or anemia, no elevation of liver enzymes, TSH and T4 pending but patient's heart rate is within normal range. Recommend patient stay hydrated, follow up with her primary care provider for recheck, she was prescribed MiraLax for stool burden, Pyridium for bladder pain, ibuprofen and omeprazole and Bactrim b.i.d. x7 days for urinary tract infection. She has history of allergy to doxycycline and penicillin. Patient remains p.o. tolerant without fever, worsening pain or vomiting. Social considerations that may affect disposition: none Questions are addressed and there is agreement with the plan and for follow-up. I consulted with the ED attending physician Dr. Reyez as needed for higher level of care considerations and they were available for discussion and recommendations regarding plan of care and diagnostic testing. Patient is appropriate for outpatient management. <Brad Reyez, DO - Last Filed: 12/17/22 01:47> Lab Data Labs: Lab Results 12/11/22 12/11/22 12/11/22 Range/Units 14:53 15:15 15:15 WBC 6.9 (4.5-11.0) X10^3/uL RBC 4.16 (4.0-5.2) X10^6/uL Hgb 12.9 (12.0-16.0) g/dL Hct 36.8 (36-46) % MCV 88.4 (80-100) fL MCH 31.0 (26-34) PG MCHC 35.1 (30-36) % RDW 13.0 (11.6-14.8) % Plt Count 276 (150-400) X10^3/uL Neut % (Auto) 63.0 (50-75) % Lymph % (Auto) 30.6 (25-40) % Jasper % (Auto) 4.3 (3-14) % Eos % (Auto) 1.7 L (2-4) % Baso % (Auto) 0.4 (0-2) % Neut # (Auto) 4400 (7307-3167) /uL Lymph # (Auto) 2100 (1449-4737) /uL Jasper # (Auto) 300 (0-900) /uL Eos # (Auto) 100 (0-450) /uL Baso # (Auto) 0 (0-100) /uL Sodium 136 L (137-145) mmol/L Potassium 3.9 (3.4-5.1) mmol/L Chloride 107 (98-107) mmol/L Carbon Dioxide 21 L (22-32) mmol/L BUN 6 L (7-17) mg/dL Creatinine 0.61 (0.52-1.04) mg/dL Estimated GFR > 60 (>60) mL/min BUN/Creatinine Ratio 9.8 (6-22) Glucose 94 (70-100) mg/dL Calcium 9.0 (8.4-10.2) mg/dL Total Bilirubin 0.4 (0.2-1.3) mg/dL AST 25 (14-36) IU/L ALT 20 (<35) IU/L Alkaline Phosphatase 102 (38-126) U/L Total Protein 6.9 (6.3-8.2) g/dL Albumin 3.7 (3.5-5.0) g/dL Globulin 3.2 (1.7-4.1) g/dL Albumin/Globulin Ratio 1.2 (1.0-2.8) Lipase (23-300) U/L TSH (0.47-4.68) uIU/mL Thyroxine (T4) (5.5-11.0) ug/dL Urine RBC None seen (0-5/HPF) Urine WBC 1-5/hpf (0-5/HPF) Ur Squamous Epith Cells 10-30 /hpf H D (0-5/HPF) Amorphous Sediment 1+ Urine Bacteria Many (>30) H (None) Ur Culture Indicated? Specimen cultured 12/11/22 12/11/22 Range/Units 15:15 15:15 WBC (4.5-11.0) X10^3/uL RBC (4.0-5.2) X10^6/uL Hgb (12.0-16.0) g/dL Hct (36-46) % MCV (80-100) fL MCH (26-34) PG MCHC (30-36) % RDW (11.6-14.8) % Plt Count (150-400) X10^3/uL Neut % (Auto) (50-75) % Lymph % (Auto) (25-40) % Jasper % (Auto) (3-14) % Eos % (Auto) (2-4) % Baso % (Auto) (0-2) % Neut # (Auto) (4012-1460) /uL Lymph # (Auto) (7789-0904) /uL Jasper # (Auto) (0-900) /uL Eos # (Auto) (0-450) /uL Baso # (Auto) (0-100) /uL Sodium (137-145) mmol/L Potassium (3.4-5.1) mmol/L Chloride (98-107) mmol/L Carbon Dioxide (22-32) mmol/L BUN (7-17) mg/dL Creatinine (0.52-1.04) mg/dL Estimated GFR (>60) mL/min BUN/Creatinine Ratio (6-22) Glucose (70-100) mg/dL Calcium (8.4-10.2) mg/dL Total Bilirubin (0.2-1.3) mg/dL AST (14-36) IU/L ALT (<35) IU/L Alkaline Phosphatase (38-126) U/L Total Protein (6.3-8.2) g/dL Albumin (3.5-5.0) g/dL Globulin (1.7-4.1) g/dL Albumin/Globulin Ratio (1.0-2.8) Lipase 26 (23-300) U/L TSH 0.298 L (0.47-4.68) uIU/mL Thyroxine (T4) 10.60 (5.5-11.0) ug/dL Urine RBC (0-5/HPF) Urine WBC (0-5/HPF) Ur Squamous Epith Cells (0-5/HPF) Amorphous Sediment Urine Bacteria (None) Ur Culture Indicated? Point of Care Testing Test Results Negative Discharge Plan Departure Patient Disposition: Home Clinical Impression: Urinary tract infection Qualifiers: Urinary tract infection type: site unspecified Hematuria presence: without hematuria Qualified Code(s): N39.0 - Urinary tract infection, site not specified Instructions: DI for Urinary Tract Infection (UTI) Activity Restrictions/Additional Instructions: *You have been diagnosed with a urinary tract infection, we have cultured the urine and may call you in the next 2 days of this antibiotic does not work on your bacteria and make a change however this should get better soon, and you can use Pyridium as needed for bladder pain and fullness. Please use ibuprofen every 6 hours for your pain, take omeprazole daily to prevent stomach pain and GI bleeding. Take Pyridium as needed for bladder pain and MiraLax daily for soft stools. With PCOS, this can be helpful for pelvic pain and or lower abdominal pain. This antibiotic should take care of your bladder pain and some of the right upper abdominal pain. Please drink plenty of fluids, follow-up with Dr. Dalal for ongoing pelvic pain or for recheck. Thank you for your patients while we waited for the lab work, I do not think that there is anything else concerning to address today unless you do not start to get better. Please use MiraLax as needed for soft stools daily, Pyridium for bladder pain, omeprazole to protect your stomach from ulcer and ibuprofen for the pain with Tylenol. *What to do: *Please continue to take your regular medications as directed. [ x] New medication prescriptions sent to your pharmacy: [[facility]] [ ] New medication written as a paper prescription [ ] No new medications given *Please call and schedule follow up with your primary care provider in 2-3 days, at least for an update. Let them know you were seen in the Emergency Department for the above problem. We will electronically transmit a record of today's note if your PCP or specialist is in our system. *If you do not have a primary care provider please contact [phone] to establish care with one of the [facility] primary care providers. *Return to the Emergency Department for worsening symptoms, inability to keep liquids down, fever greater than 101F, chills, or other concerning symptom. Prescriptions: New sulfamethoxazole-trimethoprim [Bactrim DS] 800-160 mg tablet 1 tab PO BID 7 Days Qty: 14 0RF phenazopyridine [Pyridium] 100 mg tablet 100 mg PO Q8H PRN (Reason: bladder pain) Qty: 7 0RF polyethylene glycol 3350 [Miralax] 17 gram/dose powder 17 g PO DAILY Qty: 238 0RF ibuprofen 600 mg tablet 600 mg PO Q6H PRN (Reason: fever or pain) Qty: 30 0RF Rx Instructions: Take with food and water omeprazole 20 mg capsule,delayed release(DR/EC) 20 mg PO QAM Qty: 30 0RF No Action ondansetron HCl 8 mg tablet 8 mg PO Q8H PRN (Reason: nausea and vomiting) Qty: 30 5RF Xulane 150-35 mcg/24 hr patch weekly 1 patch transdermal QWEEK Qty: 3 12RF Rx Instructions: apply once weekly for 3 weeks of a 4-week cycle albuterol sulfate 90 mcg/actuation HFA aerosol inhaler 2 puff INHALATION Q4-6H PRN (Reason: shortness of breath) Qty: 18 0RF venlafaxine 37.5 mg Tablet 75 mg PO DAILY oxycodone 10 mg Tablet 10 mg PO Q6H PRN (Reason: Pain (Scale Score 4-6)) aspirin 81 mg Capsule 81 mg PO DAILY ondansetron 4 mg tablet,disintegrating 4 mg PO Q8H PRN (Reason: nausea and vomiting) Qty: 10 0RF Referrals: Maru Altamirano MD [Primary Care Provider] - Shaun Dalal MD [Physician] - Stand Alone Forms: Patient Portal/API <Brad Reyez DO - Last Filed: 12/17/22 01:47> Cosign ED Attending Tutu Attestation: I was immediately available in the department for consultation. Documentation has been reviewed. I agree with assessment and plan.
[2022-12-11 15:11] LABS: Amorphous Sediment Urine 1+; Bacteria Urine Many (>30); Culture Indicated Urine Specimen Cultured; RBC Urine None Seen (0-5/HPF); Squamous Epithelial Cell Urine 10-30 /HPF (0-5/HPF); WBC Urine 1-5/HPF (0-5/HPF)
[2022-12-11 15:27] LABS: Add Manual Diff / Slide Review NO; Basophils Absolute Auto 0 /uL (0-100); Basophils Percent Auto 0.4 % (0-2); Eosinophils Absolute Auto 100 /uL (0-450); Eosinophils Percent Auto 1.7 % (2-4); Hematocrit 36.8 % (36-46); Hemoglobin 12.9 g/dL (12.0-16.0); Lymphocytes Absolute Auto 2100 /uL (1100-4500); Lymphocytes Percent Auto 30.6 % (25-40); Mean Corpuscular HGB Conc 35.1 % (30-36); Mean Corpuscular Volume 88.4 fL (80-100); Monocytes Absolute Auto 300 /uL (0-900); Monocytes Percent Auto 4.3 % (3-14); Neutrophils Absolute Auto 4400 /uL (1500-7000); Platelet Count 276 X10^3/uL (150-400); Red Blood Cell Count 4.16 X10^6/uL (4.0-5.2); White Blood Cell Count 6.9 X10^3/uL (4.5-11.0)
[2022-12-11] MEDS: PHENAZOPYRIDINE 100 MG TABLET PO (15:29)
[2022-12-11] MEDS: TRIMETH/SULFA 160/800 (DS) TABLET 1 TAB PO (15:30)
[2022-12-11] MEDS: KETOROLAC 30 MG/ML VIAL 15 MG IM (15:30)
[2022-12-11 15:37] VITALS: PULSE 77; RESP 25; O2SAT 98
[2022-12-11 15:38] VITALS: BP 114/78; PULSE 78; RESP 14; O2SAT 97
[2022-12-11 15:42] LABS: Lipase 26 U/L (23-300)
[2022-12-11 15:44] LABS: Alanine Aminotransferase 20 IU/L (<35); Albumin 3.7 g/dL (3.5-5.0); Albumin Globulin Ratio 1.2 (1.0-2.8); Alkaline Phosphatase 102 U/L (38-126); Aspartate Aminotransferase 25 IU/L (14-36); BUN Creatinine Ratio 9.8 (6-22); Bilirubin Total 0.4 mg/dL (0.2-1.3); Blood Urea Nitrogen 6 mg/dL (7-17); Carbon Dioxide 21 mmol/L (22-32); Chloride 107 mmol/L (98-107); Estimated Glomerular Filt Rate > 60 mL/min (>60); Globulin 3.2 g/dL (1.7-4.1); Glucose 94 mg/dL (70-100); HEMOLYSIS < 15 (0-50); Potassium 3.9 mmol/L (3.4-5.1); Sodium 136 mmol/L (137-145); Total Protein 6.9 g/dL (6.3-8.2)
[2022-12-11 16:00] VITALS: BP 109/83; PULSE 83; RESP 23; O2SAT 98
[2022-12-11 16:14] LABS: Thyroid Stimulating Hormone 0.298 uIU/mL (0.47-4.68)
== END 2022-12-11 16:10 | disposition home or self-care (01) ==
PROVIDERS: Emergency Provider Nurse Practitioner Critical Care Medicine; PCP Internal Medicine
DX: N39.0 Urinary tract infection, site not specified (principal); R10.2 Pelvic and perineal pain
CPT/HCPCS: 36415; 51798; 80053; 81015; 81025; 83690; 84436; 84443; 85025; 87086; 87210; 96372; 99284; J1885

== ENCOUNTER 2023-01-14 22:45 | Emergency (ER) | payer OTHER, SELFPAY ==
[2022-06-05 18:21] VITALS: BMI 32.5
[2023-01-14 23:12] VITALS: BP 131/86; PULSE 100; RESP 18; TEMP 36.6; O2SAT 100; BMI 32.0
--- NOTE | 2023-01-14 23:19 | DI.CT.S_ITS ---
PROCEDURE: CT HEAD/BRAIN WO CON INDICATIONS: head injury with seizure TECHNIQUE: Noncontrast 4.5 mm thick angled axial sections acquired from the foramen magnum to the vertex, with coronal and sagittal reformats. For radiation dose reduction, the following was used: automated exposure control, adjustment of mA and/or kV according to patient size. COMPARISON: None. FINDINGS: Image quality: Excellent. CSF spaces: Basal cisterns are patent. No extra-axial fluid collections. Ventricles are normal in size and shape. Brain: No midline shift. No intracranial masses or hemorrhage. Moody-white matter interface is normal. Skull and face: Calvarium and visualized facial bones are intact, without suspicious lesions. Sinuses: Visualized sinuses and mastoids are clear. IMPRESSION: Normal for age, no source of seizure activity is seen. Dictated by: Nick Peres M.D. on 01/14/2023 at 23:47 Approved by: Nick Peres M.D. on 01/14/2023 at 23:47
[2023-01-15 01:39] LABS: Add Manual Diff / Slide Review NO; Basophils Absolute Auto 200 /uL (0-100); Basophils Percent Auto 1.9 % (0-2); Eosinophils Absolute Auto 100 /uL (0-450); Eosinophils Percent Auto 1.3 % (2-4); Hematocrit 40.4 % (36-46); Hemoglobin 14.2 g/dL (12.0-16.0); Lymphocytes Absolute Auto 2500 /uL (1100-4500); Lymphocytes Percent Auto 28.4 % (25-40); Mean Corpuscular HGB Conc 35.3 % (30-36); Mean Corpuscular Hemoglobin 31.6 PG (26-34); Mean Corpuscular Volume 89.4 fL (80-100); Monocytes Absolute Auto 400 /uL (0-900); Monocytes Percent Auto 4.1 % (3-14); Neutrophils Absolute Auto 5700 /uL (1500-7000); Neutrophils Percent Auto 64.3 % (50-75); Platelet Count 332 X10^3/uL (150-400); Red Blood Cell Count 4.51 X10^6/uL (4.0-5.2); Red Cell Distribution Width 13.7 % (11.6-14.8); White Blood Cell Count 8.9 X10^3/uL (4.5-11.0)
[2023-01-15 01:44] LABS: Alanine Aminotransferase 17 IU/L (<35); Albumin 4.3 g/dL (3.5-5.0); Albumin Globulin Ratio 1.1 (1.0-2.8); Alkaline Phosphatase 103 U/L (38-126); Aspartate Aminotransferase 20 IU/L (14-36); Bilirubin Total 0.3 mg/dL (0.2-1.3); Blood Urea Nitrogen 9 mg/dL (7-17); Calcium 9.7 mg/dL (8.4-10.2); Carbon Dioxide 26 mmol/L (22-32); Chloride 103 mmol/L (98-107); Estimated Glomerular Filt Rate > 60 mL/min (>60); Globulin 3.9 g/dL (1.7-4.1); Glucose 78 mg/dL (70-100); HEMOLYSIS 30 (0-50); Potassium 3.8 mmol/L (3.4-5.1); Sodium 137 mmol/L (137-145); Total Protein 8.2 g/dL (6.3-8.2)
--- NOTE | 2023-01-15 02:50 | ED_ITS ---
HPI - Head Injury General Chief complaint: Head Injury Stated complaint: C diff, Head inj Time Seen by Provider: 01/14/23 23:19 Source: patient Mode of arrival: Ambulatory History of Present Illness HPI Narrative: 27-year-old woman with history of asthma, seizure disorder depression was shopping at [employer] today when a piece of metal shelving fell on her head, shortly thereafter she had a seizure with nausea and vomiting and persistent headache that has not improved with Naprosyn. She continues to complain of neck pain, also notes moderate amount of confusion after the initial head injury. She states that she does have seizures but they are not grand mal seizures are typically at night just before she falls asleep made worse by Xanax and she is not currently on additional seizure medications. She comes in for further evaluation. Related Data Home Medications Medication Instructions Recorded Confirmed aspirin 81 mg capsule 81 mg PO DAILY 06/05/22 09/29/22 oxycodone 10 mg tablet 10 mg PO Q6H PRN Pain (Scale Score 06/05/22 09/29/22 4-6) venlafaxine 37.5 mg tablet 75 mg PO DAILY 06/05/22 09/29/22 Previous Rx's Medication Instructions Recorded albuterol sulfate 90 mcg/actuation 2 puff inhalation Q4-6H PRN 04/10/19 aerosol inhaler shortness of breath #18 grams ondansetron HCl 8 mg tablet 8 mg PO Q8H PRN nausea and 03/22/22 vomiting #30 tabs ondansetron 4 mg disintegrating 4 mg PO Q8H PRN nausea and 09/15/22 tablet vomiting #10 tabs norelgestromin 150 mcg-e.estradiol 1 patch transdermal QWEEK #3 ea 09/29/22 35 mcg/24 hr weekly transderm patch (Xulane) ibuprofen 600 mg tablet 600 mg PO Q6H PRN fever or pain 12/11/22 #30 tabs omeprazole 20 mg capsule,delayed 20 mg PO QAM #30 caps 12/11/22 release phenazopyridine 100 mg tablet 100 mg PO Q8H PRN bladder pain #7 12/11/22 (Pyridium) tabs polyethylene glycol 3350 17 17 g PO DAILY for soft stool #238 12/11/22 gram/dose oral powder (Miralax) grams diazepam 5 mg tablet 5 mg PO BID PRN muscle spasm #10 01/15/23 tabs Allergies Allergy/AdvReac Type Severity Reaction Status Date / Time doxycycline [DOXYCYCLINE] Allergy Unknown Verified 12/11/22 14:30 Penicillins [PENICILLINS] Allergy Unknown Verified 12/11/22 14:30 lidocaine Allergy Verified 12/11/22 14:30 shellfish derived Allergy Anaphylaxis Verified 12/11/22 14:30 Review of Systems Review of Systems Narrative: Pertinent positive and negative findings as per HPI Patient History Medical History Acute right lower quadrant pain Anxiety Cholecystitis CVA (cerebral vascular accident) Exercise-induced asthma Fibromyalgia Gastroenteritis Jaw pain, non-TMJ Lower GI bleed Normal colonoscopy Normal endoscopy Right foot strain Torn rotator cuff Tumor of liver Surgical History H/O knee surgery History of appendectomy History of cholecystectomy (~03/2022) Family History Mother Bowel obstruction Lupus Spinal cord cancer Fibromyalgia Epilepsy Blood clotting tendency Stroke Sister Bowel obstruction Tachycardia Arrhythmia Fibromyalgia Family/Other Colon cancer Grandmother S/P CABG x 3 Tachycardia Father Tachycardia Brother Tachycardia Grandmother Liver cancer Social History marital status: number of children: 0 household members: spouse lives independently: Yes housing: house pets and animals: Yes (2 dogs, 1 cat) education level: college (some collge, certificate program) 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) current occupational exposures/hazards: No special reuben needs: No travel history: over 6 months ago seatbelt use: always water heater temp set < 120 deg: Yes working smoke detector in home: Yes fire extinguisher in home: Yes carbon monox detector in home: Yes firearms in home: No do you feel safe at home: Yes Smoking Status: Never smoker second hand exposure: Yes ( smokes outside) alcohol intake: former substance use type: marijuana (prior to ) during the past year weight has: remained stable well-balanced diet: about half the time daily servings fruits/ve-4 caffeine: Yes (aware of 200mg limit) Type(s) of exercise: walking frequency: 5-6 times per week Smoking Status: Never smoker alcohol intake frequency: holidays/special occasions only Substance Use Type: does not use Exam Initial Vital Signs Initial Vital Signs: Vital Signs Temperature 97.9 F 01/14/23 23:12 Pulse Rate 100 H 01/14/23 23:12 Respiratory Rate 18 01/14/23 23:12 Blood Pressure 131/86 01/14/23 23:12 Pulse Oximetry 100 01/14/23 23:12 Oxygen Delivery Method Room Air 01/14/23 23:12 General: Complaining of neck pain but in no acute distress. Able to give a complete and coherent history. Well-nourished well-developed HEENT: Moist mucous membranes, normal sclera with reactive pupils, head is atraumatic normocephalic Neck: Paraspinous tenderness worse on the right side with some spasm into the trapezius muscle on the right. There is no midline tenderness. Respiratory: Lungs are clear to auscultation, no wheezing no rales no rhonchi. Full and symmetrical air movement Cardiac: Regular rate and rhythm no murmurs no bruits Abdomen: Soft, mild diffuse abdominal tenderness, good bowel tones, no flank pain Skin: Warm and dry, no rashes Neurologic: Grossly neurologically intact with no obvious asymmetries or abnormalities Extremities: No trauma, well perfused Psych: Cooperative, good eye contact Course Orders Ordered: ED Orders 01/14/23 23:19 CT head/brain wo con Stat 01/14/23 23:20 Complete Blood Count AUTO DIFF Stat Comprehensive Metabolic Panel Stat Vital Signs Vital signs: Vital Signs - 8 hr 01/14/23 23:12 Temperature 97.9 F Pulse Rate 100 H Respiratory Rate 18 Blood Pressure 131/86 Pulse Oximetry 100 Oxygen Delivery Method Room Air MDM - Head Injury Lab Data 01/15/23 01:25 01/15/23 01:25 Labs: Lab Results 01/15/23 01/15/23 Range/Units 01:25 01:25 WBC 8.9 (4.5-11.0) X10^3/uL RBC 4.51 (4.0-5.2) X10^6/uL Hgb 14.2 (12.0-16.0) g/dL Hct 40.4 (36-46) % MCV 89.4 (80-100) fL MCH 31.6 (26-34) PG MCHC 35.3 (30-36) % RDW 13.7 (11.6-14.8) % Plt Count 332 (150-400) X10^3/uL Neut % (Auto) 64.3 (50-75) % Lymph % (Auto) 28.4 (25-40) % Crenshaw % (Auto) 4.1 (3-14) % Eos % (Auto) 1.3 L (2-4) % Baso % (Auto) 1.9 (0-2) % Neut # (Auto) 5700 (8990-7653) /uL Lymph # (Auto) 2500 (4539-7750) /uL Crenshaw # (Auto) 400 (0-900) /uL Eos # (Auto) 100 (0-450) /uL Baso # (Auto) 200 H (0-100) /uL Sodium 137 (137-145) mmol/L Potassium 3.8 (3.4-5.1) mmol/L Chloride 103 (98-107) mmol/L Carbon Dioxide 26 (22-32) mmol/L BUN 9 (7-17) mg/dL Creatinine 0.82 (0.52-1.04) mg/dL Estimated GFR > 60 (>60) mL/min BUN/Creatinine Ratio 11.0 (6-22) Glucose 78 (70-100) mg/dL Calcium 9.7 (8.4-10.2) mg/dL Total Bilirubin 0.3 (0.2-1.3) mg/dL AST 20 (14-36) IU/L ALT 17 (<35) IU/L Alkaline Phosphatase 103 (38-126) U/L Total Protein 8.2 (6.3-8.2) g/dL Albumin 4.3 (3.5-5.0) g/dL Globulin 3.9 (1.7-4.1) g/dL Albumin/Globulin Ratio 1.1 (1.0-2.8) Point of Care Testing Test Results Negative Urine Dip Bedside Urine Glucose Negative Bedside Urine Bilirubin - Negative Bedside Urine Ketone - Negative Urine Specific Willard 1.010 Bedside Urine Occult Blood - Negative Bedside Urine pH 6.0 Bedside Urine Protein - Negative Bedside Urine Urobilinogen - Negative Bedside Urine Nitrite - Negative Bedside Urine Leukocytes - Negative Esterase MDM Narrative Medical decision making narrative: CC: Seizure after metal object hit her on the head this afternoon. Acute issue with history of a chronic seizure disorder, uncertain prognosis Complicating co-morbidities: Chronic seizure disorder, chronic abdominal pain Data collected from: patient, partner Social determinants of health that may influence the patients condition: Patient is currently in the process of changing positions. She was discharged from the [facility] clinic for breech of contract regarding oxycodone prescription. She is currently positive for C diff as diagnosed through the GI department and reports difficulty in eventually getting any antibiotics for such. She currently is on oral vancomycin but continues to complain of mild abdominal pain, diarrhea with mild blood in it. No fevers. Medical records reviewed: Notes from [facility] are reviewed. Patient reported some type of tumor in her abdomen and GI notes indicate she likely has a hepatic hemangioma. Differential considered: Concussion, postconcussion syndrome, compression fracture, intracranial hemorrhage, seizure secondary to seizure disorder Exam documented above, pertinent findings include: Significant paraspinous muscle spasm, no midline cervical spine tenderness. She is alert and appropriate Lab Test results independently reviewed as above. Pertinent findings: CBC is unremarkable Chemistries are reassuring, no electrolyte abnormalities appreciated Imaging studies independently reviewed: Head CT shows no significant abnormalities Treatments: Single dose of IV Dilaudid for neck pain Discussion: 27-year-old woman with reports of a metal shelf landing on her head, confusion, nausea, seizure and continued neck pain. This seems to be some confusion regarding her interactions at [facility]. 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 She states that ?[facility] refused to treat my C diff? does not appear to me that the Gastroenterology Department was aware that she was not treated. She currently is on vancomycin. At this time she is showing signs of mild concussion, postconcussion syndrome and acute neck strain without intracranial hemorrhage or cervical spine fracture. With shared decision making we opted to treat her pain with Dilaudid here in the emergency department and at home use diazepam to help with muscle spasm along with a Naprosyn she has available at home rather than any additional narcotic. Reviewed anticipated course of recovery, we will have her try a soft cervical collar to see if this is helpful with the acute neck strain. At this point she is safe for discharge home Emergency Medicine: Utilization of CT for Minor Blunt Head Trauma (Adult) Patient is 18 or older, presenting with minor blunt head trauma. Head CT was ordered by an emergency ambulatory care for trauma because Patient has severe headache Patient is vomiting Severe/dangerous mechanism of injury was identified: -head struck by high-impact object (hammer, baseball, baseball bat, heavy object such as falling brick) Post-traumatic seizure Discharge Plan Departure Patient Disposition: Home Clinical Impression: Post concussion syndrome, C. difficile diarrhea Concussion Qualifiers: Encounter type: initial encounter Loss of consciousness presence/duration: without LOC Qualified Code(s): S06.0X0A - Concussion without loss of consciousness, initial encounter Acute strain of neck muscle Qualifiers: Encounter type: initial encounter Qualified Code(s): S16.1XXA - Strain of muscle, fascia and tendon at neck level, initial encounter Instructions: DI for Neck Sprain, DI for Postconcussion Syndrome Activity Restrictions/Additional Instructions: Thank you for coming in today I am sorry that you have this injury to your head. Fortunately there is no bleeding inside your head. You have strained her neck muscles and this likely is going to hurt more tomorrow. I have given you a soft neck collar to use to see if stabilizing the muscles is beneficial. You are given IV Dilaudid for the acute pain in the emergency department. At home I would recommend continued use of the naproxen morning and night and diazepam 5 mg up to 2 times a day for neck muscle spasm. Diazepam can also be helpful in preventing seizures. Prescription for diazepam was electronically transmitted to [facility] in [place] I wish you the best in establishing care with new providers and I hope that the therapeutic relationship is more effective for you. If you find that you are getting worse or develop any new symptoms, please feel free to return to the emergency department for further evaluation. Prescriptions: New diazepam 5 mg tablet 5 mg PO BID PRN (Reason: muscle spasm) Qty: 10 0RF No Action ondansetron HCl 8 mg tablet 8 mg PO Q8H PRN (Reason: nausea and vomiting) Qty: 30 5RF Xulane 150-35 mcg/24 hr patch weekly 1 patch transdermal QWEEK Qty: 3 12RF Rx Instructions: apply once weekly for 3 weeks of a 4-week cycle albuterol sulfate 90 mcg/actuation HFA aerosol inhaler 2 puff INHALATION Q4-6H PRN (Reason: shortness of breath) Qty: 18 0RF venlafaxine 37.5 mg Tablet 75 mg PO DAILY oxycodone 10 mg Tablet 10 mg PO Q6H PRN (Reason: Pain (Scale Score 4-6)) aspirin 81 mg Capsule 81 mg PO DAILY ondansetron 4 mg tablet,disintegrating 4 mg PO Q8H PRN (Reason: nausea and vomiting) Qty: 10 0RF phenazopyridine [Pyridium] 100 mg tablet 100 mg PO Q8H PRN (Reason: bladder pain) Qty: 7 0RF polyethylene glycol 3350 [Miralax] 17 gram/dose powder 17 g PO DAILY Qty: 238 0RF ibuprofen 600 mg tablet 600 mg PO Q6H PRN (Reason: fever or pain) Qty: 30 0RF Rx Instructions: Take with food and water omeprazole 20 mg capsule,delayed release(DR/EC) 20 mg PO QAM Qty: 30 0RF Referrals: Maru Altamirano MD [Primary Care Provider] - Stand Alone Forms: Patient Portal/API
[2023-01-15] MEDS: HYDROMORPHONE 1 MG INJ IV (03:46)
[2023-01-15 04:10] VITALS: BP 122/78; PULSE 74; RESP 16; TEMP 36.6; O2SAT 98
== END 2023-01-15 03:40 | disposition home or self-care (01) ==
PROVIDERS: Emergency Provider Emergency Medicine; PCP Internal Medicine
DX: S06.0X0A Concussion without loss of consciousness, initial encounter (principal); S16.1XXA Strain of muscle, fascia and tendon at neck level, initial encounter; A04.72 Enterocolitis due to Clostridium difficile, not specified as recurrent; R11.2 Nausea with vomiting, unspecified; W22.8XXA Striking against or struck by other objects, initial encounter
CPT/HCPCS: 36415; 70450; 80053; 81003; 81025; 85025; 96374; 99284; J1170

== ENCOUNTER 2023-02-08 15:30 | Emergency (ER) | payer OTHER, SELFPAY ==
[2022-06-05 18:21] VITALS: BMI 32.5
[2023-02-08 16:00] VITALS: BP 149/89; PULSE 94; RESP 18; TEMP 37.1; O2SAT 99; BMI 31.1
--- NOTE | 2023-02-08 18:37 | ED_ITS ---
HPI - Abdominal Pain <Yvette Plummer PA-C - Last Filed: 02/08/23 19:02> General Chief Complaint: Abdominal Pain Stated Complaint: rapid wt gain/sweating/fever/dr ref Time Seen by Provider: 02/08/23 18:15 Source: patient Mode of arrival: Ambulatory History of Present Illness HPI narrative: Patient is a 27-year-old female who presents with abdominal pain, diarrhea and diagnosis of C diff. She reports 3 years of chronic abdominal pain and has undergone multiple evaluations with GI specialists including colonoscopy, endoscopy, extensive imaging. Most recently she was tested for C diff about 1 month ago and tested positive, has been on oral vancomycin since then and was started on a 2nd course of vancomycin today by her GI specialist at [facility]. She was also advised to come to the emergency room for admission ?because I can not tell if you have sores on the inside of your bowel ?. She reports frequent bloody stools, approximately 15-20 per day. She has cramping abdominal pain. She shows me a photo of stringy, bloody mucousy discharge per rectum. She endorses daily malaise, sweats, fatigue, brain fog. She has an daughter and her friends are concerned she can not take care of her because of the brain fog. Related Data Home Medications Medication Instructions Recorded Confirmed aspirin 81 mg capsule 81 mg PO DAILY 06/05/22 09/29/22 oxycodone 10 mg tablet 10 mg PO Q6H PRN Pain (Scale Score 06/05/22 09/29/22 4-6) venlafaxine 37.5 mg tablet 75 mg PO DAILY 06/05/22 09/29/22 Previous Rx's Medication Instructions Recorded albuterol sulfate 90 mcg/actuation 2 puff inhalation Q4-6H PRN 04/10/19 aerosol inhaler shortness of breath #18 grams ondansetron HCl 8 mg tablet 8 mg PO Q8H PRN nausea and 03/22/22 vomiting #30 tabs ondansetron 4 mg disintegrating 4 mg PO Q8H PRN nausea and 09/15/22 tablet vomiting #10 tabs norelgestromin 150 mcg-e.estradiol 1 patch transdermal QWEEK #3 ea 09/29/22 35 mcg/24 hr weekly transderm patch (Xulane) ibuprofen 600 mg tablet 600 mg PO Q6H PRN fever or pain 12/11/22 #30 tabs omeprazole 20 mg capsule,delayed 20 mg PO QAM #30 caps 12/11/22 release phenazopyridine 100 mg tablet 100 mg PO Q8H PRN bladder pain #7 12/11/22 (Pyridium) tabs polyethylene glycol 3350 17 17 g PO DAILY for soft stool #238 12/11/22 gram/dose oral powder (Miralax) grams diazepam 5 mg tablet 5 mg PO BID PRN muscle spasm #10 01/15/23 tabs Allergies Allergy/AdvReac Type Severity Reaction Status Date / Time doxycycline [DOXYCYCLINE] Allergy Unknown Verified 12/11/22 14:30 Penicillins [PENICILLINS] Allergy Unknown Verified 12/11/22 14:30 lidocaine Allergy Verified 12/11/22 14:30 shellfish derived Allergy Anaphylaxis Verified 12/11/22 14:30 Review of Systems <Yvette Plummer PA-C - Last Filed: 02/08/23 19:02> Review of Systems ROS Unobtainable: All systems reviewed & are unremarkable except as noted in HPI and below Patient History <Yvette Plummer PA-C - Last Filed: 02/08/23 19:02> Medical History Acute right lower quadrant pain Anxiety Cholecystitis CVA (cerebral vascular accident) Exercise-induced asthma Fibromyalgia Gastroenteritis Jaw pain, non-TMJ Lower GI bleed Normal colonoscopy Normal endoscopy Right foot strain Torn rotator cuff Tumor of liver Surgical History H/O knee surgery History of appendectomy History of cholecystectomy (~03/2022) Family History Mother Bowel obstruction Lupus Spinal cord cancer Fibromyalgia Epilepsy Blood clotting tendency Stroke Sister Bowel obstruction Tachycardia Arrhythmia Fibromyalgia Family/Other Colon cancer Grandmother S/P CABG x 3 Tachycardia Father Tachycardia Brother Tachycardia Grandmother Liver cancer Social History marital status: number of children: 0 household members: spouse lives independently: Yes housing: house pets and animals: Yes (2 dogs, 1 cat) education level: college (some collge, certificate program) 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) current occupational exposures/hazards: No special reuben needs: No travel history: over 6 months ago seatbelt use: always water heater temp set < 120 deg: Yes working smoke detector in home: Yes fire extinguisher in home: Yes carbon monox detector in home: Yes firearms in home: No do you feel safe at home: Yes Smoking Status: Current every day smoker second hand exposure: Yes ( smokes outside) alcohol intake: former substance use type: marijuana (prior to ) during the past year weight has: remained stable well-balanced diet: about half the time daily servings fruits/ve-4 caffeine: Yes (aware of 200mg limit) Type(s) of exercise: walking frequency: 5-6 times per week Smoking Status: Current every day smoker tobacco type: vaping alcohol intake frequency: holidays/special occasions only Substance Use Type: marijuana Exam <Yvette Plummer PA-C - Last Filed: 02/08/23 19:02> Narrative Exam Narrative: GENERAL: 27 year old patient appears stated age. Well-developed patient, in mild distress. NEURO: AOx3. CARDIOVASCULAR: Regular rate and rhythm without murmurs, gallops, or rubs. RESPIRATORY: Clear to auscultation. Breath sounds equal bilaterally. No wheezes, rales, or rhonchi. GASTROINTESTINAL: Abdomen soft, nondistended, no focal tenderness. SKIN: No rash or erythema of visible areas Initial Vital Signs Initial Vital Signs: Vital Signs Temperature 98.7 F 02/08/23 16:00 Pulse Rate 94 H 02/08/23 16:00 Respiratory Rate 18 02/08/23 16:00 Blood Pressure 149/89 H 02/08/23 16:00 Pulse Oximetry 99 02/08/23 16:00 Oxygen Delivery Method Room Air 02/08/23 16:00 <Lilly Simmons DO - Last Filed: 02/09/23 04:43> Initial Vital Signs Initial Vital Signs: Vital Signs Temperature 98.7 F 02/08/23 16:00 Pulse Rate 94 H 02/08/23 16:00 Respiratory Rate 18 02/08/23 16:00 Blood Pressure 149/89 H 02/08/23 16:00 Pulse Oximetry 99 02/08/23 16:00 Oxygen Delivery Method Room Air 02/08/23 16:00 Course <Yvette Plummer PA-C - Last Filed: 02/08/23 19:02> Orders Ordered: ED Orders 02/08/23 22:00 US pelvic complete Stat Discontinued Medications Hydromorphone HCl (Hydromorphone 1 Mg Inj) 1 mg IV NOW ONE Stop: 02/08/23 23:56 Last Admin: 02/09/23 00:03 Dose: 1 mg Documented By: MATTHEW Ketorolac Tromethamine (Ketorolac 30 Mg/Ml Vial) 15 mg IV NOW ONE Stop: 02/08/23 22:01 Last Admin: 02/08/23 22:15 Dose: 15 mg Documented By: MATTHEW Lidocaine HCl (Lidocaine 1% (Pf) 2ml) 2 ml SUBCUT NOW ONE Stop: 02/08/23 23:44 Last Admin: 02/09/23 00:03 Dose: Not Given Documented By: MATTHEW Ondansetron HCl (Ondansetron 4 Mg Odt) 4 mg PO NOW PRN PRN Reason: Nausea And Vomiting Ondansetron HCl (Ondansetron 4 Mg/2 Ml Inj) 4 mg IV NOW PRN PRN Reason: Nausea And Vomiting Vital Signs Vital signs: Vital Signs - 8 hr 02/09/23 00:01 02/09/23 00:02 02/09/23 00:02 Temperature Pulse Rate 90 95 H Respiratory Rate Blood Pressure 117/67 Pulse Oximetry 100 99 Oxygen Delivery Method Room Air 02/09/23 00:08 Temperature 98.5 F Pulse Rate 88 Respiratory Rate 14 Blood Pressure 117/67 Pulse Oximetry 99 Oxygen Delivery Method Room Air <Lilly Simmons DO - Last Filed: 02/09/23 04:43> Orders Ordered: ED Orders 02/08/23 22:00 pelvic complete Stat Discontinued Medications Hydromorphone HCl (Hydromorphone 1 Mg Inj) 1 mg IV NOW ONE Stop: 02/08/23 23:56 Last Admin: 02/09/23 00:03 Dose: 1 mg Documented By: MATTHEW Ketorolac Tromethamine (Ketorolac 30 Mg/Ml Vial) 15 mg IV NOW ONE Stop: 02/08/23 22:01 Last Admin: 02/08/23 22:15 Dose: 15 mg Documented By: MATTHEW Lidocaine HCl (Lidocaine 1% (Pf) 2ml) 2 ml SUBCUT NOW ONE Stop: 02/08/23 23:44 Last Admin: 02/09/23 00:03 Dose: Not Given Documented By: MATTHEW Ondansetron HCl (Ondansetron 4 Mg Odt) 4 mg PO NOW PRN PRN Reason: Nausea And Vomiting Ondansetron HCl (Ondansetron 4 Mg/2 Ml Inj) 4 mg IV NOW PRN PRN Reason: Nausea And Vomiting Vital Signs Vital signs: Vital Signs - 8 hr 02/09/23 00:01 02/09/23 00:02 02/09/23 00:02 Temperature Pulse Rate 90 95 H Respiratory Rate Blood Pressure 117/67 Pulse Oximetry 100 99 Oxygen Delivery Method Room Air 02/09/23 00:08 Temperature 98.5 F Pulse Rate 88 Respiratory Rate 14 Blood Pressure 117/67 Pulse Oximetry 99 Oxygen Delivery Method Room Air MDM - Abdominal Pain <Yvette Plummer PA-C - Last Filed: 02/08/23 19:02> Lab Data 02/08/23 18:31 02/08/23 18:31 Labs: Lab Results 02/08/23 02/08/23 Range/Units 18:31 18:31 WBC 10.5 (4.5-11.0) X10^3/uL RBC 4.29 (4.0-5.2) X10^6/uL Hgb 13.6 (12.0-16.0) g/dL Hct 38.6 (36-46) % MCV 90.2 (80-100) fL MCH 31.7 (26-34) PG MCHC 35.2 (30-36) % RDW 13.2 (11.6-14.8) % Plt Count 333 (150-400) X10^3/uL Neut % (Auto) 67.7 (50-75) % Lymph % (Auto) 27.2 (25-40) % [place]ord % (Auto) 3.7 (3-14) % Eos % (Auto) 0.9 L (2-4) % Baso % (Auto) 0.5 (0-2) % Neut # (Auto) 7100 H (8689-8393) /uL Lymph # (Auto) 2900 (8681-0907) /uL [place] # (Auto) 400 (0-900) /uL Eos # (Auto) 100 (0-450) /uL Baso # (Auto) 100 (0-100) /uL Sodium 134 L (137-145) mmol/L Potassium 4.4 (3.4-5.1) mmol/L Chloride 109 H (98-107) mmol/L Carbon Dioxide 17 L (22-32) mmol/L BUN 10 (7-17) mg/dL Creatinine 0.61 (0.52-1.04) mg/dL Estimated GFR > 60 (>60) mL/min BUN/Creatinine Ratio 16.4 (6-22) Glucose 90 (70-100) mg/dL Calcium 8.8 (8.4-10.2) mg/dL Total Bilirubin 0.4 (0.2-1.3) mg/dL AST 30 (14-36) IU/L ALT 12 (<35) IU/L Alkaline Phosphatase 83 (38-126) U/L Total Protein 7.3 (6.3-8.2) g/dL Albumin 3.9 (3.5-5.0) g/dL Globulin 3.4 (1.7-4.1) g/dL Albumin/Globulin Ratio 1.1 (1.0-2.8) Lipase 75 (23-300) U/L Point of care testing: Point of Care Testing Test Results Negative Urine Dip Bedside Urine Glucose Negative Bedside Urine Bilirubin - Negative Bedside Urine Ketone - Negative Urine Specific Cascade 1.015 Bedside Urine Occult Blood - Negative Bedside Urine pH 7.0 Bedside Urine Protein - Negative Bedside Urine Urobilinogen - Negative Bedside Urine Nitrite - Negative Bedside Urine Leukocytes - Negative Esterase MDM Narrative Medical decision making narrative: Multiple etiologies for patient's symptoms considered including, but not limited to: C diff colitis, inflammatory bowel disease, diverticulitis. CBC, chemistry drawn and pending. Urinalysis negative and urine negative. Dr. Simmons will f/u lab results and determine disposition. <Lilly Simmons, DO - Last Filed: 02/09/23 04:43> Lab Data Labs: Lab Results 02/08/23 02/08/23 Range/Units 18:31 18:31 WBC 10.5 (4.5-11.0) X10^3/uL RBC 4.29 (4.0-5.2) X10^6/uL Hgb 13.6 (12.0-16.0) g/dL Hct 38.6 (36-46) % MCV 90.2 (80-100) fL MCH 31.7 (26-34) PG MCHC 35.2 (30-36) % RDW 13.2 (11.6-14.8) % Plt Count 333 (150-400) X10^3/uL Neut % (Auto) 67.7 (50-75) % Lymph % (Auto) 27.2 (25-40) % [place]ack[place]ord % (Auto) 3.7 (3-14) % Eos % (Auto) 0.9 L (2-4) % Baso % (Auto) 0.5 (0-2) % Neut # (Auto) 7100 H (0130-3013) /uL Lymph # (Auto) 2900 (5602-0040) /uL [place]ord # (Auto) 400 (0-900) /uL Eos # (Auto) 100 (0-450) /uL Baso # (Auto) 100 (0-100) /uL Sodium 134 L (137-145) mmol/L Potassium 4.4 (3.4-5.1) mmol/L Chloride 109 H (98-107) mmol/L Carbon Dioxide 17 L (22-32) mmol/L BUN 10 (7-17) mg/dL Creatinine 0.61 (0.52-1.04) mg/dL Estimated GFR > 60 (>60) mL/min BUN/Creatinine Ratio 16.4 (6-22) Glucose 90 (70-100) mg/dL Calcium 8.8 (8.4-10.2) mg/dL Total Bilirubin 0.4 (0.2-1.3) mg/dL AST 30 (14-36) IU/L ALT 12 (<35) IU/L Alkaline Phosphatase 83 (38-126) U/L Total Protein 7.3 (6.3-8.2) g/dL Albumin 3.9 (3.5-5.0) g/dL Globulin 3.4 (1.7-4.1) g/dL Albumin/Globulin Ratio 1.1 (1.0-2.8) Lipase 75 (23-300) U/L Point of care testing: Point of Care Testing Test Results Negative Urine Dip Bedside Urine Glucose Negative Bedside Urine Bilirubin - Negative Bedside Urine Ketone - Negative Urine Specific Cascade 1.015 Bedside Urine Occult Blood - Negative Bedside Urine pH 7.0 Bedside Urine Protein - Negative Bedside Urine Urobilinogen - Negative Bedside Urine Nitrite - Negative Bedside Urine Leukocytes - Negative Esterase Imaging Data US - BIOLOGICAL SCIENCE TECHNICIAN FISH: Radiologist's Impression: PROCEDURE:? US PELVIC COMPLETE ? INDICATIONS:? RIGHT PELVIC PAIN; HX PCOS ? TECHNIQUE:? Real-time scanning was performed of the pelvic organs, with image documentation.? Additional endovaginal scanning was necessary due to incomplete visualization of the adnexal and endometrial structures by transabdominal scanning.? ? COMPARISON:[facility], PELVIC COMPLETE, 11/19/2021, 20:21. ? FINDINGS:? ?? Uterus:? Uterus is anteverted and measures 7.1 x 3.1 x 4.9 cm. Endometrium measures up to 0.3 cm in thickness. ? Ovaries:? The right ovary measures 1.2 x 2.2 x 1.3 cm, with a calculated ovarian volume of 1.8 cc. The left ovary measures 1.6 x 2.1 x 1.5 cm, with a calculated ovarian volume of 2.6 cc. The ovaries have a normal sonographic appearance.? No adnexal masses.? There is patent arterial flow demonstrated in the ovaries bilaterally.? There are fewer than 12 small follicles noted within each ovary. ? Other:? No pathologic free abdominal or pelvic fluid.? Appendix not discretely visualized sonographically. ? ? IMPRESSION:? ? 1. No evidence of ovarian torsion or adnexal mass. ? 2. Small bilateral ovarian follicles, less than 12 within each ovary, are nonspecific.? No definite sonographic evidence of polycystic ovarian syndrome.? We strive to produce accurate, complete, and clear reports of imaging services. To assist MDM Narrative Medical decision making narrative: Multiple etiologies for patient's symptoms considered including, but not limited to: C diff colitis, inflammatory bowel disease, diverticulitis. CBC, chemistry drawn and pending. Urinalysis negative and urine negative. Dr. Simmons will f/u lab results and determine disposition. I have seen evaluated patient myself. She is tearful she feels like she has increased 3 pain sizes in the last week. She has chronic C diff now having some bloody stool. She is had multiple colonoscopies she is had a CT and MRI in January. I have seen the MRI she pulled it up on her phone there is no abnormality. She has chronic ongoing right-sided pain which is worse today. She apparently has had foggy brain thinking GI told her to come to the ED she has had some bloody stools. Blood work has been reviewed she is not anemic, she is not dehydrated there is no evidence of electrolyte abnormality. She also has a history of PCOS she is actually tender on exam in right lower quadrant but no leukocytosis he is had multiple imaging previously. She seems frustrated she is been to 3 different GI she says nothing makes it better she keeps getting referred to pain management. At this time no need for admission recommend close outpatient follow-up Discharge Plan Departure Patient Disposition: Home Clinical Impression: Chronic abdominal pain, C. difficile colitis Instructions: DI for Clostridioides difficile Infection Activity Restrictions/Additional Instructions: *You have been diagnosed with Clostridium difficile *What to do: At this time your blood work is overall reassuring ultrasound did not show any abnormal ovary problem I recommend following up with your providers you may need a repeat stool sample *Continue to take medications as directed *Follow up with your primary care provider in 2-3 days or call [phone] *Return to ER if you should have persistent vomiting not tolerating fluids worsening bloody bowel movement or any new, worsening or concerning symptoms Prescriptions: No Action ondansetron HCl 8 mg tablet 8 mg PO Q8H PRN (Reason: nausea and vomiting) Qty: 30 5RF Xulane 150-35 mcg/24 hr patch weekly 1 patch transdermal QWEEK Qty: 3 12RF Rx Instructions: apply once weekly for 3 weeks of a 4-week cycle albuterol sulfate 90 mcg/actuation HFA aerosol inhaler 2 puff INHALATION Q4-6H PRN (Reason: shortness of breath) Qty: 18 0RF venlafaxine 37.5 mg Tablet 75 mg PO DAILY oxycodone 10 mg Tablet 10 mg PO Q6H PRN (Reason: Pain (Scale Score 4-6)) aspirin 81 mg Capsule 81 mg PO DAILY ondansetron 4 mg tablet,disintegrating 4 mg PO Q8H PRN (Reason: nausea and vomiting) Qty: 10 0RF phenazopyridine [Pyridium] 100 mg tablet 100 mg PO Q8H PRN (Reason: bladder pain) Qty: 7 0RF polyethylene glycol 3350 [Miralax] 17 gram/dose powder 17 g PO DAILY Qty: 238 0RF ibuprofen 600 mg tablet 600 mg PO Q6H PRN (Reason: fever or pain) Qty: 30 0RF Rx Instructions: Take with food and water omeprazole 20 mg capsule,delayed release(DR/EC) 20 mg PO QAM Qty: 30 0RF diazepam 5 mg tablet 5 mg PO BID PRN (Reason: muscle spasm) Qty: 10 0RF Referrals: Maru Altamirano MD [Primary Care Provider] - Stand Alone Forms: Patient Portal/API
[2023-02-08 18:51] LABS: Add Manual Diff / Slide Review NO; Basophils Absolute Auto 100 /uL (0-100); Basophils Percent Auto 0.5 % (0-2); Eosinophils Absolute Auto 100 /uL (0-450); Eosinophils Percent Auto 0.9 % (2-4); Hematocrit 38.6 % (36-46); Hemoglobin 13.6 g/dL (12.0-16.0); Lymphocytes Absolute Auto 2900 /uL (1100-4500); Lymphocytes Percent Auto 27.2 % (25-40); Mean Corpuscular HGB Conc 35.2 % (30-36); Mean Corpuscular Hemoglobin 31.7 PG (26-34); Mean Corpuscular Volume 90.2 fL (80-100); Monocytes Absolute Auto 400 /uL (0-900); Monocytes Percent Auto 3.7 % (3-14); Neutrophils Absolute Auto 7100 /uL (1500-7000); Neutrophils Percent Auto 67.7 % (50-75); Platelet Count 333 X10^3/uL (150-400); Red Blood Cell Count 4.29 X10^6/uL (4.0-5.2); Red Cell Distribution Width 13.2 % (11.6-14.8); White Blood Cell Count 10.5 X10^3/uL (4.5-11.0)
[2023-02-08 19:08] LABS: Alanine Aminotransferase 12 IU/L (<35); Albumin 3.9 g/dL (3.5-5.0); Albumin Globulin Ratio 1.1 (1.0-2.8); Alkaline Phosphatase 83 U/L (38-126); Aspartate Aminotransferase 30 IU/L (14-36); BUN Creatinine Ratio 16.4 (6-22); Bilirubin Total 0.4 mg/dL (0.2-1.3); Blood Urea Nitrogen 10 mg/dL (7-17); Calcium 8.8 mg/dL (8.4-10.2); Carbon Dioxide 17 mmol/L (22-32); Chloride 109 mmol/L (98-107); Estimated Glomerular Filt Rate > 60 mL/min (>60); Globulin 3.4 g/dL (1.7-4.1); Glucose 90 mg/dL (70-100); HEMOLYSIS 86 (0-50); Lipase 75 U/L (23-300); Potassium 4.4 mmol/L (3.4-5.1); Sodium 134 mmol/L (137-145); Total Protein 7.3 g/dL (6.3-8.2)
[2023-02-08 19:35] VITALS: PULSE 83; O2SAT 100
[2023-02-08 19:36] VITALS: BP 123/90; PULSE 94; RESP 17; O2SAT 100
[2023-02-08 19:37] VITALS: BP 135/85; PULSE 101; O2SAT 99
[2023-02-08 20:00] VITALS: BP 105/61; PULSE 100; O2SAT 99
[2023-02-08 20:30] VITALS: BP 118/83; PULSE 92; O2SAT 99
--- NOTE | 2023-02-08 22:00 | DI.US.S_ITS ---
PROCEDURE: US PELVIC COMPLETE INDICATIONS: RIGHT PELVIC PAIN; HX PCOS TECHNIQUE: Real-time scanning was performed of the pelvic organs, with image documentation. Additional endovaginal scanning was necessary due to incomplete visualization of the adnexal and endometrial structures by transabdominal scanning. COMPARISON: [facility], [place], US PELVIC COMPLETE, 11/19/2021, 20:21. FINDINGS: Uterus: Uterus is anteverted and measures 7.1 x 3.1 x 4.9 cm. Endometrium measures up to 0.3 cm in thickness. Ovaries: The right ovary measures 1.2 x 2.2 x 1.3 cm, with a calculated ovarian volume of 1.8 cc. The left ovary measures 1.6 x 2.1 x 1.5 cm, with a calculated ovarian volume of 2.6 cc. The ovaries have a normal sonographic appearance. No adnexal masses. There is patent arterial flow demonstrated in the ovaries bilaterally. There are fewer than 12 small follicles noted within each ovary. Other: No pathologic free abdominal or pelvic fluid. Appendix not discretely visualized sonographically. IMPRESSION: 1. No evidence of ovarian torsion or adnexal mass. 2. Small bilateral ovarian follicles, less than 12 within each ovary, are nonspecific. No definite sonographic evidence of polycystic ovarian syndrome. We strive to produce accurate, complete, and clear reports of imaging services. To assist us in improving patient care, this report was composed using standard report templates and voice recognition software. Therefore, it may contain abnormal punctuation, insertions and/or omissions. Occasional wrong-word or sound-alike substitutions may occur. Though we review the report and make efforts to correct it, we do recommend that the report be read carefully in proper context to recognize any text inaccuracies. Dictated by: Martin Niño M.D. on 02/09/2023 at 0:44 Approved by: Martin Niño M.D. on 02/09/2023 at 0:47
[2023-02-08] MEDS: KETOROLAC 30 MG/ML VIAL 15 MG IV (22:15)
[2023-02-09 00:01] VITALS: PULSE 90; O2SAT 100
[2023-02-09 00:02] VITALS: BP 117/67; PULSE 95; O2SAT 99
[2023-02-09] MEDS: HYDROMORPHONE 1 MG INJ IV (00:03)
[2023-02-09 00:08] VITALS: BP 117/67; PULSE 88; RESP 14; TEMP 36.9; O2SAT 99
== END 2023-02-09 00:20 | disposition home or self-care (01) ==
PROVIDERS: Emergency Medicine; Emergency Provider Emergency Medicine; PCP Internal Medicine
DX: R10.9 Unspecified abdominal pain (principal); R10.2 Pelvic and perineal pain; A04.72 Enterocolitis due to Clostridium difficile, not specified as recurrent
CPT/HCPCS: 36415; 76830; 76856; 80053; 81003; 81025; 83690; 85025; 93975; 96374; 96375; 99284; J1170; J1885

== ENCOUNTER → 2023-04-26 10:50 | Outpatient (CLI) | payer OTHER, SELFPAY ==
[2022-06-05 18:21] VITALS: BMI 32.5
[2023-04-28 14:33] LABS: Chlamydia trachomatis Negative (Negative); Mycoplasma genitalium Negative (Negative); Neisseria gonorrhoeae Negative (Negative)
== END ==
PROVIDERS: PCP Internal Medicine; Visit Provider Obstetrics & Gynecology
DX: G89.29 Other chronic pain (principal); R10.2 Pelvic and perineal pain
CPT/HCPCS: 87491; 87563; 87591

== ENCOUNTER → 2023-05-15 10:38 | Outpatient (CLI) | payer OTHER, SELFPAY ==
[2023-04-27 11:48] VITALS: BMI 32.5
--- NOTE | 2023-05-15 10:39 | DI.RAD.S_ITS ---
PROCEDURE: XR LUMBAR SPINE MIN 4V INDICATIONS: BACK PAIN TECHNIQUE: 5 views of the lumbar spine were acquired, including bilateral oblique views. COMPARISON: None. FINDINGS: Bones: 5 nonrib-bearing vertebrae are present. There is normal bony alignment. No vertebral body compression fractures. No suspicious bony lesions. Soft tissues: Surgical clips in the right hemipelvis and right upper quadrant. Moderate fecal debris in the right colon Oblique images: No pars defects. IMPRESSION: Moderate fecal debris in the right colon. Otherwise unremarkable lumbar spine radiographs Approved by: Sly Hendrix M.D. on 05/15/2023 at 11:01
== END ==
PROVIDERS: PCP Family Medicine; Referring Provider Anesthesiology; Visit Provider Anesthesiology
DX: M53.3 Sacrococcygeal disorders, not elsewhere classified (principal); M79.18 Myalgia, other site; M54.9 Dorsalgia, unspecified; R20.2 Paresthesia of skin
CPT/HCPCS: 72110; 99214

== ENCOUNTER 2023-06-01 17:18 | Emergency (ER) | payer OTHER, SELFPAY ==
[2023-04-27 11:48] VITALS: BMI 32.5
[2023-06-01 17:36] VITALS: BP 117/75; PULSE 87; RESP 18; TEMP 36.6; O2SAT 99; BMI 34.7
--- NOTE | 2023-06-01 18:23 | ED.ABDPAIN ---
HPI - Abdominal Pain <Yvette Plummer PA-C - Last Filed: 06/01/23 18:58> General Chief Complaint: Abdominal Pain Stated Complaint: ABD pain, FEVER and cramping, blood in stool Time Seen by Provider: 06/01/23 17:30 Source: patient Mode of arrival: Ambulatory History of Present Illness HPI narrative: Patient is a 28-year-old female with a history of chronic abdominal pain who presents with cramping abdominal pain, diarrhea, intermittent fever up to 102? over the last week and increasing amount of blood and number of clots in her loose stools. I saw her in early January in the ED for abdominal pain, diarrhea and C diff. She completed 2 courses of oral vancomycin over the summer. She has had multiple colonoscopies, a CT and MRI in January and a pelvic ultrasound in the ER in January that do not show any clear cause of her lower abdominal pain. She is scheduled for a diagnostic laparoscopy with Dr. Dalal next week at [facility] to evaluate further. She reports no recent antibiotic use, no urinary symptoms. She denies cough, sore throat, runny nose or any other infectious symptoms. Her primary concern today is that she be well enough to undergo her surgery next week. She wants to make sure she does not have an underlying infection that would cancel her surgery. Related Data Home Medications Medication Instructions Recorded Confirmed aspirin 81 mg capsule 81 mg PO DAILY 06/05/22 05/15/23 venlafaxine 37.5 mg tablet 75 mg PO DAILY 06/05/22 05/15/23 prazosin 1 mg capsule 1 mg PO BEDTIME 04/26/23 05/15/23 propranolol 10 mg tablet 10 mg PO TID 04/26/23 05/15/23 Previous Rx's Medication Instructions Recorded albuterol sulfate 90 mcg/actuation 2 puff inhalation Q4-6H PRN 04/10/19 aerosol inhaler shortness of breath #18 grams ondansetron HCl 8 mg tablet 8 mg PO Q8H PRN nausea and 03/22/22 vomiting #30 tabs norelgestromin 150 mcg-e.estradiol 1 patch transdermal QWEEK #3 ea 09/29/22 35 mcg/24 hr weekly transderm patch (Xulane) ibuprofen 600 mg tablet 600 mg PO Q6H PRN fever or pain 12/11/22 #30 tabs omeprazole 20 mg capsule,delayed 20 mg PO QAM #30 caps 12/11/22 release polyethylene glycol 3350 17 17 g PO DAILY for soft stool #238 12/11/22 gram/dose oral powder (Miralax) grams methocarbamol 500 mg tablet 500 mg PO TID #90 tabs 05/15/23 Allergies Allergy/AdvReac Type Severity Reaction Status Date / Time lidocaine Allergy Intermediate Verified 06/01/23 17:49 doxycycline [DOXYCYCLINE] Allergy Unknown Verified 05/15/23 11:02 Penicillins [PENICILLINS] Allergy Unknown Verified 05/15/23 11:02 shellfish derived Allergy Anaphylaxis Verified 05/15/23 11:02 cortisone AdvReac Severe Swelling Verified 06/01/23 17:49 Review of Systems <Yvette Plummer PA-C - Last Filed: 06/01/23 18:58> Review of Systems ROS Unobtainable: All systems reviewed & are unremarkable except as noted in HPI and below Patient History <Yvette Plummer PA-C - Last Filed: 06/01/23 18:58> Medical History Myofascial pain SI (sacroiliac) joint dysfunction Dorsalgia CVA (cerebral vascular accident) Normal endoscopy Normal colonoscopy Torn rotator cuff Cholecystitis Tumor of liver Fibromyalgia Acute right lower quadrant pain Exercise-induced asthma Anxiety Right foot strain Jaw pain, non-TMJ Lower GI bleed Gastroenteritis Surgical History History of cholecystectomy (~03/2022) H/O knee surgery History of appendectomy Family History Mother Bowel obstruction Lupus Spinal cord cancer Fibromyalgia Epilepsy Blood clotting tendency Stroke Sister Bowel obstruction Tachycardia Arrhythmia Fibromyalgia Family/Other Colon cancer Grandmother S/P CABG x 3 Tachycardia Father Tachycardia Brother Tachycardia Grandmother Liver cancer Social History marital status: number of children: 0 household members: spouse lives independently: Yes housing: house pets and animals: Yes (2 dogs, 1 cat) education level: college occupational status: employed current occupational exposures/hazards: No special reuben needs: No travel history: over 6 months ago seatbelt use: always water heater temp set < 120 deg: Yes working smoke detector in home: Yes fire extinguisher in home: Yes carbon monox detector in home: Yes firearms in home: No do you feel safe at home: Yes Smoking Status: Current every day smoker second hand exposure: Yes ( smokes outside) alcohol intake: former substance use type: marijuana during the past year weight has: remained stable well-balanced diet: about half the time daily servings fruits/ve-4 caffeine: Yes (aware of 200mg limit) Type(s) of exercise: walking frequency: 5-6 times per week Smoking Status: Current every day smoker tobacco type: vaping alcohol intake frequency: holidays/special occasions only Substance Use Type: marijuana Exam <Yvette Plummer PA-C - Last Filed: 06/01/23 18:58> Narrative Exam Narrative: GENERAL: 28 year old patient appears stated age. Well-developed patient, in no acute distress. NEURO: AOx3. HEAD: Atraumatic. Normocephalic. EYES: Pupils equal round and reactive. Extraocular motions intact. No scleral icterus. No injection or drainage. ENT: Nose without bleeding or purulent drainage. Airway patent. NECK: Trachea midline. Non tender CARDIOVASCULAR: Regular rate and rhythm without murmurs, gallops, or rubs. RESPIRATORY: Clear to auscultation. Breath sounds equal bilaterally. No wheezes, rales, or rhonchi. GASTROINTESTINAL: Abdomen soft, non-tender, nondistended. Diffuse lower abdominal tenderness to palpation, no peritoneal signs. EXTREMITIES: No edema or joint tenderness. SKIN: No rash or erythema of visible areas Initial Vital Signs Initial Vital Signs: Vital Signs Temperature 97.9 F 06/01/23 17:36 Pulse Rate 87 06/01/23 17:36 Respiratory Rate 18 06/01/23 17:36 Blood Pressure 117/75 06/01/23 17:36 Pulse Oximetry 99 06/01/23 17:36 Oxygen Delivery Method Room Air 06/01/23 17:36 <Lilly Simmons DO - Last Filed: 06/02/23 03:00> Initial Vital Signs Initial Vital Signs: Vital Signs Temperature 97.9 F 06/01/23 17:36 Pulse Rate 87 06/01/23 17:36 Respiratory Rate 18 06/01/23 17:36 Blood Pressure 117/75 06/01/23 17:36 Pulse Oximetry 99 06/01/23 17:36 Oxygen Delivery Method Room Air 06/01/23 17:36 Course <Yvette Plummer PA-C - Last Filed: 06/01/23 18:58> Orders Ordered: ED Orders 06/01/23 18:40 Complete Blood Count AUTO DIFF Stat Comprehensive Metabolic Panel Stat Lipase Stat 06/01/23 20:21 CT abdomen pelvis wo con Stat Discontinued Medications Hydrocodone Bitart/Acetaminophen (Hydrocodone/Acet 5/325 Prepack) 1 bottle MISC DIRECTED ONE Stop: 06/01/23 22:30 Last Admin: 06/01/23 22:51 Dose: 1 bottle Documented By: ANU Dicyclomine HCl (Dicyclomine 10 Mg Capsule) 20 mg PO NOW ONE Stop: 06/01/23 18:37 Last Admin: 06/01/23 18:55 Dose: 20 mg Documented By: EMILY Ketorolac Tromethamine (Ketorolac 30 Mg/Ml Vial) 30 mg IM NOW ONE Stop: 06/01/23 20:22 Last Admin: 06/01/23 20:26 Dose: 30 mg Documented By: EMILY Ondansetron HCl (Ondansetron 4 Mg Odt) 4 mg PO NOW PRN PRN Reason: Nausea And Vomiting Last Admin: 06/01/23 18:52 Dose: 4 mg Documented By: EMILY Ondansetron HCl (Ondansetron 4 Mg/2 Ml Inj) 4 mg IV NOW PRN PRN Reason: Nausea And Vomiting Vital Signs Vital signs: Vital Signs - 8 hr 06/01/23 22:04 06/01/23 22:04 06/01/23 22:30 Temperature Pulse Rate 65 73 Respiratory Rate 18 Blood Pressure 126/71 Pulse Oximetry 100 100 Oxygen Delivery Method 06/01/23 22:38 Temperature 97.7 F Pulse Rate 78 Respiratory Rate 18 Blood Pressure 124/80 Pulse Oximetry 100 Oxygen Delivery Method Room Air <Lilly Simmons DO - Last Filed: 06/02/23 03:00> Orders Ordered: ED Orders 06/01/23 18:40 Complete Blood Count AUTO DIFF Stat Comprehensive Metabolic Panel Stat Lipase Stat 06/01/23 20:21 CT abdomen pelvis wo con Stat Discontinued Medications Hydrocodone Bitart/Acetaminophen (Hydrocodone/Acet 5/325 Prepack) 1 bottle MISC DIRECTED ONE Stop: 06/01/23 22:30 Last Admin: 06/01/23 22:51 Dose: 1 bottle Documented By: ANU Dicyclomine HCl (Dicyclomine 10 Mg Capsule) 20 mg PO NOW ONE Stop: 06/01/23 18:37 Last Admin: 06/01/23 18:55 Dose: 20 mg Documented By: EMILY Ketorolac Tromethamine (Ketorolac 30 Mg/Ml Vial) 30 mg IM NOW ONE Stop: 06/01/23 20:22 Last Admin: 06/01/23 20:26 Dose: 30 mg Documented By: EMILY Ondansetron HCl (Ondansetron 4 Mg Odt) 4 mg PO NOW PRN PRN Reason: Nausea And Vomiting Last Admin: 06/01/23 18:52 Dose: 4 mg Documented By: EMILY Ondansetron HCl (Ondansetron 4 Mg/2 Ml Inj) 4 mg IV NOW PRN PRN Reason: Nausea And Vomiting Vital Signs Vital signs: Vital Signs - 8 hr 06/01/23 22:04 06/01/23 22:04 06/01/23 22:30 Temperature Pulse Rate 65 73 Respiratory Rate 18 Blood Pressure 126/71 Pulse Oximetry 100 100 Oxygen Delivery Method 06/01/23 22:38 Temperature 97.7 F Pulse Rate 78 Respiratory Rate 18 Blood Pressure 124/80 Pulse Oximetry 100 Oxygen Delivery Method Room Air MDM - Abdominal Pain <Yvette Plummer PA-C - Last Filed: 06/01/23 18:58> Lab Data 06/01/23 18:40 06/01/23 18:40 Labs: Lab Results 06/01/23 06/01/23 Range/Units 17:30 18:40 WBC 8.4 (4.5-11.0) X10^3/uL RBC 4.58 (4.0-5.2) X10^6/uL Hgb 14.4 (12.0-16.0) g/dL Hct 41.0 (36-46) % MCV 89.5 (80-100) fL MCH 31.5 (26-34) PG MCHC 35.2 (30-36) % RDW 12.9 (11.6-14.8) % Plt Count 301 (150-400) X10^3/uL Neut % (Auto) 63.7 (50-75) % Lymph % (Auto) 31.5 (25-40) % [place] % (Auto) 4.0 (3-14) % Eos % (Auto) 0.2 L (2-4) % Baso % (Auto) 0.6 (0-2) % Neut # (Auto) 5300 (8372-0433) /uL Lymph # (Auto) 2600 (1905-5506) /uL [place] # (Auto) 300 (0-900) /uL Eos # (Auto) 0 (0-450) /uL Baso # (Auto) 0 (0-100) /uL Sodium 140 (137-145) mmol/L Potassium 3.4 (3.4-5.1) mmol/L Chloride 109 H (98-107) mmol/L Carbon Dioxide 23 (22-32) mmol/L BUN 12 (7-17) mg/dL Creatinine 0.69 (0.52-1.04) mg/dL Estimated GFR > 60 (>60) mL/min BUN/Creatinine Ratio 17.4 (6-22) Glucose 111 H (70-100) mg/dL Calcium 9.4 (8.4-10.2) mg/dL Total Bilirubin 0.4 (0.2-1.3) mg/dL AST 27 (14-36) IU/L ALT 28 (<35) IU/L Alkaline Phosphatase 121 (38-126) U/L Total Protein 7.9 (6.3-8.2) g/dL Albumin 4.4 (3.5-5.0) g/dL Globulin 3.5 (1.7-4.1) g/dL Albumin/Globulin Ratio 1.3 (1.0-2.8) Lipase 52 (23-300) U/L Urine Color Yellow Urine Appearance Clear Urine pH 5.5 (4.5-8.0) Ur Specific Raven 1.025 (1.000-1.035) Urine Protein Negative (Negative) Urine Glucose (UA) Negative (Negative) g/dL Urine Ketones Negative (NEGATIVE) Urine Occult Blood Negative (Negative) Urine Nitrate Negative (Negative) Urine Bilirubin Negative (NEGATIVE) Urine Urobilinogen 0.2 (0.2) E.U./dL Ur Leukocyte Esterase Negative (NEGATIVE) Urine RBC 0-1/hpf (0-5/HPF) Urine WBC 0-1/hpf (0-5/HPF) Ur Squamous Epith Cells 0-1 /hpf D (0-5/HPF) Urine Bacteria None seen (None) Ur Culture Indicated? Cult not indicated Urine Test Negative (Negative) MDM Narrative Medical decision making narrative: Multiple etiologies for patient's symptoms considered including, but not limited to: Ovarian cyst, ovarian torsion, endometriosis, C diff infection, inflammatory bowel disease, urinary tract infection Patient is well-appearing on exam. She has had a number of imaging tests over the past 6 months without finding an etiology for her chronic abdominal pain nor her chronic bloody diarrhea. Discussed limitations of the testing we can do in the emergency room today. We will obtain labs to assess for evidence of infection, anemia or urinary infection that would provide an etiology for her fever. Will send a stool sample to test for c diff, although she did have a negative test in Mar after completing antibiotics. End of shift sign-out to Dr. Simmons who will continue care. <Lilly Simmons, - Last Filed: 06/02/23 03:00> Lab Data Labs: Lab Results 06/01/23 06/01/23 Range/Units 17:30 18:40 WBC 8.4 (4.5-11.0) X10^3/uL RBC 4.58 (4.0-5.2) X10^6/uL Hgb 14.4 (12.0-16.0) g/dL Hct 41.0 (36-46) % MCV 89.5 (80-100) fL MCH 31.5 (26-34) PG MCHC 35.2 (30-36) % RDW 12.9 (11.6-14.8) % Plt Count 301 (150-400) X10^3/uL Neut % (Auto) 63.7 (50-75) % Lymph % (Auto) 31.5 (25-40) % [place] % (Auto) 4.0 (3-14) % Eos % (Auto) 0.2 L (2-4) % Baso % (Auto) 0.6 (0-2) % Neut # (Auto) 5300 (1478-5828) /uL Lymph # (Auto) 2600 (2575-0937) /uL [place] # (Auto) 300 (0-900) /uL Eos # (Auto) 0 (0-450) /uL Baso # (Auto) 0 (0-100) /uL Sodium 140 (137-145) mmol/L Potassium 3.4 (3.4-5.1) mmol/L Chloride 109 H (98-107) mmol/L Carbon Dioxide 23 (22-32) mmol/L BUN 12 (7-17) mg/dL Creatinine 0.69 (0.52-1.04) mg/dL Estimated GFR > 60 (>60) mL/min BUN/Creatinine Ratio 17.4 (6-22) Glucose 111 H (70-100) mg/dL Calcium 9.4 (8.4-10.2) mg/dL Total Bilirubin 0.4 (0.2-1.3) mg/dL AST 27 (14-36) IU/L ALT 28 (<35) IU/L Alkaline Phosphatase 121 (38-126) U/L Total Protein 7.9 (6.3-8.2) g/dL Albumin 4.4 (3.5-5.0) g/dL Globulin 3.5 (1.7-4.1) g/dL Albumin/Globulin Ratio 1.3 (1.0-2.8) Lipase 52 (23-300) U/L Urine Color Yellow Urine Appearance Clear Urine pH 5.5 (4.5-8.0) Ur Specific Raven 1.025 (1.000-1.035) Urine Protein Negative (Negative) Urine Glucose (UA) Negative (Negative) g/dL Urine Ketones Negative (NEGATIVE) Urine Occult Blood Negative (Negative) Urine Nitrate Negative (Negative) Urine Bilirubin Negative (NEGATIVE) Urine Urobilinogen 0.2 (0.2) E.U./dL Ur Leukocyte Esterase Negative (NEGATIVE) Urine RBC 0-1/hpf (0-5/HPF) Urine WBC 0-1/hpf (0-5/HPF) Ur Squamous Epith Cells 0-1 /hpf D (0-5/HPF) Urine Bacteria None seen (None) Ur Culture Indicated? Cult not indicated Urine Test Negative (Negative) Imaging Data CT scan - abdomen/pelvis: Radiologist's Impression: PROCEDURE: CT ABDOMEN PELVIS WO CON INDICATIONS: worsening ab pain TECHNIQUE: Axial sections were acquired from the lung bases to the pubic symphysis. Coronal and sagittal reformats were performed. For radiation dose reduction, the following was used: automated exposure control, adjustment of mA and/or kV according to patient size. COMPARISON: [facility], CT, CT ABDOMEN PELVIS W CON, 11/19/2021, 21:17. [facility], MR, MR ABDOMEN MRCP, 02/05/2023, 11:55. FINDINGS: Image quality: Excellent. Lung bases: Unremarkable. Heart: No significant findings. URINARY: Right Kidney: No stones or hydronephrosis. Right Ureter: No hydroureter. Left Kidney: No stones or hydronephrosis. Left Ureter: No hydroureter. Bladder: Mostly decompressed. No stones. ABDOMEN: Liver: Hypodensity in the right lobe of the liver is unchanged. This most likely represents a benign hemangioma. Gallbladder: Absent. Biliary ducts: No biliary dilation. Pancreas: No ductal dilation. Spleen: Size is within normal limits. Adrenal Glands: No adrenal nodules. Stomach and Bowel: Normal colonic caliber, without significant wall thickening. The appendix is absent. Peritoneum: No abnormal intraperitoneal fluid. No free air. Ventral Wall: No hernia. Abdominal Nodes: No enlarged retroperitoneal or mesenteric lymph nodes. Vessels: Aorta and inferior vena cava are normal in size. PELVIS: Pelvic Organs: Anteverted uterus. Pelvic Nodes: Unremarkable. Miscellaneous: No inguinal hernias are seen. Bones: No suspicious osseous lesion. IMPRESSION: 1. Source for abdominal pain is not identified. No free fluid. 2. No hydronephrosis. No kidney stones. Dictated by: Tate Raman M.D. on 06/01/2023 at 22:02 Approved by: Tate Raman M.D. on 06/01/2023 at 22:06 [facility] Narrative Medical decision making narrative: Multiple etiologies for patient's symptoms considered including, but not limited to: Ovarian cyst, ovarian torsion, endometriosis, C diff infection, inflammatory bowel disease, urinary tract infection Patient is well-appearing on exam. She has had a number of imaging tests over the past 6 months without finding an etiology for her chronic abdominal pain nor her chronic bloody diarrhea. Discussed limitations of the testing we can do in the emergency room today. We will obtain labs to assess for evidence of infection, anemia or urinary infection that would provide an etiology for her fever. Will send a stool sample to test for c diff, although she did have a negative test in Mar after completing antibiotics. End of shift sign-out to Dr. Simmons who will continue care. Dr. Simmons: Patient signed out to me by Beth RODRIGUEZ. I have seen evaluated patient myself. She is chronic ongoing abdominal pain with worsening symptoms over last 3 days. She reports she is had numerous episodes of diarrhea sometimes it is bloody. Blood work has been reviewed overall reassuring she has no leukocytosis anemia EDITH electrolyte abnormality. She is been here for numerous hours without 1 episode of diarrhea. She appears to be in quite a lot of pain. To not have an IV she is allergic to IV contrast CT non-con was ordered no obvious obstruction. She has chronic pain without significant blood work abnormality. She is given a shot of Toradol. She is an appointment with OB next week for exploratory laparoscopic next week. She just wanted to make sure that there is no infection and nothing is going to delay her surgery. She is afebrile here no evidence of sepsis or infection at this time. This time she is full or couple doses of Avoca but no prescription Discharge Plan Departure Patient Disposition: Home Clinical Impression: Chronic abdominal pain Instructions: DI for Abdominal Pain-Adult Activity Restrictions/Additional Instructions: *You have been diagnosed with abdominal pain *What to do: At this time blood work is overall reassuring without sign of infection or dehydration. CT does not show any abnormality. At this time please follow-up with Ob *Continue to take medications as directed Avoca 1 tablet every 6 hours *Follow up with your primary care provider in 2-3 days or call [phone] *Return to ER if you should have nausea vomiting persistent pain [or] any new, worsening or concerning symptoms Prescriptions: No Action ondansetron HCl 8 mg tablet 8 mg PO Q8H PRN (Reason: nausea and vomiting) Qty: 30 5RF Xulane 150-35 mcg/24 hr patch weekly 1 patch transdermal QWEEK Qty: 3 12RF Rx Instructions: apply once weekly for 3 weeks of a 4-week cycle propranolol 10 mg tablet 10 mg PO TID prazosin 1 mg capsule 1 mg PO BEDTIME albuterol sulfate 90 mcg/actuation HFA aerosol inhaler 2 puff INHALATION Q4-6H PRN (Reason: shortness of breath) Qty: 18 0RF venlafaxine 37.5 mg Tablet 75 mg PO DAILY aspirin 81 mg Capsule 81 mg PO DAILY polyethylene glycol 3350 [Miralax] 17 gram/dose powder 17 g PO DAILY Qty: 238 0RF ibuprofen 600 mg tablet 600 mg PO Q6H PRN (Reason: fever or pain) Qty: 30 0RF Rx Instructions: Take with food and water omeprazole 20 mg capsule,delayed release(DR/EC) 20 mg PO QAM Qty: 30 0RF methocarbamol 500 mg tablet 500 mg PO TID Qty: 90 2RF Referrals: Tara Kemp MD [Primary Care Provider] - Shaun Dalal MD [Physician] - Stand Alone Forms: Patient Portal/API ED Sign-out <Lilly Simmons DO - Last Filed: 06/02/23 03:00> Cosign ED Attending [place] Attestation: I was available for consultation.
[2023-06-01 18:40] LABS: Appearance Urine UA CLEAR; Bilirubin Urine UA NEGATIVE (NEGATIVE); Color Urine UA YELLOW; Glucose Urine UA NEGATIVE (Negative); Ketones Urine UA NEGATIVE (NEGATIVE); Leukocyte Esterase Urine UA NEGATIVE (NEGATIVE); Nitrite Urine UA NEGATIVE (Negative); Occult Blood Urine UA NEGATIVE (Negative); Protein Urine UA NEGATIVE (Negative); Specific Gravity Urine UA 1.025 (1.000-1.035); Urobilinogen Urine UA 0.2 E.U./dL (0.2)
[2023-06-01 18:43] LABS: Pregnancy Test Urine Negative (Negative)
[2023-06-01] MEDS: ONDANSETRON 4 MG ODT PO (18:52)
[2023-06-01 18:54] LABS: Add Manual Diff / Slide Review NO; Basophils Absolute Auto 0 /uL (0-100); Basophils Percent Auto 0.6 % (0-2); Eosinophils Absolute Auto 0 /uL (0-450); Eosinophils Percent Auto 0.2 % (2-4); Hemoglobin 14.4 g/dL (12.0-16.0); Lymphocytes Absolute Auto 2600 /uL (1100-4500); Lymphocytes Percent Auto 31.5 % (25-40); Mean Corpuscular HGB Conc 35.2 % (30-36); Mean Corpuscular Hemoglobin 31.5 PG (26-34); Mean Corpuscular Volume 89.5 fL (80-100); Monocytes Absolute Auto 300 /uL (0-900); Neutrophils Absolute Auto 5300 /uL (1500-7000); Neutrophils Percent Auto 63.7 % (50-75); Platelet Count 301 X10^3/uL (150-400); Red Blood Cell Count 4.58 X10^6/uL (4.0-5.2); Red Cell Distribution Width 12.9 % (11.6-14.8); White Blood Cell Count 8.4 X10^3/uL (4.5-11.0)
[2023-06-01] MEDS: DICYCLOMINE 10 MG CAPSULE 20 MG PO (18:55)
[2023-06-01 19:10] LABS: pH Urine UA 5.5 (4.5-8.0)
[2023-06-01 19:11] LABS: Bacteria Urine None Seen; Culture Indicated Urine Cult Not Indicated; RBC Urine 0-1/HPF (0-5/HPF); Squamous Epithelial Cell Urine 0-1 /HPF (0-5/HPF); WBC Urine 0-1/HPF (0-5/HPF)
[2023-06-01 19:14] LABS: Alanine Aminotransferase 28 IU/L (<35); Albumin 4.4 g/dL (3.5-5.0); Albumin Globulin Ratio 1.3 (1.0-2.8); Alkaline Phosphatase 121 U/L (38-126); Aspartate Aminotransferase 27 IU/L (14-36); BUN Creatinine Ratio 17.4 (6-22); Bilirubin Total 0.4 mg/dL (0.2-1.3); Blood Urea Nitrogen 12 mg/dL (7-17); Calcium 9.4 mg/dL (8.4-10.2); Carbon Dioxide 23 mmol/L (22-32); Chloride 109 mmol/L (98-107); Estimated Glomerular Filt Rate > 60 mL/min (>60); Globulin 3.5 g/dL (1.7-4.1); Glucose 111 mg/dL (70-100); HEMOLYSIS < 15 (0-50); Lipase 52 U/L (23-300); Potassium 3.4 mmol/L (3.4-5.1); Sodium 140 mmol/L (137-145); Total Protein 7.9 g/dL (6.3-8.2)
--- NOTE | 2023-06-01 20:21 | DI.CT.S_ITS ---
PROCEDURE: CT ABDOMEN PELVIS WO CON INDICATIONS: worsening ab pain TECHNIQUE: Axial sections were acquired from the lung bases to the pubic symphysis. Coronal and sagittal reformats were performed. For radiation dose reduction, the following was used: automated exposure control, adjustment of mA and/or kV according to patient size. COMPARISON: [facility], CT, CT ABDOMEN PELVIS W CON, 11/19/2021, 21:17. [facility], MR, MR ABDOMEN MRCP, 02/05/2023, 11:55. FINDINGS: Image quality: Excellent. Lung bases: Unremarkable. Heart: No significant findings. URINARY: Right Kidney: No stones or hydronephrosis. Right Ureter: No hydroureter. Left Kidney: No stones or hydronephrosis. Left Ureter: No hydroureter. Bladder: Mostly decompressed. No stones. ABDOMEN: Liver: Hypodensity in the right lobe of the liver is unchanged. This most likely represents a benign hemangioma. Gallbladder: Absent. Biliary ducts: No biliary dilation. Pancreas: No ductal dilation. Spleen: Size is within normal limits. Adrenal Glands: No adrenal nodules. Stomach and Bowel: Normal colonic caliber, without significant wall thickening. The appendix is absent. Peritoneum: No abnormal intraperitoneal fluid. No free air. Ventral Wall: No hernia. Abdominal Nodes: No enlarged retroperitoneal or mesenteric lymph nodes. Vessels: Aorta and inferior vena cava are normal in size. PELVIS: Pelvic Organs: Anteverted uterus. Pelvic Nodes: Unremarkable. Miscellaneous: No inguinal hernias are seen. Bones: No suspicious osseous lesion. IMPRESSION: 1. Source for abdominal pain is not identified. No free fluid. 2. No hydronephrosis. No kidney stones. Dictated by: Tate Raman M.D. on 06/01/2023 at 22:02 Approved by: Tate Raman M.D. on 06/01/2023 at 22:06
[2023-06-01] MEDS: KETOROLAC 30 MG/ML VIAL IM (20:26)
[2023-06-01 22:04] VITALS: BP 126/71; PULSE 65; O2SAT 100
[2023-06-01 22:30] VITALS: PULSE 73; RESP 18; O2SAT 100
[2023-06-01 22:38] VITALS: BP 124/80; PULSE 78; RESP 18; TEMP 36.5; O2SAT 100
[2023-06-01] MEDS: HYDROCODONE/ACET 5/325 PREPACK 1 BOTTLE MISC (22:51)
== END 2023-06-01 22:54 | disposition home or self-care (01) ==
PROVIDERS: Emergency Medicine; Emergency Provider Emergency Medicine; PCP Family Medicine
DX: G89.29 Other chronic pain (principal); R10.30 Lower abdominal pain, unspecified; Z90.49 Acquired absence of other specified parts of digestive tract
CPT/HCPCS: 74176; 80053; 81001; 81025; 83690; 85025; 96372; 96374; 99283; 99284; J1885

== ENCOUNTER 2023-06-08 08:14 | Day surgery (SDC) | payer OTHER, SELFPAY ==
[2023-04-27 11:48] VITALS: BMI 32.5
[2023-06-07 12:13] VITALS: BMI 33.8
[2023-06-08] VITALS (7 sets, daily range): BP systolic 101–118; BP diastolic 43–80; PULSE 98–120; RESP 12–20; TEMP 36.2–36.7; O2SAT 96–100; BMI 33.8
--- NOTE | 2023-06-08 | PATH_ITS ---
[facility] Accession Number: [id number] No. of containers..01 Tissue . 01 Material submitted: . peritoneum - LEFT PERITONEAL BIOPSY, LEFT PELVIC SIDE WALL . 01 Diagnosis: Left Peritoneal/Pelvic Sidewall, Biopsy: Fragment of mesothelial-lined fibroadipose tissue. Negative for endometriosis and neoplasia. MRV 06/20/2023 1753 Local . 01 Electronically signed: . Rere Scott MD, Pathologist NPI- [id number] . 01 Gross description: . The specimen is received in formalin, labeled with the patient's name, , and peritoneal biopsy of left pelvic sidewall, and consists of a hernandez, membranous soft tissue fragment measuring 0.7 x 0.3 x 0.1 cm. One aspect is inked blue, and the specimen is submitted intact in cassette A1. ([id number]) /[facility] 06/10/2023 1414 Local . 01 Pathologist provided ICD-10: K66.9 . 01 CPT . 917183 Specimen Comment: A courtesy copy of this report has been sent to [phone] Performed at: 01 [facility] [address] [place] [address] [address], [place], [place] [id number] MD Martin Mueller MD Phone: [phone]
[2023-06-08] MEDS: LACTATED RINGERS 1,000 ML 84 ML IV (12:59)
--- NOTE | 2023-06-08 14:24 | PM.PREOP ---
Pre-operative Note COVID-19 COVID-19 status: Not tested Interval Note History & Physical reviewed/Exam performed by Physician: Yes Changes to H&P: No
--- NOTE | 2023-06-08 15:04 | SUR.OPER ---
Lithotomy on padded OR bed, head on pillow, arms secured on padded arm boards at <90 degrees abduction. Legs secured in padded yellow fins stirrups.
--- NOTE | 2023-06-08 15:05 | SUR.OPER ---
Lithotomy on padded OR bed, head on pillow, arms padded with gel pads and tucked to sides. Legs secured in padded yellow fins stirrups.
[2023-06-08] MEDS: BUPIVACAINE 0.5% (PF) 30 ML, EPINEPHrine 0.15 MG INJ (15:11)
--- NOTE | 2023-06-08 15:46 | P.OP_ITS ---
Operative Date/Time/Diagnoses Date of procedure: 06/08/23 Time of procedure: 14:55 Pre-op diagnosis: Chronic abdominal pelvic pain Post-op diagnosis: same Procedure & Clinicians Procedure: Procedures Operation Date: 06/08/23 09:45 Actual Procedure Side Surgeon miguelito NUÑEZ Laparoscopy. with possible lysis of adhesions, Possible Fulguration of Endometriosis Shaun Dalal MD Indications: Sandee is a 28-year-old , LMP 04/11/2023 referred from her primary care provider for evaluation of chronic abdominopelvic pain. The patient has had an extensive workup by GI which has been negative for any identifiable cause thus far. Patient also had her gallbladder removed which showed chronic cholecystitis but it did not improve her pain which is primarily right-sided starting in the right lower quadrant up into the right upper quadrant. In addition however she also has lower abdominal bloating/pressure/discomfort which seems to worsen when she is on her menses. She currently uses contraceptive patch for control and has a light 3-4 day period with each cycle. She also experiences deep dyspareunia to the point where she avoids intercourse. Her Pap is current and her Paps have always been normal. Recent pelvic US performed 02/08/2023 shows: FINDINGS: Uterus: Uterus is anteverted and measures 7.1 x 3.1 x 4.9 cm. Endometrium measures up to 0.3 cm in thickness. Ovaries: The right ovary measures 1.2 x 2.2 x 1.3 cm, with a calculated ovarian volume of 1.8 cc. The left ovary measures 1.6 x 2.1 x 1.5 cm, with a calculated ovarian volume of 2.6 cc. The ovaries have a normal sonographic appearance. No adnexal masses. There is patent arterial flow demonstrated in the ovaries bilaterally. There are fewer than 12 small follicles noted within each ovary. Other: No pathologic free abdominal or pelvic fluid. Appendix not discretely visualized sonographically. IMPRESSION: 1. No evidence of ovarian torsion or adnexal mass. 2. Small bilateral ovarian follicles, less than 12 within each ovary, are nonspecific. No definite sonographic evidence of polycystic ovarian syndrome. Although the cause of her right-sided mid abdominal pain is unclear, the patient does have pain symptoms attributable to possible gynecologic etiology such as endometriosis or scarring of adnexal structures. After discussion regarding all options, the patient wishes to proceed with diagnostic laparoscopy with a full understanding is that no guarantee can be made that the procedure will reveal any cause of her pain but that it will certainly be helpful for excluding potential photonic laboratory technician causes of her pain and if there are photonic laboratory technician causes of her pain those can be identified and hopefully remedied at the time of surgery. She presents today for her scheduled surgery. Surgeon: Shaun Dalal Anesthesia Type: General Operative Notes Findings: The uterus is mid-plane in orientation, normal and size and shape, and mobile. The consistency of the uterus seems normal. There were no fibroids noted. The anterior cul-de-sac is free of any abnormality. The right fallopian tube and ovary are normal in all respects and the ovarian fossa on the right side is similarly normal without abnormality. The left fallopian tube is normal. There is a small follicular cyst within the left ovary but otherwise the ovary is normal in all respects. In the posterior cul-de-sac which was fully visualized and carefully inspected, there was a single pale bleb like area involving the superficial peritoneum near the left ureter which was excised for pathologic analysis. There were no other abnormalities noted in the posterior cul-de-sac. Congenital adhesions involving the sigmoid flexure appeared normal and the rectosigmoid demonstrate normal mobility. No bowel endometriosis could be visualized on the surface of any bowel visible by laparoscopy. The cecum shows periappendiceal adhesions consistent with prior appendectomy. There was no scarring at the site of her previous gallbladder removal. The left and right lobe of her liver appeared to be normal laparoscopically. Closure Type: primary Specimen(s): other (Peritoneal biopsy, left pelvic sidewall) Estimated blood loss (mL): 5 Blood products transfused: none Procedure in detail: With the patient under satisfactory general anesthesia in the modified dorsal lithotomy position, vagina, perineum, and abdomen were prepped and draped in the usual manner for laparoscopy. A pre-surgical safety time-out was then taken in accordance with [facility] OR protocols. No uterine manipulator was placed. The inferior edge of the umbilicus was infiltrated with 0.5% Marcaine with epinephrine and a 1 cm transverse skin incision was made through which a Veress needle was used to insufflate the abdomen with carbon dioxide. Once insufflated a 5 mm trocar and sleeve were placed with proper placement of the sleeve in the abdominal cavity confirmed by direct visualization. A 2nd and 3rd 5 mm port were placed in the left and right mid quadrants using a similar technique. The patient was then placed in steep Trendelenburg and a 3 puncture technique was used to fully visualize the pelvis and abdomen as well as photographically documenting the findings. A small abnormality of the peritoneum on the left pelvic sidewall was elevated with a [place] forceps and excised with laparoscopic endo Meghann. Small amount of oozing from the biopsy site was controlled easily with judicious use of monopolar current. Pelvis was irrigated and found to be completely without other abnormalities and no bleeding was noted. A pneumoperitoneum was then vented and the laparoscopic ports removed. The incisions were then closed with 4-0 Monocryl using inverted interrupted stitches, skin glue was applied, then appropriate dressings were applied. Patient was awakened from anesthesia after having tolerated the procedure well and was transferred to PACU for a period of observation and recovery. Complications: none Post-operative Condition: stable Disposition: PACU Plan for aftercare: Routine postoperative care with follow-up scheduled for 2 weeks postop
[2023-06-08] MEDS: ONDANSETRON 4 MG/2 ML INJ IV (16:00)
[2023-06-08] MEDS: OXYCODONE IR 5 MG TABLET PO ×2 (16:02→16:34)
[2023-06-08] MEDS: ACETAMINOPHEN 325 MG TABLET 650 MG PO (16:03)
[2023-06-08] MEDS: HYDROMORPHONE 1 MG INJ IV ×2 (16:15→16:20)
== END 2023-06-08 16:50 | disposition home or self-care (01) ==
PROVIDERS: PCP Family Medicine; Referring Provider Obstetrics & Gynecology; Visit Provider Obstetrics & Gynecology
PROC: 0U5B4ZZ Destruction of Endometrium, Percutaneous Endoscopic Approach (ICD-10-PCS; CPT 58662; principal; 2023-06-08 09:45)
DX: R10.2 Pelvic and perineal pain (principal); N83.02 Follicular cyst of left ovary; K66.9 Disorder of peritoneum, unspecified
CPT/HCPCS: 49321; 81025; J0171; J1100; J1170; J1885; J2250; J2405; J2704; J3010

== ENCOUNTER 2023-10-21 13:03 | Emergency (ER) | payer OTHER, SELFPAY ==
[2023-04-27 11:48] VITALS: BMI 32.5
[2023-10-21 13:10] VITALS: BP 135/79; PULSE 82; RESP 18; TEMP 36.7; O2SAT 100; BMI 35.6
--- NOTE | 2023-10-21 15:12 | ED_ITS ---
HPI - Back Pain/Injury <Radha Velasquez PA-C - Last Filed: 10/21/23 19:55> General Chief Complaint: Back Pain/Injury Stated Complaint: Back pain/ shoulder neck pain- cant lay down Time Seen by Provider: 10/21/23 13:20 Source: patient History of Present Illness HPI Narrative: 28-year-old female with extensive past medical history including fibromyalgia, Obinna-Danlos syndrome, pots, chronic back neck and hip pain, chronic pelvic pain, chronic abdominal pain here in the emergency department for neck and shoulder pain. States she has a appointment with rheumatology on Monday which will become her new pain management provider but she is currently experiencing a flare-up of her symptoms that is making it very difficult to lay down and sleep. She states she had trouble walking to the restroom earlier today due to the hip pain. States that there are no new symptoms, these are all typical of her chronic pain but they are just worse than usual and she is looking for some relief before she sees rheumatology on Monday. She was previously seen by pain management on hydrocodone chronically but states she no longer sees them because she had concerns about taking so much hydrocodone. She denies any weakness, numbness or tingling, bowel or bladder incontinence, new injuries. Related Data Home Medications Medication Instructions Recorded Confirmed prazosin 2 mg capsule 2 mg PO BEDTIME 06/22/23 08/03/23 propranolol 60 mg capsule,24 60 mg PO DAILY 07/06/23 08/03/23 hr,extended release venlafaxine 150 mg 150 mg PO DAILY 07/06/23 08/03/23 capsule,extended release 24 hr venlafaxine 75 mg capsule,extended 75 mg PO DAILY 07/06/23 08/03/23 release 24 hr Previous Rx's Medication Instructions Recorded albuterol sulfate 90 mcg/actuation 2 puff inhalation Q4-6H PRN 04/10/19 aerosol inhaler shortness of breath #18 grams ondansetron HCl 8 mg tablet 8 mg PO Q8H PRN nausea and 03/22/22 vomiting #30 tabs norelgestromin 150 mcg-e.estradiol 1 patch transdermal QWEEK #3 ea 09/29/22 35 mcg/24 hr weekly transderm patch (Xulane) ibuprofen 600 mg tablet 600 mg PO Q6H PRN fever or pain 12/11/22 #30 tabs polyethylene glycol 3350 17 17 g PO DAILY for soft stool #238 12/11/22 gram/dose oral powder (Miralax) grams baclofen 5 mg tablet 5 mg PO TID #90 tabs 08/03/23 pregabalin 150 mg capsule (Lyrica) 150 mg PO BID #60 caps 08/03/23 elagolix 200 mg tablet (Orilissa) 200 mg PO BID #60 tabs 10/09/23 cyclobenzaprine 10 mg tablet 10 mg PO TID PRN muscle spasm #20 10/21/23 tabs hydrocodone 5 mg-acetaminophen 325 1 tab PO BID PRN pain #6 tabs 10/21/23 mg tablet Allergies Allergy/AdvReac Type Severity Reaction Status Date / Time lidocaine Allergy Intermediate ITCHING Verified 10/21/23 13:10 doxycycline [DOXYCYCLINE] Allergy Unknown Verified 10/21/23 13:10 Penicillins [PENICILLINS] Allergy Unknown Verified 10/21/23 13:10 shellfish derived Allergy Anaphylaxis Verified 10/21/23 13:10 cortisone AdvReac Severe Swelling Verified 10/21/23 13:10 Review of Systems <Radha Velasquez PA-C - Last Filed: 10/21/23 19:55> Review of Systems ROS Unobtainable: All systems reviewed & are unremarkable except as noted in HPI and below Patient History <Radha Velasquez PA-C - Last Filed: 10/21/23 19:55> Medical History Bilateral hip pain Myofascial pain SI (sacroiliac) joint dysfunction Dorsalgia CVA (cerebral vascular accident) Normal endoscopy Normal colonoscopy Torn rotator cuff Cholecystitis Tumor of liver Fibromyalgia Acute right lower quadrant pain Exercise-induced asthma Anxiety Right foot strain Jaw pain, non-TMJ Lower GI bleed Gastroenteritis Surgical History History of cholecystectomy (~03/2022) H/O knee surgery History of appendectomy Family History Mother Bowel obstruction Lupus Spinal cord cancer Fibromyalgia Epilepsy Blood clotting tendency Stroke Sister Bowel obstruction Tachycardia Arrhythmia Fibromyalgia Family/Other Colon cancer Grandmother S/P CABG x 3 Tachycardia Father Tachycardia Brother Tachycardia Grandmother Liver cancer Social History marital status: number of children: 0 household members: spouse lives independently: Yes housing: house pets and animals: Yes (2 dogs, 1 cat) education level: college occupational status: employed current occupational exposures/hazards: No special reuben needs: No travel history: over 6 months ago seatbelt use: always water heater temp set < 120 deg: Yes working smoke detector in home: Yes fire extinguisher in home: Yes carbon monox detector in home: Yes firearms in home: No do you feel safe at home: Yes Smoking Status: Current some day smoker second hand exposure: Yes ( smokes outside) alcohol intake: former substance use type: marijuana during the past year weight has: remained stable well-balanced diet: about half the time daily servings fruits/ve-4 caffeine: Yes (aware of 200mg limit) Type(s) of exercise: walking frequency: 5-6 times per week Smoking Status: Current some day smoker tobacco type: vaping alcohol intake frequency: holidays/special occasions only Substance Use Type: marijuana Exam <Radha Velasquez PA-C - Last Filed: 10/21/23 19:55> Narrative Exam Narrative: GENERAL: Well-developed, well-nourished, appears stated age. In no acute distress HEAD: Atraumatic. Normocephalic. EYES: Pupils equal round and reactive. Extraocular motions intact. No scleral icterus. No injection or drainage. ENT: Nose without bleeding, purulent drainage. Airway patent. NECK: Trachea midline. Non tender RESPIRATORY: Respiratory rate and effort normal EXTREMITIES: No edema or joint tenderness. NEURO: AOx3. No neurologic deficits, ambulates without assistance. No footdrop. Able to sit up, sit down, lay down, all without assistance. Normal strength and sensation of the lower extremities, normal distal pulses BACK: Tenderness to paraspinal musculature of the cervical and lumbar areas. No midline tenderness or deformity. Full range of motion of the neck. SKIN: No rash or erythema of visible areas Initial Vital Signs Initial Vital Signs: Vital Signs Temperature 98.1 F 10/21/23 13:10 Pulse Rate 82 10/21/23 13:10 Respiratory Rate 18 10/21/23 13:10 Blood Pressure 135/79 10/21/23 13:10 Pulse Oximetry 100 10/21/23 13:10 Oxygen Delivery Method Room Air 10/21/23 13:10 <DO Yosef Stubbs Last Filed: 10/26/23 07:09> Initial Vital Signs Initial Vital Signs: Vital Signs Temperature 98.1 F 10/21/23 13:10 Pulse Rate 82 10/21/23 13:10 Respiratory Rate 18 10/21/23 13:10 Blood Pressure 135/79 10/21/23 13:10 Pulse Oximetry 100 10/21/23 13:10 Oxygen Delivery Method Room Air 10/21/23 13:10 Course <Radha Velasquez PA-C - Last Filed: 10/21/23 19:55> Orders Ordered: Discontinued Medications Hydrocodone Bitart/Acetaminophen (Hydrocodone/Acet 10/325 Tablet) 1 tab PO NOW ONE Stop: 10/21/23 15:12 Last Admin: 10/21/23 15:26 Dose: 1 tab Documented By: JOSE Ondansetron HCl (Ondansetron 4 Mg Odt) 4 mg SL NOW ONE Stop: 10/21/23 15:12 Last Admin: 10/21/23 15:26 Dose: 4 mg Documented By: JOSE Vital Signs Vital signs: Vital Signs - 8 hr 10/21/23 13:10 10/21/23 15:30 Temperature 98.1 F Pulse Rate 82 80 Respiratory Rate 18 18 Blood Pressure 135/79 123/77 Pulse Oximetry 100 100 Oxygen Delivery Method Room Air Room Air <DO Yosef Stubbs Last Filed: 10/26/23 07:09> Orders Ordered: Discontinued Medications Hydrocodone Bitart/Acetaminophen (Hydrocodone/Acet 10/325 Tablet) 1 tab PO NOW ONE Stop: 10/21/23 15:12 Last Admin: 10/21/23 15:26 Dose: 1 tab Documented By: JOSE Ondansetron HCl (Ondansetron 4 Mg Odt) 4 mg SL NOW ONE Stop: 10/21/23 15:12 Last Admin: 10/21/23 15:26 Dose: 4 mg Documented By: JOSE Vital Signs Vital signs: Vital Signs - 8 hr 10/21/23 13:10 10/21/23 15:30 Temperature 98.1 F Pulse Rate 82 80 Respiratory Rate 18 18 Blood Pressure 135/79 123/77 Pulse Oximetry 100 100 Oxygen Delivery Method Room Air Room Air [facility] - Back Pain/Injury <Radha Velasquez PA-C - Last Filed: 10/21/23 19:55> [facility] Narrative Medical decision making narrative: Patient is here for acute on chronic neck and back pain. She has an extensive history of chronic pain. She has currently not seen by a pain management team but has a rheumatology appointment on Monday and states this is going to be her new specialist to manage her chronic pain. She does not have any focal neurologic deficits or red flag symptoms at this time. This is consistent with her previous pain, she states it is just flared up more than usual. She states she has a history of lidocaine and can not use lidocaine patches. She states that Toradol and ibuprofen aggravate her stomach so she can not take those. On her controlled substance history there have not been any prescription for controlled substances since August. Since she is being seen on Monday by her specialist I am comfortable giving her a [place] here in the ED along with a very small prescription for [place] for breakthrough pain. Six tablets prescribed. Patient advised that she should use the muscle relaxer and Tylenol 1st and if she is having any severe breakthrough pain or significant pain at bedtime/while sleeping then she can use the [place] for that. Patient understands and agrees with this plan. Discharge Plan Departure Patient Disposition: Home Clinical Impression: Chronic neck and back pain Instructions: DI for Muscle Strain, DI for Back Spasm Activity Restrictions/Additional Instructions: Thank you for choosing us to care for you today. You were seen for neck, shoulder, and back pain which is a chronic issue but you are experiencing a flare-up. On your exam there are no signs that you are experiencing any emergency or symptoms that require further imaging at this time. You were given medication for pain and nausea in the emergency department and given a prescription for pain medication which should only be used as needed for breakthrough pain. Please continue your naproxen as prescribed and you may use the pain medication given today to help you sleep at night along with the muscle relaxers. 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 Prescriptions: New cyclobenzaprine 10 mg tablet 10 mg PO TID PRN (Reason: muscle spasm) Qty: 20 0RF hydrocodone-acetaminophen 5-325 mg tablet 1 tab PO BID PRN (Reason: pain) Qty: 6 0RF No Action Orilissa 200 mg tablet 200 mg PO BID Qty: 60 5RF ondansetron HCl 8 mg tablet 8 mg PO Q8H PRN (Reason: nausea and vomiting) Qty: 30 5RF Xulane 150-35 mcg/24 hr patch weekly 1 patch transdermal QWEEK Qty: 3 12RF Rx Instructions: apply once weekly for 3 weeks of a 4-week cycle prazosin 2 mg capsule 2 mg PO BEDTIME albuterol sulfate 90 mcg/actuation HFA aerosol inhaler 2 puff INHALATION Q4-6H PRN (Reason: shortness of breath) Qty: 18 0RF polyethylene glycol 3350 [Miralax] 17 gram/dose powder 17 g PO DAILY Qty: 238 0RF ibuprofen 600 mg tablet 600 mg PO Q6H PRN (Reason: fever or pain) Qty: 30 0RF Rx Instructions: Take with food and water venlafaxine 150 mg capsule,extended release 24hr 150 mg PO DAILY venlafaxine 75 mg capsule,extended release 24hr 75 mg PO DAILY propranolol 60 mg capsule,extended release 24 hr 60 mg PO DAILY pregabalin [Lyrica] 150 mg capsule 150 mg PO BID Qty: 60 2RF baclofen 5 mg tablet 5 mg PO TID Qty: 90 2RF Referrals: Tara Kemp MD [Primary Care Provider] - Stand Alone Forms: Patient Portal/API ED Sign-out <Jose Raul Garzon, - Last Filed: 10/26/23 07:09> Cosign ED Attending [facility] Attestation: Dr Garzon Co-Sign Statement: I was available for consultation during this patient's emergency department visit. This chart is signed by myself for administrative purposes only. I did not have direct contact with this patient during this visit. They were seen independently by the APC.
[2023-10-21] MEDS: ONDANSETRON 4 MG ODT SL (15:26)
[2023-10-21] MEDS: HYDROCODONE/ACET 10/325 TABLET 1 TAB PO (15:26)
[2023-10-21 15:30] VITALS: BP 123/77; PULSE 80; RESP 18; O2SAT 100
== END 2023-10-21 15:41 | disposition home or self-care (01) ==
PROVIDERS: Emergency Provider Physician Assistant; PCP Family Medicine
DX: G89.29 Other chronic pain (principal); M54.2 Cervicalgia; M54.9 Dorsalgia, unspecified
CPT/HCPCS: 99283

== ENCOUNTER 2024-02-17 15:31 | Emergency (ER) | payer OTHER, SELFPAY ==
[2023-04-27 11:48] VITALS: BMI 32.5
[2024-02-17] VITALS (11 sets, daily range): BP systolic 108–130; BP diastolic 63–79; PULSE 60–103; RESP 17–21; TEMP 37.1; O2SAT 96–100
[2024-02-17 16:49] LABS: Add Manual Diff / Slide Review NO; Alanine Aminotransferase 17 IU/L (<35); Albumin 4.6 g/dL (3.5-5.0); Albumin Globulin Ratio 1.4 (1.0-2.8); Alkaline Phosphatase 118 U/L (38-126); Aspartate Aminotransferase 20 IU/L (14-36); BUN Creatinine Ratio 18.3 (6-22); Basophils Absolute Auto 0 /uL (0-100); Basophils Percent Auto 0.3 % (0-2); Bilirubin Total 0.8 mg/dL (0.2-1.3); Blood Urea Nitrogen 15 mg/dL (7-17); Calcium 9.5 mg/dL (8.4-10.2); Carbon Dioxide 19 mmol/L (22-32); Chloride 109 mmol/L (98-107); Eosinophils Absolute Auto 0 /uL (0-450); Eosinophils Percent Auto 0.5 % (2-4); Estimated Glomerular Filt Rate > 60 mL/min (>60); Globulin 3.2 g/dL (1.7-4.1); Glucose 82 mg/dL (70-100); HEMOLYSIS < 15 (0-50); Hematocrit 42.4 % (36-46); Hemoglobin 14.8 g/dL (12.0-16.0); Lipase 59 U/L (23-300); Lymphocytes Absolute Auto 2700 /uL (1100-4500); Mean Corpuscular HGB Conc 34.8 % (30-36); Mean Corpuscular Hemoglobin 31.8 PG (26-34); Mean Corpuscular Volume 91.5 fL (80-100); Monocytes Absolute Auto 400 /uL (0-900); Monocytes Percent Auto 4.8 % (3-14); Neutrophils Absolute Auto 5000 /uL (1500-7000); Neutrophils Percent Auto 61.4 % (50-75); Platelet Count 338 X10^3/uL (150-400); Potassium 3.8 mmol/L (3.4-5.1); Red Blood Cell Count 4.64 X10^6/uL (4.0-5.2); Sodium 139 mmol/L (137-145); Total Protein 7.8 g/dL (6.3-8.2); White Blood Cell Count 8.2 X10^3/uL (4.5-11.0)
[2024-02-17] MEDS: ONDANSETRON 4 MG/2 ML INJ IV (17:19)
[2024-02-17 17:49] LABS: Urine Volume 10mL (spun)
[2024-02-17 17:50] LABS: Bacteria Urine None Seen; Mucus Urine 1+ (Negative); RBC Urine None Seen (0-5/HPF); Squamous Epithelial Cell Urine 1-5 /HPF (0-5/HPF); WBC Urine 0-1/HPF (0-5/HPF)
[2024-02-17 17:51] LABS: Culture Indicated Urine Cult Not Indicated
--- NOTE | 2024-02-17 18:45 | ED_ITS ---
HPI - Abdominal Pain General Chief Complaint: Abdominal Pain Stated Complaint: intestinal swelling, dehydration Time Seen by Provider: 02/17/24 17:55 Source: patient Mode of arrival: Ambulatory History of Present Illness HPI narrative: Patient is a 28-year-old female who has remote history of appendectomy cholecystectomy ex lap for pelvic issues as well as lupus Obinna-danlos, asthma depression anxiety panic attacks presents today for ongoing abdominal pain and distention. She reports that she had C diff a year ago which was very difficult to eradicate. She has had ongoing abdominal pain for a couple of days she was seen evaluated yesterday at [facility] where she had blood work and a CT scan. Records from that facility have been received and reviewed blood work did not show significant leukocytosis WBC 10 0.4 bicarb of 19 creatinine 0.7 bilirubin was 0.6 urinalysis was negative. She reports today that she feels like her abdomen is more bloated than it ever has been her pants do not fit. Every time she eats she throws up she feels like she has to have a bowel movement but only has liquid stool she has an EGD scheduled with her PCP. She denies any fever she reports it hurts to move and walk she just curls up into a ball. Related Data Home Medications Medication Instructions Recorded Confirmed prazosin 2 mg capsule 2 mg PO BEDTIME 06/22/23 11/22/23 propranolol 60 mg capsule,24 60 mg PO DAILY 07/06/23 11/22/23 hr,extended release venlafaxine 150 mg 150 mg PO DAILY 07/06/23 11/22/23 capsule,extended release 24 hr venlafaxine 75 mg capsule,extended 75 mg PO DAILY 07/06/23 11/22/23 release 24 hr Previous Rx's Medication Instructions Recorded albuterol sulfate 90 mcg/actuation 2 puff inhalation Q4-6H PRN 04/10/19 aerosol inhaler shortness of breath #18 grams ondansetron HCl 8 mg tablet 8 mg PO Q8H PRN nausea and 03/22/22 vomiting #30 tabs ibuprofen 600 mg tablet 600 mg PO Q6H PRN fever or pain 12/11/22 #30 tabs polyethylene glycol 3350 17 17 g PO DAILY for soft stool #238 12/11/22 gram/dose oral powder (Miralax) grams baclofen 5 mg tablet 5 mg PO TID #90 tabs 08/03/23 pregabalin 150 mg capsule (Lyrica) 150 mg PO BID #60 caps 08/03/23 elagolix 200 mg tablet (Orilissa) 200 mg PO BID #60 tabs 10/09/23 cyclobenzaprine 10 mg tablet 10 mg PO TID PRN muscle spasm #20 10/21/23 tabs hydrocodone 5 mg-acetaminophen 325 1 tab PO BID PRN pain #6 tabs 10/21/23 mg tablet norelgestromin 150 mcg-e.estradiol 1 patch transdermal QWEEK #3 ea 11/23/23 35 mcg/24 hr weekly transderm patch (Xulane) hydrocodone 5 mg-acetaminophen 325 1 tab PO Q6H PRN pain #10 tabs 02/17/24 mg tablet Allergies Allergy/AdvReac Type Severity Reaction Status Date / Time shellfish derived Allergy Severe Anaphylaxis Verified 02/17/24 16:22 lidocaine Allergy Intermediate ITCHING Verified 11/22/23 14:42 doxycycline [DOXYCYCLINE] Allergy Unknown Verified 11/22/23 14:42 Penicillins [PENICILLINS] Allergy Unknown Verified 11/22/23 14:42 iodine Allergy Hives Verified 02/17/24 15:55 cortisone AdvReac Severe Swelling Verified 11/22/23 14:42 Patient History Medical History Bilateral hip pain Myofascial pain SI (sacroiliac) joint dysfunction Dorsalgia CVA (cerebral vascular accident) Normal endoscopy Normal colonoscopy Torn rotator cuff Cholecystitis Tumor of liver Fibromyalgia Acute right lower quadrant pain Exercise-induced asthma Anxiety Right foot strain Jaw pain, non-TMJ Lower GI bleed Gastroenteritis Surgical History History of cholecystectomy (~03/2022) H/O knee surgery History of appendectomy Family History Mother Bowel obstruction Lupus Spinal cord cancer Fibromyalgia Epilepsy Blood clotting tendency Stroke Sister Bowel obstruction Tachycardia Arrhythmia Fibromyalgia Family/Other Colon cancer Grandmother S/P CABG x 3 Tachycardia Father Tachycardia Brother Tachycardia Grandmother Liver cancer Social History marital status: number of children: 0 household members: spouse lives independently: Yes housing: house pets and animals: Yes (2 dogs, 1 cat) education level: college occupational status: employed current occupational exposures/hazards: No special reuben needs: No travel history: over 6 months ago seatbelt use: always water heater temp set < 120 deg: Yes working smoke detector in home: Yes fire extinguisher in home: Yes carbon monox detector in home: Yes firearms in home: No do you feel safe at home: Yes Smoking Status: Current some day smoker second hand exposure: Yes ( smokes outside) alcohol intake: former substance use type: marijuana during the past year weight has: remained stable well-balanced diet: about half the time daily servings fruits/ve-4 caffeine: Yes (aware of 200mg limit) Type(s) of exercise: walking frequency: 5-6 times per week Smoking Status: Current some day smoker tobacco type: vaping alcohol intake frequency: holidays/special occasions only Substance Use Type: marijuana Exam Initial Vital Signs Initial Vital Signs: Vital Signs Temperature 98.8 F 02/17/24 15:42 Pulse Rate 93 H 02/17/24 15:42 Respiratory Rate 17 02/17/24 15:42 Blood Pressure 121/77 02/17/24 15:42 Pulse Oximetry 100 02/17/24 15:42 Oxygen Delivery Method Room Air 02/17/24 15:42 GENERAL: Alert 28-year-old appears uncomfortable and in no acute distress. HEENT: Head atraumatic,EOMI, pupils reactive, face symmetric, moist mucous membranes CARDIOVASCULAR: Regular rate and rhythm without murmurs, rubs or gallops. RESPIRATORY: Breath sounds equal bilaterally, no wheezes rales or rhonchi. ABDOMEN: Mild distention decreased bowel sounds mild tenderness with rebound EXTREMITIES: Normal range of motion, no clubbing or edema. Neurovascularly intact NEUROLOGICAL: Alert and oriented x4.Normal gait and speech SKIN: Warm, dry, no laceration, no petechiae, no rashes or lesions. Course Orders Ordered: ED Orders 02/17/24 16:30 Complete Blood Count AUTO DIFF Stat Comprehensive Metabolic Panel Stat Lactate (Lactic Acid) Stat Lipase Stat 02/17/24 17:02 Urine Microscopic Stat 02/17/24 18:43 XR acute abdomen series Stat Discontinued Medications Hydrocodone Bitart/Acetaminophen (Hydrocodone/Acet 5/325 Prepack) 1 bottle MISC DIRECTED ONE Stop: 02/17/24 21:02 Last Admin: 02/17/24 21:11 Dose: 1 bottle Documented By: BLESSING Hydromorphone HCl (Hydromorphone 1 Mg Inj) 1 mg IV NOW ONE Stop: 02/17/24 18:44 Last Admin: 02/17/24 18:57 Dose: 1 mg Documented By: RAY Sodium Chloride (Normal Saline 0.9%) 1,000 mls @ 1,000 mls/hr IV BOLUS ONE Stop: 02/17/24 19:33 Last Infusion: 02/17/24 20:00 Dose: Infused Documented By: Admin: 02/17/24 18:57 Dose: 1,000 mls/hr Documented By: RAY Ketorolac Tromethamine (Ketorolac 30 Mg/Ml Vial) 15 mg IV NOW ONE Stop: 02/17/24 21:04 Last Admin: 02/17/24 21:11 Dose: 15 mg Documented By: BLESSING Ondansetron HCl (Ondansetron 4 Mg/2 Ml Inj) 4 mg IV NOW PRN PRN Reason: Nausea And Vomiting Last Admin: 02/17/24 17:19 Dose: 4 mg Documented By: RAY Ondansetron HCl (Ondansetron 4 Mg Odt) 4 mg PO NOW PRN PRN Reason: Nausea And Vomiting Vital Signs Vital signs: Vital Signs - 8 hr 02/17/24 17:55 02/17/24 17:55 02/17/24 18:53 Pulse Rate 76 103 H Respiratory Rate Blood Pressure 130/72 130/72 Pulse Oximetry 96 97 02/17/24 18:54 02/17/24 18:54 02/17/24 19:00 Pulse Rate 67 Respiratory Rate Blood Pressure 121/72 129/71 Pulse Oximetry 100 02/17/24 19:00 02/17/24 19:30 02/17/24 19:45 Pulse Rate 81 68 60 Respiratory Rate 18 18 17 Blood Pressure Pulse Oximetry 100 98 100 02/17/24 19:45 02/17/24 20:00 02/17/24 20:01 Pulse Rate 67 Respiratory Rate 17 Blood Pressure 120/67 114/69 Pulse Oximetry 100 02/17/24 20:01 02/17/24 20:30 02/17/24 20:30 Pulse Rate 67 73 Respiratory Rate 19 19 Blood Pressure 108/63 Pulse Oximetry 99 99 02/17/24 21:00 02/17/24 21:00 Pulse Rate 71 Respiratory Rate 21 Blood Pressure 108/79 Pulse Oximetry 99 MDM - Abdominal Pain Lab Data 02/17/24 16:30 02/17/24 16:30 Labs: Lab Results 02/17/24 02/17/24 Range/Units 16:30 17:02 WBC 8.2 (4.5-11.0) X10^3/uL RBC 4.64 (4.0-5.2) X10^6/uL Hgb 14.8 (12.0-16.0) g/dL Hct 42.4 (36-46) % MCV 91.5 (80-100) fL MCH 31.8 (26-34) PG MCHC 34.8 (30-36) % RDW 13.0 (11.6-14.8) % Plt Count 338 (150-400) X10^3/uL Neut % (Auto) 61.4 (50-75) % Lymph % (Auto) 33.0 (25-40) % [place] % (Auto) 4.8 (3-14) % Eos % (Auto) 0.5 L (2-4) % Baso % (Auto) 0.3 (0-2) % Neut # (Auto) 5000 (9337-9756) /uL Lymph # (Auto) 2700 (6674-7393) /uL [place] # (Auto) 400 (0-900) /uL Eos # (Auto) 0 (0-450) /uL Baso # (Auto) 0 (0-100) /uL Sodium 139 (137-145) mmol/L Potassium 3.8 (3.4-5.1) mmol/L Chloride 109 H (98-107) mmol/L Carbon Dioxide 19 L (22-32) mmol/L BUN 15 (7-17) mg/dL Creatinine 0.82 (0.52-1.04) mg/dL Estimated GFR > 60 (>60) mL/min BUN/Creatinine Ratio 18.3 (6-22) Glucose 82 (70-100) mg/dL Lactate 0.9 (0.7-2.1) mmol/L Calcium 9.5 (8.4-10.2) mg/dL Total Bilirubin 0.8 (0.2-1.3) mg/dL AST 20 (14-36) IU/L ALT 17 (<35) IU/L Alkaline Phosphatase 118 (38-126) U/L Total Protein 7.8 (6.3-8.2) g/dL Albumin 4.6 (3.5-5.0) g/dL Globulin 3.2 (1.7-4.1) g/dL Albumin/Globulin Ratio 1.4 (1.0-2.8) Lipase 59 (23-300) U/L Urine RBC None seen (0-5/HPF) Urine WBC 0-1/hpf (0-5/HPF) Ur Squamous Epith Cells 1-5 /hpf (0-5/HPF) Urine Bacteria None seen (None) Urine Mucus 1+ H (Negative) Ur Culture Indicated? Cult not indicated Vol Urine Centrifuged 10ml (spun) Point of care testing: Point of Care Testing Test Results Negative Urine Dip Bedside Urine Glucose Negative Bedside Urine Bilirubin - Negative Bedside Urine Ketone ++ 40 Urine Specific [place] 1.020 Bedside Urine Occult Blood - Negative Bedside Urine pH 6.0 Bedside Urine Protein +/- 15 Bedside Urine Urobilinogen - Negative Bedside Urine Nitrite - Negative Bedside Urine Leukocytes +/- 15 Esterase Imaging Data Abdominal x-ray: Radiologist's Impression: PROCEDURE: XR ACUTE ABDOMEN SERIES INDICATIONS: severe pain with bloating ct yesterday TECHNIQUE: One view chest and two views of the abdomen were acquired. COMPARISON: [facility], CT, CT ABDOMEN PELVIS WO CON, 06/01/2023, 20:34. [facility], CR, XR ACUTE ABDOMEN SERIES, 11/19/2021, 17:57. (The CT mention in the history for this study is not available for review at the time of this dictation.) FINDINGS: Surgical changes and devices: Cholecystectomy clips are seen. Right lower quadrant clips are also seen Chest: Lungs are clear. Heart size is normal. No pleural effusions. No pneumoperitoneum. Abdomen: Bowel gas pattern is normal. No suspicious calcifications. Visualized solid organ contours appear normal. Tampon artifact is incidentally noted. Bones: No suspicious bony lesions. IMPRESSION: No imaging explanation is found for this patient's presenting symptoms. No dilated loops of bowel are seen. Postoperative changes are seen. Dictated by: Jefe Palafox M.D. on 02/17/2024 at 19:21 MDM Narrative Medical decision making narrative: MDM CC: Abdominal pain bloating Complicating co-morbidities: Chronic abdominal pain lupus Medical records reviewed: ED records from [facility] received and reviewed at that time she had WBC 10.4 creatinine 0.[address] scan showed no acute abnormality no hydronephrosis or obstructing nephrolithiasis she had some mucosal fat deposition within the rectum without acute inflammatory changes findings may indicate chronic inflammation in the setting of Crohn's disease or ulcerative colitis. Correlate with history and consider GI referral Prescription monitoring program shows that she got 20 tablets of Glenview on January 28, 10 on December 31 and before that she got Glenview and October Differential considered: Bowel obstruction perforation endometriosis Crohn's disease ulcerative colitis Exam documented above, pertinent findings include: Tender abdomen decreased bowel sounds Lab Test results independently reviewed as above. Pertinent findings: WBC 8.2, hemoglobin 14.8 hematocrit 42.4, platelets 338, sodium 139 potassium 3.8 chloride 109 carbon dioxide 19 creatinine 0.8 bilirubin 0.8 AST 20 ALT 17 alk- phos 118 lipase 59 Urinalysis negative for UTI and Lactate 0.9 Imaging studies independently reviewed: X-ray does not show any bowel obstruction Consultations: none Treatments: IV fluids and Dilaudid Re-evaluations: Continues to have pain Discussion: Patient has chronic abdominal pain possible endometriosis feels like her abdomen is more bloated and descend it says it her pains do not fit. She has ongoing nausea. She is afebrile blood work appears improved or similar to yesterday. She has no leukocytosis fever elevated lactic acid. X-ray does not show any concerning process she had a CT less than 24 hours ago that showed chronic inflammation. At this time without fever significant lactic acidosis leukocytosis or abnormal x-ray would not Re CT her however if symptoms worsen would consider it. Would not put her on antibiotics she has significant history of C diff she has not having leukocytosis or fever. Would give her a very small amount of Glenview and nausea medication however she just had a prescription filled. Encourage outpatient follow-up with colonoscopy to rule out ulcerative colitis and Crohn's disease Discharge Plan Departure Patient Disposition: Home Clinical Impression: Abdominal pain Instructions: DI for Abdominal Pain-Adult Activity Restrictions/Additional Instructions: *You have been diagnosed with abdominal pain *What to do: X-ray does show concerning obstruction you have chronic inflammation on your CT scan. I do encourage increase fluids as tolerated. You do need a repeat colonoscopy and EGD. *Continue to take medications as directed Glenview 1 tablet every 6 hours only for severe pain *Follow up with your primary care provider in 2-3 days or call [phone] *Return to ER if you should have Increasing pain, dizziness lightheadedness fever or any new, worsening or concerning symptoms CONTROLLED SUBSTANCE DISCHARGE (Narcotoic/benzodiazepine/Flexeril/Phenergan) 1. You have been prescribed narcotic medications, it does have acetaminophen/Tylenol/paracetamol in it, DO NOT TAKE MORE THAN 4,00mg in 24 hours of Tylenol. TRAMADOL DOES NOT CONTAIN TYLENOL 2. Please understand that we cannot provide further refills of narcotics, benzodiazepines or controlled substances through the ED and her pain management will need to be through your provider. 3. While on these medications you cannot drive or operate heavy machinery. 4. You cannot sign legal documents or perform any duties such as this. 5. As long as you're taking opiate pain medications he should also be taking a stool softener such as Colace, Dulcolax, MiraLAX or prune juice, to help avoid constipation. Prescriptions: New hydrocodone-acetaminophen 5-325 mg tablet 1 tab PO Q6H PRN (Reason: pain) Qty: 10 0RF No Action Orilissa 200 mg tablet 200 mg PO BID Qty: 60 5RF norelgestromin-ethin.estradiol [Xulane] 150-35 mcg/24 hr patch weekly 1 patch transdermal QWEEK Qty: 3 12RF Rx Instructions: apply once weekly for 3 weeks of a 4-week cycle ondansetron HCl 8 mg tablet 8 mg PO Q8H PRN (Reason: nausea and vomiting) Qty: 30 5RF prazosin 2 mg capsule 2 mg PO BEDTIME albuterol sulfate 90 mcg/actuation HFA aerosol inhaler 2 puff INHALATION Q4-6H PRN (Reason: shortness of breath) Qty: 18 0RF polyethylene glycol 3350 [Miralax] 17 gram/dose powder 17 g PO DAILY Qty: 238 0RF ibuprofen 600 mg tablet 600 mg PO Q6H PRN (Reason: fever or pain) Qty: 30 0RF Rx Instructions: Take with food and water cyclobenzaprine 10 mg tablet 10 mg PO TID PRN (Reason: muscle spasm) Qty: 20 0RF hydrocodone-acetaminophen 5-325 mg tablet 1 tab PO BID PRN (Reason: pain) Qty: 6 0RF venlafaxine 150 mg capsule,extended release 24hr 150 mg PO DAILY venlafaxine 75 mg capsule,extended release 24hr 75 mg PO DAILY propranolol 60 mg capsule,extended release 24 hr 60 mg PO DAILY pregabalin [Lyrica] 150 mg capsule 150 mg PO BID Qty: 60 2RF baclofen 5 mg tablet 5 mg PO TID Qty: 90 2RF Referrals: Tara Kemp MD [Primary Care Provider] - Stand Alone Forms: Patient Portal/API
[2024-02-17] MEDS: HYDROMORPHONE 1 MG INJ IV (18:57)
[2024-02-17] MEDS: SODIUM CHLORIDE 0.9% 1,000 ML 1000 ML IV (18:57)
[2024-02-17 18:59] LABS: Lactate (Lactic Acid) 0.9 mmol/L (0.7-2.1)
[2024-02-17] MEDS: HYDROCODONE/ACET 5/325 PREPACK 1 BOTTLE MISC (21:11)
[2024-02-17] MEDS: KETOROLAC 30 MG/ML VIAL 15 MG IV (21:11)
== END 2024-02-17 21:25 | disposition home or self-care (01) ==
PROVIDERS: Emergency Medicine; Emergency Provider Emergency Medicine; PCP Family Medicine
DX: R10.9 Unspecified abdominal pain (principal); R14.0 Abdominal distension (gaseous)
CPT/HCPCS: 36415; 74022; 80053; 81003; 81015; 81025; 83605; 83690; 85025; 96361; 96374; 96375; 99284; J1170; J1885; J2405

== ENCOUNTER 2024-02-19 23:33 | Emergency (ER) | payer OTHER, SELFPAY ==
[2023-04-27 11:48] VITALS: BMI 32.5
[2024-02-19 23:53] VITALS: BP 114/63; PULSE 63; RESP 16; TEMP 36.4; O2SAT 100; BMI 33.8
[2024-02-20 01:22] VITALS: BP 143/85; PULSE 68; RESP 17; O2SAT 97
--- NOTE | 2024-02-20 01:49 | PC.NURSE ---
Pt reports purple skin to abdomen and worsening bloating. Skin to torso mottled with slow cap refill. Abd soft to palp. Pt states she is a very difficult IV start and usually requires US IV. No US trained staff available tonight. PIV attempted to LFA without success. Dr Fontanez notified of above.
--- NOTE | 2024-02-20 02:16 | ED_ITS ---
HPI - General Adult General Chief complaint: Abdominal Pain Stated complaint: abd pain Time Seen by Provider: 02/20/24 02:11 Source: patient Mode of arrival: Ambulatory History of Present Illness HPI narrative: 28-year-old woman with a history complicated by lupus, [place], asthma, depression, anxiety, panic attacks who is currently post appendectomy and cholecystectomy as well as exploratory laparotomy for ongoing pelvic pain presents today complaining abdominal pain. She was seen on 02/16 for similar complaints here at [place] in February 15 at [facility]. She notes that she vomits every time she eats and has had just liquid stools. She is concerned that are abdomen is significantly distended Related Data Home Medications Medication Instructions Recorded Confirmed prazosin 2 mg capsule 2 mg PO BEDTIME 06/22/23 11/22/23 propranolol 60 mg capsule,24 60 mg PO DAILY 07/06/23 11/22/23 hr,extended release venlafaxine 150 mg 150 mg PO DAILY 07/06/23 11/22/23 capsule,extended release 24 hr venlafaxine 75 mg capsule,extended 75 mg PO DAILY 07/06/23 11/22/23 release 24 hr Previous Rx's Medication Instructions Recorded albuterol sulfate 90 mcg/actuation 2 puff inhalation Q4-6H PRN 04/10/19 aerosol inhaler shortness of breath #18 grams ondansetron HCl 8 mg tablet 8 mg PO Q8H PRN nausea and 03/22/22 vomiting #30 tabs ibuprofen 600 mg tablet 600 mg PO Q6H PRN fever or pain 12/11/22 #30 tabs polyethylene glycol 3350 17 17 g PO DAILY for soft stool #238 12/11/22 gram/dose oral powder (Miralax) grams baclofen 5 mg tablet 5 mg PO TID #90 tabs 08/03/23 pregabalin 150 mg capsule (Lyrica) 150 mg PO BID #60 caps 08/03/23 elagolix 200 mg tablet (Orilissa) 200 mg PO BID #60 tabs 10/09/23 cyclobenzaprine 10 mg tablet 10 mg PO TID PRN muscle spasm #20 10/21/23 tabs hydrocodone 5 mg-acetaminophen 325 1 tab PO BID PRN pain #6 tabs 10/21/23 mg tablet norelgestromin 150 mcg-e.estradiol 1 patch transdermal QWEEK #3 ea 11/23/23 35 mcg/24 hr weekly transderm patch (Xulane) hydrocodone 5 mg-acetaminophen 325 1 tab PO Q6H PRN pain #10 tabs 02/17/24 mg tablet Allergies Allergy/AdvReac Type Severity Reaction Status Date / Time shellfish derived Allergy Severe Anaphylaxis Verified 02/17/24 16:22 lidocaine Allergy Intermediate ITCHING Verified 11/22/23 14:42 doxycycline [DOXYCYCLINE] Allergy Unknown Verified 11/22/23 14:42 Penicillins [PENICILLINS] Allergy Unknown Verified 11/22/23 14:42 iodine Allergy Hives Verified 02/17/24 15:55 cortisone AdvReac Severe Swelling Verified 11/22/23 14:42 Review of Systems Review of Systems Narrative: Pertinent positive and negative findings as per HPI Patient History Medical History Bilateral hip pain Myofascial pain SI (sacroiliac) joint dysfunction Dorsalgia CVA (cerebral vascular accident) Normal endoscopy Normal colonoscopy Torn rotator cuff Cholecystitis Tumor of liver Fibromyalgia Acute right lower quadrant pain Exercise-induced asthma Anxiety Right foot strain Jaw pain, non-TMJ Lower GI bleed Gastroenteritis Surgical History History of cholecystectomy (~03/2022) H/O knee surgery History of appendectomy Family History Mother Bowel obstruction Lupus Spinal cord cancer Fibromyalgia Epilepsy Blood clotting tendency Stroke Sister Bowel obstruction Tachycardia Arrhythmia Fibromyalgia Family/Other Colon cancer Grandmother S/P CABG x 3 Tachycardia Father Tachycardia Brother Tachycardia Grandmother Liver cancer Social History marital status: number of children: 0 household members: spouse lives independently: Yes housing: house pets and animals: Yes (2 dogs, 1 cat) education level: college occupational status: employed current occupational exposures/hazards: No special reuben needs: No travel history: over 6 months ago seatbelt use: always water heater temp set < 120 deg: Yes working smoke detector in home: Yes fire extinguisher in home: Yes carbon monox detector in home: Yes firearms in home: No do you feel safe at home: Yes Smoking Status: Current some day smoker second hand exposure: Yes ( smokes outside) alcohol intake: former substance use type: marijuana during the past year weight has: remained stable well-balanced diet: about half the time daily servings fruits/ve-4 caffeine: Yes (aware of 200mg limit) Type(s) of exercise: walking frequency: 5-6 times per week Smoking Status: Current some day smoker tobacco type: vaping alcohol intake frequency: holidays/special occasions only Substance Use Type: marijuana Exam Initial Vital Signs Initial Vital Signs: Vital Signs Temperature 97.5 F L 02/19/24 23:53 Pulse Rate 63 02/19/24 23:53 Respiratory Rate 16 02/19/24 23:53 Blood Pressure 114/63 02/19/24 23:53 Pulse Oximetry 100 02/19/24 23:53 Oxygen Delivery Method Room Air 02/19/24 23:53 General: Patient appears to be in pain and is distressed that her abdomen is increasingly just HEENT: Moist mucous membranes, normal sclera with reactive pupils, Respiratory: Lungs are clear to auscultation, no wheezing no rales no rhonchi. Full and symmetrical air movement Cardiac: Regular rate and rhythm no murmurs no bruits Abdomen: Soft, distended without being tympanitic. Bowel sounds are appreciated. She does not have an acute surgical abdomen. She does not have flank pain Skin: Warm and dry, no rashes Neurologic: Grossly neurologically intact with no obvious asymmetries or abnormalities Extremities: No trauma, Psych: Cooperative, frustrated with her chronic pain and lack of definitive diagnosis Course Orders Ordered: ED Orders 02/20/24 03:18 CRP [C-Reactive Protein Quant] Stat Complete Blood Count AUTO DIFF Stat Comprehensive Metabolic Panel Stat Lactate (Lactic Acid) Stat 02/20/24 03:23 CT abdomen pelvis w con Stat 02/20/24 03:24 GI Panel (Film Array) Stat Hydromorphone HCl (Hydromorphone 0.5 Mg Inj) 0.5 mg IV Q15MIN PRN PRN Reason: Pain, Last Admin: 02/20/24 03:37 Dose: 0.5 mg Documented By: KW Discontinued Medications Sodium Chloride (Normal Saline 0.9%) 1,000 mls @ 1,000 mls/hr IV BOLUS ONE Stop: 02/20/24 04:21 Last Admin: 02/20/24 03:34 Dose: 1,000 mls/hr Documented By: ARIANA Ondansetron HCl (Ondansetron 4 Mg/2 Ml Inj) 4 mg IV NOW ONE Stop: 02/20/24 03:23 Last Admin: 02/20/24 03:37 Dose: 4 mg Documented By: ARIANA Vital Signs Vital signs: Vital Signs - 8 hr 02/19/24 23:53 02/20/24 01:22 Temperature 97.5 F L Pulse Rate 63 68 Respiratory Rate 16 17 Blood Pressure 114/63 143/85 H Pulse Oximetry 100 97 Oxygen Delivery Method Room Air Room Air Medical Decision Making Lab Data 02/20/24 03:18 02/20/24 03:18 Labs: Lab Results 02/20/24 Range/Units 03:18 WBC 11.0 (4.5-11.0) X10^3/uL RBC 4.42 (4.0-5.2) X10^6/uL Hgb 14.0 (12.0-16.0) g/dL Hct 40.2 (36-46) % MCV 91.0 (80-100) fL MCH 31.7 (26-34) PG MCHC 34.8 (30-36) % RDW 13.1 (11.6-14.8) % Plt Count 329 (150-400) X10^3/uL Neut % (Auto) 56.2 (50-75) % Lymph % (Auto) 38.0 (25-40) % [place] % (Auto) 4.5 (3-14) % Eos % (Auto) 0.8 L (2-4) % Baso % (Auto) 0.5 (0-2) % Neut # (Auto) 6200 (7344-3401) /uL Lymph # (Auto) 4200 (6398-2496) /uL [place] # (Auto) 500 (0-900) /uL Eos # (Auto) 100 (0-450) /uL Baso # (Auto) 100 (0-100) /uL Sodium 139 (137-145) mmol/L Potassium 3.4 (3.4-5.1) mmol/L Chloride 110 H (98-107) mmol/L Carbon Dioxide 20 L (22-32) mmol/L BUN 12 (7-17) mg/dL Creatinine 0.77 (0.52-1.04) mg/dL Estimated GFR > 60 (>60) mL/min BUN/Creatinine Ratio 15.6 (6-22) Glucose 82 (70-100) mg/dL Lactate 0.9 (0.7-2.1) mmol/L Calcium 9.3 (8.4-10.2) mg/dL Total Bilirubin 0.6 (0.2-1.3) mg/dL AST 23 (14-36) IU/L ALT 17 (<35) IU/L Alkaline Phosphatase 107 (38-126) U/L C-Reactive Protein < 0.5 (<1.0) mg/dL Total Protein 7.4 (6.3-8.2) g/dL Albumin 4.1 (3.5-5.0) g/dL Globulin 3.3 (1.7-4.1) g/dL Albumin/Globulin Ratio 1.2 (1.0-2.8) MDM Narrative Medical decision making narrative: CC: Abdominal pain and distention Complicating co-morbidities: Chronic abdominal pain, Data collected from: patient Medical records reviewed: Note from 02/16 is reviewed chronic abdominal pain, CT scan done on the without definitive findings. CT scan on the was unremarkable. She had a recent refill of hydrocodone for pain control. She does have GI follow up scheduled Differential considered: Inflammatory bowel disease, diverticulitis, other colitis, Clostridium difficile Exam documented above, pertinent findings include: Patient does have some mild abdominal distention, mild tenderness there was no rebound or guarding Lab Test results independently reviewed as above. Pertinent findings: CBC is unremarkable Chemistries are reassuring C-reactive protein is low Stool studies do not show C diff, Campylobacter, Salmonella Imaging studies independently reviewed: Patient has an iodine allergy, she is had multiple noncontrast CT scans recently. With complaints of increasing pain, increasing distention and more and more aspiration in finding a diagnosis we will try oral contrast and repeat a CT scan. We did use shared decision-making in deciding to proceed with CT scan in light of recent CT scans and prior workup CT read interpreted as no acute findings. Consultations: Treatments: Fluids, Zofran, Dilaudid Re-evaluations: Discussion: 28-year-old woman with chronic abdominal pain comes in with increasing pain looking for help with answers overall. With shared decision- making we did opt to repeat a CT scan with oral contrast as she is allergic to iodine and IV contrast was not an option. The CT scan was unremarkable. Labs are reassuring. She did have slightly bloody stool C-reactive protein is low suggesting this is not inflammatory bowel syndrome. Chemistries and CBC are otherwise unremarkable. Stool panel is negative for C diff Campylobacter and Salmonella Discharge Plan Departure Clinical Impression: Chronic abdominal pain Instructions: DI for Abdominal Pain-Adult Activity Restrictions/Additional Instructions: Thank you for coming into Your blood work including signs of infection, inflammation, anemia, kidney function liver function was all quite reassuring. We did a CT scan today with oral contrast that did not show any acute findings or irregularities would explain the pain that you are experiencing. The stool sample does not show evidence of Clostridium difficile, Campylobacter or salmonella, some of the treatable causes of diarrhea that we were looking for At this point, I do not have any additional suggestions, I think it is safe for you to go home. You do need to continue to follow up with your primary care doctor and Gastroenterology. I wish you the best Prescriptions: No Action Orilissa 200 mg tablet 200 mg PO BID Qty: 60 5RF norelgestromin-ethin.estradiol [Xulane] 150-35 mcg/24 hr patch weekly 1 patch transdermal QWEEK Qty: 3 12RF Rx Instructions: apply once weekly for 3 weeks of a 4-week cycle ondansetron HCl 8 mg tablet 8 mg PO Q8H PRN (Reason: nausea and vomiting) Qty: 30 5RF prazosin 2 mg capsule 2 mg PO BEDTIME albuterol sulfate 90 mcg/actuation HFA aerosol inhaler 2 puff INHALATION Q4-6H PRN (Reason: shortness of breath) Qty: 18 0RF polyethylene glycol 3350 [Miralax] 17 gram/dose powder 17 g PO DAILY Qty: 238 0RF ibuprofen 600 mg tablet 600 mg PO Q6H PRN (Reason: fever or pain) Qty: 30 0RF Rx Instructions: Take with food and water cyclobenzaprine 10 mg tablet 10 mg PO TID PRN (Reason: muscle spasm) Qty: 20 0RF hydrocodone-acetaminophen 5-325 mg tablet 1 tab PO BID PRN (Reason: pain) Qty: 6 0RF hydrocodone-acetaminophen 5-325 mg tablet 1 tab PO Q6H PRN (Reason: pain) Qty: 10 0RF venlafaxine 150 mg capsule,extended release 24hr 150 mg PO DAILY venlafaxine 75 mg capsule,extended release 24hr 75 mg PO DAILY propranolol 60 mg capsule,extended release 24 hr 60 mg PO DAILY pregabalin [Lyrica] 150 mg capsule 150 mg PO BID Qty: 60 2RF baclofen 5 mg tablet 5 mg PO TID Qty: 90 2RF Referrals: Tara Kemp MD [Primary Care Provider] -
--- NOTE | 2024-02-20 03:23 | DI.CT.S_ITS ---
PROCEDURE: CT ABDOMEN PELVIS WO CON INDICATIONS: abdominal pain TECHNIQUE: After the administration of oral contrast material, axial sections were acquired from the lung bases to the pubic symphysis. Coronal and sagittal reformats were performed. For radiation dose reduction, the following was used: automated exposure control, adjustment of mA and/or kV according to patient size. COMPARISON: [facility], CT, CT ABDOMEN PELVIS WO CON, 06/01/2023, 20:34. [facility], MR, MR ABDOMEN MRCP, 02/05/2023, 11:55. FINDINGS: Image quality: Diagnostic. Lower Chest: No significant findings. URINARY: Right Kidney: No stones or hydronephrosis. Right Ureter: No hydroureter. Left Kidney: No stones or hydronephrosis. Left Ureter: No hydroureter. Bladder: Normal wall thickness. No stones. ABDOMEN: Liver: No contour-deforming solid mass. Hypoattenuating lesion in the right hepatic lobe is again seen, previously characterized as a benign hemangioma. Mild focal fatty infiltration adjacent to the falciform ligament. Gallbladder: Status post cholecystectomy. Biliary ducts: No biliary dilation. Pancreas: No ductal dilation. Spleen: Size is within normal limits. Adrenal Glands: No adrenal nodules. Stomach and Bowel: Normal colonic caliber, without significant wall thickening. Status post appendectomy. Small bowel loops and stomach are unremarkable. Peritoneum: No abnormal intraperitoneal fluid. No free air. Ventral Wall: No hernia. Abdominal Nodes: No enlarged retroperitoneal or mesenteric lymph nodes. Vessels: Aorta and inferior vena cava are normal in size. PELVIS: Pelvic Organs: Unremarkable. Pelvic Nodes: Unremarkable. Miscellaneous: No inguinal hernias are seen. Bones: Unremarkable. IMPRESSION: No acute abnormality identified in the abdomen or pelvis. There is no significant discrepancy when compared to the overnight preliminary report. Approved by: Joe Clarke M.D. on 02/20/2024 at 8:01
[2024-02-20 03:32] LABS: Add Manual Diff / Slide Review NO; Basophils Absolute Auto 100 /uL (0-100); Basophils Percent Auto 0.5 % (0-2); Eosinophils Absolute Auto 100 /uL (0-450); Eosinophils Percent Auto 0.8 % (2-4); Hematocrit 40.2 % (36-46); Lymphocytes Absolute Auto 4200 /uL (1100-4500); Mean Corpuscular HGB Conc 34.8 % (30-36); Mean Corpuscular Hemoglobin 31.7 PG (26-34); Monocytes Absolute Auto 500 /uL (0-900); Monocytes Percent Auto 4.5 % (3-14); Neutrophils Absolute Auto 6200 /uL (1500-7000); Neutrophils Percent Auto 56.2 % (50-75); Platelet Count 329 X10^3/uL (150-400); Red Blood Cell Count 4.42 X10^6/uL (4.0-5.2); Red Cell Distribution Width 13.1 % (11.6-14.8)
[2024-02-20] MEDS: SODIUM CHLORIDE 0.9% 1,000 ML 1000 ML IV (03:34)
[2024-02-20] MEDS: ONDANSETRON 4 MG/2 ML INJ IV (03:37)
[2024-02-20] MEDS: HYDROMORPHONE 0.5 MG INJ IV ×3 (03:37→06:54)
[2024-02-20 03:38] LABS: Alanine Aminotransferase 17 IU/L (<35); Albumin 4.1 g/dL (3.5-5.0); Albumin Globulin Ratio 1.2 (1.0-2.8); Alkaline Phosphatase 107 U/L (38-126); Aspartate Aminotransferase 23 IU/L (14-36); BUN Creatinine Ratio 15.6 (6-22); Bilirubin Total 0.6 mg/dL (0.2-1.3); Blood Urea Nitrogen 12 mg/dL (7-17); Calcium 9.3 mg/dL (8.4-10.2); Carbon Dioxide 20 mmol/L (22-32); Chloride 110 mmol/L (98-107); Estimated Glomerular Filt Rate > 60 mL/min (>60); Globulin 3.3 g/dL (1.7-4.1); Glucose 82 mg/dL (70-100); HEMOLYSIS < 15 (0-50); Lactate (Lactic Acid) 0.9 mmol/L (0.7-2.1); Potassium 3.4 mmol/L (3.4-5.1); Sodium 139 mmol/L (137-145); Total Protein 7.4 g/dL (6.3-8.2)
[2024-02-20 03:42] LABS: C-Reactive Protein Quant < 0.5 mg/dL (<1.0)
--- NOTE | 2024-02-20 03:48 | PC.NURSE ---
0345 Oral contrast started
[2024-02-20 05:21] VITALS: BP 114/51; PULSE 80; RESP 19; O2SAT 98
[2024-02-20 06:39] VITALS: BP 100/62; PULSE 72; RESP 16; O2SAT 100
[2024-02-20 06:42] LABS: Adenovirus F 40/41 Not Detected (Not Detect); Astrovirus Not Detected (Not Detect); Campylobacter Not Detected (Not Detect); Clostridium difficile toxin AB Not Detected (Not Detect); Cryptosporidium Not Detected (Not Detect); Cyclospora cayetanensis Not Detected (Not Detect); Entamoeba histolytica Not Detected (Not Detect); Enteroaggregative E.coli Not Detected (Not Detect); Enteropathogenic E.coli Not Detected (Not Detect); Enterotoxigenic E.coli It/st Not Detected (Not Detect); Giardia lamblia Not Detected (Not Detect); Norovirus GI/GII Not Detected (Not Detect); Plesiomonsa shigelloides Not Detected (Not Detect); Rotavirus A Not Detected (Not Detect); Salmonella Not Detected (Not Detect); Sapovirus Not Detected (Not Detect); Shiga-like toxin-prod E.coli Not Detected (Not Detect); Shigella/Enteroinvasive E.coli Not Detected (Not Detect); Vibrio Not Detected (Not Detect); Vibrio cholerae Not Detected (Not Detect); Yersinia enterocolitica Not Detected (Not Detect)
== END 2024-02-20 07:04 | disposition home or self-care (01) ==
PROVIDERS: Emergency Provider Emergency Medicine; PCP Family Medicine
DX: R10.9 Unspecified abdominal pain (principal)
CPT/HCPCS: 36415; 74176; 80053; 83605; 85025; 86140; 87507; 96361; 96374; 96375; 96376; 99284; J1170; J2405

== ENCOUNTER 2024-03-11 16:01 | Emergency (ER) | payer OTHER, SELFPAY ==
[2023-04-27 11:48] VITALS: BMI 32.5
[2024-03-11 16:10] VITALS: BP 117/66; PULSE 110; RESP 18; TEMP 36.3; O2SAT 100; BMI 32.9
--- NOTE | 2024-03-11 18:13 | ED.ABDPAIN ---
HPI - Abdominal Pain General Chief Complaint: Abdominal Pain Stated Complaint: extended abd, needs fluids, sent by doc Time Seen by Provider: 03/11/24 16:35 Source: patient Mode of arrival: Ambulatory History of Present Illness HPI narrative: 29-year-old female with history of fibromyalgia, lupus (not on medications for it), POTS, [place] presents by private vehicle from home stating that her primary care doctor he is concerned for dehydration and recommended IV fluids. Also complaining that her abdomen is distended. Patient has had multiple visits between [facility] and [facility] for abdominal and back pain since February of 2024 including on 02/[address] [facility], 02/16 at [facility], and again on 02/19 at [facility]. Patient states that she has had multiple colonoscopies with GI for chronic abdominal pain with no definitive cause found. Patient states that she has not been able to keep food or drink down for days despite taking sublingual Zofran and has frequent bloody liquid stools. Patient states she has a pending appointment at [facility] since [facility] has not been able to find a cause of her recurrent symptoms Patient states that these are the same symptoms she has been experiencing the last month. Symptoms are not different today. Related Data Home Medications Medication Instructions Recorded Confirmed prazosin 2 mg capsule 2 mg PO BEDTIME 06/22/23 11/22/23 propranolol 60 mg capsule,24 60 mg PO DAILY 07/06/23 11/22/23 hr,extended release venlafaxine 150 mg 150 mg PO DAILY 07/06/23 11/22/23 capsule,extended release 24 hr venlafaxine 75 mg capsule,extended 75 mg PO DAILY 07/06/23 11/22/23 release 24 hr Previous Rx's Medication Instructions Recorded albuterol sulfate 90 mcg/actuation 2 puff inhalation Q4-6H PRN 04/10/19 aerosol inhaler shortness of breath #18 grams ondansetron HCl 8 mg tablet 8 mg PO Q8H PRN nausea and 03/22/22 vomiting #30 tabs ibuprofen 600 mg tablet 600 mg PO Q6H PRN fever or pain 12/11/22 #30 tabs polyethylene glycol 3350 17 17 g PO DAILY for soft stool #238 12/11/22 gram/dose oral powder (Miralax) grams baclofen 5 mg tablet 5 mg PO TID #90 tabs 08/03/23 pregabalin 150 mg capsule (Lyrica) 150 mg PO BID #60 caps 08/03/23 elagolix 200 mg tablet (Orilissa) 200 mg PO BID #60 tabs 10/09/23 cyclobenzaprine 10 mg tablet 10 mg PO TID PRN muscle spasm #20 10/21/23 tabs hydrocodone 5 mg-acetaminophen 325 1 tab PO BID PRN pain #6 tabs 10/21/23 mg tablet norelgestromin 150 mcg-e.estradiol 1 patch transdermal QWEEK #3 ea 11/23/23 35 mcg/24 hr weekly transderm patch (Xulane) hydrocodone 5 mg-acetaminophen 325 1 tab PO Q6H PRN pain #10 tabs 02/17/24 mg tablet promethazine 25 mg rectal 25 mg RI Q4-6H PRN nausea and 03/11/24 suppository vomiting #12 ea promethazine 25 mg tablet 25 mg PO Q6H PRN nausea and 03/11/24 vomiting #30 tabs Allergies Allergy/AdvReac Type Severity Reaction Status Date / Time shellfish derived Allergy Severe Anaphylaxis Verified 02/17/24 16:22 lidocaine Allergy Intermediate ITCHING Verified 11/22/23 14:42 doxycycline [DOXYCYCLINE] Allergy Unknown Verified 11/22/23 14:42 Penicillins [PENICILLINS] Allergy Unknown Verified 11/22/23 14:42 iodine Allergy Hives Verified 02/17/24 15:55 cortisone AdvReac Severe Swelling Verified 11/22/23 14:42 Patient History Medical History Bilateral hip pain Myofascial pain SI (sacroiliac) joint dysfunction Dorsalgia CVA (cerebral vascular accident) Normal endoscopy Normal colonoscopy Torn rotator cuff Cholecystitis Tumor of liver Fibromyalgia Acute right lower quadrant pain Exercise-induced asthma Anxiety Right foot strain Jaw pain, non-TMJ Lower GI bleed Gastroenteritis Surgical History History of cholecystectomy (~03/2022) H/O knee surgery History of appendectomy Family History Mother Bowel obstruction Lupus Spinal cord cancer Fibromyalgia Epilepsy Blood clotting tendency Stroke Sister Bowel obstruction Tachycardia Arrhythmia Fibromyalgia Family/Other Colon cancer Grandmother S/P CABG x 3 Tachycardia Father Tachycardia Brother Tachycardia Grandmother Liver cancer Social History marital status: number of children: 0 household members: spouse lives independently: Yes housing: house pets and animals: Yes (2 dogs, 1 cat) education level: college occupational status: employed current occupational exposures/hazards: No special reuben needs: No travel history: over 6 months ago seatbelt use: always water heater temp set < 120 deg: Yes working smoke detector in home: Yes fire extinguisher in home: Yes carbon monox detector in home: Yes firearms in home: No do you feel safe at home: Yes Smoking Status: Current some day smoker second hand exposure: Yes ( smokes outside) alcohol intake: former substance use type: marijuana during the past year weight has: remained stable well-balanced diet: about half the time daily servings fruits/ve-4 caffeine: Yes (aware of 200mg limit) Type(s) of exercise: walking frequency: 5-6 times per week Smoking Status: Current some day smoker tobacco type: vaping alcohol intake frequency: holidays/special occasions only Substance Use Type: marijuana Exam Initial Vital Signs Initial Vital Signs: Vital Signs Temperature 97.3 F L 03/11/24 16:10 Pulse Rate 110 H 03/11/24 16:10 Respiratory Rate 18 03/11/24 16:10 Blood Pressure 117/66 03/11/24 16:10 Pulse Oximetry 100 03/11/24 16:10 Oxygen Delivery Method Room Air 03/11/24 16:10 Const: Awake, alert, no acute distress, nontoxic appearing Cardiac: regular rate, regular rhythm RESP: unlabored, clear bilaterally, no wheezing GI: Soft, nontender, nondistended, no rebound, no guarding Skin: Warm, Dry, intact, no rashes Neuro: AO x3, CN II-XII grossly intact, moves all extremities Course Orders Ordered: ED Orders 03/11/24 18:11 Complete Blood Count AUTO DIFF Stat Comprehensive Metabolic Panel Stat Lactate (Lactic Acid) Stat Lipase Stat Test Serum,Qual Stat Discontinued Medications Droperidol (Droperidol 5 Mg/2 Ml Vial) 2.5 mg IV NOW ONE Stop: 03/11/24 18:28 Last Admin: 03/11/24 18:34 Dose: 2.5 mg Documented By: NOLAN Sodium Chloride (Normal Saline 0.9%) 1,000 mls @ 1,000 mls/hr IV BOLUS ONE Stop: 03/11/24 18:35 Last Infusion: 03/11/24 19:27 Dose: Infused Documented By: Admin: 03/11/24 18:32 Dose: 1,000 mls/hr Documented By: NOLAN Acetaminophen (Ofirmev) 1,000 mg in 100 mls @ 400 mls/hr IV NOW ONE Stop: 03/11/24 18:41 Last Infusion: 03/11/24 18:58 Dose: Infused Documented By: Admin: 03/11/24 18:34 Dose: 400 mls/hr Documented By: NOLAN Sodium Chloride (Normal Saline 0.9%) 1,000 mls @ 1,000 mls/hr IV BOLUS ONE Stop: 03/11/24 19:26 Last Admin: 03/11/24 18:58 Dose: Not Given Documented By: NOLAN Ketorolac Tromethamine (Ketorolac 30 Mg/Ml Vial) 15 mg IV NOW ONE Stop: 03/11/24 18:28 Last Admin: 03/11/24 18:34 Dose: 15 mg Documented By: NOLAN Vital Signs Vital signs: Vital Signs - 8 hr 03/11/24 18:17 03/11/24 18:17 03/11/24 18:30 Pulse Rate 101 H 111 H Blood Pressure 134/78 Pulse Oximetry 95 100 03/11/24 18:30 03/11/24 19:00 03/11/24 19:00 Pulse Rate 102 H Blood Pressure 117/67 117/68 Pulse Oximetry 100 03/11/24 19:30 03/11/24 19:30 Pulse Rate 100 H Blood Pressure 134/75 Pulse Oximetry 100 MDM - Abdominal Pain Lab Data 03/11/24 18:11 03/11/24 18:11 Labs: Lab Results 03/11/24 Range/Units 18:11 WBC 10.8 (4.5-11.0) X10^3/uL RBC 4.62 (4.0-5.2) X10^6/uL Hgb 14.7 (12.0-16.0) g/dL Hct 43.0 (36-46) % MCV 93.0 (80-100) fL MCH 31.8 (26-34) PG MCHC 34.2 (30-36) % RDW 13.3 (11.6-14.8) % Plt Count 332 (150-400) X10^3/uL Neut % (Auto) 62.8 (50-75) % Lymph % (Auto) 31.6 (25-40) % [place] % (Auto) 4.5 (3-14) % Eos % (Auto) 0.7 L (2-4) % Baso % (Auto) 0.4 (0-2) % Neut # (Auto) 6800 (1837-5242) /uL Lymph # (Auto) 3400 (3002-5381) /uL Vernon # (Auto) 500 (0-900) /uL Eos # (Auto) 100 (0-450) /uL Baso # (Auto) 0 (0-100) /uL Sodium 139 (137-145) mmol/L Potassium 3.7 (3.4-5.1) mmol/L Chloride 107 (98-107) mmol/L Carbon Dioxide 24 (22-32) mmol/L BUN 12 (7-17) mg/dL Creatinine 0.88 (0.52-1.04) mg/dL Estimated GFR > 60 (>60) mL/min BUN/Creatinine Ratio 13.6 (6-22) Glucose 87 (70-100) mg/dL Lactate 1.3 (0.7-2.1) mmol/L Calcium 9.5 (8.4-10.2) mg/dL Total Bilirubin 0.5 (0.2-1.3) mg/dL AST 19 (14-36) IU/L ALT 17 (<35) IU/L Alkaline Phosphatase 98 (38-126) U/L Total Protein 7.5 (6.3-8.2) g/dL Albumin 4.3 (3.5-5.0) g/dL Globulin 3.2 (1.7-4.1) g/dL Albumin/Globulin Ratio 1.3 (1.0-2.8) Lipase 85 (23-300) U/L Serum , Qual Negative (Negative) Point of care testing: Urine Dip Bedside Urine Glucose Negative Bedside Urine Bilirubin - Negative Bedside Urine Ketone - Negative Urine Specific [place] 1.015 Bedside Urine Occult Blood - Negative Bedside Urine pH 7.0 Bedside Urine Protein - Negative Bedside Urine Urobilinogen - Negative Bedside Urine Nitrite - Negative Bedside Urine Leukocytes - Negative Esterase MDM Narrative Medical decision making narrative: Well-appearing patient with abdominal pain, nausea, vomiting, reported bloody stools for more than 1 month. Multiple visits for same. She has had multiple CTs between [facility] and [facility] in the last month. Abdomen soft, no obvious distension, no peritoneal signs. Patient states her pain today is no different than the pain she has had for the last month. With multiple normal CTs obtained at patient's relatively young age do not see indication for repeat imaging at this time. Blood work, fluids, antiemetics ordered. Laboratory work reviewed, absolutely no concerning abnormalities identified. Despite reports of bloody stools and uncontrolled vomiting for 1 month patient has no leukocytosis, no electrolyte abnormalities, no ketones on urinalysis to suggest dehydration. Patient has been in the emergency department for several hours and has not vomited once or had a bowel movement. Patient received L of IV fluids, counseled on lab findings. Phenergan sent to pharmacy of choice. Advised to continue follow up with GI at for further investigation of your symptoms. Discharge Plan Departure Patient Disposition: Home Clinical Impression: Abdominal pain Instructions: DI for Abdominal Pain-Adult Activity Restrictions/Additional Instructions: Your laboratory work here today was completely normal. There is no sign of dehydration or electrolyte derangements on either blood work or urinalysis. There was no inflammation identified on the CT from February 20, 2024. Keep your follow up appointments as scheduled with your specialists. Phenergan, which is a different type of nausea medication has been sent to your pharmacy, this may help with her symptoms. Prescriptions: New promethazine 25 mg tablet 25 mg PO Q6H PRN (Reason: nausea and vomiting) Qty: 30 0RF promethazine 25 mg suppository 25 mg RI Q4-6H PRN (Reason: nausea and vomiting) Qty: 12 0RF No Action Orilissa 200 mg tablet 200 mg PO BID Qty: 60 5RF norelgestromin-ethin.estradiol [Xulane] 150-35 mcg/24 hr patch weekly 1 patch transdermal QWEEK Qty: 3 12RF Rx Instructions: apply once weekly for 3 weeks of a 4-week cycle ondansetron HCl 8 mg tablet 8 mg PO Q8H PRN (Reason: nausea and vomiting) Qty: 30 5RF prazosin 2 mg capsule 2 mg PO BEDTIME albuterol sulfate 90 mcg/actuation HFA aerosol inhaler 2 puff INHALATION Q4-6H PRN (Reason: shortness of breath) Qty: 18 0RF polyethylene glycol 3350 [Miralax] 17 gram/dose powder 17 g PO DAILY Qty: 238 0RF ibuprofen 600 mg tablet 600 mg PO Q6H PRN (Reason: fever or pain) Qty: 30 0RF Rx Instructions: Take with food and water cyclobenzaprine 10 mg tablet 10 mg PO TID PRN (Reason: muscle spasm) Qty: 20 0RF hydrocodone-acetaminophen 5-325 mg tablet 1 tab PO BID PRN (Reason: pain) Qty: 6 0RF hydrocodone-acetaminophen 5-325 mg tablet 1 tab PO Q6H PRN (Reason: pain) Qty: 10 0RF venlafaxine 150 mg capsule,extended release 24hr 150 mg PO DAILY venlafaxine 75 mg capsule,extended release 24hr 75 mg PO DAILY propranolol 60 mg capsule,extended release 24 hr 60 mg PO DAILY pregabalin [Lyrica] 150 mg capsule 150 mg PO BID Qty: 60 2RF baclofen 5 mg tablet 5 mg PO TID Qty: 90 2RF Referrals: Tara Kemp MD [Primary Care Provider] - Stand Alone Forms: Patient Portal/API
[2024-03-11 18:17] VITALS: BP 134/78; PULSE 101; O2SAT 95
[2024-03-11 18:19] LABS: Add Manual Diff / Slide Review NO; Basophils Absolute Auto 0 /uL (0-100); Basophils Percent Auto 0.4 % (0-2); Eosinophils Absolute Auto 100 /uL (0-450); Eosinophils Percent Auto 0.7 % (2-4); Hemoglobin 14.7 g/dL (12.0-16.0); Lymphocytes Absolute Auto 3400 /uL (1100-4500); Lymphocytes Percent Auto 31.6 % (25-40); Mean Corpuscular HGB Conc 34.2 % (30-36); Mean Corpuscular Hemoglobin 31.8 PG (26-34); Monocytes Absolute Auto 500 /uL (0-900); Monocytes Percent Auto 4.5 % (3-14); Neutrophils Absolute Auto 6800 /uL (1500-7000); Neutrophils Percent Auto 62.8 % (50-75); Platelet Count 332 X10^3/uL (150-400); Red Blood Cell Count 4.62 X10^6/uL (4.0-5.2); Red Cell Distribution Width 13.3 % (11.6-14.8); White Blood Cell Count 10.8 X10^3/uL (4.5-11.0)
[2024-03-11 18:29] LABS: Pregnancy Test Serum,Qual Negative (Negative)
[2024-03-11 18:30] VITALS: BP 117/67; PULSE 111; O2SAT 100
[2024-03-11 18:30] LABS: Lactate (Lactic Acid) 1.3 mmol/L (0.7-2.1)
[2024-03-11 18:31] LABS: Alanine Aminotransferase 17 IU/L (<35); Albumin 4.3 g/dL (3.5-5.0); Albumin Globulin Ratio 1.3 (1.0-2.8); Alkaline Phosphatase 98 U/L (38-126); Aspartate Aminotransferase 19 IU/L (14-36); BUN Creatinine Ratio 13.6 (6-22); Bilirubin Total 0.5 mg/dL (0.2-1.3); Blood Urea Nitrogen 12 mg/dL (7-17); Calcium 9.5 mg/dL (8.4-10.2); Carbon Dioxide 24 mmol/L (22-32); Chloride 107 mmol/L (98-107); Estimated Glomerular Filt Rate > 60 mL/min (>60); Globulin 3.2 g/dL (1.7-4.1); Glucose 87 mg/dL (70-100); HEMOLYSIS < 15 (0-50); Lipase 85 U/L (23-300); Potassium 3.7 mmol/L (3.4-5.1); Sodium 139 mmol/L (137-145); Total Protein 7.5 g/dL (6.3-8.2)
[2024-03-11] MEDS: SODIUM CHLORIDE 0.9% 1,000 ML 1000 ML IV (18:32)
[2024-03-11] MEDS: ACETAMINOPHEN IV 1,000 MG/100 ML VIAL 400 MG IV (18:34)
[2024-03-11] MEDS: KETOROLAC 30 MG/ML VIAL 15 MG IV (18:34)
[2024-03-11] MEDS: DROPERIDOL 5 MG/2 ML VIAL 2.5 MG IV (18:34)
[2024-03-11 19:00] VITALS: BP 117/68; PULSE 102; O2SAT 100
[2024-03-11 19:30] VITALS: BP 134/75; PULSE 100; O2SAT 100
== END 2024-03-11 20:00 | disposition home or self-care (01) ==
PROVIDERS: Emergency Medicine; Emergency Provider Emergency Medicine; PCP Family Medicine
DX: R10.9 Unspecified abdominal pain (principal)
CPT/HCPCS: 36415; 80053; 81003; 83605; 83690; 84703; 85025; 96365; 96375; 99284; J0134; J1790; J1885

== ENCOUNTER 2024-06-18 16:19 | Emergency (ER) | payer OTHER, SELFPAY ==
[2023-04-27 11:48] VITALS: BMI 32.5
[2024-06-18 16:31] VITALS: BP 124/80; PULSE 125; RESP 20; TEMP 36.2; BMI 31.5
--- NOTE | 2024-06-18 17:31 | PC.NURSE ---
Addendum entered by Sasha Mendosa R.N. 06/18/24 17:31: Pt also reports needing to bear down to urinate. Original Note: This RN checks on patient. She reports fog like vision and pain to her face and head. She also reports burning in her lower abdomen.
--- NOTE | 2024-06-18 18:03 | PC.NURSE ---
Patient has extensive medical history and is here with several states complaints. Patient had a fall three weeks ago where her legs just gave out she states she hit her head but did not lose consciousness, injured right shoulder patient states that she cant raise her right arm, patient then rises her right arm for this RN. Went to [facility] for CT scan she states they took the scan and discharge her dont know what it said. Patient states that they have a fog across their vision since the fall.
--- NOTE | 2024-06-18 18:12 | ED.GENADULT ---
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 Patient states that she fell 3 weeks ago, hitting her head. She states that she was evaluated at [facility] and received a CT scan, but then was almost immediately discharged and ?no one told me what my results were?. She reports a persistent headache since that time. Since last night patient reports having to bear down to urinate, burning sensation in her skin, fogginess over her vision, and easy bruising. Here today for evaluation of these complaints. Denies new injury or accident. Related Data Home Medications Medication Instructions Recorded Confirmed prazosin 2 mg capsule 2 mg PO BEDTIME 06/22/23 11/22/23 propranolol 60 mg capsule,24 60 mg PO DAILY 07/06/23 11/22/23 hr,extended release venlafaxine 150 mg 150 mg PO DAILY 07/06/23 11/22/23 capsule,extended release 24 hr venlafaxine 75 mg capsule,extended 75 mg PO DAILY 07/06/23 11/22/23 release 24 hr Previous Rx's Medication Instructions Recorded albuterol sulfate 90 mcg/actuation 2 puff inhalation Q4-6H PRN 04/10/19 aerosol inhaler shortness of breath #18 grams ondansetron HCl 8 mg tablet 8 mg PO Q8H PRN nausea and 03/22/22 vomiting #30 tabs ibuprofen 600 mg tablet 600 mg PO Q6H PRN fever or pain 12/11/22 #30 tabs polyethylene glycol 3350 17 17 g PO DAILY for soft stool #238 12/11/22 gram/dose oral powder (Miralax) grams baclofen 5 mg tablet 5 mg PO TID #90 tabs 08/03/23 pregabalin 150 mg capsule (Lyrica) 150 mg PO BID #60 caps 08/03/23 elagolix 200 mg tablet (Orilissa) 200 mg PO BID #60 tabs 10/09/23 cyclobenzaprine 10 mg tablet 10 mg PO TID PRN muscle spasm #20 10/21/23 tabs hydrocodone 5 mg-acetaminophen 325 1 tab PO BID PRN pain #6 tabs 10/21/23 mg tablet norelgestromin 150 mcg-e.estradiol 1 patch transdermal QWEEK #3 ea 11/23/23 35 mcg/24 hr weekly transderm patch (Xulane) hydrocodone 5 mg-acetaminophen 325 1 tab PO Q6H PRN pain #10 tabs 02/17/24 mg tablet promethazine 25 mg rectal 25 mg NE Q4-6H PRN nausea and 03/11/24 suppository vomiting #12 ea promethazine 25 mg tablet 25 mg PO Q6H PRN nausea and 03/11/24 vomiting #30 tabs Allergies Allergy/AdvReac Type Severity Reaction Status Date / Time shellfish derived Allergy Severe Anaphylaxis Verified 02/17/24 16:22 lidocaine Allergy Intermediate ITCHING Verified 11/22/23 14:42 doxycycline [DOXYCYCLINE] Allergy Unknown Verified 11/22/23 14:42 Penicillins [PENICILLINS] Allergy Unknown Verified 11/22/23 14:42 iodine Allergy Hives Verified 02/17/24 15:55 cortisone AdvReac Severe Swelling Verified 11/22/23 14:42 Patient History Medical History Bilateral hip pain Myofascial pain SI (sacroiliac) joint dysfunction Dorsalgia CVA (cerebral vascular accident) Normal endoscopy Normal colonoscopy Torn rotator cuff Cholecystitis Tumor of liver Fibromyalgia Acute right lower quadrant pain Exercise-induced asthma Anxiety Right foot strain Jaw pain, non-TMJ Lower GI bleed Gastroenteritis Surgical History History of cholecystectomy (~03/2022) H/O knee surgery History of appendectomy Family History Mother Bowel obstruction Lupus Spinal cord cancer Fibromyalgia Epilepsy Blood clotting tendency Stroke Sister Bowel obstruction Tachycardia Arrhythmia Fibromyalgia Family/Other Colon cancer Grandmother S/P CABG x 3 Tachycardia Father Tachycardia Brother Tachycardia Grandmother Liver cancer Social History marital status: number of children: 0 household members: spouse lives independently: Yes housing: house pets and animals: Yes (2 dogs, 1 cat) education level: college occupational status: employed current occupational exposures/hazards: No special reuben needs: No travel history: over 6 months ago seatbelt use: always water heater temp set < 120 deg: Yes working smoke detector in home: Yes fire extinguisher in home: Yes carbon monox detector in home: Yes firearms in home: No do you feel safe at home: Yes Smoking Status: Current every day smoker second hand exposure: Yes ( smokes outside) alcohol intake: former substance use type: marijuana during the past year weight has: remained stable well-balanced diet: about half the time daily servings fruits/ve-4 caffeine: Yes (aware of 200mg limit) Type(s) of exercise: walking frequency: 5-6 times per week Smoking Status: Current every day smoker tobacco type: vaping alcohol intake frequency: holidays/special occasions only Exam Initial Vital Signs Initial Vital Signs: Vital Signs Temperature 97.1 F L 06/18/24 16:31 Pulse Rate 125 H 06/18/24 16:31 Respiratory Rate 20 06/18/24 16:31 Blood Pressure 124/80 06/18/24 16:31 Const: Awake, alert, no acute distress, nontoxic appearing HEENT: PERRLA, EOMI, cornea clear, visual acuity per nursing note Cardiac: regular rate, regular rhythm RESP: unlabored, clear bilaterally, no wheezing MSK: Atraumatic, full range of motion, pulses equal Skin: Warm, Dry, intact, no rashes Neuro: AO x3, CN II-XII grossly intact, moves all extremities Course Orders Ordered: ED Orders 06/18/24 18:56 XR shoulder LT min 2V Stat XR shoulder RT min 2V Stat 06/18/24 19:37 CBC Auto Diff [Complete Blood Count AUTO DIFF] Stat CMP [Comprehensive Metabolic Panel] Stat Discontinued Medications Diphenhydramine HCl (Diphenhydramine 50 Mg/Ml Vial) 50 mg IV NOW ONE Stop: 06/18/24 18:47 Last Admin: 06/18/24 19:36 Dose: 50 mg Documented By: JENNIFER Droperidol (Droperidol 5 Mg/2 Ml Vial) 2.5 mg IV NOW ONE Stop: 06/18/24 18:47 Last Admin: 06/18/24 19:37 Dose: Not Given Documented By: JENNIFER Ketorolac Tromethamine (Ketorolac 30 Mg/Ml Vial) 15 mg IV NOW ONE Stop: 06/18/24 18:47 Last Admin: 06/18/24 19:36 Dose: 15 mg Documented By: JENNIFER Metoclopramide HCl (Metoclopramide 10 Mg/2 Ml Inj) 10 mg IV NOW ONE Stop: 06/18/24 18:47 Last Admin: 06/18/24 19:36 Dose: 10 mg Documented By: JENNIFER Potassium Chloride (Potassium Chloride 20 Meq Tab) 40 meq PO NOW ONE Stop: 06/18/24 20:13 Last Admin: 06/18/24 20:26 Dose: 40 meq Documented By: JENNIFER Vital Signs Vital signs: Vital Signs - 8 hr 06/18/24 16:31 06/18/24 19:42 06/18/24 19:43 Temperature 97.1 F L Pulse Rate 125 H 132 H 130 H Respiratory Rate 20 21 Blood Pressure 124/80 Pulse Oximetry 100 98 06/18/24 19:43 06/18/24 20:00 06/18/24 20:00 Temperature Pulse Rate 123 H Respiratory Rate 19 Blood Pressure 136/72 109/67 Pulse Oximetry 100 06/18/24 20:30 06/18/24 20:30 Temperature Pulse Rate 131 H Respiratory Rate 18 Blood Pressure 116/66 Pulse Oximetry 100 Medical Decision Making Lab Data 06/18/24 19:37 06/18/24 19:37 Labs: Lab Results 06/18/24 Range/Units 19:37 WBC 6.7 (4.5-11.0) X10^3/uL RBC 4.40 (4.0-5.2) X10^6/uL Hgb 14.2 (12.0-16.0) g/dL Hct 39.6 (36-46) % MCV 89.8 (80-100) fL MCH 32.2 (26-34) PG MCHC 35.8 (30-36) % RDW 12.9 (11.6-14.8) % Plt Count 311 (150-400) X10^3/uL Neut % (Auto) 50.2 (50-75) % Lymph % (Auto) 44.3 H (25-40) % Towns % (Auto) 4.5 (3-14) % Eos % (Auto) 0.6 L (2-4) % Baso % (Auto) 0.4 (0-2) % Neut # (Auto) 3400 (2962-6222) /uL Lymph # (Auto) 3000 (0877-1394) /uL Towns # (Auto) 300 (0-900) /uL Eos # (Auto) 0 (0-450) /uL Baso # (Auto) 0 (0-100) /uL Sodium 140 (137-145) mmol/L Potassium 2.7 L* (3.4-5.1) mmol/L Chloride 108 H (98-107) mmol/L Carbon Dioxide 24 (22-32) mmol/L BUN 5 L (7-17) mg/dL Creatinine 0.80 (0.52-1.04) mg/dL Estimated GFR > 60 (>60) mL/min BUN/Creatinine Ratio 6.3 (6-22) Glucose 106 H (70-100) mg/dL Calcium 9.7 (8.4-10.2) mg/dL Total Bilirubin 0.4 (0.2-1.3) mg/dL AST 56 H (14-36) IU/L ALT 56 H (<35) IU/L Alkaline Phosphatase 111 (38-126) U/L Total Protein 7.3 (6.3-8.2) g/dL Albumin 4.4 (3.5-5.0) g/dL Globulin 2.9 (1.7-4.1) g/dL Albumin/Globulin Ratio 1.5 (1.0-2.8) MDM Narrative Medical decision making narrative: multiple complaints including headache x 3 weeks, foggy vision, skin burning, and easy bruising. Physical exam is fairly unremarkable. On entering ED room patient was on her phone with significant other and young daughter present in the room. Heart rate initially 90, however after I entered the room heart rate jumped to 120bpm. We do not have CT capabilities at this time due to misfunctioning scanner, however patient had negative CT done 3 weeks prior at [facility] that showed no acute intracranial findings. With no new trauma no indication for repeat CT at this time. Patient reports having to bear down to urinate, and states that she is drinking far more water than she is urinating out. Post void residual obtained with only 40mL in bladder. Skin burning sensation is generalized, in no specific pattern or distribution. Patient reports easy bruising and points to a small 1cm bruise on upper bicep, however there is no other obvious bruising on patient's body. Will give headache cocktail and order labs to assess for acute findings. Patient reassessed, receiving IV meds. Again, it was noted that patient was resting comfortably in bed texting on her cell phone despite reporting not being able to see due to her foggy vision. Patient initially noted with normal heart rate, after I entered the room heart rate increased to 120+bpm. Labs show K 2.7. Given oral repletion. Other labs including hemoglobin and platelets normal. No obvious cause for patient's reported symptoms. She was counseled to follow up with her PCP, eat potassium rich foods. Also recommended ophtho eval if vision problems continue. Discharge Plan Departure Patient Disposition: Home Clinical Impression: Headache, Hypokalemia, Paresthesia Instructions: DI for Hypokalemia Activity Restrictions/Additional Instructions: Today your blood work showed low potassium, otherwise your hemoglobin and platelets were normal. You had a very mild increase in your liver function labs compared to when you were last here in March, however this is very mild and can be followed up by your primary care doctor. I do recommend seeing an eye doctor for the fogginess in your vision. Your examination today showed clear corneas and normal reactions to light. We gave you a dose of potassium here, however over the next several days you should eat potassium rich foods to help increase your potassium levels. Your urinalysis did not show signs of infection. Prescriptions: No Action Orilissa 200 mg tablet 200 mg PO BID Qty: 60 5RF norelgestromin-ethin.estradiol [Xulane] 150-35 mcg/24 hr patch weekly 1 patch transdermal QWEEK Qty: 3 12RF Rx Instructions: apply once weekly for 3 weeks of a 4-week cycle ondansetron HCl 8 mg tablet 8 mg PO Q8H PRN (Reason: nausea and vomiting) Qty: 30 5RF prazosin 2 mg capsule 2 mg PO BEDTIME albuterol sulfate 90 mcg/actuation HFA aerosol inhaler 2 puff INHALATION Q4-6H PRN (Reason: shortness of breath) Qty: 18 0RF polyethylene glycol 3350 [Miralax] 17 gram/dose powder 17 g PO DAILY Qty: 238 0RF ibuprofen 600 mg tablet 600 mg PO Q6H PRN (Reason: fever or pain) Qty: 30 0RF Rx Instructions: Take with food and water promethazine 25 mg tablet 25 mg PO Q6H PRN (Reason: nausea and vomiting) Qty: 30 0RF promethazine 25 mg suppository 25 mg NE Q4-6H PRN (Reason: nausea and vomiting) Qty: 12 0RF cyclobenzaprine 10 mg tablet 10 mg PO TID PRN (Reason: muscle spasm) Qty: 20 0RF hydrocodone-acetaminophen 5-325 mg tablet 1 tab PO BID PRN (Reason: pain) Qty: 6 0RF hydrocodone-acetaminophen 5-325 mg tablet 1 tab PO Q6H PRN (Reason: pain) Qty: 10 0RF venlafaxine 150 mg capsule,extended release 24hr 150 mg PO DAILY venlafaxine 75 mg capsule,extended release 24hr 75 mg PO DAILY propranolol 60 mg capsule,extended release 24 hr 60 mg PO DAILY pregabalin [Lyrica] 150 mg capsule 150 mg PO BID Qty: 60 2RF baclofen 5 mg tablet 5 mg PO TID Qty: 90 2RF Referrals: Tara Kemp MD [Primary Care Provider] - Stand Alone Forms: Patient Portal/API/Survey
--- NOTE | 2024-06-18 18:56 | DI.RAD.S_ITS ---
PROCEDURE: XR SHOULDER RT MIN 2V INDICATIONS: GLF 3 wks ago, states can't raise arms above head TECHNIQUE: 3 views of the shoulder were acquired. COMPARISON: [facility], [place], XR SHOULDER LT MIN 2V, 05/02/2018, 16:39. FINDINGS: Bones: No fractures or dislocations. No suspicious bony lesions. Visualized ribs appear intact. Soft tissues: No suspicious soft tissue calcifications. IMPRESSION: No acute bony abnormality. Dictated by: Haja Ceballos M.D. on 06/18/2024 at 19:59 Approved by: Haja Ceballos M.D. on 06/18/2024 at 19:59
--- NOTE | 2024-06-18 18:56 | DI.RAD.S_ITS ---
PROCEDURE: XR SHOULDER LT MIN 2V INDICATIONS: GLF 3 wks ago, states can't raise arms above head TECHNIQUE: 3 views of the shoulder were acquired. COMPARISON: [facility], [place], XR SHOULDER LT MIN 2V, 05/02/2018, 16:39. FINDINGS: Bones: No fractures or dislocations. No suspicious bony lesions. Visualized ribs appear intact. Soft tissues: No suspicious soft tissue calcifications. IMPRESSION: No acute bony abnormality. Dictated by: Haja Ceballos M.D. on 06/18/2024 at 19:58 Approved by: Haja Ceballos M.D. on 06/18/2024 at 19:59
[2024-06-18] MEDS: diphenhydrAMINE 50 MG/ML VIAL IV (19:36)
[2024-06-18] MEDS: KETOROLAC 30 MG/ML VIAL 15 MG IV (19:36)
[2024-06-18] MEDS: METOCLOPRAMIDE 10 MG/2 ML INJ IV (19:36)
[2024-06-18 19:42] VITALS: PULSE 132; O2SAT 100
[2024-06-18 19:43] VITALS: BP 136/72; PULSE 130; RESP 21; O2SAT 98
[2024-06-18 19:44] LABS: Add Manual Diff / Slide Review NO; Basophils Absolute Auto 0 /uL (0-100); Basophils Percent Auto 0.4 % (0-2); Eosinophils Absolute Auto 0 /uL (0-450); Eosinophils Percent Auto 0.6 % (2-4); Hematocrit 39.6 % (36-46); Hemoglobin 14.2 g/dL (12.0-16.0); Lymphocytes Absolute Auto 3000 /uL (1100-4500); Lymphocytes Percent Auto 44.3 % (25-40); Mean Corpuscular HGB Conc 35.8 % (30-36); Mean Corpuscular Hemoglobin 32.2 PG (26-34); Mean Corpuscular Volume 89.8 fL (80-100); Monocytes Absolute Auto 300 /uL (0-900); Monocytes Percent Auto 4.5 % (3-14); Neutrophils Absolute Auto 3400 /uL (1500-7000); Neutrophils Percent Auto 50.2 % (50-75); Platelet Count 311 X10^3/uL (150-400); Red Cell Distribution Width 12.9 % (11.6-14.8); White Blood Cell Count 6.7 X10^3/uL (4.5-11.0)
[2024-06-18 19:58] LABS: Alanine Aminotransferase 56 IU/L (<35); Albumin 4.4 g/dL (3.5-5.0); Albumin Globulin Ratio 1.5 (1.0-2.8); Alkaline Phosphatase 111 U/L (38-126); Aspartate Aminotransferase 56 IU/L (14-36); BUN Creatinine Ratio 6.3 (6-22); Bilirubin Total 0.4 mg/dL (0.2-1.3); Blood Urea Nitrogen 5 mg/dL (7-17); Calcium 9.7 mg/dL (8.4-10.2); Carbon Dioxide 24 mmol/L (22-32); Chloride 108 mmol/L (98-107); Estimated Glomerular Filt Rate > 60 mL/min (>60); Globulin 2.9 g/dL (1.7-4.1); Glucose 106 mg/dL (70-100); HEMOLYSIS < 15 (0-50); Sodium 140 mmol/L (137-145); Total Protein 7.3 g/dL (6.3-8.2)
[2024-06-18 20:00] VITALS: BP 109/67; PULSE 123; RESP 19; O2SAT 100
[2024-06-18 20:02] LABS: Potassium 2.7 mmol/L (3.4-5.1)
[2024-06-18] MEDS: POTASSIUM CHLORIDE 20 MEQ TAB 40 MEQ PO (20:26)
[2024-06-18 20:30] VITALS: BP 116/66; PULSE 131; RESP 18; O2SAT 100
== END 2024-06-18 20:48 | disposition home or self-care (01) ==
PROVIDERS: Emergency Provider Emergency Medicine; PCP Family Medicine
DX: R51.9 Headache, unspecified (principal); E87.6 Hypokalemia; R20.2 Paresthesia of skin
CPT/HCPCS: 36415; 51798; 73030; 80053; 85025; 96374; 96375; 99284; J1200; J1885; J2765

== ENCOUNTER 2025-03-26 11:25 | Emergency (ER) | payer OTHER, SELFPAY ==
[2023-04-27 11:48] VITALS: BMI 32.5
[2025-03-26 11:41] VITALS: BP 113/70; PULSE 118; RESP 16; TEMP 36.7; O2SAT 97; BMI 28.0
--- NOTE | 2025-03-26 12:17 | DI.RAD.S_ITS ---
PROCEDURE: XR LUMBAR SPINE 2-3V INDICATIONS: Pain TECHNIQUE: 3 views of the lumbar spine were acquired. COMPARISON: [facility], CR, XR SHOULDER RT MIN 2V, 06/18/2024, 18:54. [facility], CR, XR SHOULDER LT MIN 2V, 06/18/2024, 18:54. [facility], CT, CT ABDOMEN PELVIS WO CON, 02/20/2024, 3:27. [facility], CR, XR THORACIC SPINE 2V, 03/26/2025, 12:59. [facility], CR, XR CERVICAL SPINE 2V OR 3V, 03/26/2025, 12:59. [facility], CR, XR LUMBAR SPINE MIN 4V, 05/15/2023, 10:41. FINDINGS: Bones: 5 [id number] vertebrae are present. There is normal bony alignment. No vertebral body compression fractures. No suspicious bony lesions. The disc heights are well preserved. Soft tissues: Overlying bowel gas pattern is normal. No suspicious soft tissue calcifications. Cholecystectomy clips are seen. Right lower quadrant postoperative clips are seen. There is a thoracic spine stimulator power pack seen on the left IMPRESSION: No significant abnormality of the lumbar spine can be seen. Underlying postoperative change can be seen, including a thoracic spine stimulator. Dictated by: Jefe Palafox M.D. on 03/26/2025 at 12:39 Approved by: Jefe Palafox M.D. on 03/26/2025 at 12:41
--- NOTE | 2025-03-26 12:18 | ED.EXTPRO ---
HPI - Extremity Problem General Chief complaint: Extremity Problem,Nontraumatic Stated complaint: back implant, severe pain from area of vickie pack Time Seen by Provider: 03/26/25 12:11 Source: patient Mode of arrival: Family Vehicle History of Present Illness HPI Narrative: Patient denies does not want a test. Patient here with . Complains neck pain midback pain lower back pain radiating anterior both legs feels a burning sensation throughout her back and legs. ML placed in December 2024 from outside hospital. Patient has long history of degenerative disc disease and scoliosis. Started having back problems when she was 22 years old. No bowel or bladder incontinence or retention. No saddle paresthesia. Patient prefers to lay in position on her left side. She is able to lay flat. For exam. Related Data Home Medications ?Medication ?Instructions ?Recorded ?Confirmed prazosin 2 mg capsule 2 mg PO BEDTIME 06/22/23 11/22/23 propranolol 60 mg capsule,24 60 mg PO DAILY 07/06/23 11/22/23 hr,extended release venlafaxine 150 mg 150 mg PO DAILY 07/06/23 11/22/23 capsule,extended release 24 hr venlafaxine 75 mg capsule,extended 75 mg PO DAILY 07/06/23 11/22/23 release 24 hr Previous Rx's ?Medication ?Instructions ?Recorded albuterol sulfate 90 mcg/actuation 2 puff inhalation Q4-6H PRN 04/10/19 aerosol inhaler shortness of breath #18 grams ondansetron HCl 8 mg tablet 8 mg PO Q8H PRN nausea and 03/22/22 vomiting #30 tabs ibuprofen 600 mg tablet 600 mg PO Q6H PRN fever or pain 12/11/22 #30 tabs polyethylene glycol 3350 17 17 g PO DAILY for soft stool #238 12/11/22 gram/dose oral powder (Miralax) grams baclofen 5 mg tablet 5 mg PO TID #90 tabs 08/03/23 pregabalin 150 mg capsule (Lyrica) 150 mg PO BID #60 caps 08/03/23 elagolix 200 mg tablet (Orilissa) 200 mg PO BID #60 tabs 10/09/23 cyclobenzaprine 10 mg tablet 10 mg PO TID PRN muscle spasm #20 10/21/23 tabs hydrocodone 5 mg-acetaminophen 325 1 tab PO BID PRN pain #6 tabs 10/21/23 mg tablet norelgestromin 150 mcg-e.estradiol 1 patch transdermal QWEEK #3 ea 11/23/23 35 mcg/24 hr weekly transderm patch (Xulane) hydrocodone 5 mg-acetaminophen 325 1 tab PO Q6H PRN pain #10 tabs 02/17/24 mg tablet promethazine 25 mg rectal 25 mg GA Q4-6H PRN nausea and 03/11/24 suppository vomiting #12 ea promethazine 25 mg tablet 25 mg PO Q6H PRN nausea and 03/11/24 vomiting #30 tabs baclofen 20 mg tablet 20 mg PO TID PRN pain (scale score 03/26/25 4-6) #12 tabs hydrocodone 5 mg-acetaminophen 325 1 tab PO Q6H PRN pain #7 tabs 03/26/ mg tablet Allergies Allergy/AdvReac Type Severity Reaction Status Date / Time shellfish derived Allergy Severe Anaphylaxis Verified 02/17/24 16:22 lidocaine Allergy Intermediate ITCHING Verified 11/22/23 14:42 doxycycline (DOXYCYCLINE) Allergy Unknown Verified 11/22/23 14:42 Penicillins (PENICILLINS) Allergy Unknown Verified 11/22/23 14:42 iodine Allergy Hives Verified 02/17/24 15:55 cortisone AdvReac Severe Swelling Verified 11/22/23 14:42 Review of Systems Review of Systems Narrative: GENERAL: Negative chills, fatigue, malaise, fever, sweats. HEENT: Negative sinus pain, ear pain, sore throat RESPIRATORY: Negative dyspnea, cough CARDIOVASCULAR: Negative chest pain, palpitations GASTROINTESTINAL: Negative vomiting, nausea, abdominal pain : Negative dysuria, frequency, hematuria MUSCULOSKELETAL: Positive back, muscle or bony pain SKIN: Negative rash, skin lesions NEUROLOGIC: Negative weakness, numbness ROS Unobtainable: All systems reviewed & are unremarkable except as noted in HPI and below Patient History Medical History Bilateral hip pain Myofascial pain SI (sacroiliac) joint dysfunction Dorsalgia CVA (cerebral vascular accident) Normal endoscopy Normal colonoscopy Torn rotator cuff Cholecystitis Tumor of liver Fibromyalgia Acute right lower quadrant pain Exercise-induced asthma Anxiety Right foot strain Jaw pain, non-TMJ Lower GI bleed Gastroenteritis Surgical History History of cholecystectomy (~03/2022) H/O knee surgery History of appendectomy Family History Mother Bowel obstruction Lupus Spinal cord cancer Fibromyalgia Epilepsy Blood clotting tendency Stroke Sister Bowel obstruction Tachycardia Arrhythmia Fibromyalgia Family/Other Colon cancer Grandmother S/P CABG x 3 Tachycardia Father Tachycardia Brother Tachycardia Grandmother Liver cancer Social History marital status: number of children: 0 household members: spouse lives independently: Yes housing: house pets and animals: Yes (2 dogs, 1 cat) education level: college occupational status: employed current occupational exposures/hazards: No special reuben needs: No travel history: over 6 months ago seatbelt use: always water heater temp set < 120 deg: Yes working smoke detector in home: Yes fire extinguisher in home: Yes carbon monox detector in home: Yes firearms in home: No do you feel safe at home: Yes second hand exposure: Yes ( smokes outside) alcohol intake: former substance use type: marijuana during the past year weight has: remained stable well-balanced diet: about half the time daily servings fruits/ve-4 caffeine: Yes (aware of 200mg limit) Type(s) of exercise: walking frequency: 5-6 times per week tobacco type: vaping alcohol intake frequency: holidays/special occasions only Exam Narrative Exam Narrative: GENERAL: in no distress, not toxic not dyspneic HEAD: Normocephalic. EYES: Pupils equal round ENT: Mucous membranes moist. NECK: Trachea midline. CARDIOVASCULAR: Regular rate and rhythm RESPIRATORY: Clear to auscultation. Breath sounds equal bilaterally. No wheezes, rales, or rhonchi. GASTROINTESTINAL: Abdomen soft, non-tender EXTREMITIES: No gross deformities. BACK: No flank tenderness. There is reproducible bilateral parathoracic paralumbar muscle tenderness with limited range of motion due to pain. However patient able to lie supine. Able to do bilateral straight leg raises without pain. Strong bilateral patellar reflexes and ankle flexion-extension. NEURO: AOx4. Clear speech. Light touch intact to bilateral legs. SKIN: Warm and dry PSYCH: Not anxious, is cooperative Initial Vital Signs Initial Vital Signs: Vital Signs Temperature 98.1 F 03/26/25 11:41 Pulse Rate 118 H 03/26/25 11:41 Respiratory Rate 16 03/26/25 11:41 Blood Pressure 113/70 03/26/25 11:41 Pulse Oximetry 97 03/26/25 11:41 Oxygen Delivery Method Room Air 03/26/25 11:41 Course Orders Ordered: Discontinued Medications Hydromorphone HCl (Hydromorphone 1 Mg/Ml Syringe) 1 mg IV NOW ONE Stop: 03/26/25 12:18 Last Admin: 03/26/25 12:40 Dose: 1 mg Documented By: HILARY Ondansetron HCl (Ondansetron 4 Mg/2 Ml Inj) 4 mg IV NOW ONE Stop: 03/26/25 12:18 Last Admin: 03/26/25 12:39 Dose: 4 mg Documented By: HILARY Vital Signs Vital signs: Vital Signs - 8 hr 03/26/25 11:41 03/26/25 12:49 03/26/25 13:23 Temperature 98.1 F Pulse Rate 118 H 106 H 102 H Respiratory Rate 16 Blood Pressure 113/70 Pulse Oximetry 97 98 96 Oxygen Delivery Method Room Air MDM - Extremity (Nontraumatic) Lab Data 03/26/25 12:29 03/26/25 12:29 Labs: Lab Results 03/26/25 Range/Units 12:29 WBC 7.4 (4.5-11.0) X10^3/uL RBC 4.44 (4.0-5.2) X10^6/uL Hgb 14.0 (12.0-16.0) g/dL Hct 39.9 (36-46) % MCV 89.8 (80-100) fL MCH 31.5 (26-34) PG MCHC 35.1 (30-36) % RDW 12.9 (11.6-14.8) % Plt Count 277 (150-400) X10^3/uL Neut % (Auto) 67.3 (50-75) % Lymph % (Auto) 28.2 (25-40) % [place] % (Auto) 4.1 (3-14) % Eos % (Auto) 0.0 L (2-4) % Baso % (Auto) 0.4 (0-2) % Neut # (Auto) 5000 (2621-1561) /uL Lymph # (Auto) 2100 (2320-5760) /uL [place] # (Auto) 300 (0-900) /uL Eos # (Auto) 0 (0-450) /uL Baso # (Auto) 0 (0-100) /uL Sodium 139 (137-145) mmol/L Potassium 4.1 (3.4-5.1) mmol/L Chloride 110 H (98-107) mmol/L Carbon Dioxide 18 L (22-32) mmol/L BUN 13 (7-17) mg/dL Creatinine 0.68 (0.52-1.04) mg/dL Estimated GFR > 60 (>60) mL/min BUN/Creatinine Ratio 19.1 (6-22) Glucose 94 (70-99) mg/dL Calcium 9.2 (8.4-10.2) mg/dL Total Bilirubin 0.4 (0.2-1.3) mg/dL AST 22 (14-36) IU/L ALT 14 (<35) IU/L Alkaline Phosphatase 122 (38-126) U/L Total Protein 7.7 (6.3-8.2) g/dL Albumin 4.5 (3.5-5.0) g/dL Globulin 3.2 (1.7-4.1) g/dL Albumin/Globulin Ratio 1.4 (1.0-2.8) Imaging Data X-ray cervical spine: Radiologist's Impression: [address] [address] XRay Report Signed Patient: Sandee Amin MR#: [id number] : 1995 Acct:[id number] Age/Sex: 30 / F Date of Service: 03/26/25 Loc: ED Accession Number: [id number] Procedure: XR cervical spine 2V or 3V Ordering Provider: Jabari Mcguire MD PROCEDURE: XR CERVICAL SPINE 2V OR 3V INDICATIONS: Pain TECHNIQUE: 3 view(s) of the cervical spine were acquired. COMPARISON: [facility], CR, XR THORACIC SPINE 2V, 03/26/2025, 12:59. [facility], CR, XR LUMBAR SPINE 2-3V, 03/26/2025, 12:59. (Additional prior imaging is not available for review from the archive at the time of this dictation.) FINDINGS: Bones: No fractures or dislocations to the C7 level. The lateral masses of C1 appear intact on the odontoid view. No suspicious bony lesions. Soft tissues: No prevertebral soft tissue swelling. IMPRESSION: No significant plain film abnormality is seen. Dictated by: Jefe Palafox M.D. on 03/26/2025 at 12:38 Approved by: Jefe Palafox M.D. on 03/26/2025 at 12:39 X-ray thoracic spine: Radiologist's Impression: [address] [address] XRay Report Signed Patient: Sandee Amin MR#: [id number] : 1995 Acct:[id number] Age/Sex: 30 / F Date of Service: 03/26/25 Loc: ED Accession Number: [id number] Procedure: XR thoracic spine 2V Ordering Provider: Jabari Mcguire MD PROCEDURE: XR THORACIC SPINE 2V INDICATIONS: Pain TECHNIQUE: 3 views of the thoracic spine were acquired. COMPARISON: [facility], CR, XR LUMBAR SPINE 2-3V, 03/26/2025, 12:59. [facility], CR, XR CERVICAL SPINE 2V OR 3V, 03/26/2025, 12:59. FINDINGS: Bones: No fractures or dislocations. No suspicious bony lesions. 12 pairs of ribs are noted, and appear intact where visualized. Soft tissues: No paravertebral stripe thickening. Cholecystectomy clips are seen. Thoracic spine stimulator leads can be seen. IMPRESSION: No acute plain film abnormality can be seen. Postoperative changes are seen. Dictated by: Jefe Palafox M.D. on 03/26/2025 at 12:37 Approved by: Jefe Palafox M.D. on 03/26/2025 at 12:38 X-ray lumbar spine: Radiologist's Impression: [address] [address] XRay Report Signed Patient: Sandee Amin MR#: [id number] : 1995 Acct:[id number] Age/Sex: 30 / F Date of Service: 03/26/25 Loc: ED Accession Number: [id number] Procedure: XR lumbar spine 2-3V Ordering Provider: Jabari Mcguire MD PROCEDURE: XR LUMBAR SPINE 2-3V INDICATIONS: Pain TECHNIQUE: 3 views of the lumbar spine were acquired. COMPARISON: [facility], CR, XR SHOULDER RT MIN 2V, 06/18/2024, 18:54. [facility], CR, XR SHOULDER LT MIN 2V, 06/18/2024, 18:54. [facility], CT, CT ABDOMEN PELVIS WO CON, 02/20/2024, 3:27. [facility], CR, XR THORACIC SPINE 2V, 03/26/2025, 12:59. [facility], CR, XR CERVICAL SPINE 2V OR 3V, 03/26/2025, 12:59. [facility], CR, XR LUMBAR SPINE MIN 4V, 05/15/2023, 10:41. FINDINGS: Bones: 5 [id number] vertebrae are present. There is normal bony alignment. No vertebral body compression fractures. No suspicious bony lesions. The disc heights are well preserved. Soft tissues: Overlying bowel gas pattern is normal. No suspicious soft tissue calcifications. Cholecystectomy clips are seen. Right lower quadrant postoperative clips are seen. There is a thoracic spine stimulator power pack seen on the left IMPRESSION: No significant abnormality of the lumbar spine can be seen. Underlying postoperative change can be seen, including a thoracic spine stimulator. Dictated by: Jefe Palafox M.D. on 03/26/2025 at 12:39 Approved by: Jefe Palafox M.D. on 03/26/2025 at 12:41 [facility] Narrative Medical decision making narrative: Patient denies does not want a test. Patient here with . Complains neck pain midback pain lower back pain radiating anterior both legs feels a burning sensation throughout her back and legs. ML placed in December 2024 from outside hospital. Patient has long history of degenerative disc disease and scoliosis. Started having back problems when she was 22 years old. No bowel or bladder incontinence or retention. No saddle paresthesia. Patient prefers to lay in position on her left side. She is able to lay flat. For exam. MDM After history and exam, Dilaudid Zofran CBC CMP x-ray cervical thoracic lumbar spine Differential considered: Includes but not limited to hardware malfunction acute exacerbation of chronic back pain Medical records reviewed: No recent visit for this complaint Lab Test results independently reviewed as above. Pertinent findings: Imaging studies independently reviewed: X-ray cervical thoracic lumbar spine no acute finding Consultations: None indicated at this time Re-evaluations: 2:24 p.m.. Pain is controlled. Reviewed results with patient and . She does have appointment tomorrow with her primary care and establish appointment with her pain management next month. Laboratory studies and imaging studies reassuring. Maybe exacerbation of chronic back pain. Return precautions reviewed work note provided. They desire discharge home. Patient able to lay supine position now. Discussion: Appropriate for discharge home. Patient neurologically intact. Pain controlled at this time. Return precautions reviewed and they desire discharge home. Diagnosis: Back pain Discharge Plan Departure Patient Disposition: Home Clinical Impression: Dorsalgia Instructions: DI for Low Back Pain, DI for Thoracic Back Pain Activity Restrictions/Additional Instructions: Your exam and x-ray imaging are reassuring. Please see your family doctor tomorrow as scheduled. Please see your pain management provider as scheduled as well. No driving operate machinery today. Pain medication has been provided for you. Return if worse if any questions or concerns. Baclofen has also been restarted but please do not combine this with pain medication. Return if worse if any questions or concerns Prescriptions: New hydrocodone-acetaminophen 5-325 mg tablet 1 tab PO Q6H PRN (Reason: pain) Qty: 7 0RF baclofen 20 mg tablet 20 mg PO TID PRN (Reason: pain (scale score 4-6)) Qty: 12 0RF No Action Orilissa 200 mg tablet 200 mg PO BID Qty: 60 5RF norelgestromin-ethin.estradiol [Xulane] 150-35 mcg/24 hr patch weekly 1 patch transdermal QWEEK Qty: 3 12RF Rx Instructions: apply once weekly for 3 weeks of a 4-week cycle ondansetron HCl 8 mg tablet 8 mg PO Q8H PRN (Reason: nausea and vomiting) Qty: 30 5RF prazosin 2 mg capsule 2 mg PO BEDTIME albuterol sulfate 90 mcg/actuation HFA aerosol inhaler 2 puff INHALATION Q4-6H PRN (Reason: shortness of breath) Qty: 18 0RF polyethylene glycol 3350 [Miralax] 17 gram/dose powder 17 g PO DAILY Qty: 238 0RF ibuprofen 600 mg tablet 600 mg PO Q6H PRN (Reason: fever or pain) Qty: 30 0RF Rx Instructions: Take with food and water promethazine 25 mg tablet 25 mg PO Q6H PRN (Reason: nausea and vomiting) Qty: 30 0RF promethazine 25 mg suppository 25 mg GA Q4-6H PRN (Reason: nausea and vomiting) Qty: 12 0RF cyclobenzaprine 10 mg tablet 10 mg PO TID PRN (Reason: muscle spasm) Qty: 20 0RF hydrocodone-acetaminophen 5-325 mg tablet 1 tab PO BID PRN (Reason: pain) Qty: 6 0RF hydrocodone-acetaminophen 5-325 mg tablet 1 tab PO Q6H PRN (Reason: pain) Qty: 10 0RF venlafaxine 150 mg capsule,extended release 24hr 150 mg PO DAILY venlafaxine 75 mg capsule,extended release 24hr 75 mg PO DAILY propranolol 60 mg capsule,extended release 24 hr 60 mg PO DAILY pregabalin [Lyrica] 150 mg capsule 150 mg PO BID Qty: 60 2RF baclofen 5 mg tablet 5 mg PO TID Qty: 90 2RF Referrals: Tara Kemp MD [Primary Care Provider, Family Practice] Stand Alone Forms: Patient Portal/API, Work Release Note
[2025-03-26] MEDS: ONDANSETRON 4 MG/2 ML INJ IV (12:39)
[2025-03-26 12:46] LABS: Add Manual Diff / Slide Review NO; Hematocrit 39.9 % (36-46); Hemoglobin 14.0 g/dL (12.0-16.0); Lymphocytes Absolute Auto 2100 /uL (1100-4500); Mean Corpuscular HGB Conc 35.1 % (30-36); Mean Corpuscular Hemoglobin 31.5 PG (26-34); Mean Corpuscular Volume 89.8 fL (80-100); Platelet Count 277 X10^3/uL (150-400)
[2025-03-26 12:49] VITALS: PULSE 106; O2SAT 98
[2025-03-26 13:06] LABS: Alanine Aminotransferase 14 IU/L (<35); Albumin 4.5 g/dL (3.5-5.0); Albumin Globulin Ratio 1.4 (1.0-2.8); Alkaline Phosphatase 122 U/L (38-126); Blood Urea Nitrogen 13 mg/dL (7-17); Calcium 9.2 mg/dL (8.4-10.2); Carbon Dioxide 18 mmol/L (22-32); Chloride 110 mmol/L (98-107); Estimated Glomerular Filt Rate > 60 mL/min (>60); Globulin 3.2 g/dL (1.7-4.1); Glucose 94 mg/dL (70-99); HEMOLYSIS 21 (0-50); Potassium 4.1 mmol/L (3.4-5.1); Sodium 139 mmol/L (137-145); Total Protein 7.7 g/dL (6.3-8.2)
[2025-03-26 13:23] VITALS: PULSE 102; O2SAT 96
[2025-03-26 14:48] VITALS: BP 113/69; PULSE 100; RESP 14; O2SAT 100
== END 2025-03-26 14:49 | disposition home or self-care (01) ==
PROVIDERS: Emergency Provider Emergency Medicine; PCP Family Medicine
DX: M54.6 Pain in thoracic spine (principal); M54.50 Low back pain, unspecified; M54.2 Cervicalgia
CPT/HCPCS: 36415; 72040; 72070; 72100; 80053; 85025; 96374; 96375; 99284; J1171; J2405

== ENCOUNTER 2025-04-23 10:44 | Emergency (ER) | payer OTHER, SELFPAY ==
[2023-04-27 11:48] VITALS: BMI 32.5
[2025-04-23 10:54] VITALS: BP 125/75; PULSE 110; RESP 18; TEMP 36.9; O2SAT 96; BMI 29.0
[2025-04-23 11:10] VITALS: PULSE 106; O2SAT 100
[2025-04-23 11:12] VITALS: BP 117/73; PULSE 110; O2SAT 100
[2025-04-23 11:25] LABS: Add Manual Diff / Slide Review NO; Hematocrit 44.5 % (36-46); Hemoglobin 15.6 g/dL (12.0-16.0); Lymphocytes Absolute Auto 2600 /uL (1100-4500); Mean Corpuscular HGB Conc 35.0 % (30-36); Mean Corpuscular Hemoglobin 31.8 PG (26-34); Mean Corpuscular Volume 90.9 fL (80-100); Platelet Count 336 X10^3/uL (150-400)
[2025-04-23 11:30] VITALS: BP 119/67; PULSE 87; O2SAT 99
--- NOTE | 2025-04-23 11:30 | ED_ITS ---
HPI - Neuro Symptoms/Deficit General Chief Complaint: Neuro Symptoms/Deficit Stated Complaint: FND pain Time Seen by Provider: 04/23/25 11:19 Source: patient Mode of arrival: Ambulatory History of Present Illness HPI Narrative: Patient denies does not want a test. Patient returns here for same symptoms I saw her March 26, 2025. Patient is followed by pain management in [facility]. Patient had nerve stimulator placed this past December. Patient denies any recent illness fever chills cough cold or congestion no urinary complaints. She returns here for the same complaints of body wide burning stinging pain of the skin as well as leg pain and restlessness and spasms. This episode started about 2 weeks ago. Patient was referred to Neurology as appointment with neurology services and mani Justin. Patient states these of the same symptoms she had in March. She was given Dilaudid and Zofran with good resolution and prescribed baclofen and hydrocodone for home use. 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 Patient states her pain doctor suspects functional neurological disorder. On Anticoagulants: No Related Data Home Medications ?Medication ?Instructions ?Recorded ?Confirmed prazosin 2 mg capsule 2 mg PO BEDTIME 06/22/23 propranolol 60 mg capsule,24 60 mg PO DAILY 07/06/23 0 11/22/23 hr,extended release venlafaxine 150 mg 150 mg PO DAILY 07/06/23 capsule,extended release 24 hr venlafaxine 75 mg capsule,extended 75 mg PO DAILY 10/2411/22/23 release 24 hr Previous Rx's ?Medication ?Instructions ?Recorded albuterol sulfate 90 mcg/actuation 2 puff inhalation Q 4-6H PRN 04/10/19 aerosol inhaler shortness of breath #18 gram s ondansetron HCl 8 mg tablet 8 mg PO Q8H PRN nausea and 03/22/22 vomiting #30 tabs ibuprofen 600 mg tablet 600 mg PO Q6H PRN fever or p ain 12/11/22 #30 tabs polyethylene glycol 3350 17 17 g PO DAILY for soft sto ol #238 12/11/22 gram/dose oral powder (Miralax) grams baclofen 5 mg tablet 5 mg PO TID #90 tabs 4 pregabalin 150 mg capsule (Lyrica) 150 mg PO BID #60 c aps 08/03/23 elagolix 200 mg tablet (Orilissa) 200 mg PO BID #60 ta bs 10/09/23 cyclobenzaprine 10 mg tablet 10 mg PO TID PRN muscle s pasm #20 10/21/23 tabs hydrocodone 5 mg-acetaminophen 325 1 tab PO BID PRN pa in #6 tabs 10/21/23 mg tablet norelgestromin 150 mcg-e.estradiol 1 patch transdermal QWEEK #3 ea 11/23/23 35 mcg/24 hr weekly transderm patch (Xulane) hydrocodone 5 mg-acetaminophen 325 1 tab PO Q6H PRN pa in #10 tabs 02/17/24 mg tablet promethazine 25 mg rectal 25 mg MS Q4-6H PRN nausea an d 03/11/24 suppository vomiting #12 ea promethazine 25 mg tablet 25 mg PO Q6H PRN nausea and 03/11/24 vomiting #30 tabs baclofen 20 mg tablet 20 mg PO TID PRN pain (scale score 03/26/25 4-6) #12 tabs hydrocodone 5 mg-acetaminophen 325 1 tab PO Q6H PRN pa in #7 tabs 03/26/25 mg tablet baclofen 20 mg tablet 20 mg PO TID PRN pain (scale score 04/23/25 4-6) #20 tabs hydrocodone 5 mg-acetaminophen 325 1 tab PO Q6H PRN pa in #12 tabs 04/23/25 mg tablet Allergies Allergy/AdvReac Type Severity Reaction Status Date / Time shellfish derived Allergy Severe Anaphylaxis Verified 04/23/25 10:54 lidocaine Allergy Intermediate ITCHING Verified 04/23/25 10:54 doxycycline (DOXYCYCLINE) Allergy Unknown Verified 04/23/25 10:54 Penicillins (PENICILLINS) Allergy Unknown Verified 04/23/25 10:54 iodine Allergy Hives Verified 04/23/25 10:54 cortisone AdvReac Severe Swelling Verified 04/23/25 10:54 Review of Systems Review of Systems Narrative: GENERAL: Negative chills, fatigue, malaise, fever, sweats. HEENT: Negative sinus pain, ear pain, sore throat RESPIRATORY: Negative dyspnea, cough CARDIOVASCULAR: Negative chest pain, palpitations GASTROINTESTINAL: Negative vomiting, nausea, abdominal pain : Negative dysuria, frequency, hematuria MUSCULOSKELETAL: Positive muscle or bony pain SKIN: Negative rash, skin lesions NEUROLOGIC: Negative weakness, numbness ROS Unobtainable: All systems reviewed & are unremarkable except as noted in HPI and below Hematologic/Lymphatic On Anticoagulants: No Patient History Medical History Bilateral hip pain Myofascial pain SI (sacroiliac) joint dysfunction Dorsalgia CVA (cerebral vascular accident) Normal endoscopy Normal colonoscopy Torn rotator cuff Cholecystitis Tumor of liver Fibromyalgia Acute right lower quadrant pain Exercise-induced asthma Anxiety Right foot strain Jaw pain, non-TMJ Lower GI bleed Gastroenteritis Surgical History History of cholecystectomy (~03/2022) H/O knee surgery History of appendectomy Family History Mother Bowel obstruction Lupus Spinal cord cancer Fibromyalgia Epilepsy Blood clotting tendency Stroke Sister Bowel obstruction Tachycardia Arrhythmia Fibromyalgia Family/Other Colon cancer Grandmother S/P CABG x 3 Tachycardia Father Tachycardia Brother Tachycardia Grandmother Liver cancer Social History marital status: number of children: 0 household members: spouse lives independently: Yes housing: house pets and animals: Yes (2 dogs, 1 cat) education level: college occupational status: employed current occupational exposures/hazards: No special reuben needs: No travel history: over 6 months ago seatbelt use: always water heater temp set < 120 deg: Yes working smoke detector in home: Yes fire extinguisher in home: Yes carbon monox detector in home: Yes firearms in home: No do you feel safe at home: Yes second hand exposure: Yes ( smokes outside) alcohol intake: former substance use type: marijuana during the past year weight has: remained stable well-balanced diet: about half the time daily servings fruits/ve-4 caffeine: Yes (aware of 200mg limit) Type(s) of exercise: walking frequency: 5-6 times per week tobacco type: vaping alcohol intake frequency: holidays/special occasions only Exam Narrative Exam Narrative: GENERAL: in no distress, not toxic not dyspneic HEAD: Normocephalic. EYES: Pupils equal round ENT: Mucous membranes moist. NECK: Trachea midline. CARDIOVASCULAR: Regular rate and rhythm RESPIRATORY: Clear to auscultation. Breath sounds equal bilaterally. No wheezes, rales, or rhonchi. GASTROINTESTINAL: Abdomen soft, non-tender EXTREMITIES: No gross deformities. Patient moving all 4 extremities without difficulty. But has constant movement due to discomfort of burning sensation in her skin. BACK: No flank tenderness. NEURO: AOx4. Clear speech SKIN: Warm and dry, no rash on arms or legs PSYCH: Not anxious, is cooperative Initial Vital Signs Initial Vital Signs: Vital Signs Temperature 98.5 F 04/23/25 10:54 Pulse Rate 110 H 04/23/25 10:54 Respiratory Rate 18 04/23/25 10:54 Blood Pressure 125/75 04/23/25 10:54 Pulse Oximetry 96 04/23/25 10:54 Oxygen Delivery Method Room Air 04/23/25 10:54 Course Orders Ordered: ED Orders 04/23/25 11:12 Complete Blood Count AUTO DIFF Stat Comprehensive Metabolic Panel Stat Lipase Stat Discontinued Medications Hydromorphone HCl (Hydromorphone 1 Mg/Ml Syringe) 1 mg IV NOW ONE Stop: 04/23/25 11:30 Last Admin: 04/23/25 11:35 Dose: 1 mg Documented By: SBF Ondansetron HCl (Ondansetron 4 Mg/2 Ml Inj) 4 mg IV NOW PRN PRN Reason: Nausea And Vomiting Ondansetron HCl (Ondansetron 4 Mg Odt) 4 mg PO NOW PRN PRN Reason: Nausea And Vomiting Vital Signs Vital signs: Vital Signs - 8 hr 04/23/25 11:10 04/23/25 11:12 04/23/25 11:12 Pulse Rate 106 H 110 H Blood Pressure 117/73 Pulse Oximetry 100 100 Oxygen Delivery Method 04/23/25 11:30 04/23/25 11:30 04/23/25 12:00 Pulse Rate 87 Blood Pressure 119/67 116/68 Pulse Oximetry 99 Oxygen Delivery Method 04/23/25 12:00 04/23/25 12:30 04/23/25 12:30 Pulse Rate 97 H 85 Blood Pressure 110/65 Pulse Oximetry 99 99 Oxygen Delivery Method 04/23/25 12:37 Pulse Rate Blood Pressure Pulse Oximetry Oxygen Delivery Method Room Air MDM - Neuro Symptoms/Deficit Lab Data 04/23/25 11:12 04/23/25 11:12 Labs: Lab Results 04/23/25 Range/Units 11:12 WBC 9.5 (4.5-11.0) X10^3/uL RBC 4.90 (4.0-5.2) X10^6/uL Hgb 15.6 (12.0-16.0) g/dL Hct 44.5 (36-46) % MCV 90.9 (80-100) fL MCH 31.8 (26-34) PG MCHC 35.0 (30-36) % RDW 12.9 (11.6-14.8) % Plt Count 336 (150-400) X10^3/uL Neut % (Auto) 69.7 (50-75) % Lymph % (Auto) 26.8 (25-40) % [place] % (Auto) 3.1 (3-14) % Eos % (Auto) 0.0 L (2-4) % Baso % (Auto) 0.4 (0-2) % Neut # (Auto) 6600 (2232-5516) /uL Lymph # (Auto) 2600 (0840-2037) /uL [place] # (Auto) 300 (0-900) /uL Eos # (Auto) 0 (0-450) /uL Baso # (Auto) 0 (0-100) /uL Sodium 140 (137-145) mmol/L Potassium 3.5 (3.4-5.1) mmol/L Chloride 106 (98-107) mmol/L Carbon Dioxide 20 L (22-32) mmol/L BUN 9 (7-17) mg/dL Creatinine 0.79 (0.52-1.04) mg/dL Estimated GFR > 60 (>60) mL/min BUN/Creatinine Ratio 11.4 (6-22) Glucose 94 (70-99) mg/dL Calcium 9.9 (8.4-10.2) mg/dL Total Bilirubin 0.8 (0.2-1.3) mg/dL AST 23 (14-36) IU/L ALT 13 (<35) IU/L Alkaline Phosphatase 121 (38-126) U/L Total Protein 8.9 H (6.3-8.2) g/dL Albumin 5.3 H (3.5-5.0) g/dL Globulin 3.6 (1.7-4.1) g/dL Albumin/Globulin Ratio 1.5 (1.0-2.8) Lipase 60 (23-300) U/L MDM Narrative Medical decision making narrative: Patient denies does not want a test. Patient returns here for same symptoms I saw her March 26, 2025. Patient is followed by pain management in [facility]. Patient had nerve stimulator placed this past December. Patient denies any recent illness fever chills cough cold or congestion no urinary complaints. She returns here for the same complaints of body wide burning stinging pain of the skin as well as leg pain and restlessness and spasms. This episode started about 2 weeks ago. Patient was referred to Neurology as appointment with neurology services and mani Anderson. Patient states these of the same symptoms she had in March. She was given Dilaudid and Zofran with good resolution and prescribed baclofen and hydrocodone for home use. 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 Patient states her pain doctor suspects functional neurological disorder. MDM After history and exam, CBC CMP, Dilaudid Zofran Differential considered: Includes but not limited to recurrent chronic pain fibromyalgia Medical records reviewed: March 26, 2025 ER visit here. X-ray cervical thoracic lumbar spine done March 26, 2025. Lab Test results independently reviewed as above. Pertinent findings: WBC 9.5 hemoglobin 15.6 Consultations: None indicated at this time Re-evaluations: 12:32 p.m. patient feeling much better. Return precautions reviewed with her. 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 She desires discharge home. Discussion: Appropriate for discharge home. Exam is reassuring. Short course of pain medication and baclofen will be provided just has last time patient was here and did help her symptoms. She does have established neurology and pain management to follow up with. Diagnosis: Chronic pain Discharge Plan Departure Patient Disposition: Home Clinical Impression: Chronic pain Qualifiers: Chronic pain type: other chronic pain Qualified Code(s): G89.29 - Other chronic pain Instructions: DI for Chronic Pain -- Adult Activity Restrictions/Additional Instructions: No driving operating machinery today when taking prescribed pain medication. Please see your neurologist as scheduled. See your pain management doctor as scheduled as well. Return if worse if any questions or concerns Prescriptions: New hydrocodone-acetaminophen 5-325 mg tablet 1 tab PO Q6H PRN (Reason: pain) Qty: 12 0RF baclofen 20 mg tablet 20 mg PO TID PRN (Reason: pain (scale score 4-6)) Qty: 20 0RF No Action Orilissa 200 mg tablet 200 mg PO BID Qty: 60 5RF norelgestromin-ethin.estradiol [Xulane] 150-35 mcg/24 hr patch weekly 1 patch transdermal QWEEK Qty: 3 12RF Rx Instructions: apply once weekly for 3 weeks of a 4-week cycle ondansetron HCl 8 mg tablet 8 mg PO Q8H PRN (Reason: nausea and vomiting) Qty: 30 5RF prazosin 2 mg capsule 2 mg PO BEDTIME albuterol sulfate 90 mcg/actuation HFA aerosol inhaler 2 puff INHALATION Q4-6H PRN (Reason: shortness of breath) Qty: 18 0RF polyethylene glycol 3350 [Miralax] 17 gram/dose powder 17 g PO DAILY Qty: 238 0RF ibuprofen 600 mg tablet 600 mg PO Q6H PRN (Reason: fever or pain) Qty: 30 0RF Rx Instructions: Take with food and water promethazine 25 mg tablet 25 mg PO Q6H PRN (Reason: nausea and vomiting) Qty: 30 0RF promethazine 25 mg suppository 25 mg MS Q4-6H PRN (Reason: nausea and vomiting) Qty: 12 0RF cyclobenzaprine 10 mg tablet 10 mg PO TID PRN (Reason: muscle spasm) Qty: 20 0RF hydrocodone-acetaminophen 5-325 mg tablet 1 tab PO BID PRN (Reason: pain) Qty: 6 0RF hydrocodone-acetaminophen 5-325 mg tablet 1 tab PO Q6H PRN (Reason: pain) Qty: 10 0RF hydrocodone-acetaminophen 5-325 mg tablet 1 tab PO Q6H PRN (Reason: pain) Qty: 7 0RF baclofen 20 mg tablet 20 mg PO TID PRN (Reason: pain (scale score 4-6)) Qty: 12 0RF venlafaxine 150 mg capsule,extended release 24hr 150 mg PO DAILY venlafaxine 75 mg capsule,extended release 24hr 75 mg PO DAILY propranolol 60 mg capsule,extended release 24 hr 60 mg PO DAILY pregabalin [Lyrica] 150 mg capsule 150 mg PO BID Qty: 60 2RF baclofen 5 mg tablet 5 mg PO TID Qty: 90 2RF Referrals: Tara Kemp MD [Primary Care Provider, Family Practice] Stand Alone Forms: Patient Portal/API
[2025-04-23 11:47] LABS: Alanine Aminotransferase 13 IU/L (<35); Albumin 5.3 g/dL (3.5-5.0); Albumin Globulin Ratio 1.5 (1.0-2.8); Alkaline Phosphatase 121 U/L (38-126); Blood Urea Nitrogen 9 mg/dL (7-17); Calcium 9.9 mg/dL (8.4-10.2); Carbon Dioxide 20 mmol/L (22-32); Chloride 106 mmol/L (98-107); Estimated Glomerular Filt Rate > 60 mL/min (>60); Globulin 3.6 g/dL (1.7-4.1); Glucose 94 mg/dL (70-99); HEMOLYSIS < 15 (0-50); Lipase 60 U/L (23-300); Potassium 3.5 mmol/L (3.4-5.1); Sodium 140 mmol/L (137-145); Total Protein 8.9 g/dL (6.3-8.2)
[2025-04-23 12:00] VITALS: BP 116/68; PULSE 97; O2SAT 99
[2025-04-23 12:30] VITALS: BP 110/65; PULSE 85; O2SAT 99
== END 2025-04-23 12:38 | disposition home or self-care (01) ==
PROVIDERS: Emergency Provider Emergency Medicine; PCP Family Medicine
DX: G89.29 Other chronic pain (principal)
CPT/HCPCS: 36415; 80053; 83690; 85025; 96374; 99284; J1171

== ENCOUNTER 2025-06-25 11:21 | Emergency (ER) | payer OTHER, SELFPAY ==
[2023-04-27 11:48] VITALS: BMI 32.5
--- OUTSIDE RECORDS SUMMARY | 2025-06-24 10:26 | XMS_ITS | Continuity of Care Document ---
Author Organization [facility] [place] [address] Phone Care Team Providers Care Customer Service Sales Consultant Name Role Phone Tara [place] MD Primary Care Provider Niki Mcleod DNP Emergency Provider Care Teams Patient Care Team Team Status: Active Member Role/Relationship Status Dates Tara [place] MD Primary Care Provider Active Visit Care Team Team Status: Inactive Member Role/Relationship Status Dates Tara [place] MD Primary Care Provider Active Sta rt: June 24, 2025 End: June 24, 2025 Niki Mcleod DNP Emergency Provider Active Sta rt: June 24, 2025 End: June 24, 2025 Chief Complaint and Reason for Visit Chief Complaint Admit Date ABD PX June 24, 2025 12:40pm Allergies, Adverse Reactions, Alerts Allergen Type Severity Reaction Last Updated Verified Status Comments nicotine Allergy Severe Anaphylaxis June 24, 2025 12:52pm Yes Active Difficulty breathing when smoked, migraines/hea daches when around smoke. shellfish derived Allergy Severe Anaphylaxis June 24, 2025 12:52pm Yes Active cortisone Allergy Mild Unknown June 24, 2025 12:52pm Yes Active amoxicillin Allergy Unknown Unknown June 24, 2025 12:52pm Yes Active doxycycline Allergy Unknown Unknown June 24, 2025 12:52pm Yes Active Fish Containing Products Allergy Unknown Unknown June 24, 2025 12:52pm Yes Active Iodinated Contrast Media Allergy Unknown Hives June 24, 2025 12:52pm Yes Active lidocaine Allergy Unknown Edema June 24, 2025 12:52pm Yes Active Penicillins Allergy Unknown Rash June 24, 2025 12:52pm Yes Active Social History Smoking Status Status Start Date End Date Date of Observa tion Never smoked tobacco (finding) May 07, 2025 3:20pm Observation Status Observation Response Date of Response Suicide Risk Category Screening complete Birdie r 2024 12:52pm Living arrangement At home May 07, 2025 3:25pm Living Situation With spouse/s.o. May 07, 2025 3:25pm ETOH Use None May 07 3:25pm Psychiatric Depression March 19, 2024 12:38am Anxiety March 19, 2024 12:38am Panic attacks March 19, 2024 12:38am Claustrophobia March 19, 2024 12:38am Legal Sex Female Sex Assigned At Female January d1994 Status Not June 24, 2025 Family History Relationship Condition Age at Onset Recorded Date/T abelardo Unknown Neurological History?None Unknown Se ptember 2023 12:38am Respiratory?Asthma, Pneumonia, Other Unknown March 19, 2024 12:38am Endocrine/Autoimmune?None Unknown Se ptember 2023 12:38am Problems Active Problems Problem Diagnosis/Recorded Date Onset Date Status C omments Insomnia July 24, 2024 3:32pm Unknown Active Hypermobility syndrome July 24, 2024 12:37pm Unknown Active Encounter for management and injection of injectable progestin contraceptive May 05, 2024 9:17pm Unknown Active TMJ arthralgia May 06, 2023 11:48am Unknown Activ e Sinus tachycardia December 19, 2021 12:46am Unknown Activ e [facility], Metoprolol Fibromyalgia July 24, 2024 12:35pm January 24, 2018 Active No Autoimmune condition per Rheum Migraines July 24, 2024 12:34pm Augus t 2017 Active Night sweats January 02, 2025 12:01pm Unknown Active Axillary swelling October 13, 2024 8:40pm Unknown Activ e Anxiety and depression July 24, 2024 12:34pm January 24, 2018 Active Chronic pain syndrome July 24, 2024 12:35pm October 26, 2023 Active Avoid Narcotics at Primary Care clinics. [facility] [place]. Hemangioma of liver July 24, 2024 12:37pm Unknown Active Stable per repeat CT 02/2024 Lattice degeneration of both retinas March 20, 2025 11:57am Unknown Active Abdominal pain June 24, 2025 5:54pm Unknown Activ e Inactive/Resolved Problems Problem Diagnosis/Recorded Date Onset Date Status C omments Abdominal pain May 27, 2014 7:55pm Unknown Resolved Problem List clean-up per request of Phys. EHR Cmte Headache July 16, 2014 3:10pm Unknown Resolved Problem List clean-up per request of Phys. EHR Cmte Bronchitis January 14, 2015 9:38pm Unknown Resolved Pr oblem List clean-up per request of Phys. EHR Cmte Asthma January 14, 2015 9:38pm Unknown Resolved Pr oblem List clean-up per request of Phys. EHR Cmte Exacerbation of asthma July 29, 2015 8:07pm Unknown Resolved Problem List clean-up per request of Phys. EHR Cmte Fall from ladder March 18, 2024 11:51pm Unknown Resolved Problem List clean-up per request of Phys. EHR Cmte Acute thoracic back pain April 11, 2024 12:15pm Unknown Resolved Acute urticaria March 27, 2014 9:15am Unknown Resolved Problem List clean-up per request of Phys. EHR Cmte Urinary tract infection March 05, 2014 10:41pm Unknown Resolved Problem List clean-up per request of Phys. EHR Cmte Palpitations with regular cardiac rhythm November 07, 2024 9:41am Unknown Resolved C. difficile colitis January 03, 2023 12:10pm Unknown Res olved History of Clostridioides difficile infection January 31, 2023 8:38pm Unknown Resolved PTSD (post-traumatic stress disorder) July 24, 2024 12:34pm March 29, 2023 Resolved Hx of exploratory laparotomy April 16, 2024 12:52pm Unknown Resolved Contraception management May 05, 2024 9:16pm Unknown Resolved Sprain of fifth finger of right hand June 12, 2015 1:12am Unknown Resolved Problem List clean-up per request of Phys. EHR Cmte Sacroiliitis March 04, 2024 2:34pm Unknown Resolved Problem List clean-up per request of Phys. EHR Cmte Low back pain October 28, 2021 11:44pm Unknown Resolved Sciatica June 11, 2024 12:02am Unknown Resolved Facial cellulitis January 25, 2021 4:02pm Unknown Resolv ed Mononucleosis syndrome March 05 10:41pm Unknown Resolved Problem List clean-up per request of Phys. EHR Cmte Radicular low back pain December 31, 2023 7:13pm Unknown Resolved Lumbar spine strain May 16, 2019 2:23am Unknown Resolved Problem List clean-up per request of Phys. EHR Cmte Ankle contusion October 20, 2019 9:57am Unknown Resolve d Problem List clean-up per request of Phys. EHR Cmte Acute exacerbation of chronic low back pain March 18, 2024 11:51pm Unknown Resolved Problem List clean-up per request of Phys. EHR Cmte Pleuritic chest pain July 29, 2015 8:07pm Unknown Resolved Problem List clean-up per request of Phys. EHR Cmte Abdominal cramping January 05, 2023 11:51pm Unknown Resol lesvia Paresthesia June 11, 2024 12:02am Unknown Resolved Chronic pain July 05, 2024 7:28pm Unknown Resolved Cyst of ovary June 11, 2021 12:22am Unknown Resolved Lupus April 16, 2024 12:51pm Unknown Resolved Abdominal pain, generalized December 02, 2021 1:29am Unknown Resolved Pelvic pain November 22, 2020 10:56pm Unknown Resolved Mild concussion March 18, 2024 11:51pm Unknown Resolved Problem List clean-up per request of Phys. EHR Cmte Upper abdominal pain December 19, 2021 12:46am Unknown Re solved Back pain February 19, 2016 7:45am Unknown Resolved Problem List clean-up per request of Phys. 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 EHR Cmte Persistent cough for 3 weeks or longer January 14, 2015 9:38pm Unknown Resolved Problem L ist clean-up per request of Phys. EHR Cmte Lymphadenitis April 20, 2024 3:03pm Unknown Resolve d Bilateral low back pain with sciatica March 09, 2024 9:34pm Unknown Resolved Problem List clean-up per request of Phys. EHR Cmte Fibromyalgia affecting multiple sites September 07, 2020 12:41am Unknown Resolved Otitis media December 25, 2015 11:05am Unknown Resolved Problem List clean-up per request of Phys. EHR Cmte Acute pain March 09, 2024 9:34pm Unknown Resolved Problem List clean-up per request of Phys. EHR Cmte Acute pain April 11, 2025 10:32am Unknown Resolved Sinusitis April 20, 2024 3:03pm Unknown Resolved Tachycardia December 02, 2021 1:29am Unknown Resolved Tachycardia April 15, 2023 5:02pm Unknown Resolved Paresthesia of bilateral legs April 17, 2020 11:47pm Unknown Resolved Problem List clean-up per request of Phys. EHR Cmte Vertigo October 20, 2021 5:28pm Unknown Resolved Neuropathy, sacral plexus March 18, 2024 11:51pm Unknown Resolved Problem List clean-up per request of Phys. EHR Cmte Contusion of chest wall April 12, 2020 10:55pm Unknown Resolved Problem List clean-up per request of Phys. EHR Cmte Epigastric abdominal pain September 07, 2020 12:41am Unknown Resolved Chest discomfort April 08, 2021 5:36am Unknown Resol lesvia POTS (postural orthostatic tachycardia syndrome) April 16, 2024 12:51pm Unknown Resolved Hx of cholecystectomy April 16, 2024 12:52pm Unknown Resolved Hx of appendectomy April 16, 2024 12:51pm Unknown Resolved Rectal bleeding March 12, 2021 8:03pm Unknown Resolved Chronic back pain December 31, 2023 7:13pm Unknown Resolv ed Chronic back pain April 09, 2024 10:41pm Unknown Res olved Ovarian cyst rupture September 29, 2014 10:53pm Unknown R esolved Problem List clean-up per request of Phys. EHR Cmte Hip pain, bilateral July 24, 2024 12:35pm August 22, 2023 Resolved Shoulder pain, left October 28, 2020 12:56am Unknown Re solved Shoulder pain, left September 08, 2021 11:30pm Unknown Res olved Right shoulder pain September 27, 2023 5:55pm Unknown Res olved Lower abdominal pain October 03, 2014 2:22pm Unknown Res olved Problem List clean-up per request of Phys. EHR Cmte Right wrist pain April 09, 2024 1:23pm Unknown Resol lesvia 3 views right wrist (preliminary read): No evidence of fracture or dislocation. Viral URI August 04, 2015 11:00am Unknown Resolved Problem List clean-up per request of Phys. EHR Cmte Appendicitis February 10, 2020 7:46pm Unknown Resolved Problem List clean-up per request of Phys. EHR Cmte Appendicitis February 12, 2020 11:39am Unknown Resolved Problem List clean-up per request of Phys. EHR Cmte Head injury March 18, 2024 11:51pm Unknown Resolved Problem List clean-up per request of Phys. EHR Cmte Hip pain, right August 19, 2023 6:26pm Unknown Resolved Hematochezia December 18, 2020 6:29pm Unknown Resolved Sprain of jaw, left side, initial encounter May 06, 2023 11:48am Unknown Resolved Knee pain March 27, 2014 10:39am Unknown Resolved Problem List clean-up per request of Phys. 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 EHR Cmte Nausea and vomiting April 08, 2021 5:36am Unknown Re solved Nausea and vomiting July 24, 2024 12:34pm July 25, 2023 Resolved Abdominal pain November 03, 2016 6:26am Unknown Resolved Problem List clean-up per request of Phys. EHR Cmte Biliary dyskinesia January 21, 2022 8:33pm Unknown Resol lesvia Bronchitis July 29, 2015 8:07pm Unknown Resolved Problem List clean-up per request of Phys. EHR Cmte Pharyngitis March 05, 2014 10:41pm Unknown Resolved Problem List clean-up per request of Phys. EHR Cmte Pneumonia July 31, 2019 6:55am Unknown Resolved Problem List clean-up per request of Phys. EHR Cmte Vomiting August 04, 2015 11:05am Unknown Resolved Problem List clean-up per request of Phys. EHR Cmte Fall March 27, 2014 9:15am Unknown Resolved Problem List clean-up per request of Phys. EHR Cmte Fall (on) (from) other stairs and steps, initial encounter May 31, 2024 4:57pm Unknown Resolved Ingrown hair November 17, 2023 2:06am Unknown Resolved Acute strain of neck muscle July 08, 2021 1:13pm Unknown Resolved Dehydration March 12, 2018 8:48pm Unknown Resolved Problem List clean-up per request of Phys. EHR Cmte Medications Medication Status Dose Units Route Directions Qty Days Refills S tart Date Stop Date End Date Reason(s) Instructions Adherence Baclofen 10 mg tablet Active 10 MG PO TWICE A DAY 60 2 De cemb er 2024 11:31a m Chronic pain syndrome Chronic pain syndrome Complies with drug therapy Venlafaxine 150 mg capsule,ext ended release 24hr Active 150 MG PO every day 90 2 [facility] er 2024 11:32a m Anxiety and depression Anxiety disorder, unspecifie d Depression , unspecifie d Take 1 capsule by mouth once daily with 75 mg tab for total of 225mg Complies with drug therapy Venlafaxine 75 mg capsule,ext ended release 24hr Active 75 MG PO DAILY 90 2 [facility] er 2024 11:32a m Anxiety and depression Anxiety disorder, unspecifie d Depression , unspecifie d Complies with drug therapy Clonidine Hcl 0.1 MG tablet Discont inued 0.1 MG PO DAILY November 13, 2013 11:00p m [facility] 2017 4:16p m Sertraline (Zoloft) 100 MG tablet Discont inued 100 MG PO DAILY November 13, 2013 11:00p m November 14, 2015 5:10p m Bcp Discont inued 1 TAB PO DAILY November 13, 2013 11:00p m [facility] 2013 7:42p m Desogestrel -Ethinyl Estradiol (Apri) 1 EACH tablet Discont inued 1 TAB PO DAILY 2013 11:00p m Augus t 2014 11:07 am Prednisone 20 MG tablet Discont inued 40 MG PO DAILY 5 0 2013 11:00p m [facility] 2013 8:54a m 2X 20 MG TABS. QS Hydrocodone -Acetaminop hen 1 EACH tablet Discont inued 1 EACH PO Q6H as needed for Pain 15 0 2013 11:00p m [facility] 2013 8:54a m Cephalexin 500 MG capsule Discont inued 500 MG PO Q6H 28 0 2013 11:00p m [facility] 2013 8:54a m X 7 DAYS Hydrocodone -Acetaminop hen 1 EACH tablet Discont inued 1 - 2 EACH PO Q6H as needed for Pain 15 0 Septem edie 2013 11:00p m September 29, 2014 7:30p m Sucralfate 1 GM/10 ML suspension Discont inued 1 GM PO BEFORE MEALS AND AT BEDTIME 120 0 Novemb er 2013 12:00a m Julua 2014 2:26p m Ranitidine Hcl (Zantac) 150 MG tablet Discont inued 150 MG PO TWICE A DAY 28 0 Novemb er 2013 12:00a m Janua ry 2014 2:27p m Promethazin e 25 MG tablet Discont inued 25 MG PO Q6H as needed for Nausea / Vomiting 10 0 Novemb er 2013 7:54pm November 14, 2015 5:10p m Oxycodone 5 MG tablet Discont inued 5 MG PO EVERY 4-6 HOURS as needed for Severe Pain 15 0 Novemb er 2013 7:54pm January 14, 2015 8:31p m no driving, may cause constipation Metoclopram dawson Hcl 10 MG tablet Discont inued 10 MG PO DAILY as needed for Abdominal Pain 10 0 Decemb er 2013 8:42pm January 14, 2015 8:31p m Pseudoephed rine Hcl (Sudafed) 30 MG tablet Discont inued 30 MG PO Q6H as needed for sinus pressure 20 0 Juluar y 2014 3:16pm Julua 2015 6:20p m Sumatriptan Succinate (Imitrex) 25 MG tablet Discont inued 25 MG PO DAILY as needed for Headache 10 0 September 24, 2014 2:49pm Septe mber 2017 4:16p m Hydrocodone -Acetaminop hen ([place] 7.5-325 Tablet) 1 EACH tablet Discont inued 1 EACH PO Q6H as needed for Pain 15 0 October 03, 2014 2:21pm January 14, 2015 8:31p m Azithromyci n 250 MG tablet Discont inued 250 MG PO DAILY 4 0 January 13, 2015 11:00p m Augus t 2014 11:07 am Beclomethas one Dipropionat e (Qvar 80) 100 PUFFS/8.7 GM HFA aerosol breath activated Discont inued 2 PUFFS INH DAILY 1 0 January 13, 2015 11:00p m November 14, 2015 5:10p m Codeine-Gua ifenesin 5 ML liquid Discont inued 10 ML PO Q6H as needed for Cough 240 0 January 14, 2015 9:38pm Augus 2014 11:06 am Cholecalcif melody (Vitamin D3) 5,000 UNIT tablet Discont inued 5000 UNIT PO DAILY February 24, 2015 11:00p m [facility] 4:16p m Desogestrel -Ethinyl Estradiol (Apri 28 Day Tablet) 1 EACH tablet Discont inued 1 TAB PO DAILY 2015 12:00a m November 03, 2016 4:15a m Prednisone 20 MG tablet Discont inued 40 MG PO DAILY 5 2015 12:00a m December 25, 2015 7:59a m 2X 20 MG TABS. QS Oxycodone-A cetaminophe n (Percocet 5-325 Mg Tablet) 1 EACH tablet Discont inued 1 EACH PO Q6H as needed for Pain 20 0 2015 12:00a m November 14, 2015 5:10p m Benzonatate 100 MG capsule Discont inued 100 MG PO THREE TIMES A DAY as needed for Cough 25 0 2015 12:00a m November 14, 2015 5:10p m Promethazin e 25 MG tablet Discont inued 25 MG PO Q6H as needed for Nausea / Vomiting 10 0 2015 12:00a m [facility] 2017 4:16p m 1-2 Tabs Azithromyci n 250 MG tablet Discont inued 250 MG PO DAILY 6 0 December 24, 2015 11:00p m Augus 2015 6:51a m 500 MG ON DAY 1, THEN 250 MG DAILY X 4 DAYS FOR A TOTAL OF 5 DAYS Mupirocin Calcium (Bactroban) 15 GM cream Discont inued 1 GM TP TWICE A DAY 15 0 December 24, 2015 11:00p m Augus 2015 6:51a m Ibuprofen 800 MG tablet Discont inued 800 MG PO Q8H as needed for PAIN &/OR FEVER 30 0 February 18, 2016 11:00p m [facility] 2017 4:16p m Esomeprazol e Magnesium (Nexium) 40 MG capsule,del ayed release(DR/ EC) Discont inued 40 MG PO DAILY 14 0 February 18, 2016 11:00p m November 03, 2016 4:15a m Azithromyci n 250 MG tablet Discont inued 250 MG PO DAILY 6 February 18, 2018 11:00p m [facility] 2017 4:16p m 500 MG ON DAY 1, THEN 250 MG DAILY X 4 DAYS FOR A TOTAL OF 5 DAYS Benzonatate 100 MG capsule Discont inued 100 MG PO THREE TIMES A DAY as needed for Cough 25 February 18, 2018 11:00p m [facility] 2017 4:16p m Dexamethaso ne 4 MG tablet Discont inued 4 MG PO DAILY 5 0 February 18, 2018 11:00p m [facility] 2017 4:16p m Hydrocodone -Acetaminop hen 1 TAB tablet Discont inued 1 - 2 EACH PO Q6H as needed for Pain 15 0 Octobe r 2019September 06, 2020 9:51p m Cyclobenzap rine 10 MG tablet Discont inued 10 MG PO THREE TIMES A DAY as needed for Spasms 20 0 Octobe r 2019 11:00p m September 06, 2020 9:51p m Ondansetron 4 MG tablet,disi ntegrating Discont inued 4 MG TL Q6H as needed for Nausea / Vomiting 10 0 Octobe r 2019 11:00p m September 06, 2020 9:51p m Oxycodone-A cetaminophe n (Percocet 5-325 Mg Tablet) 1 EACH tablet Discont inued 1 - 2 EACH PO Q6H as needed for pain 14 0 September 07, 2020 October 27, 2020 11:02 pm Amitriptyli ne 10 MG tablet Discont inued 10 MG PO BEDTIME 20 0 September 07, 2020 12:00a m October 27, 2020 11:02 pm Cyclobenzap rine 10 MG tablet Discont inued 10 MG PO THREE TIMES A DAY as needed for Spasms 20 0 October 27, 2020 11:00p m November 22, 2020 8:23p m Ondansetron 4 MG tablet,disi ntegrating Discont inued 4 MG TL Q6H as needed for Nausea / Vomiting 10 0 October 27, 2020 11:00p m December 18, 2020 6:40p m Hydrocodone -Acetaminop hen 1 TAB tablet Discont inued 1 - 2 TAB PO Q6H as needed for Pain 14 0 October 28, 2020 November 22, 2020 8:23p m Take 1-2 tablets every 6 hours as needed Oxycodone-A cetaminophe n (Percocet 5-325 Mg Tablet) 1 EACH tablet Discont inued 1 - 2 EACH PO Q6H as needed for pain 14 0 November 22, 2020 December 18, 2020 6:40p m Prednisone 10 MG tablet Discont inued 10 MG PO 10 DAY TAPER 42 0 December 17, 2020 11:00p m January 25, 2021 1:03p m Day 1-4: Take 60mg (6 tablets) daily; Day 5-7: Take 40mg (4 tablets) daily; Day 8-10: Take 20mg (2 tablets) daily Hyoscyamine Sulfate (Levsin-Sl) 0.125 MG tablet, sublingual Discont inued 0.125 MG SL Q6H as needed for Abdominal Pain 30 0 December 18, 2020 6:28pm January 25, 2021 1:03p m Oxycodone-A cetaminophe n (Percocet 5-325 Mg Tablet) 1 EACH tablet Discont inued 1 - 2 EACH PO Q6H as needed for pain 14 0 December 18, 2020 January 25, 2021 1:03p m Clindamycin Hcl (Cleocin Hcl) 300 MG capsule Discont inued 300 MG PO FOUR TIMES DAILY 28 0 January 24, 2021 11:00p m Octob er 2020 4:11a m Hydrocodone -Acetaminop hen 1 TAB tablet Discont inued 1 - 2 TAB PO Q6H as needed for Pain 10 0 January 25, 2021 Octob er 2020 4:11a m Prednisone 20 MG tablet Discont inued 60 MG PO DAILY 15 5 0 January 24, 2021 11:00p m Octob er 2020 4:11a m 3 X 20 MG TABS. QS Hyoscyamine Sulfate 0.125 MG tablet, sublingual Discont inued 0.125 MG SL BEFORE MEALS as needed for Pain 20 0 Septem edie 2020 8:00pm Octob er 2020 4:11a m Ondansetron 4 MG tablet,disi ntegrating Discont inued 4 MG TL Q6H as needed for Nausea / Vomiting 10 0 Septem edie 2020 11:00p m September 08, 2021 9:27p m Dexamethaso ne 4 MG tablet Discont inued 4 MG PO DAILY 5 0 Octobe r 2020 11:00p m September 08, 2021 9:27p m Promethazin e 25 MG tablet Discont inued 25 MG PO Q6H as needed for Nausea / Vomiting 10 0 Octobe r 2020 11:00p m September 08, 2021 9:28p m Hydrocodone -Acetaminop hen 1 TAB tablet Discont inued 1 - 2 TAB PO Q6H as needed for Pain 14 0 Decemb er 2020September 08, 2021 9:27p m Take 1-2 tablets every 6 hours as needed Ondansetron 4 MG tablet,disi ntegrating Discont inued 4 MG TL Q6H as needed for Nausea / Vomiting 10 0 Decemb er 2020 12:00a m September 08, 2021 9:27p m Meloxicam 7.5 MG tablet Discont inued 7.5 MG PO TWICE A DAY 20 10 0 Juluar y 2021 12:00a m September 08, 2021 9:27p m Tizanidine 4 MG tablet Discont inued 4 MG PO Q8H as needed for Spasms 25 0 Juluar y 2021 12:00a m September 08, 2021 9:27p m Oxycodone 5 MG tablet Discont inued 5 MG PO Q6H as needed for Pain 15 0 Juluar y 2021September 08, 2021 9:28p m Acetaminoph en (Acetaminop hen Extra Strength) 500 MG tablet Discont inued 500 MG PO FOUR TIMES DAILY as needed for Pain 50 0 2021 12:00a m September 08, 2021 9:27p m Omeprazole 40 MG capsule,del ayed release(DR/ EC) Discont inued 40 MG PO DAILY September 08, 2021 12:00a m 2023 1:39p m Duloxetine 30 MG capsule,del ayed release(DR/ EC) Discont inued 30 MG PO DAILY September 08, 2021 12:00a m 2023 1:40p m Ketorolac 10 MG tablet Discont inued 10 MG PO Q6H as needed for Pain 30 0 September 08, 2021 12:00a m 2023 1:39p m Lorazepam 1 MG tablet Discont inued 1 MG PO THREE TIMES A DAY as needed for Anxiety 6 0 October 19, 2021 11:00p m 2023 1:39p m Metoclopram dawson Hcl 10 MG tablet Discont inued 10 MG PO Q6H as needed for nausea or headache 10 0 October 19, 2021 11:00p m 2023 1:39p m Oxycodone-A cetaminophe n (Percocet 5-325 Mg Tablet) 1 EACH tablet Discont inued 1 EACH PO Q6H as needed for pain 8 0 October 29, [id number] 1:38p m Phenazopyri dine (Pyridium) 200 MG tablet Discont inued 200 MG PO THREE TIMES A DAY as needed for dysuria 6 0 October 28, 2021 11:00p m 2023 1:38p m Oxycodone-A cetaminophe n (Percocet 5-325 Mg Tablet) 1 EACH tablet Discont inued 1 EACH PO Q6H as needed for pain 12 0 December 02, [id number] 1:38p m Acetaminoph en (Acetaminop hen Extra Strength) 500 MG tablet Discont inued 500 MG PO FOUR TIMES DAILY as needed for Pain 50 0 December 18, 2021 11:00p m 2023 1:40p m Oxycodone 5 MG tablet Discont inued 5 MG PO THREE TIMES A DAY as needed for Pain 15 December 19, [id number] 1:38p m Labetalol 100 MG tablet Discont inued 100 MG PO DAILY 20 December 18, 2021 11:00p m Jul ry 2023 1:39p m Naproxen 250 MG tablet Discont inued 500 MG PO TWICE A DAY as needed for Pain 15 January 20, 2022 11:00p m Jul 2023 1:39p m Ondansetron 4 MG tablet,disi ntegrating Discont inued 4 MG TL Q6H as needed for Nausea / Vomiting 10 January 20, 2022 11:00p m Jul 2023 1:39p m Dicyclomine 10 MG capsule Discont inued 1 - 2 TAB PO FOUR TIMES DAILY as needed for Abdominal Pain 20 January 20, 2022 11:00p m Jul 2023 1:40p m Metoclopram dawson Hcl 10 MG tablet Discont inued 10 MG PO Q6H as needed for Nausea / Vomiting 20 February 07, 2022 11:00p m Jul 2023 1:39p m Methocarbam ol 500 MG tablet Discont inued 500 MG PO Q6H as needed for muscle spasm 20 September 12, 2022 11:00p m Jul 2023 1:38p m Vancomycin 125 MG capsule Discont inued 1 TAB PO FOUR TIMES DAILY 56 January 02, 2023 11:00p m Jul 2023 1:38p m Oxycodone 5 MG tablet Discont inued 5 MG PO EVERY 4-6 HOURS as needed for Pain 7 January 03, 20232023 1:38p m Simethicone (Gas Relief (Simethicon e)) 80 MG tablet,chew able Discont inued 80 MG PO DAILY BEFORE A MEAL as needed for Gas 10 January 05, 2023 11:49p m Jul 2023 1:38p m Dicyclomine 10 MG capsule Discont inued 10 MG PO FOUR TIMES DAILY as needed for Abdominal Pain 30 January 31, 2023 8:18pm Jul 2023 1:40p m Vancomycin 125 MG capsule Discont inued 125 MG PO FOUR TIMES DAILY 40 10 0 January 30, 2023 11:00p m Julua 2023 1:38p m Cyclobenzap rine 10 MG tablet Discont inued 10 MG PO THREE TIMES A DAY as needed for Spasms 20 6 0 February 16, 2023 11:00p m 2023 1:40p m Oxycodone 5 MG tablet Discont inued 5 MG PO TWICE A DAY 10 0 Octobe r 2022 1:38p m Hydrocodone -Acetaminop hen 1 TAB tablet Discont inued 1 EACH PO Q6H as needed for Pain 15 0 Novemb er 2022 1:40p m Meloxicam 7.5 MG tablet Discont inued 7.5 MG PO TWICE A DAY 20 10 0 Novemb er 2022 11:00p m 2023 1:39p m Venlafaxine 75 MG capsule,ext ended release 24hr Discont inued 75 MG PO DAILY 2023 12:00a m October 09, 2024 2:33p m Propranolol 60 MG capsule,ext ended release 24 hr Discont inued 60 MG PO DAILY 2023 12:00a m Octob er 2023 1:20p m Pregabalin (Lyrica) 75 MG capsule Discont inued 75 MG PO TWICE A DAY 2023 12:00a m Erika hunt 2023 2:13p m Elagolix (Orilissa) 200 MG tablet Discont inued 200 MG PO TWICE A DAY 2023 12:00a m Septroslyn hunt 2023 2:13p m Loperamide 2 MG capsule Discont inued 2 MG PO FOUR TIMES DAILY as needed for Diarrhea 10 2023 12:00a m September 27, 2023 4:54p m Ondansetron 4 MG tablet,disi ntegrating Discont inued 4 MG TL Q6H as needed for Nausea / Vomiting 10 2023 12:00a m September 27, 2023 4:54p m Propranolol 60 mg capsule,ext ended release 24 hr Discont inued 75 MG PO DAILY Octobe r 2023 1:19pm Janua ry 2024 3:18p m Baclofen 5 MG tablet Discont inued 5 MG PO DAILY ua 2023 12:00a m September 27, 2023 4:55p m Prednisone 20 MG tablet Discont inued 40 MG PO DAILY 10 5 0 ua 2023 12:00a m September 27, 2023 4:54p m Meloxicam 7.5 MG tablet Discont inued 7.5 MG PO TWICE A DAY as needed for Pain 20 0 ua 2023 12:00a m September 27, 2023 4:54p m Oxycodone 5 MG tablet Discont inued 5 MG PO EVERY 4-6 HOURS as needed for Pain 15 0 ua 2023September 27, 2023 4:54p m Acetaminoph en (Acetaminop hen Extra Strength) 500 MG tablet Active 500 MG PO Q4H as needed for Analgesia September 26, 2023 11:00p m Complies with drug therapy Ibuprofen (Advil) 200 MG tablet Discont inued 1 TAB PO NEEDED as needed for Analgesia September 26, 2023 11:00p m Octob er 2023 1:18p m Ondansetron 4 MG tablet,disi ntegrating Discont inued 1 TAB PO DAILY September 26, 2023 11:00p m Octob er 2023 4:46p m Clindamycin Hcl 300 MG capsule Discont inued 300 MG PO FOUR TIMES DAILY 28 0 November 16, 2023 [facility]p [facility] 2[facility] Hydrocodone -Acetaminop hen 1 TAB tablet Discont inued 1 TAB PO Q6H as needed for Pain 10 0 December 31, 2023 Septe [facility] 2023 2:14p m Take 1 tablets every 6 hours as needed Prednisone 20 MG tablet Discont inued 40 MG PO DAILY 8 4 0 December 30, 2023 11:00p m Septe [facility] 2023 2:12p m 2 X 20 MG TABS. QS Prednisone 10 MG tablet Discont inued 10 MG PO 10 DAY TAPER 42 0 Septem edie 2023 11:00p m Octob er 2023 4:46p m Day 1-4: Take 60mg (6 tablets) daily; Day 5-7: Take 40mg (4 tablets) daily; Day 8-10: Take 20mg (2 tablets) daily Oxycodone 5 MG tablet Discont inued 5 - 10 MG PO Q6H as needed for pain 14 0 Septem edie 2023 Octob er 2023 9:06p m Oxycodone 5 MG tablet Discont inued 5 MG PO Q6H as needed for Pain 16 0 Septem edie 2023 Octob er 2023 9:06p m Methocarbam ol 500 mg tablet Discont inued 500 MG PO THREE TIMES A DAY as needed for spasm Octobe r 2023 11:00p m Janua ry 2024 3:17p m 1 tablet three times a day as needed Oxycodone 5 mg tablet Discont inued 5 - 10 MG PO Q6H as needed for pain 14 0 Octobe r 2023 Novem edie 2023 3:18p m Lymphadeni tis Sinusitis Nonspecifi c lymphadeni tis, unspecifie d Acute sinusitis, unspecifie d Clindamycin Hcl 300 mg capsule Discont inued 300 MG PO Q6H 40 10 0 Octobe r 2023 11:00p m [facility] edie 2023 3:17p m Lymphadeni tis Sinusitis Nonspecifi c lymphadeni tis, unspecifie d Acute sinusitis, unspecifie d Oxycodone 10 mg tablet Discont inued 10 MG PO Q8H as needed for pain 10 0 Octobe r 2024 Novem edie 2024 11:56 am Acute pain Pain, unspecifie d Buprenorphi ne 5 mcg/hour patch weekly Active 1 PATCH TD Q7D Dece er 2024 12:00a m Complies with drug therapy Venlafaxine 150 mg capsule,ext ended release 24hr Discont inued 150 MG PO every day Octobe r 2023 11:00p m October 09, 2024 2:33p m Take 1 capsule by mouth once daily with 75 mg tab for total of 225mg Albuterol Sulfate 90 mcg/actuati on HFA aerosol inhaler Active 2 PUFFS INH Q6H as needed for wheezing Octobe r 2023 11:00p m Complies with drug therapy metoprolol succinate Discont inued PO r y 2024 12:00a m October 09, 2024 2:16p m Buprenorphi ne Hcl (Belbuca) 75 mcg film Discont inued 75 MCG BC .COMPLEX Januar y 2024 12:00a m October 09, 2024 2:16p m 75 mcg buccally; Buprenorphi ne Hcl (Belbuca) 75 mcg film Discont inued 75 MCG BC Q12H October 09, 2024 2:16pm Decem edie 2024 12:58 pm Metoprolol Succinate 25 mg tablet extended release 24 hr Discont inued 25 MG PO every day October 08, 2024 11:00p m October 09, 2024 2:32p m Metoprolol Succinate 25 mg tablet extended release 24 hr Active 25 - 50 MG PO every day 180 3 October 09, 2024 2:31pm Sinus tachycardi a Tachycardi a, unspecifie d Complies with drug therapy Venlafaxine 75 mg capsule,ext ended release 24hr Discont inued 75 MG PO DAILY 90 October 09, 2024 2:32pm Decem edie 2024 11:32 am Venlafaxine 150 mg capsule,ext ended release 24hr Discont inued 150 MG PO every day 90 October 09, 2024 2:32pm Decem edie 2024 11:32 am Anxiety and depression Anxiety disorder, unspecifie d Depression , unspecifie d Take 1 capsule by mouth once daily with 75 mg tab for total of 225mg Meloxicam 7.5 mg tablet Discont inued 7.5 MG PO every day 30 2 Octobe r 2023 11:00p m Octob er 2023 4:46p m Baclofen 10 mg tablet Discont inued 10 MG PO TWICE A DAY 60 3 Novemb er 2024 12:00a m Decem edie 2024 11:32 am Chronic pain syndrome Chronic pain syndrome Immunizations Immunization Event Date Not Given Reason Dose Number [employer] Lot Number Reason(s) Given Vaccine Information Statement (VIS) Detail Administration Location COVID-19 (MODERNA) Septem edie 2020 COVID-19 (MODERNA) Octobe r 2020 Diptheria-Tet anus-Pertussi s Ped February 16, 2000 Diptheria-Tet anus-Pertussi s Ped Novemb er 1994 Diptheria-Tet anus-Pertussi s Ped Juluar 1995 Diptheria-Tet anus-Pertussi s Ped 1995 Diptheria-Tet anus-Pertussi s Ped Juluar 1996 Diphtheria,Te tanus toxoids, Pertussis vaccine Novemb er 1994 Diphtheria,Te tanus toxoids, Pertussis vaccine Juluar y 1995 Diphtheria,Te tanus toxoids, Pertussis vaccine 1995 Diphtheria,Te tanus toxoids, Pertussis vaccine Juluar 1996 Hepatitis A (Ped/Adol) 2 Dose Octobe r 2000 Hepatitis A (Ped/Adol) 2 Dose February 24, 2009 Hepatitis A (Ped/Adol) 2 Dose November 24, 2009 Hepatitis B Vaccine 1995 Hepatitis B Vaccine Novemb er 1994 Hepatitis B Vaccine January 12, 1996 Haemophilus Influenza Type B Novemb er 1994 Haemophilus Influenza Type B Januar y 1995 Haemophilus Influenza Type B 1995 Haemophilus Influenza Type B Januar 1996 Human Papillomaviru s, Quadrivalent February 24, 2009 Human Papillomaviru s, Quadrivalent November 24, 2009 Human Papillomaviru s, Quadrivalent November 16, 2010 Inactivated Polio Virus February 16, 2000 Meningococcal Conjugate, Quadrivalent (MCV4P) Octobe r 2006 Meningococcal Conjugate, Quadrivalent (MCV4P) November 15, 2012 Measles-Mumps -Rubella Octobe r 1995 Measles-Mumps -Rubella February 16, 2000 Tetanus-Dipth eria-Pertussi s Octobe r 2006 Varicella January 17, 1997 Procedures Procedure Date Performed Status CT Abdomen/Pelvis WO June 24, 2025 4:49pm completed Occult Blood June 24, 2025 completed Relevant Diagnostic Tests and/or Laboratory Data Laboratory Results Test Collection Date/Time Result Date/Time Result Interpretation Reference Range Result Comment Performing Site White Blood Count June 24, 2025 1:57pm June 24, 2025 2:11pm 6.9 10*3/uL 4.8-10.8 [facility] [id number] [address] [facility] [address] Red Blood Count June 24, 2025 1:57pm June 24, 2025 2:11pm 4.62 10*6/uL 4.20-5.40 MAIN [facility] [id number] [address] [facility] [address] Hemoglob in June 24, 2025 1:57pm June 24, 2025 2:11pm 14.6 g/dL 12.0-16.0 MA[facility] [id number] [address] [facility] [address] Hematocr it June 24, 2025 1:57pm June 24, 2025 2:11pm 42.2 % 37.0-47.0 [facility] [id number] [address] [facility] [address] Mean Corpuscu lar Volume June 24, 2025 1:57pm June 24, 2025 2:11pm 91.3 fL 81.0-99.0 MAIN [facility] [id number] [address] [facility] [address] Mean Corpuscu lar Hemoglob in June 24, 2025 1:57pm June 24, 2025 2:11pm 31.6 pg above high threshold 27.0-31.0 MAIN LAB [id number] [address] [facility] [address] Mean Corpuscu lar Hemoglob in Concent June 24, 2025 1:57pm June 24, 2025 2:11pm 34.6 g/dL 32.0-36.0 MAIN LAB [id number] [address] [facility] [address] Red Cell Distribu tion Width June 24, 2025 1:57pm June 24, 2025 2:11pm 11.9 % below low threshold 12.0-15.0 MAIN [facility] [id number] [address] [facility] [address] Platelet Count June 24, 2025 1:57pm June 24, 2025 2:11pm 299 10*3/uL 130-450 MAIN LAB [id number] [address] [facility] [address] Mean Platelet Volume June 24, 2025 1:57pm June 24, 2025 2:11pm 9.6 fL 7.9-10.8 MAIN [facility] [id number] [address] [facility] [address] Neutroph ils # (Auto) June 24, 2025 1:57pm June 24, 2025 2:11pm 4.4 10*3/uL 1.5-6.6 MAIN LAB [id number] [address] [facility] [address] Lymphocy gilbert # (Auto) June 24, 2025 1:57pm June 24, 2025 2:11pm 2.2 10*3/uL 1.5-3.5 MAIN [facility] [id number] [address] [facility] [address] Monocyte s # (Auto) June 24, 2025 1:57pm June 24, 2025 2:11pm 0.3 10*3/uL 0.0-1.0 MAIN [facility] [id number] [address] [facility] [address] Eosinoph ils # (Auto) June 24, 2025 1:57pm June 24, 2025 2:11pm 0.0 10*3/uL 0.0-0.7 MAIN LAB [id number] [address] [facility] [address] Basophil s # (Auto) June 24, 2025 1:57pm June 24, 2025 2:11pm 0.0 10*3/uL 0.0-0.1 MAIN LAB [id number] [address] [facility] [address] Nucleate d Red Blood Cells % June 24, 2025 1:57pm June 24, 2025 2:11pm 0.0 /100{WBC} MAIN LAB [id number] [address] [facility] [address] Nucleate d RBC Absolute Count (auto) June 24, 2025 1:57pm June 24, 2025 2:11pm 0.00 10*3/uL MAIN LAB [id number] [address] [facility] [address] Urine Color June 24, 2025 1:09pm June 24, 2025 1:46pm LT. YELLOW MAIN LAB [id number] [address] [facility] [address] Urine Clarity June 24, 2025 1:09pm June 24, 2025 1:46pm CLEAR CLEAR MAIN LAB [id number] [address] [facility] [address] Urine Leukocyt e Esterase June 24, 2025 1:09pm June 24, 2025 1:46pm NEGATIVE NEGATIVE MAIN [facility] [id number] [address] [facility] [address] Urine Nitrite June 24, 2025 1:09pm June 24, 2025 1:46pm NEGATIVE NEGATIVE MA[facility] [id number] [address] [facility] [address] Urine Urobilin ogen June 24, 2025 1:09pm June 24, 2025 1:46pm 0.2 (NORMAL) {EhrlichU} /dL NORMAL MAIN LAB [id number] [address] [facility] [address] Urine Protein June 24, 2025 1:09pm June 24, 2025 1:46pm NEGATIVE mg/dL NEGATIVE MAIN LAB [id number] [address] [facility] [address] Urine pH June 24, 2025 1:09pm June 24, 2025 1:46pm 6.5 ph 5.0-7.5 MAIN LAB [id number] [address] [facility] [address] Urine Occult Blood June 24, 2025 1:09pm June 24, 2025 1:46pm NEGATIVE NEGATIVE MA[facility] [id number] [address] [facility] [address] Urine Specific [place] June 24, 2025 1:09pm June 24, 2025 1:46pm 1.010 1.002-1.03 0 MAIN LAB [id number] [address] [facility] [address] Urine Ketones June 24, 2025 1:09pm June 24, 2025 1:46pm NEGATIVE mg/dL NEGATIVE MAIN LAB [id number] [address] [facility] [address] Urine Bilirubi n June 24, 2025 1:09pm June 24, 2025 1:46pm NEGATIVE NEGATIVE Bilirubin can be influenced by color interferen ce. Please correlate positive results with clinical presentati on MAIN LAB [id number] [address] [facility] [address] Urine Glucose (UA) June 24, 2025 1:09pm June 24, 2025 1:46pm NEGATIVE mg/dL NEGATIVE MAIN LAB [id number] [address] [facility] [address] Urine Microsco pic Review June 24, 2025 1:09pm June 24, 2025 1:46pm NOT INDICATED MAIN LAB [id number] [address] [facility] [address] Urine Culture Comments June 24, 2025 1:09pm June 24, 2025 1:46pm NOT INDICATED MAIN LAB [id number] [address] [facility] [address] Urine HCG, Qualitat kendall June 24, 2025 1:09pm June 24, 2025 1:49pm NEGATIVE INTERPRETI VE INFORMATIO N Urine hCG:Non-pr egnant females: NegativePr egnant females: PositiveIn some cases the level of hCG may be below the sensitivit y of the test. Additional ly, a very dilute urine specimen, may not contain representa tive levels of hCG. If is still suspected, follow up testing on a first morning urine specimen or serum hCG testing is recommende d. MAIN LAB [id number] [address] [facility] [address] Sodium Level June 24, 2025 1:57pm June 24, 2025 2:28pm 137 mmol/L 135-145 MAIN LAB [id number] [address] [facility] [address] Potassiu m Level June 24, 2025 1:57pm June 24, 2025 2:28pm 3.7 mmol/L 3.5-4.5 As of December 2022 testing method has changed, this may include reference ranges. MAIN LAB [id number] [address] [facility] [address] Chloride Level June 24, 2025 1:57pm June 24, 2025 2:28pm 106 mmol/L 101-111 As of December 2022 testing method has changed, this may include reference ranges. MAIN LAB [id number] [address] [facility] [address] Carbon Dioxide Level June 24, 2025 1:57pm June 24, 2025 2:28pm 25 mmol/L 21-32 As of December 2022 testing method has changed, this may include reference ranges. MAIN LAB [id number] [address] [facility] [address] Anion Gap June 24, 2025 1:57pm June 24, 2025 2:28pm 6.0 6-13 MAIN LAB [id number] [address] [facility] [address] Blood Urea Nitrogen June 24, 2025 1:57pm June 24, 2025 2:28pm 9 mg/dL 6-20 As of December 2022 testing method has changed, this may include reference ranges. MAIN LAB [id number] [address] [facility] [address] Creatini ne June 24, 2025 1:57pm June 24, 2025 2:28pm 0.7 mg/dL 0.6-1.3 As of December 2022 testing method has changed, this may include reference ranges. MAIN LAB [id number] [address] [facility] [address] Estimate d GFR (MDRD) June 24, 2025 1:57pm June 24, 2025 2:28pm 98 >89 The [employer]-trace able MDRD Study Equation has been validated extensivel y in and population s between the ages of 18 and 70 with impaired kidney function (eGFR < 60 mL/min/1.7 3m2) and has shown good performanc e for patients with all common causes of kidney disease. Although this equation has not been validated for patients older than 70, an MDRD-deriv ed eGFR may still be a useful tool for providers caring for patients older than 70.Referen villa: http://www .nkdep.nih .gov/lab-e valuation/ gfr/creati nine-stand ardization , last updated September 2011. MAIN LAB [id number] [address] [facility] [address] Glucose Level June 24, 2025 1:57pm June 24, 2025 2:28pm 91 mg/dL 74-104 As of December 2022 testing method has changed, this may include reference ranges. MAIN LAB [id number] [address] [facility] [address] Calcium Level June 24, 2025 1:57pm June 24, 2025 2:28pm 9.4 mg/dL 8.5-10.3 As of December 2022 testing method has changed, this may include reference ranges. MAIN LAB [id number] [address] [facility] [address] Total Bilirubi n June 24, 2025 1:57pm June 24, 2025 2:28pm 0.7 mg/dL 0.2-1.0 As of December 2022 testing method has changed, this may include reference ranges. MAIN LAB [id number] [address] [facility] [address] Aspartat e Amino Transf (AST/SGO T) June 24, 2025 1:57pm June 24, 2025 2:28pm 12 [iU]/L 10-42 As of December 2022 testing method has changed, this may include reference ranges. MAIN LAB [id number] [address] [facility] [address] Alanine Aminotra nsferase (ALT/SGP T) June 24, 2025 1:57pm June 24, 2025 2:28pm 11 [iU]/L 10-60 As of December 2022 testing method has changed, this may include reference ranges. MAIN LAB [id number] [address] [facility] [address] Alkaline Phosphat ase June 24, 2025 1:57pm June 24, 2025 2:28pm 112 [iU]/L 42-121 As of December 2022 testing method has changed, this may include reference ranges. MAIN LAB [id number] [address] [facility] [address] Total Protein June 24, 2025 1:57pm June 24, 2025 2:28pm 7.2 g/dL 6.4-8.9 As of December 2022 testing method has changed, this may include reference ranges. MAIN LAB [id number] [address] [facility] [address] Albumin June 24, 2025 1:57pm June 24, 2025 2:28pm 4.6 g/dL 3.2-5.5 As of December 2022 testing method has changed, this may include reference ranges. MAIN LAB [id number] [address] [facility] [address] Globulin June 24, 2025 1:57pm June 24, 2025 2:28pm 2.6 g/dL 2.1-4.2 MAIN LAB [id number] [address] [facility] [address] Albumin/ Globulin Ratio June 24, 2025 1:57pm June 24, 2025 2:28pm 1.8 1.0-2.2 MAIN LAB [id number] [address] [facility] [address] Lipase June 24, 2025 1:57pm June 24, 2025 2:29pm < 10 [iU]/L below low threshold 11-82 As of December 2022 testing method has changed, this may include reference ranges. MAIN LAB [id number] [address] [facility] [address] Microbiology Results Procedure Source Result Collection Date/Time Result Date/Time Result Comment Performing Site Occult Blood Stool June 24, 2025 5:50pm June 24, 2025 6:08pm MAIN LAB [id number] [address] [facility] [address] Diagnostic Imaging Reports Author Francisco Cordero [facility] Report Date/Time June 24, 2025 5:30pm PT NAME: JEANETTE BILLINGS MR#: [id number] REG ER/ED AGE: 30 CI DT/TM: 06/24/25 PCP: Tara Kemp MD : 1995 ATT: SEX: F ORD: Niki hunter [facility] EXAM: [id number] CT/ABPEWO ([id number]) PROCEDURE: CT Abdomen/Pelvis WO INDICATIONS: lower abd pain with distension TECHNIQUE: A CT scan of the abdomen and pelvis was performed without the use of intravenouscontrast. Images were recorded and evaluated at appropriate window settings. Reformats: coronal and sagittal. For radiation dose reduction, the following wasused: automated exposure control, adjustment of mA and/or kV according to patient size. COMPARISON: 02/16/2024 FINDINGS: Image quality: Diagnostic. Lower chest: Unremarkable. Liver: No contour-deforming mass. Gallbladder: Surgically absent. Biliary tree: No intrahepatic or extrahepatic dilation, accounting for age. Spleen: No splenomegaly. Pancreas: No pancreatic ductal dilation. Adrenals: No adrenal nodule. Kidneys and ureters: No hydronephrosis. No contour-deforming mass. Stomach, bowel and peritoneum: No gastric or small bowel dilation. No abnormal wall thickening. No pathologic free fluid. Surgical clips at the cecum, likely prior appendectomy. Lymph nodes: No central or retroperitoneal adenopathy. Vessels: No infrarenal aortic aneurysm. Reproductive organs: Unremarkable. Bladder: No abnormal bladder wall thickening. No calcified bladder stones. Pelvic lymph nodes: No adenopathy by size criteria. Bones: No aggressive osseous abnormality. Spinal cord stimulator in place. Other: No significant ventral or inguinal hernia. IMPRESSION: No acute findings within the abdomen or pelvis. Reviewed by: Francisco Cordero MD on 06/24/2025 5:30 PM PST Approved by: Francisco Cordero MD on 06/24/2025 5:30 PM PST Station ID: [id number] Report Electronically Signed by Francisco Cordero MD 06/[id number] cc: Niki Mcleod DNP; Tara Kemp MD Vital Signs Vital Reading Result Reference Range Collection Date/Time Height 62.5 [in_i] June 24, 2025 12:52pm Weight 78.00 kg June 24, 2025 12:52pm Body Temperature 36.9 Gabriella 36.5-37.9 June 242024 12:52pm Heart Rate 135 /min 60-100 June 24, 2025 6:00pm Respiratory rate 19 /min 12-June 242024 6:00pm Oxygen saturation by Pulse oximetry 98 % 92-100 June 24, 2025 6:00pm BP Systolic 132 mm[Hg] 90-130 June 24, 2025 6:00pm BP Diastolic 84 mm[Hg] 60-90 June 24, 2025 6:00pm BMI (Body Mass Index) 30.9 kg/m2 [facility] 2024 12:52pm Advance Directives Advance Directive Response Recorded Date/ Time Advance Directives on file? No Janu 2019 8:47pm Advance Directives No February 25, 2015 11:03am Advance Directives Information Provided No February 25, 2015 11:03am Living Will No February 25 5 11:03am Power of All Around Patternmaker No February 25 015 11:03am Advance Directives On File No Janus 2014 11:03am Insurance Providers Guarantor Livan COLMENARES Address [address] [place] [id number] Contact Info. Home Phone: Coverage Status Update:2025 Payer Group Member ID Coverage Type Subscriber Relationship to Subscriber Effective Date Expiration Date [facility] ACT DUTY FM PLAN [id number] null Livan COLMENARES Id: [id number] [facility] [address] Home Phone: Email: [email or web address] Encounters Encounter Location(s) Arrival/Admit Date Discharge/Departure Date Discharge/Departure Disposition Provider(s) Departed Emergency -Emergency Department June 24, 2025 12:40pm June 24, 2025 6:24pm Discharged to home care or self care (routine discharge) Mental Status Observation Response Date Recorded Neurological WDL Yes June 24, 2025 3:58pm Cognitive/Mental Status Assessments Plan of Treatment Future Tests Future scheduled test information is unavailable Pending Tests Pending diagnostic test information is unavailable Future Visits Future appointment information is unavailable Future Procedures Future procedure information is unavailable Future Medications Future medication information is unavailable Patient Instructions Instruction Admit Date Abdominal Pain June 24, 2025 12:40pm Hospital Discharge Instructions Additional Instructions Please follow-up with your chronic pain doctor about today's ER visit we have completed the CT scan and we are not seeing acute abnormalities or findings we are also not seeing any lab abnormalities. Please come back in if any severe worsening symptoms.
[2025-06-25 11:40] VITALS: BP 113/71; PULSE 113; RESP 20; TEMP 36.9; O2SAT 99; BMI 32.0
--- NOTE | 2025-06-25 11:50 | DI.RAD.S_ITS ---
PROCEDURE: XR CHEST 1V INDICATIONS: suspected sepsis TECHNIQUE: One view of the chest was acquired. COMPARISON: [facility], EMANUEL, XR CHEST 1V, 09/20/2021, 15:35. [facility], EMANUEL, XR CHEST 1V, 04/10/2019, 1:57. FINDINGS: Surgical changes and devices: Spinal stimulator leads project over the thoracic spine. Lungs and pleura: Lungs are clear. No pleural effusions or pneumothorax. Mediastinum: Mediastinal contours appear normal. Heart size is normal. Bones and chest wall: No suspicious bony lesions. Overlying soft tissues appear unremarkable. IMPRESSION: No acute cardiopulmonary abnormality is seen. Approved by: Joe Clarke M.D. on 06/25/2025 at 12:45
--- NOTE | 2025-06-25 12:12 | ED.ABDPAIN ---
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 Patient has had chronic issues past. She was seen yesterday at [place] emergency department for similar. States she has a CT at that time. She has had prior ex lap to evaluate for endometriosis, she has had an appendectomy, cholecystectomy she does still have her female parts. Patient states she will feel hot and feverish intermittently along with the chills. She has had nausea and vomiting yesterday and a little bit today. She reports abdominal pain throughout feels like her belly is stretched out, she denies any back or flank pain. Patient states alternates constipation and diarrhea. She notes she had little bit of blood yesterday but has a rectal exam and was told it was negative. She denies any new urinary symptoms. No new vaginal bleeding or discharge reported. She has had EGD and colonoscopy in the past. She states these were negative. She reports allergies to contrast dye, lidocaine, doxycycline, penicillin. Patient reports an allergy tobacco, denies alcohol, states she uses marijuana. Related Data Home Medications ?Medication ?Instructions ?Recorded ?Confirmed prazosin 2 mg capsule 2 mg PO BEDTIME 06/22/23 11/22/23 propranolol 60 mg capsule,24 60 mg PO DAILY 07/06/23 11/22/23 hr,extended release venlafaxine 150 mg 150 mg PO DAILY 07/06/23 11/22/23 capsule,extended release 24 hr venlafaxine 75 mg capsule,extended 75 mg PO DAILY 07/06/23 11/22/23 release 24 hr Previous Rx's ?Medication ?Instructions ?Recorded albuterol sulfate 90 mcg/actuation 2 puff inhalation Q4-6H PRN 04/10/19 aerosol inhaler shortness of breath #18 grams ondansetron HCl 8 mg tablet 8 mg PO Q8H PRN nausea and 03/22/22 vomiting #30 tabs ibuprofen 600 mg tablet 600 mg PO Q6H PRN fever or pain 12/11/22 #30 tabs polyethylene glycol 3350 17 17 g PO DAILY for soft stool #238 12/11/22 gram/dose oral powder (Miralax) grams baclofen 5 mg tablet 5 mg PO TID #90 tabs 08/03/23 pregabalin 150 mg capsule (Lyrica) 150 mg PO BID #60 caps 08/03/23 elagolix 200 mg tablet (Orilissa) 200 mg PO BID #60 tabs 10/09/23 cyclobenzaprine 10 mg tablet 10 mg PO TID PRN muscle spasm #20 10/21/23 tabs hydrocodone 5 mg-acetaminophen 325 1 tab PO BID PRN pain #6 tabs 10/21/23 mg tablet norelgestromin 150 mcg-e.estradiol 1 patch transdermal QWEEK #3 ea 11/23/23 35 mcg/24 hr weekly transderm patch (Xulane) hydrocodone 5 mg-acetaminophen 325 1 tab PO Q6H PRN pain #10 tabs 02/17/24 mg tablet promethazine 25 mg rectal 25 mg WV Q4-6H PRN nausea and 03/11/24 suppository vomiting #12 ea promethazine 25 mg tablet 25 mg PO Q6H PRN nausea and 03/11/24 vomiting #30 tabs baclofen 20 mg tablet 20 mg PO TID PRN pain (scale score 03/26/25 4-6) #12 tabs hydrocodone 5 mg-acetaminophen 325 1 tab PO Q6H PRN pain #7 tabs 03/26/25 mg tablet baclofen 20 mg tablet 20 mg PO TID PRN pain (scale score 04/23/25 4-6) #20 tabs hydrocodone 5 mg-acetaminophen 325 1 tab PO Q6H PRN pain #12 tabs 25 mg tablet hydrocodone 5 mg-acetaminophen 325 1 tab PO Q6H PRN pain #7 tabs 06/25/25 mg tablet Allergies Allergy/AdvReac Type Severity Reaction Status Date / Time shellfish derived Allergy Severe Anaphylaxis Verified 06/25/25 11:40 lidocaine Allergy Intermediate ITCHING Verified 06/25/25 11:40 doxycycline (DOXYCYCLINE) Allergy Unknown Verified 06/25/25 11:40 Penicillins (PENICILLINS) Allergy Unknown Verified 06/25/25 11:40 iodine Allergy Hives Verified 06/25/25 11:40 cortisone AdvReac Severe Swelling Verified 06/25/25 11:40 Review of Systems Review of Systems ROS Unobtainable: All systems reviewed & are unremarkable except as noted in HPI and below Patient History Medical History Bilateral hip pain Myofascial pain SI (sacroiliac) joint dysfunction Dorsalgia CVA (cerebral vascular accident) Normal endoscopy Normal colonoscopy Torn rotator cuff Cholecystitis Tumor of liver Fibromyalgia Acute right lower quadrant pain Exercise-induced asthma Anxiety Right foot strain Jaw pain, non-TMJ Lower GI bleed Gastroenteritis Surgical History History of cholecystectomy (~03/2022) H/O knee surgery History of appendectomy Family History Mother Bowel obstruction Lupus Spinal cord cancer Fibromyalgia Epilepsy Blood clotting tendency Stroke Sister Bowel obstruction Tachycardia Arrhythmia Fibromyalgia Family/Other Colon cancer Grandmother S/P CABG x 3 Tachycardia Father Tachycardia Brother Tachycardia Grandmother Liver cancer Social History marital status: number of children: 0 household members: spouse lives independently: Yes housing: house pets and animals: Yes (2 dogs, 1 cat) education level: college occupational status: employed current occupational exposures/hazards: No special reuben needs: No travel history: over 6 months ago seatbelt use: always water heater temp set < 120 deg: Yes working smoke detector in home: Yes fire extinguisher in home: Yes carbon monox detector in home: Yes firearms in home: No do you feel safe at home: Yes second hand exposure: Yes ( smokes outside) alcohol intake: former substance use type: marijuana during the past year weight has: remained stable well-balanced diet: about half the time daily servings fruits/ve-4 caffeine: Yes (aware of 200mg limit) Type(s) of exercise: walking frequency: 5-6 times per week tobacco type: vaping alcohol intake frequency: holidays/special occasions only Exam Narrative Exam Narrative: GENERAL: Alert and oriented x three, female in mild distress. HEENT: Head normocephalic, atraumatic, EOMI, pupils reactive, face symmetric, moist mucous membranes NECK: Supple, full range of motion CARDIOVASCULAR: Regular rate and rhythm without murmurs, rubs or gallops. RESPIRATORY: Breath sounds equal bilaterally, no wheezes rales or rhonchi. ABDOMEN: Soft, generalized tenderness, mildly distended. Normoactive bowel sounds all 4 quadrants. No guarding or rebound, rigidity, no mass : No CVA tenderness EXTREMITIES: Normal range of motion, no clubbing or edema. Neurovascularly intact NEUROLOGICAL: Cranial nerves II through XII grossly intact. Moving all extremities SKIN: Warm, dry, no petechiae, no rashes or lesions. Initial Vital Signs Initial Vital Signs: Vital Signs Temperature 98.4 F 06/25/25 11:40 Pulse Rate 113 H 06/25/25 11:40 Respiratory Rate 20 06/25/25 11:40 Blood Pressure 113/71 06/25/25 11:40 Pulse Oximetry 99 06/25/25 11:40 Oxygen Delivery Method Room Air 06/25/25 11:40 Course Orders Ordered: ED Orders 06/25/25 11:50 XR chest 1V Stat EKG-12 Lead Stat RT Consult Eval and Treat NOW 06/25/25 12:20 Complete Blood Count AUTO DIFF Stat Comprehensive Metabolic Panel Stat Lactate (Lactic Acid) Stat Lipase Stat PTT Partial Thromboplastin Jose A Stat Procalcitonin Stat Prothrombin Time INR Stat 06/25/25 12:23 US pelvic complete Stat 06/25/25 13:04 Urine Culture Stat Urine Microscopic Stat 06/25/25 13:29 Blood Culture Stat Discontinued Medications Hydromorphone HCl (Hydromorphone 1 Mg/Ml Syringe) 1 mg IV NOW ONE Stop: 06/25/25 15:28 Last Admin: 06/25/25 15:39 Dose: 1 mg Documented By: RAY Sodium Chloride (Normal Saline 0.9%) 1,000 mls @ 1,000 mls/hr IV BOLUS ONE Stop: 06/25/25 12:49 Last Infusion: 06/25/25 15:03 Dose: Infused Documented By: RAY(2) Admin: 06/25/25 13:37 Dose: 1,000 mls/hr Documented By: NIK Ketorolac Tromethamine (Ketorolac 30 Mg/Ml Vial) 15 mg IV NOW ONE Stop: 06/25/25 12:29 Last Admin: 06/25/25 13:37 Dose: 15 mg Documented By: NIK Ondansetron HCl (Ondansetron 4 Mg/2 Ml Inj) 4 mg IV NOW PRN PRN Reason: Nausea And Vomiting Last Admin: 06/25/25 13:37 Dose: 4 mg Documented By: NIK Ondansetron HCl (Ondansetron 4 Mg Odt) 4 mg PO NOW PRN PRN Reason: Nausea And Vomiting Vital Signs Vital signs: Vital Signs - 8 hr 06/25/25 11:40 06/25/25 13:38 06/25/25 13:38 Temperature 98.4 F Pulse Rate 113 H 97 H Respiratory Rate 20 16 Blood Pressure 113/71 115/72 Pulse Oximetry 99 99 Oxygen Delivery Method Room Air Room Air 06/25/25 14:00 06/25/25 14:00 06/25/25 14:30 Temperature Pulse Rate 98 H 98 H Respiratory Rate 16 Blood Pressure 100/71 Pulse Oximetry 98 100 Oxygen Delivery Method 06/25/25 14:30 06/25/25 15:00 06/25/25 15:00 Temperature Pulse Rate 108 H Respiratory Rate 16 Blood Pressure 103/72 102/70 Pulse Oximetry 99 Oxygen Delivery Method Room Air 06/25/25 15:30 06/25/25 15:30 Temperature Pulse Rate 88 Respiratory Rate Blood Pressure 115/71 Pulse Oximetry 99 Oxygen Delivery Method MDM - Abdominal Pain Lab Data 06/25/25 12:20 06/25/25 12:20 Labs: Lab Results 06/25/25 06/25/25 Range/Units 12:20 13:04 WBC 7.6 (4.5-11.0) X10^3/uL RBC 4.66 (4.0-5.2) X10^6/uL Hgb 14.8 (12.0-16.0) g/dL Hct 41.7 (36-46) % MCV 89.5 (80-100) fL MCH 31.7 (26-34) PG MCHC 35.4 (30-36) % RDW 12.8 (11.6-14.8) % Plt Count 323 (150-400) X10^3/uL Neut % (Auto) 58.5 (50-75) % Lymph % (Auto) 36.5 (25-40) % Mcnairy % (Auto) 4.5 (3-14) % Eos % (Auto) 0.2 L (2-4) % Baso % (Auto) 0.3 (0-2) % Neut # (Auto) 4500 (7598-7666) /uL Lymph # (Auto) 2800 (5537-4800) /uL [place] # (Auto) 300 (0-900) /uL Eos # (Auto) 0 (0-450) /uL Baso # (Auto) 0 (0-100) /uL PT 12.3 (9.4-12.5) SECONDS INR 1.1 (0.9-1.3) APTT 33 (25.1-36.5) SECONDS Sodium 140 (137-145) mmol/L Potassium 4.0 (3.4-5.1) mmol/L Chloride 109 H (98-107) mmol/L Carbon Dioxide 21 L (22-32) mmol/L BUN 11 (7-17) mg/dL Creatinine 0.75 (0.52-1.04) mg/dL Estimated GFR > 60 (>60) mL/min BUN/Creatinine Ratio 14.7 (6-22) Glucose 93 (70-99) mg/dL Lactate 1.6 (0.7-2.1) mmol/L Calcium 9.7 (8.4-10.2) mg/dL Total Bilirubin 0.5 (0.2-1.3) mg/dL AST 23 (14-36) IU/L ALT 17 (<35) IU/L Alkaline Phosphatase 105 (38-126) U/L Total Protein 8.2 (6.3-8.2) g/dL Albumin 4.9 (3.5-5.0) g/dL Globulin 3.3 (1.7-4.1) g/dL Albumin/Globulin Ratio 1.5 (1.0-2.8) Lipase 41 (23-300) U/L Procalcitonin < 0.030 (<0.5) ng/mL Urine RBC 0-1/hpf (0-5/HPF) Urine WBC 0-1/hpf (0-5/HPF) Ur Squamous Epith Cells 10-30 /hpf H D (0-5/HPF) Amorphous Sediment 1+ Urine Bacteria None seen (None) Ur Culture Indicated? Cult not indicated Vol Urine Centrifuged 10ml (spun) Point of care testing: Point of Care Testing Test Results Negative Urine Dip Bedside Urine Glucose Negative Bedside Urine Bilirubin - Negative Bedside Urine Ketone - Negative Urine Specific [place] 1.025 Bedside Urine Occult Blood - Negative Bedside Urine pH 7.0 Bedside Urine Protein +/- 15 Bedside Urine Urobilinogen - Negative Bedside Urine Nitrite - Negative Bedside Urine Leukocytes - Negative Esterase MDM Narrative Medical decision making narrative: 30-year-old female with a acute on chronic pain patient has had her appendix, gallbladder out she has had ex lap to evaluate for endometriosis in the past, she has had prior EGD in scope which were negative. States she was seen at [place] ED yesterday and reports negative workup with CT. We will attempt to get records.. Labs labs show normal white count, hemoglobin and platelets, coags are negative, chloride 109 CO2 is 21 consistent with priors, sodium potassium are normal BUN and creatinine are normal LFTs are normal procalcitonin 0.03 with a lactate of 1.6. Chest x-ray, no acute cardiopulmonary abnormality. Pelvic ultrasound, shows no acute sonographic abnormality. Urine, urine shows protein no nitrates or leuks., 1 red cell 1 white cell 10-30 squamous. Urine is negative. 30-year-old female with a acute on chronic abdominal pain had CT reported yesterday as normal has had multiple CTs in the past after discussion with the patient she feels comfortable deferring any CT imaging unless significant changes to vitals or labs during her stay shows not to radiate her. I was able to obtain her your visit from 06/24/2025 had no acute findings on her CT abdomen pelvis without contrast. She had negative labs, negative CMP and lipase, normal CBC. Patient had fluids, Toradol and Zofran here in the department. Patient has a quite uncomfortable and received additional dose of IV pain medication. Discharge Plan Departure Patient Disposition: Home Clinical Impression: Abdominal pain Instructions: DI for Abdominal Pain-Adult Activity Restrictions/Additional Instructions: Follow up for rechecked as needed. Take pain medication as prescribed. This medication can make you sleepy do not drive, perform hazardous activities or make any major decisions while taking it. This medication will make you constipated please take a stool softener once to twice daily until stools are soft and regular. Prescription sent to [facility] in [place]. If you develop fevers, persistent vomiting, new black or bloody stools, lightheadedness or passing out or other new or concerning changes please return to the emergency department. Prescriptions: New hydrocodone-acetaminophen 5-325 mg tablet 1 tab PO Q6H PRN (Reason: pain) Qty: 7 0RF No Action Orilissa 200 mg tablet 200 mg PO BID Qty: 60 5RF norelgestromin-ethin.estradiol [Xulane] 150-35 mcg/24 hr patch weekly 1 patch transdermal QWEEK Qty: 3 12RF Rx Instructions: apply once weekly for 3 weeks of a 4-week cycle ondansetron HCl 8 mg tablet 8 mg PO Q8H PRN (Reason: nausea and vomiting) Qty: 30 5RF prazosin 2 mg capsule 2 mg PO BEDTIME albuterol sulfate 90 mcg/actuation HFA aerosol inhaler 2 puff INHALATION Q4-6H PRN (Reason: shortness of breath) Qty: 18 0RF polyethylene glycol 3350 [Miralax] 17 gram/dose powder 17 g PO DAILY Qty: 238 0RF ibuprofen 600 mg tablet 600 mg PO Q6H PRN (Reason: fever or pain) Qty: 30 0RF Rx Instructions: Take with food and water promethazine 25 mg tablet 25 mg PO Q6H PRN (Reason: nausea and vomiting) Qty: 30 0RF promethazine 25 mg suppository 25 mg WV Q4-6H PRN (Reason: nausea and vomiting) Qty: 12 0RF hydrocodone-acetaminophen 5-325 mg tablet 1 tab PO Q6H PRN (Reason: pain) Qty: 12 0RF baclofen 20 mg tablet 20 mg PO TID PRN (Reason: pain (scale score 4-6)) Qty: 20 0RF cyclobenzaprine 10 mg tablet 10 mg PO TID PRN (Reason: muscle spasm) Qty: 20 0RF hydrocodone-acetaminophen 5-325 mg tablet 1 tab PO BID PRN (Reason: pain) Qty: 6 0RF hydrocodone-acetaminophen 5-325 mg tablet 1 tab PO Q6H PRN (Reason: pain) Qty: 10 0RF hydrocodone-acetaminophen 5-325 mg tablet 1 tab PO Q6H PRN (Reason: pain) Qty: 7 0RF baclofen 20 mg tablet 20 mg PO TID PRN (Reason: pain (scale score 4-6)) Qty: 12 0RF venlafaxine 150 mg capsule,extended release 24hr 150 mg PO DAILY venlafaxine 75 mg capsule,extended release 24hr 75 mg PO DAILY propranolol 60 mg capsule,extended release 24 hr 60 mg PO DAILY pregabalin [Lyrica] 150 mg capsule 150 mg PO BID Qty: 60 2RF baclofen 5 mg tablet 5 mg PO TID Qty: 90 2RF Referrals: Tara Kemp MD [Primary Care Provider, [facility]] Stand Alone Forms: Patient Portal/API
--- NOTE | 2025-06-25 12:23 | DI.US.S_ITS ---
PROCEDURE: US PELVIC COMPLETE INDICATIONS: abdominal pain, acute on chronic TECHNIQUE: Real-time scanning was performed of the pelvic organs, with image documentation. Additional endovaginal scanning was necessary due to incomplete visualization of the adnexal and endometrial structures by transabdominal scanning. COMPARISON: [facility], MR, MR PELVIS WITHOUT CONTRAST, 01/23/2024, 20:00. [facility], US, US PELVIC COMPLETE, 02/08/2023, 23:10. [facility], US, US PELVIC COMPLETE, 11/19/2021, 20:21. FINDINGS: Uterus: Uterus is anteverted and normal in size at 5.7 x 2.8 x 4.1 cm. The myometrium is homogeneous. The endometrium measures 2 mm combined thickness. Ovaries: The right ovary measures 2.2 x 2.4 x 1.4 cm, with a calculated ovarian volume of 3.6 cc. The left ovary measures 2.5 x 1.7 x 1.5 cm, with a calculated ovarian volume of 3.3 cc. The ovaries have a normal sonographic appearance. Less than 12 follicles can be seen in each ovary. No adnexal masses are seen. Other: No pathologic free abdominal or pelvic fluid. IMPRESSION: No acute sonographic abnormality. Approved by: Joe Clarke M.D. on 06/25/2025 at 13:00
[2025-06-25 12:32] LABS: Add Manual Diff / Slide Review NO; Hematocrit 41.7 % (36-46); Hemoglobin 14.8 g/dL (12.0-16.0); Lymphocytes Absolute Auto 2800 /uL (1100-4500); Mean Corpuscular HGB Conc 35.4 % (30-36); Mean Corpuscular Hemoglobin 31.7 PG (26-34); Mean Corpuscular Volume 89.5 fL (80-100); Platelet Count 323 X10^3/uL (150-400)
[2025-06-25 12:43] LABS: INR 1.1 (0.9-1.3); Prothrombin Time 12.3 SECONDS (9.4-12.5)
[2025-06-25 12:46] LABS: Alanine Aminotransferase 17 IU/L (<35); Albumin 4.9 g/dL (3.5-5.0); Albumin Globulin Ratio 1.5 (1.0-2.8); Alkaline Phosphatase 105 U/L (38-126); Blood Urea Nitrogen 11 mg/dL (7-17); Calcium 9.7 mg/dL (8.4-10.2); Carbon Dioxide 21 mmol/L (22-32); Chloride 109 mmol/L (98-107); Estimated Glomerular Filt Rate > 60 mL/min (>60); Globulin 3.3 g/dL (1.7-4.1); Glucose 93 mg/dL (70-99); HEMOLYSIS 16 (0-50); Lipase 41 U/L (23-300); PTT Partial Thromboplastin Tim 33 SECONDS (25.1-36.5); Potassium 4.0 mmol/L (3.4-5.1); Sodium 140 mmol/L (137-145); Total Protein 8.2 g/dL (6.3-8.2)
[2025-06-25 12:55] LABS: Lactate (Lactic Acid) 1.6 mmol/L (0.7-2.1)
[2025-06-25 13:03] LABS: Procalcitonin < 0.030 ng/mL (<0.5)
[2025-06-25] MEDS: ONDANSETRON 4 MG/2 ML INJ IV (13:37)
[2025-06-25] MEDS: KETOROLAC 30 MG/ML VIAL 15 MG IV (13:37)
[2025-06-25] MEDS: SODIUM CHLORIDE 0.9% 1,000 ML 1000 ML IV (13:37)
[2025-06-25 13:38] VITALS: BP 115/72; PULSE 97; RESP 16; O2SAT 99
[2025-06-25 13:48] LABS: Culture Indicated Urine Cult Not Indicated
[2025-06-25 14:00] VITALS: BP 100/71; PULSE 98; RESP 16; O2SAT 98
[2025-06-25 14:30] VITALS: BP 103/72; PULSE 98; O2SAT 100
[2025-06-25 15:00] VITALS: BP 102/70; PULSE 108; RESP 16; O2SAT 99
[2025-06-25 15:30] VITALS: BP 115/71; PULSE 88; O2SAT 99
== END 2025-06-25 16:04 | disposition home or self-care (01) ==
PROVIDERS: Emergency Provider Emergency Medicine; PCP Family Medicine
DX: R10.9 Unspecified abdominal pain (principal); R19.7 Diarrhea, unspecified; K59.09 Other constipation; R06.02 Shortness of breath; M79.89 Other specified soft tissue disorders
CPT/HCPCS: 36415; 71045; 76856; 80053; 81003; 81015; 81025; 83605; 83690; 84145; 85025; 85610; 85730; 87040; 87086; 96361; 96374; 96375; 99284; J1171; J1885; J2405; J7030